=== PATIENT | female | born 1945 | race Caucasian/White ===

== ENCOUNTER 2022-12-05 07:50 | Outpatient (OUT) | payer MEDICARE, SELFPAY ==
--- NOTE | 2022-12-05 07:53 | MM_ITS ---
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 MG MAMM SCREEN 3D CANDACE CAD, 10/26/2020. MG MAMM SCREEN CANDACE W CAD, 10/15/2019. MG MAMM CANDACE SCRN W CAD DIG, 03/20/2014. INDICATIONS: Screening Calculator Name NCI Breast Cancer Risk Assessment Tool 5 Year Breast Cancer Risk 1.60% Lifetime Breast Cancer Risk 3.40% Personal Breast Cancer No Personal Ovarian Cancer No Treatments None Family Cancers None LOCATION: [facility] BREAST COMPOSITION: Almost entirely fatty. FINDINGS: DIAGNOSTIC CATEGORY 1--NEGATIVE. RIGHT BREAST: No significant suspicious finding. No significant change has occurred. LEFT BREAST: No significant suspicious finding. No significant change has occurred. RECOMMENDATIONS: ROUTINE MAMMOGRAM AND CLINICAL EVALUATION IN 12 MONTHS. PLEASE NOTE: A NORMAL MAMMOGRAM DOES NOT EXCLUDE THE POSSIBILITY OF BREAST CANCER. A CLINICALLY SUSPICIOUS PALPABLE LUMP SHOULD BE BIOPSIED. Dictated by: Reed Davila M.D. on 12/07/2022 at 08:35 Approved by: Reed Davila M.D. on 12/07/2022 at 08:40
== END 2022-12-05 07:51 | disposition home or self-care (01) ==
LOC: MAMMO 07:50
PROVIDERS: PCP Nurse Practitioner; Visit Provider Nurse Practitioner
DX: Z12.31 Encounter for screening mammogram for malignant neoplasm of breast (principal)
CPT/HCPCS: 77063; 77067

== ENCOUNTER 2023-02-08 21:00 | Outpatient (OUT) | payer MEDICARE, SELFPAY | END 2023-02-08 21:01 | disposition home or self-care (01) | LOC: SLEEP 21:01 | PROVIDERS: PCP Nurse Practitioner; Visit Provider Nurse Practitioner | DX: G47.33 Obstructive sleep apnea (adult) (pediatric) (principal) | CPT/HCPCS: 95811 ==

== ENCOUNTER 2023-02-27 08:44 | Outpatient (OUT) | payer MEDICARE, SELFPAY ==
[2023-02-27 09:15] LABS: Estimated GFR (African America >60 (>=60); Estimated GFR (Non-African Ame >60 (>=60)
== END 2023-02-27 08:45 | disposition home or self-care (01) ==
LOC: LAB 08:45
PROVIDERS: PCP Nurse Practitioner; Visit Provider Nurse Practitioner
DX: M81.0 Age-related osteoporosis without current pathological fracture (principal)
CPT/HCPCS: 36415; 82310; 82565

== ENCOUNTER 2023-03-06 07:40 | Outpatient (RCR) | payer MEDICARE, SELFPAY ==
[2023-03-06] MEDS: ZOLEDRONIC ACID/MANNITOL-WATER 5 MG/100 ML BOTTLE 200 MG IV (09:42)
[2023-03-06 09:47] VITALS: BP 198/67; PULSE 60; RESP 16; TEMP 36; O2SAT 98
--- NOTE | 2023-03-06 09:50 | PC.NURSE ---
0930: Pt. to [facility] amb. per self. Seated in recliner, vss. #22 gauge IV to right forearm on first attempt. Flushes easily with good blood return. Pt. tolerates without c/o. IV Reclast initiated. Given water and warm blanket.
--- NOTE | 2023-03-06 10:33 | PC.NURSE ---
1012: IV Reclast completed without s&s of transfusion reaction. IV d/c'd, pressure to site. Pt. d/c'd amb. to home.
== END 2023-03-30 23:59 | disposition home or self-care (01) ==
LOC: INF 07:40
PROVIDERS: PCP Nurse Practitioner; Visit Provider Nurse Practitioner
DX: M81.0 Age-related osteoporosis without current pathological fracture (principal)
CPT/HCPCS: 96365; J3489

== ENCOUNTER 2023-09-12 09:09 | Outpatient (OUT) | payer MEDICARE, SELFPAY ==
[2023-09-12 09:24] LABS: Basophils Absolute Auto 0.1 10^3/uL (0.0-0.1); Basophils Percent Auto 1.4 % (0.2-2.0); Eosinophils Absolute Auto 0.1 10^3/uL (0.0-0.7); Eosinophils Percent Auto 2.2 % (0.9-7.0); Hematocrit 41.5 % (36.0-48.0); Hemoglobin 13.4 g/dL (12.0-16.0); Immature Granulocytes Abs Auto 0.02 10^3/uL (0.00-0.03); Immature Granulocytes Pct Auto 0.4 % (0.0-0.5); Lymphocytes Absolute Auto 1.3 10^3/uL (1.2-3.8); Lymphocytes Percent Auto 27.2 % (20.5-60.0); Mean Corpuscular HGB Conc 32.3 g/dL (29.9-35.2); Mean Corpuscular Hemoglobin 29.2 pg (26.7-34.0); Mean Corpuscular Volume 90.4 fL (81.0-99.0); Mean Platelet Volume 9.1 fL (9.5-13.5); Monocytes Absolute Auto 0.5 10^3/uL (0.3-0.8); Neutrophils Absolute Auto 2.9 10^3/uL (1.4-6.5); Neutrophils Percent Auto 57.8 % (43.0-75.0); Platelet Count 211 10^3/uL (150-450); Red Blood Count 4.59 10^6/uL (4.20-5.40); White Blood Count 4.9 10^3/uL (4.0-11.0)
[2023-09-12 09:26] LABS: Bilirubin Urine NEGATIVE (NEGATIVE); Blood Urine NEGATIVE (NEGATIVE); Clarity Urine CLEAR (CLEAR); Color Urine LT. YELLOW (YELLOW); Glucose Urine UA NEGATIVE (NEGATIVE); Ketones Urine NEGATIVE (NEGATIVE); Leukocyte Esterase Urine SMALL (NEGATIVE); Nitrite Urine NEGATIVE (NEGATIVE); Protein Urine NEGATIVE (NEG/TRACE); Urobilinogen Urine 0.2 EU/dL (0.2-1.0); pH Urine 7.5 (5.0-9.0)
--- OUTSIDE RECORDS SUMMARY | 2023-09-12 09:31 | XMS_ITS | CCD ---
Author Organization [facility] Care Team Providers Care Credit Card Clerk Name Role Phone Beatricekes, BASIL Pacheco Attending Unavai lable [facility] BRA[facility]ING MACHINE TENDER-[employer], Alisha Benítez Primary Care Unava ilable Ickes, BASIL Pacheco Attending Unavai lable Aicholz BRAZING MACHINE TENDER-[employer], Alisha Benítez Primary Care Unava ilable Ickes, BASIL Pacheco Attending [facility]avai [facility]able [facility]ACHINE TENDER-[employer], Alisha Benítez Primary Care Unava ilable Ickes, BASIL Pacheco Attending Unavai lable Aichholz BRAZING MACHINE TENDER-[employer], Alisha Benítez Primary Care Unava ilable Ickes, BASIL Pacheco Attending Unavai lable Aicholz BRAZING MACHINE TENDER-[employer], Alisha Benítez Primary Care Unava ilable Ickes, BASIL Pacheco Attending Unavai lable [facility] BRAZING MACHINE TENDER-[employer], Alisha Benítez Primary Care Unava ilable Ickes, BASIL Pacheco Attending Unavai lable Aicholz BRAZING MACHINE TENDER-[employer], Alisha Benítez Primary Care Unava ilable Ickes, BASIL Pacheco Attending Unavai lable [facility] BRAZING MACHINE TENDER-[employer], Alisha Benítez Primary Care Unava ilMD Facundo Baeza Attending [facility]INE TENDER-[employer], Alisha Benítez Primary Care Unava ilable Ickes, BASIL Pacheco Attending Unavai lable [facility] BRAZING MACHINE TENDER-[employer], Alisha Benítez Primary Care Unava ilable [facility] B[facility] MACHINE TENDER-[employer] AND [employer]ATER, Alisha Benítez Consulting Unava ilMD Facundo Baeza Attending [facility], Alisha Jackelin Primary Care Unava ilable A[facility]hol[facility] BRAZING MACHINE TENDER-[employer], Alisha Jackelin Consulting Unava ilMD Radha Morejon Consulting Unavailable MD Facundo Branham Attending Unavailable A[facility]holz BRAZING MACHINE TENDER-[employer], Alisha Jackelin Primary Care Unava ilable Ickes, BASIL Pacheco Attending Unavai lable A[facility]holz BRAZING MACHINE TENDER-[employer], Alisha Jackelin Consulting Unava ilable A[facility]holz BRAZING MACHINE TENDER-[employer], Alisha Jackelin Primary Care Unava ilable Ickes, BASIL Pacheco Attending Unavai lable [facility] BRAZING MACHINE TENDER-[employer], Alisha Jackelin Primary Care Unava ilable Beatricekes, BASIL Pacheco Attending Unavai lable [facility] BRAZING MACHINE TENDER-[facility], Alisha Jackelin Primary Care Unava ilable ELIESER QUIROS Admitting Unavailable ELIESER QUIROS Attending Unavailable ELIESER QUIROS Referring Unavailable AICHHOLZ, GRINDER AND PLATER ALISHA Admitting Unavailable AICHHOLZ, GRINDER AND PLATER ALISHA Attending Unavailable AICHHOLZ, GRINDER AND PLATER ALISHA Consulting Unavailable AICHHOLZ, GRINDER AND PLATER ALISHA Primary Care Unavailable Reed Davila Consulting Unavailable AICHHOLZ, GRINDER AND PLATER ALISHA Admitting Unavailable AICHHOLZ, GRINDER AND PLATER ALISHA Attending Unavailable AICHHOLZ, GRINDER AND PLATER ALISHA Consulting Unavailable AICHHOLZ, GRINDER AND PLATER ALISHA Primary Care Unavailable Reed Davila Consulting Unavailable AICHHOLZ, GRINDER AND PLATER ALISHA Admitting Unavailable AICHHOLZ, GRINDER AND PLATER ALISHA Attending Unavailable AICHHOLZ, GRINDER AND PLATER ALISHA Consulting Unavailable AICHHOLZ, GRINDER AND PLATER ALISHA Primary Care Unavailable AICHHOLZ, GRINDER AND PLATER ALISHA Admitting Unavailable AICHHOLZ, GRINDER AND PLATER ALISHA Attending Unavailable AICHHOLZ, GRINDER AND PLATER ALISHA Consulting Unavailable AICHHOLZ, GRINDER AND PLATER ALISHA Primary Care Unavailable AICHHOLZ, ALISHA J Referring Unavailable AICHHOLZ, ALISHA J Primary Care Unavailable Aichholz GRINDER AND PLATER, Alisha Primary Care Provider [phone] ALISHA ERNST Primary Care Unavailable EUNICE LUNA Referring Unavailable EUNICE LUNA Attending Unavailable Hernando GENAO, Clarence Waite Primary Care Provider Klever LIME SLAKER, Alisha Unavailable ALISHA ERNST Attending Unavailable TARA JIMÉNEZ Attending Unavailable TARA JIMÉNEZ Referring Unavailable DAJA VARGAS Attending Unavailable TARA JIMÉNEZ Referring Unavailable BELKYS VINCENT Attending Unavailable TARA JIMÉNEZ Referring Unavailable BELKYS VINCENT Attending Unavailable TARA JIMÉNEZ Referring Unavailable BELKYS VINCENT Attending Unavailable TARA JIMÉNEZ Referring Unavailable BELKYS VINCENT Attending Unavailable TARA JIMÉNEZ Referring Unavailable TARA JIMÉNEZ Attending Unavailable TARA JIMÉNEZ Referring Unavailable JR. GONSALEZ GEORGE C Attending Unavaila ALISHA Hale Attending Unavailable Allergies Allergy Classification Reported Allergen(s) Allergy Type Date of Onset Reaction(s) Facility (4 sources) Lisinopril; Translations: [lisinopril] Drug Allergy 11-21-2022 [facility] Medications Current Medications Medication Drug Class(es) Dates Sig (Normalized) Sig (Original) amLODIPine 2.5 mg oral tablet (1 source) Dihydropyridine Calcium Channel Miriam take 1 tablet by mouth once daily amLODIPine 2.5 MG tablet Take 1 tablet by mouth daily. 0 Active AMLODIPINE BENZOATE PO (2 sources) AMLODIPINE BENZOATE PO amLODIPine Benzoate 0 Active brimonidine tartrate 2 mg/ml ophthalmic solution (1 source) alpha-Adrenergic Agonist Start: 03-27-2023 take 1 drop(s) into the eye(s) every twelve hours Brimonidine 0.2 % Solution INSTILL 1 DROP INTO BOTH EYES EVERY 12 HOURS 0 03/27/2023 Active Calcium Carb-Cholecalcifer ol (CALCIUM 600 + D PO) (1 source) take 1 tablet by mouth once daily Calcium Carb-Cholecalcife rol (CALCIUM 600 + D PO) Take 1 tablet by mouth daily. 0 Active dorzolamide 20 mg/ml ophthalmic solution (3 sources) Carbonic Anhydrase Inhibitor dorzolamide (Trusopt) 2 % ophthalmic solution Dorzolamide HCl 0 Active latanoprost 0.05 mg/ml ophthalmic solution (3 sources) Prostaglandin Analog Start: 09-02-2022 take 1 drop(s) into the eye(s) once daily at bedtime latanoprost (Xalatan) 0.005 % ophthalmic solution INSTILL 1 DROP IN EACH EYE EVERY DAY AT BEDTIME 0 09/02/2022 Active losartan potassium 100 mg oral tablet (3 sources) Angiotensin 2 Receptor Miriam take 1 tablet by mouth in the morning losartan (Cozaar) 100 MG tablet Take 100 mg by mouth in the morning. 0 Active Magnesium (1 source) take 1 tablet by mouth once daily Magnesium 400 MG tablet Take 1 tablet by mouth daily. 0 Active Problems Active Problems Problem Classification Problem Date Documented Date Episodic/Chronic Administrative/social admission (1 source) Follow-up status; Translations: [Person consulting for explanation of examination or test findings] 05-19-2023 Episodic Cardiac dysrhythmias (4 sources) Bradycardia; Translations: [Bradycardia, unspecified] Onset: 06-12-2023 06-12-2023 Episodic Disorders of lipid metabolism (4 sources) Hyperlipidemia, unspecified; Translations: [HYPERLIPIDEMIA UNSPECIFIED] Onset: 09-05-2022 Chronic Essential hypertension (5 sources) Essential (primary) hypertension; Translations: [Essential hypertension] Onset: 09-08-2022 06-12-2023 Chronic Osteoporosis (5 sources) Age-related osteoporosis without current pathological fracture; Translations: [AGE-REL OSTEOPOR W/O CURR PATH FX] Onset: 03-03-2022 Chronic Other acquired deformities (2 sources) Spondylolisthesis; Translations: [Spondylolisthesis, site unspecified] Onset: 06-12-2023 06-12-2023 Episodic Other fractures (1 source) Unspecified fracture of fourth lumbar vertebra, initial encounter for closed fracture; Translations: [Unspecified fracture of fourth lumbar vertebra, initial encounter for closed fracture] Onset: 02-23-2022 Episodic Other non-traumatic joint disorders (4 sources) Pain in right knee; Translations: [Pain in joint, lower leg] Onset: 06-12-2023 06-12-2023 Episodic Other non-traumatic joint disorders (4 sources) Chronic pain of right upper limb; Translations: [Pain in right shoulder] Onset: 06-12-2023 06-12-2023 Episodic Other nutritional; endocrine; and metabolic disorders (1 source) Obese class I; Translations: [Obesity, unspecified] Onset: 05-19-2023 05-19-2023 Chronic Other nutritional; endocrine; and metabolic disorders (4 sources) Body mass index 30+ - obesity; Translations: [Body mass index (BMI) 32.0-32.9, adult] Onset: 06-12-2023 06-12-2023 Chronic Other skin disorders (4 sources) Eruption; Translations: [Rash and other nonspecific skin eruption] Onset: 06-12-2023 06-12-2023 Episodic Residual codes; unclassified (1 source) Obstructive sleep apnea (adult) (pediatric); Translations: [Obstructive sleep apnea (adult) (pediatric)] Onset: 04-03-2023 Chronic Residual codes; unclassified (1 source) Obstructive sleep apnea syndrome; Translations: [Obstructive sleep apnea (adult) (pediatric)] 05-19-2023 Chronic Residual codes; unclassified (1 source) Hypoxia; 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] 05-19-2023 Chronic Residual codes; unclassified (2 sources) Sleep apnea; Translations: [Sleep Apnea] Onset: 05-19-2023 Chronic Unclassified (2 sources) New Patient; Translations: [New Patient] Onset: 05-19-2023 Past or Other Problems Problem Classification Problem Date Documented Date Episodic/Chronic Mycoses (2 sources) Onychomycosis; Translations: [Tinea unguium] Onset: 11-21-2022 11-21-2022 Episodic Other screening for suspected conditions (not mental disorders or infectious disease) (8 sources) Encounter for screening mammogram for malignant neoplasm of breast; Translations: [Abnormal electrocardiogram [ECG] [EKG]] Onset: 10-11-2021 Episodic Pathological fracture (3 sources) Age-related osteoporosis with current pathological fracture, vertebra(e), initial encounter for fracture; Translations: [Pathological fracture of vertebra due to osteoporosis] Onset: 02-23-2022 06-12-2023 Episodic Results Test Name Value Interpretation Reference Range Facility MR SHOULDER RIGHT WO IV CONT [facility] 07-20-2023 MR SHOULDER RIGHT WO IV CONTRAST EXAM: MR SHOULDER RIGHT WO IV CONTRAST HISTORY: Shoulder pain and decreased range of motion TECHNIQUE: Multiplanar multisequence MRI of the shoulder was performed Without contrast. COMPARISON: Shoulder radiographs June 19, 2023 FINDINGS: Moderate degenerative changes of the acromioclavicular joint with small undersurface osteophyte formation. Lateral downsloping of the acromion. The acromion is curved. Coracoclavicular ligament intact. Small amount of subacromial/subdeltoid bursal fluid. Full-thickness tear of distal anterior and mid fibers of supraspinatus tendon at the footprint with retraction of torn fibers up to approximately 3.2 cm. Posterior fibers appear to remain intact. Low-grade intrasubstance tear along the myotendinous junction of infraspinatus superimposed on moderate tendinosis. Moderate subscapularis tendinosis. Teres minor tendon is intact. Mild atrophy and fatty infiltration of infraspinatus muscle. No atrophy or fatty infiltration of the supraspinatus, subscapularis, or teres minor muscles. High-grade partial-thickness tearing of the intra-articular and proximal extra-articular long head biceps tendon. The biceps tendon resides within the bicipital groove. Diffuse labral degeneration without definitive tear. There are a few tiny partial-thickness cartilage defects of the glenoid. Small glenohumeral joint effusion with areas of synovitis and/or tiny loose bodies within the axillary recess. IMPRESSION: Full-thickness tear of distal anterior and mid fibers of supraspinatus tendon at the footprint. Low-grade intrasubstance tear along the myotendinous junction of infraspinatus superimposed on moderate tendinosis. Mild atrophy and fatty infiltration of infraspinatus muscle. Moderate subscapularis tendinosis. Tearing of the long head biceps tendon. ELECTRONICALLY SIGNED BY: Facundo Lowe, DO Normal Not Available CBC AUTO DIFFon 09-05-2022 BASO # 0.1 103/ul Normal 0.0-0.1 [facility] Comment on above: Performed By: #### C BC #### [facility] [address] [address] [address] Sheila Alford Basophils/100 WBC (Bld) 0.9 % Normal 0.2-2.0 [facility] Comment on above: Performed By: #### C BC #### [facility] [address] [address] [address] Sheila Alford EO # 0.1 103/ul Normal 0.0-0.7 [facility] Comment on above: Performed By: #### C BC #### [facility] [address] [address] [address] Sheila Alford Eosinophils/100 WBC (Bld) 1.5 % Normal 0.9-7.0 [facility] Comment on above: Performed By: #### C BC #### [facility] [address] [place] [address] Dr. Sheila Alford Erythrocyte distribution width (RBC) [Ratio] 13.2 % Normal 11.0-15.0 [facility] Comment on above: Performed By: #### C BC #### [facility] [address] [place] [address] Dr. Sheila Alford Hematocrit (Bld) [Volume fraction] 41.4 % Normal 36.0-48.0 [facility] Comment on above: Performed By: #### C BC #### [facility] [address] [place] [address] Dr. Sheila Alford Hemoglobin (Bld) [Mass/Vol] 13.2 g/dL Normal 12.0-16.0 [facility] Comment on above: Performed By: #### C BC #### [facility] [address] [place] [address] Dr. Sheila Alford IG # 0.01 10e3/ul Normal 0.00-0.03 [facility] Comment on above: Performed By: #### C BC #### [facility] [address] [place] [address] Dr. Sheila Alford IG % 0.2 % Normal 0.0-0.5 [facility] Comment on above: Performed By: #### C BC #### [facility] [address] [place] [address] Dr. Sheila Alford LYMPH # 1.3 103/ul Normal 1.2-3.8 [facility] Comment on above: Performed By: #### C BC #### [facility] [address] [place] [address] Dr. Sheila Alford Lymphocytes/100 WBC (Bld) 24.4 % Normal 20.5-60.0 [facility] Comment on above: Performed By: #### C BC #### [facility] [address] [place] [address] Dr. Sheila Alford MANUAL DIFF REQ NO Normal [facility] Comment on above: Performed By: #### C BC #### [facility] [address] [address] [address] Sheila Alford MCH (RBC) [Entitic mass] 29.1 pg Normal 26.7-34.0 [facility] Comment on above: Performed By: #### C BC #### [facility] [address] [place] [address] Dr. Sheila Alford MCHC (RBC) [Mass/Vol] 31.9 g/dL Normal 29.9-35.2 [facility] Comment on above: Performed By: #### C BC #### [facility] [address] [place] [address] Dr. Sheila Alford MCV (RBC) [Entitic vol] 91.2 fL Normal 81.0-99.0 [facility] Comment on above: Performed By: #### C BC #### [facility] [address] [place] [address] Dr. Sheila Alford MONO # 0.5 103/ul Normal 0.3-0.8 [facility] Comment on above: Performed By: #### C BC #### [facility] [address] [place] [address] Dr. Sheila Alford Monocytes/100 WBC (Bld) 9.1 % Normal 1.7-12.0 [facility] Comment on above: Performed By: #### C BC #### [facility] [address] [place] [address] Dr. Sheila Alford NEUT # 3.4 103/ul Normal 1.4-6.5 [facility] Comment on above: Performed By: #### C BC #### [facility] [address] [place] [address] Dr. Sheila Alford Neutrophils/100 WBC (Bld) 63.9 % Normal 43.0-75.0 [facility] Comment on above: Performed By: #### C BC #### [facility] [address] [place] [address] Dr. Sheila Alford Platelet mean volume (Bld) [Entitic vol] 9.4 fL Critically low 9.5-13.5 [facility] Comment on above: Performed By: #### C BC #### [facility] [address] [address] [address] Sheila Alford PLT 219 103/ul Normal 150-450 [facility] Comment on above: Performed By: #### C BC #### [facility] [address] [address] [address] Sheila Alford RBC 4.54 106/ul Normal 4.20-5.40 [facility] Comment on above: Performed By: #### C BC #### [facility] [address] [address] [address] Sheila Alford WBC 5.4 103/ul Normal 4.0-11.0 [facility] Comment on above: Performed By: #### C BC #### [facility] [address] [place] [address] Dr. Sheila Alford LIPID PROFILEon 09-05-2022 CHOL-HDL RATIO NORM SEE BELOW Normal [facility] Comment on above: Result Comment: 3.3 - 4.4 LOW RISK 4.4 - 7.1 AVERAGE RISK 7.1 - 11.0 MODERATE RISK >11.0 HIGH RISK Performed By: #### C MP, LIPID #### [facility] [address] [place] [address] Dr. Sheila Alford Cholesterol [Mass/Vol] 261 mg/dL Critically high <=200 [facility] Comment on above: Performed By: #### C MP, LIPID #### [facility] [address] [place] [address] Dr. Sheila Alford Cholesterol in HDL [Mass/Vol] 84 mg/dL Critically high 40-60 [facility] Comment on above: Performed By: #### C MP, LIPID #### [facility] [address] [place] [address] Dr. Sheila Alford Cholesterol in LDL [Mass/Vol] 157.8 mg/dL Normal [facility] Comment on above: Performed By: #### C MP, LIPID #### [facility] [address] [place] [address] Dr. Sheila Alford Cholesterol.total/ Cholesterol in HDL [Mass ratio] 3.1 {ratio} Normal [facility] Comment on above: Performed By: #### C MP, LIPID #### [facility] [address] [place] [address] Dr. Sheila Alford HDL NORMAL > or = 60 mg/dl - LO W CARDIOVASCULAR RISK <40 mg/dl - HIGH CARDIOVASCULAR RISK Normal [facility] Comment on above: Performed By: #### C MP, LIPID #### [facility] [address] [place] [address] Dr. Sheila Alford LDL CALC NORMAL SEE BELOW Normal [facility] Comment on above: Result Comment: <100 mg/dl OPTIMAL 100 - 129 mg/dl NEAR OR ABOVE OPTIMAL 130 - 159 mg/dl BORDERLINE HIGH 160 - 189 mg/dl HIGH >190 mg/dl VERY HIGH Performed By: #### C MP, LIPID #### [facility] [address] [place] [address] Dr. Sheila Alford Triglyceride [Mass/Vol] 96 mg/dL Normal <=150 [facility] Comment on above: Performed By: #### C MP, LIPID #### [facility] [address] [place] [address] Dr. Sheila Alford VLDL CALC 19.2 mg/dL Normal [facility] Comment on above: Performed By: #### C MP, LIPID #### [facility] [address] [place] [address] Dr. Sheila Alford PROF 14(COMP METB)on 023 Albumin [Mass/Vol] 3.6 g/dL Normal 3.4-5.0 [facility] Comment on above: Performed By: #### C MP, LIPID #### [facility] [address] [place] [address] Dr. Sheila Alford Albumin/Globulin [Mass ratio] 0.9 {ratio} Normal [facility] Comment on above: Performed By: #### C MP, LIPID #### [facility] [address] [place] [address] Dr. Sheila Alford ALP [Catalytic activity/Vol] 46 U/L Normal 46-116 [facility] Comment on above: Performed By: #### C MP, LIPID #### [facility] [address] [place] [address] Dr. Sheila Alford ALT [Catalytic activity/Vol] 20 U/L Normal 14-59 [facility] Comment on above: Performed By: #### C MP, LIPID #### [facility] [address] [address] [address] Sheila Alford Anion gap [Moles/Vol] 10.8 mmol/L Normal [facility] Comment on above: Performed By: #### C MP, LIPID #### [facility] [address] [address] [address] Sheila Alford AST [Catalytic activity/Vol] 18 U/L Normal 15-37 [facility] Comment on above: Performed By: #### C MP, LIPID #### [facility] [address] [address] [address] Sheila Alford Bilirubin [Mass/Vol] 0.4 mg/dL Normal 0.2-1.0 [facility] Comment on above: Performed By: #### C MP, LIPID #### [facility] [address] [place] [address] Dr. Sheila Alford Calcium [Mass/Vol] 9.3 mg/dL Normal 8.5-10.1 [facility] Comment on above: Performed By: #### C MP, LIPID #### [facility] [address] [place] [address] Dr. Sheila Alford Chloride [Moles/Vol] 108 mmol/L Critically high 98-107 [facility] Comment on above: Performed By: #### C MP, LIPID #### [facility] [address] [place] [address] Dr. Sheila Alford CO2 [Moles/Vol] 29.5 mmol/L Normal 21.0-32.0 [facility] Comment on above: Performed By: #### C MP, LIPID #### [facility] [address] [address] [address] Sheila Alford Creatinine [Mass/Vol] 0.54 mg/dL Critically low 0.55-1.02 [facility] Comment on above: Performed By: #### C MP, LIPID #### [facility] [address] [address] [address] Sheila Alford EGFR-AF CITIZEN OF [place] >60 Normal >=60 [facility] Comment on above: Performed By: #### C MP, LIPID #### [facility] [address] [address] [address] Sheila Alford EGFR-NON AF CITIZEN OF [place] >60 Normal >=60 [facility] Comment on above: Performed By: #### C MP, LIPID #### [facility] [address] [address] [address] Sheila Alford Globulin (S) [Mass/Vol] 4.1 g/dL Normal [facility] Comment on above: Performed By: #### C MP, LIPID #### [facility] [address] [place] [address] Dr. Sheila Alford Glucose [Mass/Vol] 102 mg/dL Normal 74-106 [facility] Comment on above: Performed By: #### C MP, LIPID #### [facility] [address] [address] [address] Sheila Alford Potassium [Moles/Vol] 4.3 mmol/L Normal 3.5-5.1 [facility] Comment on above: Performed By: #### C MP, LIPID #### [facility] [address] [place] [address] Dr. Sheila Alford Protein [Mass/Vol] 7.7 g/dL Normal 6.4-8.2 [facility] Comment on above: Performed By: #### C MP, LIPID #### [facility] [address] [address] [address] Sheila Alford Sodium [Moles/Vol] 144 mmol/L Normal 136-145 [facility] Comment on above: Performed By: #### C MP, LIPID #### [facility] [address] [place] [address] Dr. Sheila Alford Urea nitrogen [Mass/Vol] 17.0 mg/dL Normal 7.0-18.0 [facility] Comment on above: Performed By: #### C MP, LIPID #### [facility] [address] [place] [address] Dr. Sheila Alford Urea nitrogen/Creatinin e [Mass ratio] 31.5 mg/mg Normal [facility] Comment on above: Performed By: #### C MP, LIPID #### [facility] [address] [place] [address] Dr. Sheila Alford UA RANDOM W/MICROSCOPICon BACTERIA TRACE Abnormal NONE SEEN [facility] Comment on above: Performed By: #### U AMIC #### [facility] [address] [address] [address] Sheila Alford Bilirubin Ql (U) Negative Normal NEGATIVE [facility] Comment on above: Performed By: #### U AMIC #### [facility] [address] [place] [address] Dr. Sheila Alford CAST NONE SEEN Normal NONE SEEN [facility] Comment on above: Performed By: #### U AMIC #### [facility] [address] [place] [address] Dr. Sheila Alford Clarity (U) CLEAR Normal CLEAR [facility] Comment on above: Performed By: #### U AMIC #### [facility] [address] [place] [address] Dr. Sheila Alford Color (U) LT. YELLOW Normal YELLOW [facility] Comment on above: Performed By: #### U AMIC #### [facility] [address] [place] [address] Dr. Sheila Alford Crystals LM Nom (Urine sed) NONE SEEN Normal NONE SEEN [facility] Comment on above: Performed By: #### U AMIC #### [facility] [address] [place] [address] Dr. Sheila Alford Epithelial cells LM Ql (Urine sed) RARE Normal NONE SEEN /RARE [facility] [facility] Comment on above: Performed By: #### U AMIC #### [facility] [address] [place] [address] Dr. Sheila Alford Glucose Ql (U) Negative Normal NEGATIVE [facility] Comment on above: Performed By: #### U AMIC #### [facility] [address] [place] [address] Dr. Sheila Alford Hemoglobin Ql (U) Negative Normal NEGATIVE [facility] Comment on above: Performed By: #### U AMIC #### [facility] [address] [address] [address] Sheila Alford Ketones Ql (U) Negative Normal NEGATIVE [facility] Comment on above: Performed By: #### U AMIC #### [facility] [address] [address] [address] Sheila Alford LEUKOCYTES Negative Normal NEGATIVE [facility] Comment on above: Performed By: #### U AMIC #### [facility] [address] [address] [address] Sheila Alford MUCOUS NONE SEEN Normal NONE SEEN [facility] Comment on above: Performed By: #### U AMIC #### [facility] [address] [place] [address] Dr. Sheila Alford Nitrite Ql (U) Negative Normal NEGATIVE [facility] Comment on above: Performed By: #### U AMIC #### [facility] [address] [place] [address] Dr. Sheila Alford pH (U) 7.0 [pH] Normal 5-9 [facility] Comment on above: Performed By: #### U AMIC #### [facility] [address] [place] [address] Dr. Sheila Alford RBC 0-2 Normal 0-2 [facility] Comment on above: Performed By: #### U AMIC #### [facility] [address] [place] [address] Dr. Sheila Alford SPEC GRAVITY 1.015 Normal 1.005-<=1.025 [facility] Comment on above: Performed By: #### U AMIC #### [facility] [address] [address] [address] Sheila Alford UA PROTEIN Negative Normal NEGATIVE/ TRACE [facility] Comment on above: Performed By: #### U AMIC #### [facility] [address] [place] [address] Dr. Sheila Alford Urobilinogen Qn (U) 0.2 {Ciera'U}/dL Normal 0.2 - 1.0 [facility] Comment on above: Performed By: #### U AMIC #### [facility] [address] [place] [address] Dr. Sheila Alford WBC NONE SEEN Normal NONE SEEN [facility] Comment on above: Performed By: #### U AMIC #### [facility] [address] [place] [address] Dr. Sheila Alford VITAMIN D 25 OHon 09-05-2022 VIT D 25-OH 57.2 ng/mL Normal [facility] Comment on above: Performed By: #### V ITAD #### [facility] [address] [address] [address] Sheila Alford VIT D RANGES SEE BELOW Normal [facility] Comment on above: Result Comment: <20 ng/mL Vit D deficient 20 - <30 ng/mL Vit D insufficient 30 - 100 ng/mL Vit D sufficient >100 ng/mL Potential Toxicity Performed By: #### V ITAD #### [facility] [address] [place] [address] Dr. Sheila lAford PROF CHEM 8 (BAS METB)on Anion gap [Moles/Vol] 6.4 mmol/L Normal [facility] Comment on above: Performed By: #### B MP #### [facility] [address] [place] [address] Dr. Sheila Alford Calcium [Mass/Vol] 9.3 mg/dL Normal 8.5-10.1 [facility] Comment on above: Performed By: #### B MP #### [facility] [address] [place] [address] Dr. Sheila Alford Chloride [Moles/Vol] 105 mmol/L Normal 98-107 [facility] Comment on above: Performed By: #### B MP #### [facility] [address] [place] [address] Dr. Sheila Alford CO2 [Moles/Vol] 31.1 mmol/L Normal 21.0-32.0 [facility] Comment on above: Performed By: #### B MP #### [facility] [address] [address] [address] Sheila Alford Creatinine [Mass/Vol] 0.57 mg/dL Normal 0.55-1.02 [facility] Comment on above: Performed By: #### B MP #### [facility] [address] [place] [address] Dr. Sheila Alford EGFR-AF CITIZEN OF [place] >60 Normal >=60 [facility] Comment on above: Performed By: #### B MP #### [facility] [address] [address] [address] Sheila Alford EGFR-NON AF CITIZEN OF [place] >60 Normal >=60 [facility] Comment on above: Performed By: #### B MP #### [facility] [address] [address] [address] Sheila Alford Glucose [Mass/Vol] 90 mg/dL Normal 74-106 [facility] Comment on above: Performed By: #### B MP #### [facility] [address] [place] [address] Dr. Sheila Alford Potassium [Moles/Vol] 4.5 mmol/L Normal 3.5-5.1 [facility] Comment on above: Performed By: #### B MP #### [facility] [address] [place] [address] Dr. Sheila Alford Sodium [Moles/Vol] 138 mmol/L Normal 136-145 [facility] Comment on above: Performed By: #### B MP #### [facility] [address] [place] [address] Dr. Sheila Alford Urea nitrogen [Mass/Vol] 16.0 mg/dL Normal 7.0-18.0 [facility] Comment on above: Performed By: #### B MP #### [facility] [address] [place] [address] Dr. Sheila Alford Urea nitrogen/Creatinin e [Mass ratio] 28.1 mg/mg Normal [facility] Comment on above: Performed By: #### B MP #### [facility] [address] [place] [address] Dr. Sheila Alford SURGICALon 02-23-2022 SURGICAL [facility] CHRISTIE WATERMAN [id number] Assoc. Page 1 of [address] [place] [address] PROC: 02/23/2022 [facility] RECV: 02/24/2022 [address] RPTD: 02/25/2022 [place] [address] LOC: ALBERTO ACCT: [id number] SEX: F : 1945 AGE: 76 Y PATHOLOGY REPORT ATTN: NON-STAFF PHYSICIAN REQ: ELIESER QUIROS Clinical Information: CRUSH FRACTURE OF VERTEBRA DUE TO OSTEOPOROSIS INITIAL ENCOUNTER FINAL DIAGNOSIS: Bone, L4 vertebral body, biopsy: Findings consistent with fracture site. Specimen: BONE, L4 VERTEBRAL BODY Gross Examination: The container is labeled Christie Waterman, L4 vertebral body. Received in formalin are three bone fragments, vary in size from 0.2 cm up to 0.8 cm in length. 1 ns. MTK/DKR:v_alppl_i Microscopic Examination: Sections demonstrate portions of fragmented and hemorrhagic bone with unremarkable appearing marrow elements. There is a small amount of fibrosis. An immunoperoxidase stain* for pancytokeratin is performed with adequate controls to exclude a subtle infiltrative process. There is no evidence of malignancy. *This test was developed and its performance characteristics determined by [facility]. It has not been cleared or approved by the U.S. Food and Drug Administration. Pursuant to the requirements of CLIA, this laboratory has established and verified the test's accuracy and precision. Additional information about this type of test is available upon request. [id number] MIMI FERRO D.O., F.C.A.P. [facility]/ [facility] Printed on: 02/25/2022 [address] [place], [place] [address] Original print date: 02/25/2022 Normal [facility] Surgical Pathology Requeston 02-23-2022 ALEX SEE BELOW [facility] Comment on above: Order Comment: Crush fracture of vertebra due to osteoporosis, initial encounter ([facility]) [M80.08XA] Pre-op diagnosis: L4 VERTEBRAL BODY Result Comment: [facility] SARAHCHRISTIE EDWARD [id number]\X0D0A\Assoc. Page 1 of 1\X0D0A\[address]\X0D0A\[place] [address]\X0D0A\ PROC: 02/23/2022\X0D0A\[facility] RECV: 02/24/2022\X0D0A\[address] RPTD: 02/25/2022\[place]0D0A\[place] [address]\X0D0A\ LOC: WYA\X0D0A\ ACCT: [id number] SEX: F\X0D0A\ : 1945 AGE: 76 Y\X0D0A\X0D0A\ PATHOLOGY REPORT\X0D0A\ ATTN: NON-STAFF PHYSICIAN\X0D0A\ REQ: ELIESER BAHN\X0D0A\X0D0A\X0D0A\X0D0A\Clinical Information: CRUSH FRACTURE OF VERTEBRA DUE TO OSTEOPOROSIS\X0D0A\INITIAL ENCOUNTER\X0D0A\X0D0A\FINAL DIAGNOSIS:\X0D0A\Bone, L4 vertebral body, biopsy:\X0D0A\ Findings consistent with fracture site.\X0D0A\X0D0A\Specimen:\X0D0A\BONE, L4 VERTEBRAL BODY\X0D0A\X0D0A\X0D0A\Gross Examination:\X0D0A\The container is labeled [facility], L4 vertebral body.\X0D0A\Received in formalin are three bone fragments, vary in size from 0.2 cm\X0D0A\up to 0.8 cm in length. 1 ns. MTK/DKR:v_alppl_i\X0D0A\X0D0A\Microscopic Examination:\X0D0A\Sections demonstrate portions of fragmented and hemorrhagic bone with\X0D0A\unremarkable appearing marrow elements. There is a small amount of\X0D0A\fibrosis. An immunoperoxidase stain* for pancytokeratin is performed\X0D0A\with adequate controls to exclude a subtle infiltrative process. There\X0D0A\is no evidence of malignancy.\X0D0A\X0D0A\*This test was developed and its performance characteristics determined\X0D0A\by [facility]. It has not been cleared or\X0D0A\approved by the U.S. Food and Drug Administration. Pursuant to the\X0D0A\requirements of CLIA, this laboratory has established and verified the\X0D0A\test's accuracy and precision. Additional information about this type\X0D0A\of test is available upon request.\X0D0A\X0D0A\04685\X0D0A\[address]\X0D0A\X0D0A\X0D0A\ \X0D0A\ MIMI Staci FERRO, FLuizCLuizA.P.\X0D0A\X0D0A\X0D0A\[facility]/ [facility] Printed on: 02/25/2022\X0D0A\[address]\X0D0A\[place], [place] [address]\X0D0A\Original print date: 02/25/2022 Performed By: #### 1 [id number] #### [facility] See Report XR Spine Lumbosacral Complet e w/ Bendingon 02-06-2022 XR Spine Lumbosacral Complete w/ Bending CLINICAL HISTORY: Back pain. Previous surgery. EXAMINATION: Flexion, extension and neutral lateral images of the lumbar spine were obtained as well as oblique images and the frontal image. FINDINGS: Evaluation is limited by patient's body habitus and diffuse osseous demineralization. There is no significant scoliosis. There is no acute fracture or dislocation. Vertebral body heights are maintained. There is minimal anterolisthesis of L3 with respect to L4. There is endplate bone spurring and sclerosis throughout the lumbar spine. There is moderate facet arthropathy, greater in the lower lumbar levels. There is no suspicious osseous lesion. There are clips from previous cholecystectomy. There is limited range of motion. There is no dynamic subluxations. SI joints are patent. IMPRESSION: Degenerative change and limited range of motion without acute findings. Final Dictated by: Rm Soto MD Dictated DT/TM: 02/06/2022 3:53 pm Signed by: Rm Soto MD Signed (Electronic Signature): 02/06/2022 3:54 pm (If Report Is Signed, Electronically Signed in Other Vendor System) Normal [facility] Neurosurgery Office/Clinic N yon 02-01-2022 Neurosurgery Office/Clinic Note Chief Complaint Pt. being seen for back. History of Present Illness Patient is a pleasant 76-year-old female with a history of hypertension, glaucoma, impaired fasting glucose, osteopenia (DEXA 09/2020: [facility]), obesity (BMI 34), and successful right L3-4 unilateral laminotomy for bilateral decompression performed 10/22/[address] 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 Patient did well following her previous lumbar surgery with gross resolution in her preoperative pain syndrome and overall status. She completed a course of post operative physical therapy and returned to a moderate geriatric adult lifestyle without difficulty with release to follow up in our clinic on an as needed basis as of 12/24/21. Today, patient states she continued to do well until the abrupt onset onset of her current complaints approximately 4 weeks ago after leaning and reaching to change the bed sheets. She notes minimal improvement since onset. Patient currently describes midline and bilateral inferior lumbosacral pain. She states pain is intermittent and seems predictably worsened with mechanical movement. She currently denies radiation of pain into the lower extremities. She denies numbness or paresthesias in the lower extremities. Patient denies motor weakness in the lower extremities. She is not requiring assistive device with gait and denies falls. She denies bowel/bladder incontinence or saddle paresthesias. Patient denies thoracic pain or thoracic radicular symptoms. She currently rates pain at 4-5/10 on a standard pain scale. She states it generally does not interrupt sleep, but does interrupt activity level. Patient denies imaging since onset of current complaints. She states pain has been refractory to rest and home independent exercise, as well as hsax-nyf-nlevcso NSAIDs. Physical Exam Vitals & Measurements HR: 51 (Peripheral) BP: 140/76 HT: 160 cm WT: 81.3 kg WT: 81.3 kg (Dosing) BMI: 31.76 Additional Vitals BP Position/Location: Sitting, Left arm General: [Alert and oriented, well nourished, no acute distress]. Eye: [normal conjunctiva, no scleral icterus]. HENT: [normocephalic, atraumatic, oral mucosa pink and moist, dentition intact]. Neck: [Supple]. Pulmonary: [non-labored respiration]. Cardiovascular: [no edema, strong pulses with rapid capillary refill]. Skin: [Normal temperature and texture; no rashes; no digit clubbing or cyanosis]. Psychiatric: [Appropriate judgment and insight, appropriate mood and affect]. Patient is seated comfortably in a chair and is non painful appearing. Lumbar incision is well-healed without surrounding erythema, edema, induration, or tenderness to palpation. The thoracolumbar spine is without deformities. Mild myospasms are noted throughout the lumbar paravertebral musculature bilaterally without tenderness to palpation thoracolumbar spine is nontender to palpation and percussion, aside from mild tenderness to palpation in the coccygeal region which has been chronic in nature. Sacrum and bilateral sacroiliac regions are nontender to palpation. Mild restriction in range of motion with increase in pain with range of motion. No lumbar neurotension signs with negative straight leg raise, reverse straight leg raise, and femoral stretch test bilaterally. Bilateral hips are nontender to palpation with negative hip pointer signs. Bilateral calves are without swelling, erythema, warmth, or tenderness to palpation; no palpable cord and negative Homans' sign bilaterally. Muscle strength is 5 out of 5 and equal bilateral lower extremities. DTRs are 1+/4 and equal bilateral lower extremities. No myelopathic features are noted. Gait is normal without significant antalgia and with full ability to toe and heel walk with the assistance of the examiner for balance. Assessment/Plan 1. Back pain Ordered: MRI Spine Lumbar w/ + w/o Contrast XR Spine Lumbosacral Complete w/ Bending 2. Degenerative disc disease, lumbar Ordered: MRI Spine Lumbar w/ + w/o Contrast XR Spine Lumbosacral Complete w/ Bending 3. History of lumbar surgery Ordered: MRI Spine Lumbar w/ + w/o Contrast XR Spine Lumbosacral Complete w/ Bending At this time, patient who is approximately 3 1/2 months postop from successful right L3-4 unilateral laminotomy for bilateral decompression with osteoporotic bone quality encountered intraoperatively presents on behalf of complaints of recent acute onset midline and bilateral inferior lumbosacral pain without lower extremity radicular components. She reports the onset of symptoms abruptly approximately 4 weeks ago after leaning and reaching to change the bed sheets with minimal improvement since onset. Unfortunately, she has (more content not included)... Normal [facility] Provider Letteron 02-01-2022 Provider Letter (Inserted Image. Brianna ble to display) Alisha Ernst, Re: Christie Sarahashvinangelica Date of Visit: 02/01/2022 Dear Alisha Ernst, Thank you for allowing me to contribute to the care of your patient, Christie Waterman. Attached is my office note and you will find my assessment and recommendations from our encounter today. Please do not hesitate to contact me with any questions or concerns. Sincerely, Tana Bruno PA-C [facility] [place] [address] The following document(s) were included in the letter: February 01, 2022 09:26:40 EDT - (02/01/2022) Neurosurgery Office Visit Note Normal [facility] Neurosurgery Office/Clinic N oteon 12-24-2021 Neurosurgery Office/Clinic Note Chief Complaint Pt states being seen for back follow up History of Present Illness Patient is a pleasant 76-year-old female with a history of hypertension, glaucoma, impaired fasting glucose, osteopenia (DEXA 09/2020: [facility]), and obesity (BMI 34), who presents to the outpatient neurosurgical clinic today accompanied by her for continued post operative follow up. Patient is status post uncomplicated right L3-4 unilateral laminotomy for bilateral decompression performed 10/22/[address] 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 Of note, osteoporotic bone quality was encountered intraoperatively. Patient has done well since surgery with dramatic improvement in her preoperative pain syndrome and overall status. Since time of last office visit, she has completed a course of post operative physical therapy without difficulty and remains highly pleased with her status, as has her family. Patient currently denies significant low back pain. She denies gluteal pain or radicular pain into her lower extremities. She reports her only pain is that of chronic coccydynia which is not a new issue and without change. Patient denies numbness or paresthesias in the lower extremities. Patient denies motor weakness in the lower extremities and states she is ambulating significantly better than prior to surgery. She is not requiring assistive device with gait and denies falls. She denies bowel/bladder incontinence or saddle paresthesias. Patient denies incisional problems or incisional drainage. She denies headaches. She denies fevers, chills, nausea, or vomiting. She states her appetite and energy level are good. She is no longer requiring narcotic support. Physical Exam Vitals & Measurements HR: 65 (Peripheral) BP: 160/70 SpO2: 97 HT: 160 cm WT: 81.8 kg WT: 81.8 kg (Dosing) BMI: 31.95 Additional Vitals BP Position/Location: Sitting, Left arm General: [Alert and oriented, well nourished, no acute distress]. Eye: [normal conjunctiva, no scleral icterus]. HENT: [normocephalic, atraumatic, oral mucosa pink and moist, dentition intact]. Neck: [Supple]. Pulmonary: [non-labored respiration]. Cardiovascular: [no edema, strong pulses with rapid capillary refill]. Skin: [Normal temperature and texture; no rashes; no digit clubbing or cyanosis]. Psychiatric: [Appropriate judgment and insight, appropriate mood and affect]. Patient is seated comfortably in a chair and is non painful appearing. Lumbar incision is well-healed without surrounding erythema, edema, induration, or tenderness to palpation. Good approximation of incision borders without drainage or dehiscence. The thoracolumbar spine is without deformities. No significant myospasms. Thoracolumbar spine is nontender to palpation and percussion, aside from mild tenderness to palpation in the coccygeal region. Sacrum and bilateral sacroiliac regions are nontender to palpation. Good preservation in range of motion without pain with range of motion. No lumbar neurotension signs with negative straight leg raise, reverse straight leg raise, and femoral stretch test bilaterally. Bilateral hips are nontender to palpation with negative hip pointer signs. Bilateral calves are without swelling, erythema, warmth, or tenderness to palpation; no palpable cord and negative Homans' sign bilaterally. Muscle strength is 5 out of 5 and equal bilateral lower extremities. DTRs are 1+/4 and equal bilateral lower extremities. No myelopathic features are noted. Gait is normal without significant antalgia and with full ability to toe and heel walk with the assistance of the examiner for balance. Assessment/Plan 1. Status post lumbar surgery 2. Lumbar stenosis 3. Degenerative disc disease, lumbar 4. 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 Patient has done well since surgery with dramatic improvement in her preoperative pain syndrome and is highly pleased with her progress. She denies significant complaints today. Her incision has healed well without suggestion of infectious complications and since time of last office visit, she has completed a course of postoperative physical therapy without difficulty. That said, patient will be released to ease into a moderate geriatric adult lifestyle. She is encouraged to avoid lifting/pushing/pulling greater than 25 to 30 pounds and to avoid extreme physically demanding activity. Of note, patient is counseled on the identification of osteoporotic bone quality intraoperatively despite the finding of osteopenia on recent DEXA. She is encouraged to discuss appropriate management/treatment with her primary care provider. Given her excellent status, patient will be released to [facility] (more content not included)... Normal [facility] Provider Letteron 12-24-2021 Provider Letter (Inserted Image. Brianna ble to display) Alisha Ernst, Re: Christie Waterman Date of Visit: 12/24/2021 Dear Alisha Ernst, Thank you for allowing me to contribute to the care of your patient, Christie Waterman. Attached is my office note and you will find my assessment and recommendations from our encounter today. Please do not hesitate to contact me with any questions or concerns. Sincerely, Tana Bruno PA-C [facility] [address] [place] [address] The following document(s) were included in the letter: December 24, 2021 10:32:39 EDT - (12/24/2021) Neurosurgery Office Visit Note Normal [facility] MG MAMM SCREEN 3D CANDACE CADon 12-02-2021 MG MAMM SCREEN 3D CANDACE CAD Patient: CHRISTIE WATERMAN Exam Date: 12/02/2021 : 1945 Gender:F Ordering : COURTNEY ALISHA [employer] Admission #: [id number] Family : Order #: [id number] CLICK HERE TO VIEW EXAM RADIOLOGY REPORT PROCEDURE: MAMMOGRAM SCREENING 3D BILATERAL CAD COMPARISON: MG MAMM SCREEN 3D CANDACE CAD, 10/26/2020. MG MAMM SCREEN CANDACE W CAD, 10/15/2019. INDICATIONS: Screening mammography Calculator Name NCI Breast Cancer Risk Assessment Tool 5 Year Breast Cancer Risk 1.60% Lifetime Breast Cancer Risk 3.70% Personal Breast Cancer No Personal Ovarian Cancer No Treatments None Family Cancers None LOCATION: [facility] BREAST COMPOSITION: Almost entirely fatty. FINDINGS: DIAGNOSTIC CATEGORY 1--NEGATIVE. RIGHT BREAST: No significant suspicious finding. No significant change has occurred. LEFT BREAST: No significant suspicious finding. No significant change has occurred. RECOMMENDATIONS: ROUTINE MAMMOGRAM AND CLINICAL EVALUATION IN 12 MONTHS. PLEASE NOTE: A NORMAL MAMMOGRAM DOES NOT EXCLUDE THE POSSIBILITY OF BREAST CANCER. A CLINICALLY SUSPICIOUS PALPABLE LUMP SHOULD BE BIOPSIED. Dictated by: Reed Davila M.D. on 12/03/2021 at 09:18 Approved by: Reed Davila M.D. on 12/03/2021 at 09:51 Normal [facility] Neurosurgery Office/Clinic N oteon 11-11-2021 Neurosurgery Office/Clinic Note Chief Complaint Pt states being seen for post op back History of Present Illness Patient is a pleasant 75-year-old female with a history of hypertension, glaucoma, impaired fasting glucose, osteopenia (DEXA 09/2020: [facility]), and obesity (BMI 34), who presents to the outpatient neurosurgical clinic today accompanied by her (and daughter via speakerphone), for post operative follow up. Patient is status post uncomplicated right L3-4 unilateral laminotomy for bilateral decompression performed 10/22/[address] 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 Of note, osteoporotic bone quality was encountered intraoperatively. Patient has done well since surgery and today, reports dramatic improvement in her preoperative pain syndrome and overall status. She is pleased with her progress thus far, as has her family. Patient currently denies significant low back pain. She denies gluteal pain or radicular pain into her lower extremities. She reports her only pain is that of chronic coccydynia which is not a new issue and without change. Patient denies numbness or paresthesias in the lower extremities. Patient denies motor weakness in the lower extremities and states she is ambulating significantly better than prior to surgery. She is not requiring assistive device with gait and denies falls. She denies bowel/bladder incontinence or saddle paresthesias. Patient denies incisional problems or incisional drainage. She denies headaches. She denies fevers, chills, nausea, or vomiting. She states her appetite and energy level are good. She is no longer requiring narcotic support. Physical Exam Vitals & Measurements HR: 54 (Peripheral) BP: 150/78 SpO2: 99 HT: 160 cm WT: 80.8 kg WT: 80.8 kg (Dosing) BMI: 31.56 Additional Vitals BP Position/Location: Sitting, Left arm General: [Alert and oriented, well nourished, no acute distress]. Eye: [normal conjunctiva, no scleral icterus]. HENT: [normocephalic, atraumatic, oral mucosa pink and moist, dentition intact]. Neck: [Supple]. Pulmonary: [non-labored respiration]. Cardiovascular: [no edema, strong pulses with rapid capillary refill]. Skin: [Normal temperature and texture; no rashes; no digit clubbing or cyanosis]. Psychiatric: [Appropriate judgment and insight, appropriate mood and affect]. Patient is seated comfortably in a chair and is non painful appearing. Lumbar incision is well-healed without surrounding erythema, edema, induration, or tenderness to palpation. Good approximation of incision borders without drainage or dehiscence. The thoracolumbar spine is without deformities. No significant myospasms. Thoracolumbar spine is nontender to palpation and percussion, aside from mild tenderness to palpation in the coccygeal region. Sacrum and bilateral sacroiliac regions are nontender to palpation. Good preservation in range of motion without pain with range of motion. No lumbar neurotension signs with negative straight leg raise, reverse straight leg raise, and femoral stretch test bilaterally. Bilateral hips are nontender to palpation with negative hip pointer signs. Bilateral calves are without swelling, erythema, warmth, or tenderness to palpation; no palpable cord and negative Homans' sign bilaterally. Muscle strength is 5 out of 5 and equal bilateral lower extremities. DTRs are 1+/4 and equal bilateral lower extremities. No myelopathic features are noted. Gait is normal without significant antalgia and with full ability to toe and heel walk with the assistance of the examiner for balance. Assessment/Plan 1. Status post lumbar surgery Ordered: Referral to Physical Therapy 2. Lumbar stenosis Ordered: Referral to Physical Therapy 3. Degenerative disc disease, lumbar Ordered: Referral to Physical Therapy 4. 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 Patient has done well since surgery with dramatic improvement in her preoperative pain syndrome and is highly pleased with her progress. She denies significant complaints today. Her incision has healed well without suggestion of infectious complications. That said, patient will be released to drive and lift up to 10 pounds. She is encouraged to continue to ambulate, but should not participate in any heavier physical activity than walking. Patient is counseled on incision care. She is educated she may continue to shower, but should avoid submerging her incision in water such as pools, bathtubs, or hot tubs for a minimum of 8 weeks postoperatively. Patient will be referred to initiate a course of formal postoperative physical therapy. She will follow-up in our clinic in 4 (more content not included)... Normal [facility] Provider Letteron 11-11-2021 Provider Letter (Inserted Image. Brianna ble to display) Elieser Quiros M.D. Re: Christie Waterman Date of Visit: 11/11/2021 Dear Elieser Quiros, Thank you for allowing me to contribute to the care of your patient, Christie Waterman. Attached is my office note and you will find my assessment and recommendations from our encounter today. Please do not hesitate to contact me with any questions or concerns. Sincerely, Tana Bruno PA-C [facility] [place] [address] The following document(s) were included in the letter: November 11, 2021 14:33:48 EDT - (11/11/2021) Neurosurgery Office Visit Note [facility] Operative Reporton Operative Report Indication for Surge ry Severe spinal stenosis with neurogenic claudication owing to marked facet arthropathy and ligamentum flavum infolding L3-4 Preoperative Diagnosis SEVERE SPINAL STENOSIS, NEUROGENIC CLAUDICATION, INTRACTABLE BILATERAL LUMBAR RADICULOPATHY Postoperative Diagnosis Same Operation Right L3-4 unilateral laminotomy for bilateral decompression Surgeon(s) Yonas ROBERTS MD, Facundo Gilliam (Surgeon - Primary) Pen Rider Rosio Humphrey PA-C (Curriculum Development Specialist) Anesthesia General Meron Milligan MD, Benji Quintana (Senior Automation Engineer) Jorge Padron (Provider) Estimated Blood Loss 30.0 mL Urine Output None Findings Stable SSEP and EMG monitoring with no burst or trains Clinical osteoporosis Specimen(s) None Complications None Technique History: Pleasant 75-year-old female with a history of glaucoma, sleep apnea, borderline diabetes who now presents with neurogenic claudication. Legs are essentially equivalent. The predominance of her symptoms are in her lower extremities With walking. Patient receives respite from lying down or sitting. Patient syndrome previously had positive response to epidural steroid injections but now has limited benefit or no benefit. Patient is strongly interested in definitive intervention given the description of comfort and performance of ADLs. Her examination reveals no motor neuropathy at this time nor hyperreflexia and new MRI reveals severe spinal stenosis at L3-4 with a grade 1 spondylolisthesis at L4-5. The spondylolisthesis does demonstrate dynamism at L4-5, but appears insufficient to generate her clinical syndrome which appears more consistent with L3-4. Scoliosis films reveal mild positive sagittal imbalance of approximately 4 cm. In light of her presentation and examination and imaging findings, it appears reasonable to offer her decompression of L3-4. She is made aware the surgical technique of unilateral laminotomy for bilateral decompression right side as well as to the conduct of the procedure as an outpatient. She is also educated as to postoperative course and expected recovery. It is also outlined the risk of procedure including the risk of procedure including infection, bleeding, CSF leak, neurologic injury, neuropathic pain syndrome, peridural fibrosis, failure for improvement, incomplete benefit, new neurologic deficit, spinal instability, coma, , paralysis, deep venous thrombosis, pulmonary embolism as well as recurrent disc herniation and reoperation, either delayed or acute. It is particular highlighted the possibility of ongoing pain due to the L4-5 segment even though its the surgeon's estimation that the syndrome more likely emanates from L3-4. There is also the possibility of following need for arthrodesis/stabilizati on. She is made aware of the possibility of no improvement in spite of effective decompression. She and her acknowledge and wished to proceed-she will terminate NSAIDs in anticipation of procedure The surgeon personally met with the patient and performed directed history, physical, and review of imaging on large screen TV with surgeon interpretation and performed for surgical consent-they are grateful and all questions answered to their satisfaction Procedure: Patient is brought into the operating room and general anesthetic is induced through atraumatically placed endotracheal tube. Venous access is secured and patient is carefully turned onto a [place] operating room table with a Fernando frame and placed in the prone position. Head and neck are placed in neutral position and arms are placed on arm boards with neurovascular bundles unencumbered. Lumbar region is cleaned with alcohol and dried and no excess air removed with clippers as not required. Midline is identified and 18-gauge spinal needles were placed adjacent to levels of interest and fluoroscopy is confirmatory and a proposed skin incision is described in the midline straddling the disc spaces of L3-4. The area is prepped and draped in usual fashion. The patient received IV antibiotics. After the appropriate side, site, patient are identified and timeout maneuver is performed, full-thickness skin incision is carried down to the thoracolumbar fascia using 10 blade knife and monopolar cautery. Fascia is incised using cutting current monopolar cautery. in a subperiosteal fashion, the paravertebral muscles were elevated off the spinous process, lamina and facets of L3-4 , right side. Fluoroscopy is confirmatory for levels after self-retaining retractors put in place at L3-4. High-speed electric drill is used to flatten the lateral projection of the tip of the spinous process of L3 and L4 in order to allow visualization across midline followed by performance of a generous laminotomy including undercutting of the base of the spinous process of L3 including a medial facetectomy involving the medial third of the inferior articular process of L3. This allows for identification of the ligamentum flav (more content not included)... [facility] Provider Letteron 10-22-2021 Provider Letter (Inserted Image. Brianna ble to display) MICHELL Umana [address] [place] [address] Re: Christie Waterman Date of Visit: 10/22/2021 Dear Alisha Ernst APRN-[employer], Let me know if you have any questions or concerns. Sincerely, ARMANDO Hopper MD Providers: Elieser Quiros M.D. The following document(s) were included in the letter: October 22, 2021 11:27:56 EDT - (10/22/2021) Neurosurgery operative note Normal [facility] XR Spine Lumbosacral 1 View in ORon 10-22-2021 XR Spine Lumbosacral 1 View in OR Intraoperative fluoroscopic images of the lumbar spine on 10/22/2021 Findings: Single limited intraoperative fluoroscopic [ ] obtained during lumbar spine surgery done by Dr. Branham . Total fluoro time for this procedure is 6 seconds. This dictation is for documentation only. Please refer to the OR report for details. Final Dictated by: Irina Fowler MD Dictated DT/TM: 10/22/2021 4:35 pm Signed by: Irina Fowler MD Signed (Electronic Signature): 10/22/2021 4:35 pm (If Report Is Signed, Electronically Signed in Other Vendor System) Normal [facility] NM STRESS/REST MULTIon 10-11 NM STRESS/REST MULTI Patient: CHRISTIE WATERMAN Exam Date: 10/11/2021 : 1945 Gender:F Ordering : COURTNEY ERNST [employer] Admission #: [id number] Family : Order #: [id number] CLICK HERE TO VIEW EXAM RADIOLOGY REPORT PROCEDURE: RADIONUCLIDE IMAGING STRESS/REST MULTI COMPARISON: None. INDICATIONS: Electrocardiogram abnormal TECHNIQUE: Exam Description: Stress/Rest one day protocol gated SPECT Rest Imagin.5 mCi Tc-99m Cardiolite IV on 10/11/2021 Stress Imaging 30.1 mCi Tc-99m Cardiolite IV on 10/11/2021 Exercise Protocol: 0.4 mg Lexiscan given IV Heart Rate (bpm): Rest: 44 Max: 75 PMHR: 51 Blood Pressure: Rest: 162/78 Max: 162/78 Symptoms: none Rest and peak stress ECG findings were normal and the exercise portion of the study was normal per attending physician Dr. Lucero . For more details please see separate cardiac stress test report. FINDINGS: QUALITY OF STUDY: Excellent. PERFUSION DEFECT: None. LOCATION: N/A SIZE: N/A. SEVERITY: N/A. TYPE: N/A. WALL MOTION: Normal. LV SIZE: Normal. 95 mL. TID / TCD: None; 0.7 LVEF: Normal. Calculated EF 68%. SUMMARY: Myocardial perfusion imaging study is NORMAL. CONCLUSION: 1. Normal nuclear medicine myocardial perfusion scan. Dictated by: Reed Davila M.D. on 10/12/2021 at 09:09 Approved by: Reed Davila M.D. on 10/12/2021 at 09:12 Normal [facility] .UA Microscp Aon 10-01-2021 UA RBC Quant 0 /HPF Normal 0-5 [facility] Comment on above: Performed By: #### C [id number] ####[address] [place] [address] UA WBC Quant 0 /HPF Normal 0-5 [facility] Comment on above: Performed By: #### C [id number] ####[address] [address] .eGFRon 10-01-2021 GFR/1.73 sq M.predicted MDRD (S/P/Bld) [Vol rate/Area] mL/min/{1.73_m2} Normal >=60 [facility] Comment on above: Result Comment: [facility] have implemented the eGFR calculation approach that does not have a coefficient for race and that conforms to the NKF-ASN Task Force Recommendations. Stages of Chronic Kidney Disease GFR Stage 3a Mild to moderate loss of kidney function 59 to 45 Stage 3b Moderate to severe loss of kidney function 44 to 33 Stage 4 Severe loss of kidney function 29 to 15 Stage 5 Kidney failure Less than 15 GFR calculated using the CKD-Epi Creatinine Equation (2020): eGFR = 142 X min(SCr/?, 1)? X max(SCr /?, 1)-1.200 X 0.9938Age X 1.012 [if female] Abbreviations/Units: eGFR (estimated glomerular filtration rate) = mL/min/1.73 m2 SCr (standardized serum creatinine) = mg/dL ? = 0.7 (females) or 0.9 (males) ? = -0.241 (females) or -0.302 (males) min = indicates the minimum of SCr/? or 1 max = indicates the maximum of SCr/? or 1 Age = years Performed By: #### E GFR ####[address] [address] ABO/Rhon 10-01-2021 ABO/Rh SD 6.24.22 ABO/Rh: O POS [facility] Comment on above: Performed By: #### A BORH ####[facility] (DEFAULT)[address] [place], [place] [address]WQGZUOYII [facility] [place] [address] ABSC Autoon 10-01-2021 ABSC Auto Negative [facility] Comment on above: Performed By: #### A SA ####[address] [address] CBC w/ Diffon 10-01-2021 Erythrocyte distribution width (RBC) [Ratio] 13.2 % Normal 11.6-14.8 [facility] Comment on above: Performed By: #### C BC ####[address] [address] Hematocrit (Bld) [Volume fraction] 38.2 % Normal 36.0-46.0 [facility] Comment on above: Performed By: #### C BC ####[address] [address] Hemoglobin (Bld) [Mass/Vol] 13.3 g/dL Normal 12.0-16.0 [facility] Comment on above: Performed By: #### C BC ####[address] [address] MCH (RBC) [Entitic mass] 29.8 pg Normal 27.0-35.0 [facility] Comment on above: Performed By: #### C BC ####[address] [address] MCHC 34.7 % Normal 31.0-37.0 [facility] Comment on above: Performed By: #### C BC ####[address] [address] MCV (RBC) [Entitic vol] 85.7 fL Normal 80.0-100.0 [facility] Comment on above: Performed By: #### C BC ####[address] [address] Platelet 243 x10*3/mcL Normal 150-350 [facility] Comment on above: Performed By: #### C BC ####[address] [address] Platelet mean volume (Bld) [Entitic vol] 8.0 fL Normal 6.7-10.6 [facility] Comment on above: Performed By: #### C BC ####[address] [address] RBC 4.46 x10*6/mcL Normal 3.80-5.20 [facility] Comment on above: Performed By: #### C BC ####[address] [address] WBC 7.7 x10*3/mcL Normal 4.5-11.0 [facility] Comment on above: Performed By: #### C BC ####[address] [address] CMPon 10-01-2021 Albumin [Mass/Vol] 4.2 g/dL Normal 3.2-4.9 [facility] Comment on above: Performed By: #### C OMP ####[address] [address] Albumin/Globulin [Mass ratio] 1.4 {ratio} Normal 1.1-2.2 [facility] Comment on above: Performed By: #### C OMP ####[address] [address] Alk Phos 45 IU/L Normal 32-91 [facility] Comment on above: Performed By: #### C OMP ####[address] [address] ALT [Catalytic activity/Vol] 13 U/L Low 14-54 [facility] Comment on above: Performed By: #### C OMP ####[address] [address] Anion gap [Moles/Vol] 13 mmol/L Normal 7-17 [facility] Comment on above: Performed By: #### C OMP ####[address] [address] AST [Catalytic activity/Vol] 16 U/L Normal 15-41 [facility] Comment on above: Performed By: #### C OMP ####[address] [address] Bili Total 0.8 mg/dL Normal 0.3-1.2 [facility] Comment on above: Performed By: #### C OMP ####[address] [address] Calcium [Mass/Vol] 9.6 mg/dL Normal 8.5-10.3 [facility] Comment on above: Performed By: #### C OMP ####[address] [address] Chloride [Moles/Vol] 102 mmol/L Normal 98-110 [facility] Comment on above: Performed By: #### C OMP ####[address] [address] CO2 [Moles/Vol] 28 mmol/L Normal 22-32 [facility] Comment on above: Performed By: #### C OMP ####[address] [address] Creatinine [Mass/Vol] 0.74 mg/dL Normal 0.44-1.03 [facility] Comment on above: Performed By: #### C OMP ####[address] [address] Glucose [Mass/Vol] 110 mg/dL High 70-99 [facility] Comment on above: Performed By: #### C OMP ####[address] [address] Potassium [Moles/Vol] 4.3 mmol/L Normal 3.4-4.8 [facility] Comment on above: Performed By: #### C OMP ####[address] [address] Protein [Mass/Vol] 7.2 g/dL Normal 6.5-8.1 [facility] Comment on above: Performed By: #### C OMP ####[address] [address] Sodium [Moles/Vol] 139 mmol/L Normal 133-142 [facility] Comment on above: Performed By: #### C OMP ####[address] [address] Urea nitrogen [Mass/Vol] 15 mg/dL Normal 8-26 [facility] Comment on above: Performed By: #### C OMP ####[address] [address] Urea nitrogen/Creatinin e [Mass ratio] 20.3 mg/mg High 10.0-20.0 [facility] Comment on above: Performed By: #### C OMP ####[address] [address] Diff Autoon 10-01-2021 Baso Absolute 0.1 x10*3/mcL Normal 0.0-0.2 [facility] Comment on above: Performed By: #### . Automated Diff ####[address] [address] Basophils/100 WBC (Bld) 0.8 % Normal 0.0-1.5 [facility] Comment on above: Performed By: #### . Automated Diff ####[address] [address] Eos Absolute 0.1 x10*3/mcL Normal 0.0-0.4 [facility] Comment on above: Performed By: #### . Automated Diff ####[address] [address] Eosinophils/100 WBC (Bld) 0.9 % Normal 0.0-5.4 [facility] Comment on above: Performed By: #### . Automated Diff ####[address] [address] Lymph Absolute 1.2 x10*3/mcL Normal 1.0-4.8 [facility] Comment on above: Performed By: #### . Automated Diff ####[address] [address] Lymphocytes/100 WBC (Bld) 15.1 % Low 27.2-40.8 [facility] Comment on above: Performed By: #### . Automated Diff ####[address] [address] Blount Absolute 0.5 x10*3/mcL Normal 0.1-1.1 [facility] Comment on above: Performed By: #### . Automated Diff ####[address] [address] Monocytes/100 WBC (Bld) 6.8 % Normal 3.7-11.9 [facility] Comment on above: Performed By: #### . Automated Diff ####[address] [address] Neutro Absolute 5.9 x10*3/mcL Normal 1.8-7.7 [facility] Comment on above: Performed By: #### . Automated Diff ####[id number] Neutro Auto 76.4 % High 47.2-70.8 [facility] Comment on above: Performed By: #### . Automated Diff ####[place] [id number] Hgb A1con 10-01-2021 Glucose [Mass/Vol] 111 mg/dL Normal 68-114 [facility] Comment on above: Result Comment: Math ematical Calc approx. The mean gluc equivalency of A1c Performed By: #### H BA1C ####[place] [address] Hgb A1c 5.5 % A1c Normal 4.0-5.6 [facility] Comment on above: Result Comment: Refe rence Range: 4.0 - 5.6 % Normal 5.7 - 6.4 % Pre-Diabetes > 6.5 % Diabetes Performed By: #### H BA1C ####[place] [id number] PTon 10-01-2021 INR Coag (PPP) [Relative time] 1.0 {INR} Normal <=3.5 [facility] Comment on above: Result Comment: INR has no normal range. INR Therapeutic range is: 2.0-3.0 (AF, CVA, TIAs, DVT prophylaxis, acute DVT) 2.5-3.5 ([facility] heart valves, recurrent thrombosis/emboli) Performed By: #### P TINR ####[place] [id number] PT Coag (PPP) [Time] 10.4 s Normal 8.9-11.8 [facility] Comment on above: Performed By: #### P TINR ####[address] [address] PTTon 10-01-2021 aPTT Coag (Bld) [Time] 26.1 s Normal 20.7-28.3 [facility] Comment on above: Performed By: #### P TT ####[address] [address] UA w Culture if Indon 2021 Color (U) Colorless Normal [facility] Comment on above: Performed By: #### U CI ####[address] [address] Ketones Ql (U) Negative Normal Negative [facility] Comment on above: Performed By: #### U CI ####[address] [address] UA Blood Negative Normal Negative [facility] Comment on above: Performed By: #### U CI ####[address] [address] UA Clarity Clear Normal [facility] Comment on above: Performed By: #### U CI ####[address] [address] UA Glucose Normal Normal Negative [facility] Comment on above: Performed By: #### U CI ####[address] [address] UA Leukocyte Esterase Negative Normal Negative [facility] Comment on above: Performed By: #### U CI ####[address] [address] UA Nitrite Negative Normal Negative [facility] Comment on above: Performed By: #### U CI ####[address] [address] UA pH 7.5 Normal 4.5 - 7.8 [facility] Comment on above: Performed By: #### U CI ####[address] [address] UA Protein Negative Normal Negative [facility] Comment on above: Performed By: #### U CI ####[address] [address] UA Source Clean Catch Normal [facility] Comment on above: Performed By: #### U CI ####[address] [address] UA Spec Grav 1.006 Normal 1.003-1.035 [facility] Comment on above: Performed By: #### U CI ####[address] [address] UA Urobilinogen Normal Normal 0.2 - 1.0 [facility] Comment on above: Performed By: #### U CI ####[address] [address] Urobilinogen (U) [Mass/Vol] Negative Normal Negative [facility] Comment on above: Performed By: #### U CI ####[address] [address] Neurosurgery Office/Clinic N yon 09-28-2021 Neurosurgery Office/Clinic Note Chief Complaint Patient states review of imaging for back. Physical Exam Vitals & Measurements HR: 64 (Peripheral) BP: 130/70 HT: 160 cm WT: 89 kg WT: 89 kg (Dosing) BMI: 34.77 Additional Vitals BP Position/Location: Sitting, Left arm Assessment/Plan 1. Lumbar stenosis 2. Neurogenic claudication 3. Spondylolisthesis 4. Degenerative disc disease, lumbar Pleasant 75-year-old female with a history of glaucoma, sleep apnea, borderline diabetes who now presents with neurogenic claudication. Legs are essentially equivalent. The predominance of her symptoms are in her lower extremities With walking. Patient receives respite from lying down or sitting. Patient syndrome previously had positive response to epidural steroid injections but now has limited benefit or no benefit. Patient is strongly interested in definitive intervention given the description of comfort and performance of ADLs. Her examination reveals no motor neuropathy at this time nor hyperreflexia and new MRI reveals severe spinal stenosis at L3-4 with a grade 1 spondylolisthesis at L4-5. The spondylolisthesis does demonstrate dynamism at L4-5, but appears insufficient to generate her clinical syndrome which appears more consistent with L3-4. Scoliosis films reveal mild positive sagittal imbalance of approximately 4 cm. In light of her presentation and examination and imaging findings, it appears reasonable to offer her decompression of L3-4. She is made aware the surgical technique of unilateral laminotomy for bilateral decompression right side as well as to the conduct of the procedure as an outpatient. She is also educated as to postoperative course and expected recovery. It is also outlined the risk of procedure including the risk of procedure including infection, bleeding, CSF leak, neurologic injury, neuropathic pain syndrome, peridural fibrosis, failure for improvement, incomplete benefit, new neurologic deficit, spinal instability, coma, , paralysis, deep venous thrombosis, pulmonary embolism as well as recurrent disc herniation and reoperation, either delayed or acute. It is particular highlighted the possibility of ongoing pain due to the L4-5 segment even though its the surgeon's estimation that the syndrome more likely emanates from L3-4. There is also the possibility of following need for arthrodesis/stabilizati on. She is made aware of the possibility of no improvement in spite of effective decompression. She and her acknowledge and wished to proceed-she will terminate NSAIDs in anticipation of procedure The surgeon personally met with the patient and performed directed history, physical, and review of imaging on large screen TV with surgeon interpretation and performed for surgical consent-they are grateful and all questions answered to their satisfaction Medical Decision Making Chronic conditions NOT treated during this visit that affected my overall medical decision making: [] Treatment plans discussed but not opted for at this time: [] Prescribed medication that requires intensive monitoring for toxicity: [] I have reviewed the patient?s medication list for medication interactions/contraindi cations and/or for upcoming procedures: [yes or no] Time Spent with the Patient I have personally spent [] minutes on this date, directly related to today's patient visit, including pre and post visit work, for this date of service. Time listed does not include time spent on separately billable services. Problem List/Past Medical History Ongoing Coccydynia Degenerative disc disease, lumbar Glaucoma HTN (hypertension) Impaired fasting glucose Low back pain Lumbar stenosis Neurogenic claudication VAL (obstructive sleep apnea) Osteopenia Spondylolisthesis Historical No qualifying data Procedure/Surgical History Cataract extraction Cholecystectomy CTR- Bilateral foot surgeries- bilateral Medications amLODIPine 2.5 mg oral tablet, 2.5 mg= 1 tabs, Oral, Daily brimonidine 0.2% ophthalmic solution, 1 drops, Eye-Both, TID dorzolamide-timolol 2.23%-0.68% ophthalmic solution, 1 drops, Eye-Both, BID latanoprost 0.005% ophthalmic solution, 1 drops, Eye-Both, HS (at bedtime) losartan 100 mg oral tablet, 100 mg= 1 tabs, Oral, Daily naproxen 250 mg oral tablet, 250 mg= 1 tabs, Oral, BID, PRN [place] 5 mg-325 mg oral tablet, 1 tabs, Oral, q4hr, PRN Allergies No Known Allergies Social History Alcohol Never Substance Abuse Denies All Tobacco Never (less than 100 in lifetime) Use:. Family History Diabetes mellitus: Father. Hypertension: Mother and Father. Stroke: Grandmother (M). Immunizations Vaccine Date Status SARS-CoV-2 (COVID-19) mRNA BNT-162b2 vax 09/19/2021 Given Comments : Original Free text Vaccine : Pfizer COVID-19 vaccine Electronically signed by ___ Facundo Branham III, MD 09/28/21 11:[address] [facility] Neurosurgery Office/Clinic Note Chief Complaint Patient states review of imaging for back. History of Present Illness Patient is a pleasant 75-year-old female with a history of hypertension, glaucoma, impaired fasting glucose, osteopenia (DEXA 09/2020: [facility]), and obesity (BMI 34), who presents to the outpatient neurosurgical clinic today accompanied by her , for follow up and imaging review on behalf of complaints of bilateral gluteal and lower extremity radicular pain consistent with neurogenic claudication. Patient reports the onset of her current complaints greater than 2 years ago without precipitating injury. Patient describes pain throughout the bilateral gluteal regions radiating into the posterior aspect of the bilateral lower extremities, right greater than left, without significant axial lumbar pain. She describes pain in a claudicatory pattern such that she is much more comfortable seated at rest with aggravation in symptoms with standing or walking. Work up includes: MRI lumbosacral spine 09/21/21: transitional lumbar anatomy; Multilevel degenerative disc disease, facet arthropathy, and ligamentum flavum hypertrophy; spondylolisthesis L4-5; advanced central stenosis at L3-4 with lesser central stenosis at L4-5 along with left greater than right L4 5 neuroforaminal stenosis Flexion/extension films lumbosacral spine: 09/21/21: dynamism at L4 5; *photopenia CT lumbosacral spine 06/10/2021: Transitional lumbar anatomy without pars defects; spondylolisthesis L4-5 with vacuum facet phenomenon at L3-4 and L4-5 Scoliosis xrays 09/21/21: mild/borderline disruption in sagittal balance X-rays sacrum/coccyx 09/21/2021: Left greater than right sacroiliac degenerative changes; old/healed fracture S5 X-rays right hip 02/15/2021: Moderate degenerative changes of the right hip DEXA 09/2020 [facility]: osteopenia Patient states that her symptoms were refractory to a course of formal physical therapy 03/2021. Subsequently, she established with pain management and underwent L3-4 MORENA's 04/08/2021 and 05/14/2021. Following the initial injections, patient had experienced gross resolution in her neuroclaudicatory complaints. Unfortunately, patient reports symptom return in the past several months prompting repeat bilateral L3-4 transforaminal MORENA's 09/10/2021 which came without significant benefit Her pain is once again rather severe and intractable. Patient describes pain throughout the bilateral gluteal regions radiating into the posterior aspect of the bilateral lower extremities without significant axial lumbar pain. She describes pain in a claudicatory pattern such that she is much more comfortable seated at rest with aggravation in symptoms with standing or walking. She denies numbness or paresthesias in the gluteal regions or lower extremities. Patient denies motor weakness in the lower extremities, bowel/bladder incontinence, or saddle paresthesias. Patient denies cervical or thoracic pain. She denies upper extremity or thoracic radicular pain. She denies numbness or paresthesias in the upper extremities or chest wall/thorax. Patient denies motor weakness in the upper extremities, decreased dexterity, or gait imbalance. Patient does report components of chronic coccydynia which is not her primary complaint. Patient states she did undergo. Currently, patient places her pain at 8-10/10 on a standard pain scale. She states the pain currently interrupts sleep, and is significantly interrupting activity level and function. She states her ability to ambulate is currently significantly limited. Patient states she is not forced to place her lower extremities in a dependent position to improve symptoms. Review of Systems Constitutional: [No fevers, chills, sweats] Eye: [No recent visual problems] ENT: [No ear pain, sore throat, nasal congestion] Respiratory: [No shortness of breath, cough] Vascular: [No edema, erythema, discoloration] Cardiovascular: [No Chest pain, palpitations, syncope] Neuro: [No headaches, dizziness] Gastrointestinal: [No nausea, vomiting, diarrhea] Genitourinary: [No hematuria] Endocrine: [no polydipsia, polyphagia] Hematology: [no easy bruising, no bleeding tendencies] Physical Exam Vitals & Measurements HR: 64 (Peripheral) BP: 130/70 HT: 160 cm WT: 89 kg WT: 89 kg (Dosing) BMI: 34.77 Additional Vitals BP Position/Location: Sitting, Left arm General: [Alert and oriented, well nourished, no acute distress]. Eye: [normal conjunctiva, no scleral icterus]. HENT: [normocephalic, atraumatic, oral mucosa pink and moist, dentition intact]. Neck: [Supple]. Pulmonary: [non-labored respiration]. Cardiovascular: [no edema, strong pulses with rapid capillary refill]. Skin: [Normal temperature and texture; no rashes; no digit clubbing or cyanosis]. Psychiatric: [Appropriate judgment and insight, appropriate mood and affect]. Patient is seated comfortably in a chair and is non painful appearing. The thoracolumbar spine is without deformitie (more content not included)... [facility] Provider Letteron 09-28-2021 Provider Letter (Inserted Image. Brianna ble to display) MICHELL Umana [address] [place] [address] Re: Christie Columba Date of Visit: 09/28/2021 Dear Alisha GALARZA, Let me know if you have any questions or concerns. Sincerely, ARMANDO Hopper MD Providers: Elieser Quiros M.D. The following document(s) were included in the letter: September 28, 2021 10:58:14 EDT - (09/28/2021) Neurosurgery Office Visit Note [facility] Provider Letter (Inserted Image. Brianna ble to display) Alisha Ernst, Re: Christie Waterman Date of Visit: 09/28/2021 Dear Alisha Ernst, Thank you for allowing me to contribute to the care of your patient, Christie Waterman. Attached is my office note and you will find my assessment and recommendations from our encounter today. Please do not hesitate to contact me with any questions or concerns. Sincerely, Tana Bruno PA-C [facility] [place] [address] The following document(s) were included in the letter: September 28, 2021 07:49:59 EDT - (09/28/2021) Neurosurgery Office Visit Note [facility] XR Scoliosis Study 2 or 3 Vi ewson 09-24-2021 XR Scoliosis Study 2 or 3 Views CLINICAL HISTORY: Back pain. EXAMINATION: Frontal and lateral images of the entire spine were obtained. FINDINGS: There are 12 rib bearing, thoracic type vertebral bodies. There are 5 nonrib-bearing, lumbar-type vertebral bodies. There is no hemivertebra or vertebral anomaly. There is no suspicious osseous lesion. Pedicles and spinous processes are well delineated. There is approximately 4.5 degrees of pelvic tilt to the right. There is an 8.5 degrees of dextroscoliosis of the thoracic spine is measured from the superior endplate of T12 to the superior endplate of T5. There is loss of disc space height with endplate bone spurring and sclerosis scattered throughout the thoracolumbar spine. There is minimal anterolisthesis of L4 with respect to L5. There is diffuse osseous demineralization. The heart is nonenlarged. The aorta is mildly tortuous and calcified. The lungs are clear. There is a nonobstructed bowel gas pattern. There is no organomegaly or discrete soft tissue mass. There are clips from previous cholecystectomy. IMPRESSION: Degenerative change and mild dextro scoliosis of the thoracic spine as detailed above. Final Dictated by: Rm Soto MD Dictated DT/TM: 09/24/2021 10:18 am Signed by: Rm Soto MD Signed (Electronic Signature): 09/24/2021 10:21 am (If Report Is Signed, Electronically Signed in Other Vendor System) [facility] XR Spine Lumbosacral Bending 2-3 Viewson 09-24-2021 XR Spine Lumbosacral Bending 2-3 Views CLINICAL HISTORY: Back pain with radiculopathy. EXAMINATION: Flexion, extension and neutral lateral images of the lumbar spine were obtained. Comparison is made to multiple prior examinations including an MR performed on the same date. FINDINGS: There is mild anterolisthesis of L4 with respect to L5. Vertebral body heights and alignment are otherwise maintained. There is loss of disc space height with endplate bone spurring and sclerosis greatest at L2-L3 and L3-L4. There is no suspicious osseous lesion. There is better to severe facet arthropathy, greater in the lower lumbar levels. There is markedly limited range of motion. There is no dynamic subluxation. There are clips, likely from previous cholecystectomy. Soft tissues are otherwise unremarkable. IMPRESSION: Moderate degenerative changes and limited range of motion without acute findings. Final Dictated by: Rm Soto MD Dictated DT/TM: 09/24/2021 9:20 am Signed by: Rm Soto MD Signed (Electronic Signature): 09/24/2021 9:26 am (If Report Is Signed, Electronically Signed in Other Vendor System) [facility] MRI Spine Lumbar w/o Contras ton 09-22-2021 MRI Spine Lumbar w/o Contrast INDICATION: 75 years old; Female . Symptom/Location/Durati on: Low back pain with bilateral leg pain. TECHNIQUE: Multiplanar MR imaging of the lumbar spine was performed. IV contrast: None. Comparison: Lumbar MRI dated 02/15/2021. FINDINGS: POSTOPERATIVE CHANGES: None. ALIGNMENT: There is accentuation of the normal lumbar lordosis centered at the level of L3-L4. There is a hypoplastic disc space at the lumbosacral junction which appears deep in the pelvis. For purposes of this report, this lowest disc space will be designated as S1-S2. COMPRESSION FRACTURES: No fracture or vertebral body collapse is seen. No bone marrow edema is seen. A hemangioma is present in the body of L4. PREVERTEBRAL SOFT TISSUES: Normal. SPINAL CORD: The distal cord and conus have a normal appearance. No compression or expansion is seen. No edema is noted. Disc levels: T12-L1: No disc herniation. No spinal canal or foraminal narrowing. Disc degeneration. L1-L2: Disc degeneration. No focal disc herniation or bulging. Facet degeneration. Central canal, neural foramina, and lateral recesses are patent. L2-L3: Disc degeneration. No focal disc herniation or bulging. Facet degeneration ligamentous thickening. Central canal, neural foramina, and lateral recesses are patent. Mild foraminal stenosis. L3-L4: Severe central canal stenosis secondary to disc degeneration, disc bulging, endplate osteophyte formation, facet degeneration, and ligamentous thickening. There is severe circumferential compression of the thecal sac with severe compression of the nerve roots within the sac. There is complete effacement of CSF space surrounding the nerve roots. Moderate neural foraminal stenosis is seen with compression of the exiting L3 nerve roots. Lateral recesses are narrowed. L4-L5: Disc degeneration. There is grade 1 degenerative spondylolisthesis. L4 is positioned 3.06 mm anterior to L5. This is secondary to facet degeneration with bony overgrowth causing stenosis of the lateral aspect of the canal with flattening of the posterolateral aspect of the thecal sac. There is neural foraminal stenosis bilaterally which is severe on the left and moderate on the right. There is compression of the exiting L4 nerve roots. L5-S1: Disc degeneration. Disc space narrowing, disc bulging, endplate osteophyte formation, and circumferential annular fissure formation. No focal disc herniation is seen. The central canal is patent. There is facet fusion on the left. Partial fusion is seen on the right. Bony overgrowth is noted causing mild foraminal stenosis. LOWER THORACIC SPINE: Disc degeneration is seen with disc space narrowing and anterior osteophytes at T11-T12. OTHER: Posterior paraspinal muscle atrophy. Psoas muscles are intact. Renal cyst present bilaterally with extrarenal pelvis noted bilaterally. This study is not optimized for evaluation of the kidneys. Renal ultrasound or MRI would be appropriate.. IMPRESSION: 1. Redemonstration of severe stenosis at the L3-L4 level secondary to degenerative changes. There is severe circumferential compression of the thecal sac with compression of the nerve roots and effacement of CSF space surrounding the nerve roots at this level. This is present in the prior study. 2. Degenerative changes at L4-L5 and L5-S1 stable as compared to the prior examination. 3. Evidence of renal cysts and extrarenal pelvis. Further evaluation with renal ultrasound or MRI would be appropriate. Final Dictated by: Chay Kearns MD Dictated DT/TM: 09/22/2021 2:11 am Signed by: Chay Kearns MD Signed (Electronic Signature): 09/22/2021 2:19 am (If Report Is Signed, Electronically Signed in Other Vendor System) [facility] Neurosurgery Office/Clinic N yon 09-21-2021 Neurosurgery Office/Clinic Note Chief Complaint Pt states being seen for back follow up after failing physical therapy History of Present Illness Patient is a pleasant 75-year-old female with a history of hypertension, glaucoma, impaired fasting glucose, osteopenia (DEXA 09/2020: [facility]), and obesity (BMI 34), who presents to the outpatient neurosurgical clinic today accompanied by her , for follow up on behalf of complaints of bilateral gluteal and lower extremity radicular pain consistent with neurogenic claudication. Patient reports the onset of her current complaints greater than 2 years ago without precipitating injury. Patient describes pain throughout the bilateral gluteal regions radiating into the posterior aspect of the bilateral lower extremities, right greater than left, without significant axial lumbar pain. She describes pain in a claudicatory pattern such that she is much more comfortable seated at rest with aggravation in symptoms with standing or walking. Work up includes: MRI lumbosacral spine 02/15/2021: transitional lumbar anatomy; Multilevel degenerative disc disease, facet arthropathy, and ligamentum flavum hypertrophy; spondylolisthesis L4-5; advanced central stenosis at L3-4 with lesser central stenosis at L4-5 along with bilateral L4 5 neuroforaminal stenosis Flexion/extension films lumbosacral spine: 06/10/21: stable; *photopenia CT lumbosacral spine 06/10/2021: Transitional lumbar anatomy without pars defects; spondylolisthesis L4-5 with vacuum facet phenomenon at L3-4 and L4-5 X-rays lumbosacral spine without flexion/extension views 07/2020: degenerative changes with spondylolisthesis L4-5 X-rays right hip 02/15/2021: Moderate degenerative changes of the right hip DEXA 09/2020 [facility]: osteopenia Patient states that her symptoms had become significantly problematic and were refractory to a course of formal physical therapy 03/2021. Subsequently, she established with pain management and underwent L3-4 MORENA's 04/08/2021 and 05/14/2021. Following the injections, patient had experienced gross resolution in her neuroclaudicatory complaints such that she is mostly asymptomatic at the time of her last office visit and there was felt to be no immediate operative need. Unfortunately, today, patient reports despite attempts at repeat injections, her pain has returned and is once again rather severe and intractable. Patient describes pain throughout the bilateral gluteal regions radiating into the posterior aspect of the bilateral lower extremities without significant axial lumbar pain. She describes pain in a claudicatory pattern such that she is much more comfortable seated at rest with aggravation in symptoms with standing or walking. She denies numbness or paresthesias in the gluteal regions or lower extremities. Patient denies motor weakness in the lower extremities, bowel/bladder incontinence, or saddle paresthesias. Patient denies cervical or thoracic pain. She denies upper extremity or thoracic radicular pain. She denies numbness or paresthesias in the upper extremities or chest wall/thorax. Patient denies motor weakness in the upper extremities, decreased dexterity, or gait imbalance. Patient does report components of chronic coccydynia which is not her primary complaint. Patient states she did undergo repeat bilateral L3-4 transforaminal MORENA's 09/10/2021 without significant benefit. Currently, patient places her pain at 8-10/10 on a standard pain scale. She states the pain currently interrupts sleep, and is significantly interrupting activity level and function. She states her ability to ambulate is currently limited. Patient states she is not forced to place her lower extremities in a dependent position to improve symptoms. Physical Exam Vitals & Measurements HR: 48 (Peripheral) BP: 150/70 HT: 160 cm WT: 89 kg WT: 89 kg (Dosing) BMI: 34.77 Additional Vitals BP Position/Location: Sitting, Left arm General: [Alert and oriented, well nourished, no acute distress]. Eye: [normal conjunctiva, no scleral icterus]. HENT: [normocephalic, atraumatic, oral mucosa pink and moist, dentition intact]. Neck: [Supple]. Pulmonary: [non-labored respiration]. Cardiovascular: [no edema, strong pulses with rapid capillary refill]. Skin: [Normal temperature and texture; no rashes; no digit clubbing or cyanosis]. Psychiatric: [Appropriate judgment and insight, appropriate mood and affect]. Patient is seated comfortably in a chair and is non painful appearing. The thoracolumbar spine is without deformities. No significant myospasms. Thoracolumbar spine is nontender to palpation and percussion, aside from mild tenderness to palpation in the coccygeal region. Sacrum and bilateral sacroiliac regions are nontender to palpation. Good preservation in range of motion without pain with range of motion. No lumbar neurotension signs with negative straight leg raise, reverse straight leg raise, and femoral stretch test bilaterally. Bilateral hips are nontender to palpa (more content not included)... [facility] Provider Letteron 09-21-2021 Provider Letter (Inserted Image. Brianna ble to display) Elieser Quiros M.D. Re: Christie Columba Date of Visit: 09/21/2021 Dear Elieser Quiros, Thank you for allowing me to contribute to the care of your patient, Christie Waterman. Attached is my office note and you will find my assessment and recommendations from our encounter today. Please do not hesitate to contact me with any questions or concerns. Sincerely, Tana Bruno PA-C [facility] [address] The following document(s) were included in the letter: September 21, 2021 08:41:11 EDT - (09/21/2021) Neurosurgery Office Visit Note [facility] Neurosurgery Office/Clinic N oteon 06-22-2021 Neurosurgery Office/Clinic Note Chief Complaint pt states- back, review imaging History of Present Illness Patient is a pleasant 75-year-old female with a history of hypertension, glaucoma, impaired fasting glucose, osteopenia (DEXA 09/2020: [facility]), and obesity (BMI 34), who presents to the outpatient neurosurgical clinic today accompanied by her daughter, for follow up and imaging review on behalf of complaints of bilateral gluteal and lower extremity radicular pain consistent with neurogenic claudication. Patient reports the onset of her current complaints greater than 2 years ago without precipitating injury. She reports that symptoms had progressively worsened until recent injection modalities following which she has experienced gross resolution in pain. Patient states that previously, she would experience pain throughout the bilateral gluteal regions radiating into the posterior aspect of the bilateral lower extremities, right greater than left, without significant axial lumbar pain. She describes pain in a claudicatory pattern such that she was much more comfortable seated at rest with aggravation in symptoms with standing or walking. Work up includes: MRI lumbosacral spine 02/15/2021: transitional lumbar anatomy; Multilevel degenerative disc disease, facet arthropathy, and ligamentum flavum hypertrophy; spondylolisthesis L4-5; advanced central stenosis at L3-4 with lesser central stenosis at L4-5 along with bilateral L4 5 neuroforaminal stenosis Flexion/extension films lumbosacral spine: 06/10/21: stable; *photopenia CT lumbosacral spine 06/10/2021: Transitional lumbar anatomy without pars defects; spondylolisthesis L4-5 with vacuum facet phenomenon at L3-4 and L4-5 X-rays lumbosacral spine without flexion/extension views 07/2020: degenerative changes with spondylolisthesis L4-5 X-rays right hip 02/15/2021: Moderate degenerative changes of the right hip DEXA 09/2020 [facility]: osteopenia Patient states that her symptoms had become significantly problematic and were refractory to a course of formal physical therapy 03/2021. Subsequently, she established with pain management and underwent L3-4 MORENA's 04/08/2021 and 05/14/2021. Following the injections, patient reports gross resolution in her neuroclaudicatory complaints such that she is mostly asymptomatic at the time of her office visit today. She currently denies gluteal pain. She denies radicular pain into the lower extremities. She denies numbness or paresthesias in the gluteal regions or lower extremities. Patient denies motor weakness in the lower extremities, bowel/bladder incontinence, or saddle paresthesias. Patient denies cervical or thoracic pain. She denies upper extremity or thoracic radicular pain. She denies numbness or paresthesias in the upper extremities or chest wall/thorax. Patient denies motor weakness in the upper extremities, decreased dexterity, or gait imbalance. Patient does voice new complaint of a several year history of intermittent coccydynia without precipitating injury. She states this has been more problematic in the past several weeks. She states her coccygeal pain is most notable with prolonged sitting. Prior to recent injection modalities, patient places her pain at 10/10 on a standard pain scale. Currently, patient places her pain at 0/10 on a standard pain scale. She states the pain does not currently interrupt sleep or function. She states her ability to ambulate is not currently limited. Physical Exam Vitals & Measurements HR: 72 (Peripheral) BP: 140/74 HT: 160 cm WT: 89 kg WT: 89 kg (Dosing) BMI: 34.77 Additional Vitals BP Position/Location: Sitting, Left arm General: [Alert and oriented, well nourished, no acute distress]. Eye: [normal conjunctiva, no scleral icterus]. HENT: [normocephalic, atraumatic, oral mucosa pink and moist, dentition intact]. Neck: [Supple]. Pulmonary: [non-labored respiration]. Cardiovascular: [no edema, strong pulses with rapid capillary refill]. Skin: [Normal temperature and texture; no rashes; no digit clubbing or cyanosis]. Psychiatric: [Appropriate judgment and insight, appropriate mood and affect]. Patient is seated comfortably in a chair and is non painful appearing. The thoracolumbar spine is without deformities. No significant myospasms. Thoracolumbar spine is nontender to palpation and percussion, aside from mild tenderness to palpation in the coccygeal region. Sacrum and bilateral sacroiliac regions are nontender to palpation. Good preservation in range of motion without pain with range of motion. No lumbar neurotension signs with negative straight leg raise, reverse straight leg raise, and femoral stretch test bilaterally. Bilateral hips are nontender to palpation with negative hip pointer signs. Muscle strength is 5 out of 5 and equal bilateral lower extremities. DTRs are 1+/4 and equal bilateral lower extremities. No myelopathic features are noted. Gait is normal without significant antalgia and with full ability to toe and heel walk. A (more content not included)... [facility] Provider Letteron 06-22-2021 Provider Letter (Inserted Image. Brianna ble to display) Alisha Ernst, BRAZING MACHINE TENDER-GRINDER AND PLATER [address] [place] [address] Re: Christie Waterman Date of Visit: 06/22/2021 Dear Alisha Ernst, Thank you for allowing me to contribute to the care of your patient, Christie Waterman. Attached is my office note and you will find my assessment and recommendations from our encounter today. Please do not hesitate to contact me with any questions or concerns. Sincerely, Tana Bruno PA-C [facility] [address] [address] The following document(s) were included in the letter: June 22, 2021 15:59:49 EST - (06/22/2021) Neurosurgery Office Visit Note [facility] Neurosurgery Office/Clinic N oteon 06-01-2021 Neurosurgery Office/Clinic Note Chief Complaint new pt- back History of Present Illness Patient is a pleasant 75-year-old female with a history of hypertension, glaucoma, impaired fasting glucose, osteopenia (DEXA 09/2020: [facility]), and obesity (BMI 34), who presents to the outpatient neurosurgical clinic today accompanied by her daughter, as a new patient, at the request of her treating painter barrel, Dr. Quiros, for consultation on behalf of complaints of bilateral lower extremity pain. Patient reports the onset of her current complaints greater than 2 years ago without precipitating injury. She reports that symptoms had progressively worsened until recent injection modalities following which she has experienced gross resolution in pain. Patient states that previously, she would experience pain throughout the bilateral gluteal regions radiating into the posterior aspect of the bilateral lower extremities, right greater than left, without significant axial lumbar pain. She describes pain in a claudicatory pattern such that she was much more comfortable seated at rest with aggravation in symptoms with standing or walking. Patient states that her symptoms had become significantly problematic and were refractory to a course of formal physical therapy 03/2021. Subsequently, she established with pain management and underwent L3-4 MORENA's 04/08/2021 and 05/14/2021. Following the injections, patient reports gross resolution in her pain complaints such that she is mostly asymptomatic at the time of her office visit today. She currently denies gluteal pain. She denies radicular pain into the lower extremities. She denies numbness or paresthesias in the gluteal regions or lower extremities. Patient denies motor weakness in the lower extremities, bowel/bladder incontinence, or saddle paresthesias. Patient denies cervical or thoracic pain. She denies upper extremity or thoracic radicular pain. She denies numbness or paresthesias in the upper extremities or chest wall/thorax. Patient denies motor weakness in the upper extremities, decreased dexterity, or gait imbalance. Prior to recent injection modalities, patient places her pain at 10/10 on a standard pain scale. Currently, patient places her pain at 0/10 on a standard pain scale. She states the pain does not currently interrupt sleep or function. She states her ability to ambulate is not currently limited. PAST MEDICAL HISTORY: Hypertension Obstructive sleep apnea Glaucoma Impaired fasting glucose Obesity Osteopenia PAST SURGICAL HISTORY: Bilateral cataract extraction Cholecystectomy Right Achilles repair Left Achilles repair Bilateral carpal tunnel release ALLERGIES: No known drug allergies MEDICATIONS: See medication list SOCIAL HISTORY: Patient is . She has 3 grown children. She lives independently in [place]. Patient denies nicotine, alcohol, or recreational drugs. 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 She states no [place] of Workmen's Compensation or third-alliance party insurance claims based on today's office visit. FAMILY HISTORY: Diabetes: Father Hypertension: Mother, father Renal disease: Mother Review of Systems Constitutional: [No fevers, chills, sweats] Eye: [No recent visual problems] ENT: [No ear pain, sore throat, nasal congestion] Respiratory: [No shortness of breath, cough] Vascular: [No edema, erythema, discoloration] Cardiovascular: [No Chest pain, palpitations, syncope] Neuro: [No headaches, dizziness] Gastrointestinal: [No nausea, vomiting, diarrhea] Genitourinary: [No hematuria] Endocrine: [no polydipsia, polyphagia] Hematology: [no easy bruising, no bleeding tendencies] Physical Exam Vitals & Measurements HR: 60 (Peripheral) BP: 144/72 HT: 160 cm WT: 89 kg WT: 89 kg (Dosing) BMI: 34.77 Additional Vitals BP Position/Location: Sitting, Left arm GENERAL PHYSICAL EXAM: GENERAL: well developed, well nourished, no distress HEAD: normocephalic, atraumatic EYES: anicteric, atraumatic MUCOUS MEMBRANES: Moist, no evidence of dehydration NECK: supple, full range of motion, no deformity noted; no cervical adenopathy; no carotid bruits; no tracheal deviation; no winging of the scapula; no drooping of the shoulder; no evidence of neurotension signs such as Lhermitte's or Spurling sign CHEST: clear CARDIAC: normal heart sounds no murmurs or extra sounds SHOULDER: Full range of motion on active and passive evaluation; no evidence of impingement or rotator cuff tendinopathy, negative empty can testing. PERIPHERAL NERVES: no tinel's signs carpal, cubital, or peroneal, no digital compression provocation SPINE: no evidence of scoliosis, rib hump, deformities or step-offs. No trigger points or myospasm VASCULAR: strong pulses with rapid capillary refill, no evidence of Raynaud's phenomenon, autonomic disturbance, venous insufficiency, or thoracic outlet syndrome. HIP: no Fabere's or Moris's sign LUMBAR: range of motion normal without significant pain with (more content not included)... [facility] Vital Signs Date Time Vital Sign Value Performing Clinician Facility 06-12-2023 09:22-0500 Body height 160 cm Alisha Ernst NP Work Phone: [facility] 06-12-2023 09:22-0500 Body mass index (BMI) [Ratio] 32.98 kg/m2 Alisha Ernst LIME SLAKER Work Phone: [facility] 06-12-2023 09:22-0500 Body temperature 97.11 [degF] Alisha Ernst NP Work Phone: [facility] 06-12-2023 09:22-0500 Body weight 84.46 kg Alisha Ernst NP Work Phone: [facility] 06-12-2023 09:22-0500 Diastolic blood pressure 78 mm[Hg] Alisha Ernst NP Work Phone: [facility] 06-12-2023 09:22-0500 Heart rate 52 /min Alisha Santiagosmiley LIME SLAKER Work Phone: [facility] 06-12-2023 09:22-0500 Respiratory rate 17 /min Alisha Khanz LIME SLAKER Work Phone: [facility] 06-12-2023 09:22-0500 SaO2% (BldA) [Mass fraction] 99 % Alisha Khanz L[employer] SLAKER Work Phone: [facility] 06-12-2023 09:22-0500 Systolic blood pressure 132 mm[Hg] Alisha Santiagomelchorz LIME SLAKER Work Phone: [facility] 05-19-2023 11:43-0500 Body height 160 cm Eunice Cheryl BRAZING MACHINE TENDER-GRINDER AND PLATER Work Phone: [facility] 05-19-2023 11:43-0500 Body mass index (BMI) [Ratio] 32.19 kg/m2 Eunice Cheryl BRAZING MACHINE TENDER-GRINDER AND PLATER Work Phone: [facility] 05-19-2023 11:43-0500 Body weight 82.42 kg Eunice Cheryl BRAZING MACHINE TENDER-GRINDER AND PLATER Work Phone: [employer] [facility] 05-19-2023 11:43-0500 Diastolic blood pressure 70 mm[Hg] Eunice Cheryl BRAZING MACHINE TENDER-GRINDER AND PLATER Work Phone: [facility] 05-19-2023 11:43-0500 Heart rate 48 /min Eunice Cheryl BRAZING MACHINE TENDER-GRINDER AND PLATER Work Phone: [facility] 05-19-2023 11:43-0500 Respiratory rate 18 /min Eunice Cheryl BRAZING MACHINE TENDER-GRINDER AND PLATER Work Phone: [facility] 05-19-2023 11:43-0500 SaO2% (BldA) [Mass fraction] 96 % Eunice Cheryl BRAZING MACHINE TENDER-GRINDER AND PLATER Work Phone: [facility] Comment on above: 05-19-2023 11:43-0500 Systolic blood pressure 134 mm[Hg] Eunice Luna BRAZING MACHINE TENDER-GRINDER AND PLATER Work Phone: [facility] Encounters Encounter Date Encounter Type Care Provider Facility Start: 09-11-2023 End: 09-11-2023 ambulatory ALISHA ERNST Not Available Start: 08-18-2023 End: 08-18-2023 ambulatory VIKTORIA ARROYO Not Available Start: 07-20-2023 End: 07-21-2023 ambulatory TARA Bret JIMÉNEZ Not Available Start: 07-17-2023 End: 07-17-2023 ambulatory TARA Bret JIMÉNEZ Not Available Start: 07-07-2023 End: 07-07-2023 ambulatory BELKYS VINCENT Not Available Start: 07-04-2023 End: 07-04-2023 ambulatory BELKYS VINCENT Not Available Start: 06-30-2023 End: 06-30-2023 ambulatory BELKYS VINCENT Not Available Start: 06-26-2023 End: 06-26-2023 ambulatory BELKYS VINCENT Not Available Start: 06-23-2023 End: 06-23-2023 ambulatory DAJA VARGAS Not Available Start: 06-19-2023 End: 06-20-2023 ambulatory TARA JIMÉNEZ Not Available Start: 06-12-2023 End: 06-12-2023 ambulatory ALISHA KLEVER Not Available Start: 06-12-2023 End: 06-12-2023 Office outpatient visit 25 minutes Alisha Ernts [employer]KER Work Phone: [facility] Comment on above: Primary hypertension (CMS/HCC) (Primary Dx); BMI 32.0-32.9,adult; Bradycardia; Chronic pain of right knee; Chronic right shoulder pain; Rash and nonspecific skin eruption Start: 05-19-2023 ambulatory ALISHA ERNST [facility] Start: 05-19-2023 End: 05-19-2023 Office outpatient new 45 minutes Eunice Luna BRAZING MACHINE TENDER-GRINDER AND PLATER Work Phone: [facility] Comment on above: Obstructive sleep ap chaitanya (Primary Dx); Sleep related hypoxia; Encounter to discuss test results Start: 04-03-2023 End: 05-01-2023 ambulatory [address]ISHA [address]NST [facility] Start: 09-05-2022 End: 09-06-2022 ambulatory COURTNEY SANTIAGOMELCHORPhilip Facility:[facility] Start: 03-03-2022 End: 03-03-2022 ambulatory GRINDER AND PLATER ALISHA SANTIAGOMELCHORPhilip Facility:[facility] Start: 02-23-2022 ambulatory [facility] Start: 02-23-2022 End: 02-23-2022 ambulatory [facility] Start: 02-07-2022 End: 02-08-2022 ambulatory PA Tana Tara Ickes Facility:[facility] Start: 02-01-2022 End: 02-02-2022 ambulatory PA Tana Tara Ickes Facility:[facility] Start: 12-24-2021 End: 12-25-2021 ambulatory PA Tana Tara Ickes Facility:[facility] Start: 12-02-2021 End: 12-03-2021 ambulatory [employer]INDER [employer] PLATER ALISHA SANTIAGOMELCHORPhilip Facility:[facility] Start: 11-11-2021 End: 11-12-2021 ambulatory PA Tana Tara Ickes Facility:[facility] Start: 10-22-2021 End: 10-22-2021 ambulatory MD Facundo Branham Facility:[facility] Start: 10-11-2021 End: 10-12-2021 ambulatory MD Facundo Branham Facility:[facility] Start: 10-11-2021 End: 10-12-2021 ambulatory GRINDER AND PLATER ALISHA SILVAMimiSMILEY Facility:[facility] Start: 10-01-2021 End: 10-02-2021 ambulatory MD Facundo Branham Facility:[facility] Start: 09-28-2021 End: 09-29-2021 ambulatory PA Tana Tara Ickes Facility:[facility] Start: 09-21-2021 End: 09-22-2021 ambulatory PA Tana Tara Ickes Facility:[facility] Start: 09-21-2021 End: 09-22-2021 ambulatory PA Tana Tara Ickes Facility:[facility] Start: 06-22-2021 End: 06-23-2021 ambulatory BASIL Bruno Facility:[facility] Start: 06-01-2021 End: 06-02-2021 ambulatory BASIL Bruno Facility:[facility] Plan of Treatment Date Care Activity Detail Author Start: 07-17-2024 Pneumococcal Vaccine : 65+ Years (2 - PCV) Pneumococcal Vaccine: 65+ Years (2 - PCV) [facility] Comment on above: Postponed from 02/12 (Patient Refused) Start: 05-17-2024 End: 05-17-2024 Patient encounter procedure 05/17/2024 2:30 PM EST [facility] [place] [address] [place] [id number] Eunice Luna, BRAZING MACHINE TENDER-GRINDER AND PLATER [address] [facility] [place] [address] [facility] [place] Start: 09-11-2023 End: 09-11-2023 Patient encounter procedure 09/11/2023 9:00 AM EDT Office Visit [facility] [address] [place] [id number] Alisha Ernst NP [address] [place] [address] [facility] Start: 02-10-2022 ambulatory Ambulatory Facility:N renaesualayna rubio [facility] Start: 02-13-2016 Pneumococcal vaccination PNEUMOCOCCAL VACCINE SERIES (2 - PCV) [facility] Start: 12-13-1991 Screening for malign ant neoplasm of colon COLORECTAL CANCER SCREENING DISCUSSION [facility] Start: 1986 Screening for malign ant neoplasm of breast MAMMOGRAM SCREENING DISCUSSION [facility] Start: 12-13-1967 Screening for malign ant neoplasm of cervix CERVICAL CANCER SCREENING DISCUSSION [facility] Start: 1965 Third diphtheria, tetanus and acellular pertussis (DTaP) vaccination TDAP (ADULT) [facility] Start: 1946 Hepatitis C screening HEPATITI S C VIRUS SCREENING [facility] Start: 08-14-1947 Screening for osteoporosis DEXA SCAN DISCUSSION [facility] Start: 1945 Tetanus vaccination TETANUS [facility] Immunizations Immunization Date Immunization Notes Care Provider Enedina lópez 02-06-2023 Influenza, Seasonal, Quadrivalent, Adjuvanted Alisha Aichholz [employer] SLAKER Work Phone: [facility] 01-25-2022 Influenza, High-dose Seasonal, Quadrivalent, Preservative Free Alisha Aichholz [employer] SLAKER Work Phone: [facility] 11-15-2021 zoster vaccine recombinant L nuno Aichholz [employer] Work Phone: [facility] 06-14-2021 zoster vaccine recombinant L nuno Aichholz [employer] S[employer]KER Work Phone: [facility] 01-26-2021 Influenza, High-dose Seasonal, Quadrivalent, Preservative Free Alisha Aichholz [employer] SLAKER Work Phone: [facility] 01-28-2020 Influenza, Seasonal, Quadrivalent, Adjuvanted Alisha Aichholz LIME SLAKER Work Phone: [facility] 01-29-2019 influenza, high dose seasonal, preservative-free Alisha Aichholz LIME SLAKER Work Phone: [facility] 02-26-2018 influenza, high dose seasonal, preservative-free Alisha Aichholz LIME SLAKER Work Phone: [facility] 02-22-2017 influenza, high dose seasonal, preservative-free Alisha Aichholz LIME SLAKER Work Phone: [facility] 03-21-2016 influenza, seasonal, injectable, preservative free Alisha Aichholz L[employer] SLAKER Work Phone: [facility] 03-18-2015 influenza, injectabl e, quadrivalent, preservative free Alisha Aichholz LIME SLAKER Work Phone: [facility] 02-12-2015 pneumococcal polysaccharide vaccine, 23 valent Alisha Aichholz [employer] SLAKER Work Phone: [facility] Payers Date Payer Category Payer Unknown 2017 Unknown [id number] 2011 Medicare 1959 Medicare [id number] 1959 Private Health Insurance [id number] 1945 Unknown [id number] 2.16. 840.1.016884.3.579.2.196 1946 Unknown [id number] 2.16. 840.1.299058.3.579.2.196 1946 Unknown [id number] 2.16. 840.1.256494.3.579.2.196 1946 Unknown [id number] 2.16. 840.1.852505.3.579.2.196 1946 Unknown [id number] 2.16. 840.1.959336.3.579.2.196 1946 Unknown [id number] 2.16. 840.1.919814.3.579.2.196 1946 Unknown [id number] 2.16. 840.1.989664.3.579.2.196 1946 Unknown [id number] 2.16. 840.1.171855.3.579.2.196 1946 Unknown [id number] 2.16. 840.1.871368.3.579.2.196 1946 Unknown [id number] 2.16. 840.1.803047.3.579.2.196 1946 Unknown [id number] 2.16. 840.1.695353.3.579.2.196 1946 Unknown [id number] 2.16. 840.1.260568.3.579.2.196 1946 Unknown [id number] 2.16. 840.1.415625.3.579.2.196 1946 Unknown [id number] 2.16. 840.1.850569.3.579.2.196 1946 Unknown [id number] 2.16. 840.1.331426.3.579.2.196 1946 Unknown [id number] 2.16.8 40.1.410788.3.579.2.754 1946 Unknown [id number] 2.16.8 40.1.326974.3.579.2.754 1946 Unknown [id number] 2.16.84 0.1.714633.3.579.2.593 1946 Unknown [id number] 2.16.84 0.1.723802.3.579.2.593 1946 Unknown [id number] 2.16.84 0.1.930877.3.579.2.593 1946 Unknown [id number] 2.16.84 0.1.790856.3.579.2.593 1946 Unknown [id number] 2.16.84 0.1.721251.3.579.2.1286 1946 Unknown [id number] 2.16.8 40.1.082693.3.579.2.983 1946 Unknown [id number] 2.16.84 0.1.371264.3.579.2.1259 1946 Unknown [id number] 2.16.84 0.1.593970.3.579.2.1259 1946 Unknown [id number] 2.16.84 0.1.747300.3.579.2.1259 1946 Unknown [id number] 2.16.84 0.1.306001.3.579.2.1259 1946 Unknown [id number] 2.16.84 0.1.723743.3.579.2.1259 1946 Unknown [id number] 2.16.84 0.1.867502.3.579.2.1259 1946 Unknown [id number] 2.16.84 0.1.303717.3.579.2.1259 1946 Unknown [id number] 2.16.84 0.1.791774.3.579.2.1259 1946 Unknown [id number] 2.16.84 0.1.459128.3.579.2.1259 1946 Unknown [id number] 2.16.84 0.1.445840.3.579.2.1259 1946 Unknown [id number] 2.16.84 0.1.159745.3.579.2.1259 1946 Unknown [id number] 2.16.84 0.1.232938.3.579.2.1259 Social History Date Type Detail Facility Start: 05-19-2023 Tobacco smoking stat [facility] Ex-smoker [facility] History of tobacco use Current smoker [facility] History of tobacco use Cigarette Smoker [facility] Start: 11-21-2022 End: 05-19-2023 Tobacco use and exposure Smokeless tobacco non-user [facility] Start: 05-19-2023 End: 06-12-2023 History of Social function [facility] Start: 05-19-2023 End: 06-12-2023 Tobacco use panel [facility] Start: 1945 Sex Assigned At Female [facility] Start: 05-05-2023 Gender identity Identifies as female gender (finding) [facility] Start: 11-21-2022 Tobacco smoking stat [facility] Never smoked tobacco [facility] Start: 06-12-2023 Alcohol intake Lifetime non-d alfred (finding) [facility] Start: 1945 Sex Assigned At Not on file [facility] History of Present illness Narrative 06-12-2023 Alisha Ernst, DEE - 06/12/2023 10:29 AM Hodan Ernst, DEE - 06/12/2023 10:27 AM Hodan Ernst, L[employer] SLAKER - 06/12/2023 10:26 AM Hodan Ernst, DEE - 06/12/2023 10:26 AM EST Note Date & Type Note Facility 06-12-2023 History of Presen t illness Narrative Associated Problem(s): Rash and nonspecific skin eruption Nothing noticed today, unsure if eczema component. Trial adding OTC zyrtec 10mg daily, contact office in 2 weeks if this does not help Discussed skin care with winter Associated Problem(s): Chronic pain of right knee Refer to ortho Associated Problem(s): Chronic right shoulder pain Starting to have more effects on ADL's Will refer to stepanic Associated Problem(s): Bradycardia Has been half-way, no symptoms, does take b miriam eye drops Associated Problem(s): HTN (hypertension) (CMS/HCC) Stable at this time, no changes in meds or doses Pt states that around her neck feels prickly she would like the neck looked at. Skin does not appear red or with rash. Images from the original note were not included. Christie Waterman is a 77 y.o. female presents with chief complaint of No chief complaint on file. HPI: Also reports a feeling of prickly around her neck and chest area, not related to meds, no angioedema, can have a flat faint rash, no pruritus noted has been ongoing for some time, does appear to be worse in winter months, can happen in arms too Shoulder Pain The pain is present in the right shoulder. This is a chronic problem. The current episode started more than 1 month ago. The problem occurs constantly. The problem has been gradually worsening. Pertinent negatives include no fever. Knee Pain There was no injury mechanism. The pain is present in the right knee. The pain is moderate. The pain has been Constant since onset. The symptoms are aggravated by weight bearing. Hypertension This is a chronic problem. The current episode started more than 1 year ago. The problem is unchanged. The problem is controlled. Pertinent negatives include no chest pain, headaches, neck pain, palpitations, peripheral edema or shortness of breath. There are no associated agents to hypertension. Risk factors for coronary artery disease include obesity. Past treatments include angiotensin blockers and calcium channel blockers. The current treatment provides significant improvement. There are no compliance problems. SUBJECTIVE: MEDICATIONS: Current Outpatient Medications Medication Instructions AMLODIPINE BENZOATE PO amLODIPine Benzoate dorzolamide (Trusopt) 2 % ophthalmic solution Dorzolamide HCl latanoprost (Xalatan) 0.005 % ophthalmic solution INSTILL 1 DROP IN EACH EYE EVERY DAY AT BEDTIME losartan (COZAAR) 100 mg, Oral, Daily ALLERGIES: Allergies Allergen Reactions Lisinopril Cough MARTY inhibitors REVIEW OF SYMPTOMS: Review of Systems Constitutional: Negative for appetite change, chills and fever. HENT: Negative for congestion, ear pain and sore throat. Eyes: Negative for pain, discharge, redness and visual disturbance. Respiratory: Negative for cough, shortness of breath and wheezing. Cardiovascular: Negative for chest pain, palpitations and leg swelling. Gastrointestinal: Negative for abdominal pain, blood in stool, constipation, diarrhea, nausea and vomiting. Genitourinary: Negative for difficulty urinating, dysuria and frequency. Musculoskeletal: Positive for arthralgias. Negative for back pain, joint swelling, myalgias and neck pain. Right shoulder and right knee Skin: Positive for rash. Negative for wound. Neurological: Negative for dizziness, tremors, seizures, syncope and headaches. Psychiatric/Behavioral: Negative for behavioral problems, self-injury and suicidal ideas. The patient is not nervous/anxious. Hematological: Does not bruise/bleed easily. Endocrine: Negative for polydipsia, polyphagia and polyuria. Allergic/Immunologic: Negative for environmental allergies and food allergies. PAST MEDICAL HISTORY Past Medical History: Diagnosis Date Achilles tendonitis Calcaneal spur Glaucoma ([facility]) HTN (hypertension) ([facility]) 06/12/2023 Idiopathic neuropathy Onychomycosis Plantar fasciitis Pronation deformity of foot Rupture Achilles tendon, right, initial encounter Visual impairment w/ corrective lenses Past Surgical History: Procedure Laterality Date ACHILLES TENDON SURGERY Right 2010 ACHILLES TENDON SURGERY Left 04/12/2016 [facility] procedure BREAST FIBROADENOMA SURGERY CARPAL TUNNEL RELEASE Bilateral CATARACT EXTRACTION W/ INTRAOCULAR LENS IMPLANT, BILATERAL 2010 CHOLECYSTECTOMY FIXATION KYPHOPLASTY 03/2022 HEEL SPUR EXCISION Left 08/04/2015 Calcaneal Spur WISDOM TOOTH EXTRACTION family history includes Diabetes in her father; Hypertension in her father and mother. OBJECTIVE: Visit Vitals BP 132/78 (BP Location: Left arm, Patient Position: Sitting, BP Cuff Size: Adult) Pulse 52 Temp 97.1 F (Temporal) Resp 17 Ht 5' 3 Wt 186 lb 3.2 oz SpO2 99% BMI 32.98 kg/m Smoking Status Never BSA 1.94 m Physical Exam Vitals reviewed. Constitutional: General: She is not in acute distress. Appearance: Normal appearance. HENT: Head: Normocephalic and atraumatic. Right Ear: External ear normal. Left Ear: External ear normal. Nose: Nose normal. Mouth/Throat: Mouth: Mucous membranes are moist. Eyes: Extraocular Movements: Extraocular movements intact. Conjunctiva/sclera: Conjunctivae normal. Cardiovascular: Rate and Rhythm: Normal rate and regular rhythm. Pulses: Normal pulses. Heart sounds: Normal heart sounds. Pulmonary: Effort: Pulmonary effort is normal. Breath sounds: Normal breath sounds. Abdominal: General: Bowel sounds are normal. There is no distension. Palpations: Abdomen is soft. There is no mass. Tenderness: There is no abdominal tenderness. Musculoskeletal: Cervical back: Normal range of motion and neck supple. Comments: Crepitus noted to right shoulder Skin: General: Skin is warm and dry. Capillary Refill: Capillary refill takes 2 to 3 seconds. Findings: No rash (not at this time). Neurological: General: No focal deficit present. Mental Status: She is alert and oriented to person, place, and time. Psychiatric: Mood and Affect: Mood normal. Behavior: Behavior normal. Thought Content: Thought content normal. Judgment: Judgment normal. ASSESSMENT AND PLAN: No follow-ups on file. Problem List Items Addressed This Visit BMI 32.0-32.9,adult HTN (hypertension) (CMS/HCC) - Primary Stable at this time, no changes in meds or doses Bradycardia Has been intermediate manager, no symptoms, does take b miriam eye drops Chronic right shoulder pain Starting to have more effects on ADL's Will refer to stepanic Relevant Orders Ambulatory referral to Orthopaedic Surgery Chronic pain of right knee Refer to ortho Relevant Orders Ambulatory referral to Orthopaedic Surgery Rash and nonspecific skin eruption Nothing noticed today, unsure if eczema component. Trial adding OTC zyrtec 10mg daily, contact office in 2 weeks if this does not help Discussed skin care with winter documented in this encounter [facility] History of Present illness Narrative 05-19-2023 Rosio Zacarias, ANGELES - 05/19/2023 11:30 AM Robert Luna APRN-COURTNEY - 05/19/2023 11:30 AM EST Note Date & Type Note Facility 05-19-2023 History of Presen t illness Narrative SLEEP Warsaw Score -6 CPAP/BIPAP/APAP Pressure - Max IPAP18 min EPAP 9 with ps 4 cm/H20 Neck Circumference - Most Recent Sleep Study -02/08/23 Oxygen Use - If so, how many liters and is it PRN, Nocturnal, or continuous? Patient is benefiting from PAP therapy--yes PB Ashley Referred by- daughter Have you ever seen a sleep specialist (New Patient) - yes Have you ever been treated for Sleep Apnea (New Patient) - yes Work Schedule- retired Sleep Schedule: Time to bed 11 pm Average time to fall asleep varies Time up for the day 7:30 am How many times a night do you wake up been waking up at 3 am Symptoms include : Snoring/snorting - yes not with BIPAP Insomnia- yes Are you currently taking any OTC or prescription medications for insomnia - If so, What medications are you currently taking or previously been prescribed for insomnia? magnesium Daytime Sleepiness - yes Are you able to take naps during the day no - If so, how often? Do you experience tossing or turning at night? no Restless legs - no If so, what medications are you currently taking or have previously been prescribed for RLS? Are you currently or have you previously been treated for ADHD, Narcolepsy, or Fatigue? - no If so, what medications are you currently taking or have previously been prescribed for ADHD, Narcolepsy, or Fatigue? Waking with gasping/shortness of breath - no Difficulty concentrate- - no Waking with headache- no Significant weight change- no Have you ever been on medication management for weight loss, spoke with anyone about weight loss surgery/procedures, or have you had a surgical procedure to help with weight loss? no Pain 0-10- o If yes, Location- Upcoming surgeries?- no Has witnessed apnea ( some body told patient that they stop breathing in their sleep) - yes Med Refills (that we prescribe) - N/A Patient here to get established for sleep, is on BIPAP, having issues with leaks. HPI: SUBJECTIVE: Christie Waterman is a 77 y.o. female being seen today for sleep. Most recent sleep testing showed: severe obstructive sleep apnea (AHI 30/hr) with sleep related hypoxia (radha 76%) and problem is likely to result in a high risk morbidity without treatment. Patient completed an ONPO test while wearing Auto BiPAP which appeared to correct her hypoxia, mean 96%. Currently on home Auto BiPAP at 18/9 cmH2O PS 5 cmH2O. Patient most recent PAP machine is from 02/23/23. Patient stated that she is benefiting from the therapy. Her compliance is excellent. Average AHI from the compliance report was 2.8. Patient states improvements with her daytime fatigue or excessive daytime sleepiness with PAP therapy, not sure if there is a big difference. Current sleep problems/side effects include: mask leaking, feels pressure builds up high causing leaks, tried and failed multiple mask. Patient denies snoring during therapy. Patient denies other sleep concerns today. History and Allergies Allergies Allergen Reactions Lisinopril Cough MARTY inhibitors Past Medical History: Diagnosis Date Essential hypertension, benign VAL (obstructive sleep apnea) Past Surgical History: Procedure Laterality Date BACK SURGERY 2021 Social History Socioeconomic History Marital status: Spouse name: Not on file Number of children: Not on file Years of education: Not on file Highest education level: Not on file Occupational History Not on file Tobacco Use Smoking status: Former Types: Cigarettes Smokeless tobacco: Never Vaping Use Vaping Use: Never used Substance and Sexual Activity Alcohol use: Not on file Drug use: Not on file Sexual activity: Not on file Other Topics Concern Not on file Social History Narrative Not on file Social Determinants of Health Financial Resource Strain: Not on file Food Insecurity: Not on file Transportation Needs: Not on file Physical Activity: Not on file Stress: Not on file Social Connections: Not on file Intimate Partner Violence: Not on file Housing Stability: Not on file Family History Problem Relation Age of Onset Diabetes Father Vitals: 05/19/23 1143 BP: 134/70 Pulse: (!) 48 Resp: 18 SpO2: 96% Weight: 82.4 kg (181 lb 11.2 oz) Height: 1.6 m (5' 3 ) Physical Examination Physical Exam Vitals and nursing note reviewed. Constitutional: General: She is not in acute distress. Appearance: She is well-developed. HENT: Head: Normocephalic and atraumatic. Right Ear: External ear normal. Left Ear: External ear normal. Eyes: General: Right eye: No discharge. Left eye: No discharge. Neck: Vascular: No JVD. Cardiovascular: Rate and Rhythm: Normal rate. Pulses: Normal pulses. Heart sounds: No murmur heard. No friction rub. No gallop. Pulmonary: Effort: Pulmonary effort is normal. No respiratory distress. Breath sounds: No wheezing. Musculoskeletal: General: No deformity. Normal range of motion. Cervical back: Normal range of motion and neck supple. Skin: General: Skin is warm and dry. Neurological: General: No focal deficit present. Mental Status: She is alert and oriented to person, place, and time. Psychiatric: Mood and Affect: Mood normal. Behavior: Behavior normal. Judgment: Judgment normal. SLEEP Warsaw Score -6 CPAP/BIPAP/APAP Pressure - Max IPAP18 min EPAP 9 with ps 4 cm/H20 Neck Circumference - Most Recent Sleep Study -02/08/23 Oxygen Use - If so, how many liters and is it PRN, Nocturnal, or continuous? Patient is benefiting from PAP therapy--yes PB Ashlye Referred by- daughter Have you ever seen a sleep specialist (New Patient) - yes Have you ever been treated for Sleep Apnea (New Patient) - yes Work Schedule- retired Sleep Schedule: Time to bed 11 pm Average time to fall asleep varies Time up for the day 7:30 am How many times a night do you wake up been waking up at 3 am Symptoms include : Snoring/snorting - yes not with BIPAP Insomnia- yes Are you currently taking any OTC or prescription medications for insomnia - If so, What medications are you currently taking or previously been prescribed for insomnia? magnesium Daytime Sleepiness - yes Are you able to take naps during the day no - If so, how often? Do you experience tossing or turning at night? no Restless legs - no If so, what medications are you currently taking or have previously been prescribed for RLS? Are you currently or have you previously been treated for ADHD, Narcolepsy, or Fatigue? - no If so, what medications are you currently taking or have previously been prescribed for ADHD, Narcolepsy, or Fatigue? Waking with gasping/shortness of breath - no Difficulty concentrate- - no Waking with headache- no Significant weight change- no Have you ever been on medication management for weight loss, spoke with anyone about weight loss surgery/procedures, or have you had a surgical procedure to help with weight loss? no Pain 0-10- o If yes, Location- Upcoming surgeries?- no Has witnessed apnea ( some body told patient that they stop breathing in their sleep) - yes Med Refills (that we prescribe) - N/A Patient here to get established for sleep, is on BIPAP, having issues with leaks. CURRENT MEDICATIONS: Current Outpatient Medications Medication Sig Dispense Refill amLODIPine 2.5 MG tablet Take 1 tablet by mouth daily. Brimonidine 0.2 % Solution INSTILL 1 DROP INTO BOTH EYES EVERY 12 HOURS Calcium Carb-Cholecalciferol (CALCIUM 600 + D PO) Take 1 tablet by mouth daily. dorzolamide 2 % Solution Dorzolamide HCl Latanoprost 0.005 % Solution ophthalmic solution PLACE 1 DROP INTO BOTH EYES EVERYDAY AT BEDTIME losartan 100 MG tablet Take 1 tablet by mouth daily. Magnesium 400 MG tablet Take 1 tablet by mouth daily. No current facility-administered medications for this visit. Lungs: Clear to auscultation bilaterally. Heart: Regular in rate and rhythm. Abd: Soft and non-distended. Skin: No obvious rashes or cyanosis. Neuro: Grossly non-focal examination. MS: No joint erythema/edema. ROS Reviewed. Interpretation of the sleep study result was reviewed and discussed with the patient during this visit Interpretation of sleep study and compliance report form was completed today and reviewed together with the patient during this visit. ASSESSMENT & PLAN: * VAL * Sleep Related Hypoxia * Overweight * Reviewed Test Results from PSG/Titratoin * Reviewed CPAP Compliance Form * Patient was advised to continue with positive pressure therapy at home once received. * Patient was advised to adhere to a regular sleep hygiene habits. * Reinforced: adverse consequences of VAL, compliance, wt loss, side sleeping if feasible, sleep hygiene (and avoid/minimize alcohol, sedative/respiratory depressant meds, nicotine/smoking cessation: quit), not driving/operating machinery while sleepy. * Patient will follow up in 1 year * Mask Fitting today at sleep center--Shelby tried Nasal Mask today * Adjust Auto BiPAP to BiPAP12/8 [id number] 1 month compliance * New Supplies Ordered-Chg Pressure BiPAP 12/8 Discussed with patient: the physiology of Sleep Apnea, medical conditions associated with sleep apnea (DM, HTN, CAD, Depression, Stroke, Headaches, CHF, Heart Dysrhythmias) and treatment options. Advised patient to avoid activities that could harm self or others when tired/sleep, including driving and/or operating heavy machinery. Depending on polysomnography results: - Order PAP titration based on insurance requirements, if already on therapy continue therapy, or if symptomatic with high AHI complete another titration. - Will start/continue PAP therapy after results of PAP titration - I will have prescription sent to a [employer] company of choice- who will be calling patient in approximately next 1-2 weeks. - Patient should be eligible for new supplies approximately every 3-6 months, depending on your insurance coverage, [employer] company will inform patient of coverage - If patient mask does not fit well, contact [employer] company before 30 days are up to get a new mask without an additional charge - Insurance requires regular usage and periodic office follow ups for PAP therapy to continue to cover supplies Insurance Requirements: - Your insurance requires a [id number] follow up visit within 31-90 days period after starting PAP therapy. - Your insurance requires compliance with PAP therapy, which is at least 4 hours per night for 70% of the time. This must be done over at least 30 day period and must occur within the intial 31-90 day period after starting PAP therapy. - Your insurance also requires at least a yearly follow up to continue to pay for PAP therapy and supplies. A total of 45 minutes were spent at this encounter, and this includes obtaining and/or reviewing separately obtained history , performing exam, review of previous tests and results, independently interpreting results of tests and communicating results to the patient/family/caregiver, ordering medications/tests/procedures, counseling the patient and/family on plan of care, referring/communicating with other health day care home provider, as well as documenting the clinical information in the EHR. This includes face to face time and preparing to see the patient (review of tests) I personally reviewed selected chart notes, results, interpreted tests, imaging today before seeing the pt; reviewed and discussed w/ pt, questions answered. Portions of this chart were created using [employer] electronic dictation. Please excuse any typographical or grammatical errors contained herein as a result. Some Elements copied from previous notes. I have updated where appropriate, and all reflect current medical decision making from today's encounter. MICHELL Hall documented in this encounter [facility] Clinical Note 09-24-2021 Note Date & Type Note Facility 09-24-2021 Note Procedure: AP and la teral views of each of the sacrum and coccyx. Clinical Information: Low back pain Comparison: Lumbar spine x-rays 09/21/2021 and 06/10/2021 Findings: Bones: No acute fracture, dislocation, or aggressive abnormality. Old healed fracture of S5 with about 90 degrees of angulation and an anterior position of the coccyx. Joints: Mildly sclerotic appearance of both SI joints right more than left. No coccygeal subluxation. Soft tissues: Unremarkable. IMPRESSION: 1. No acute bony finding. 2. 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 Final Dictated by: Tara Mckeon MD Dictated DT/TM: 09/24/2021 10:16 am Signed by: Tara Mckeon MD Signed (Electronic Signature): 09/24/2021 10:18 am (If Report Is Signed, Electronically Signed in Other Vendor System) [facility] Evaluation note Note Date & Type Note Facility Evaluation note Diagnosis Obstructive sleep apnea- Primary Obstructive sleep apnea (adult) (pediatric) Sleep related hypoxia Idiopathic sleep related nonobstructive alveolar hypoventilation Encounter to discuss test results Other specified counseling documented in this encounter [facility] Evaluation note Note Date & Type Note Facility Evaluation note Diagnosis Primary hypertension (CMS/HCC)- Primary Unspecified essential hypertension BMI 32.0-32.9,adult Bradycardia Other specified cardiac dysrhythmias Chronic pain of right knee Chronic right shoulder pain Pain in joint, shoulder region Rash and nonspecific skin eruption Rash and other nonspecific skin eruption documented in this encounter [facility] Reason for referral (narrative) Consultation (Routine) - Pending Review Note Date & Type Note Facility Reason for referral (narrati ve) Specialty Diagnoses / Procedures Referred By Nancie aguilar Referred To Contact Orthopaedic Surgery Diagnoses Chronic pain of right knee Chronic right shoulder pain Alisha Ernst NP [address] [place] [address] Jr. Viktoria Gonsalez, DO [address] [facility] [address] [place] [address] Referral ID Status Reason Start Date Expiration Date Visits Requested Visits Authorized [id number] Pending Review Specialty Services Required 06/12/2023 12/09/2023 1 1 [facility] Summary Purpose Family History No Family History Records FoundNo Family History Records FoundNo Family History Records FoundNo Family History Records FoundNo Family History Records FoundNo Family History Records FoundNo Family History Records Found Advance Directives No Advanced Directives Records FoundNo Advanced Directives Records FoundNo Advanced Directives Records FoundNo Advanced Directives Records FoundNo Advanced Directives Records FoundNo Advanced Directives Records FoundNo Advanced Directives Records Found Additional Source Comments INFORMATION SOURCE (unrecogn ized section and content) DATE CREATED AUTHOR 02/08/2022 [facility] DATE CREATED AUTHOR AUTHOR'S ORGANIZ ATION 02/26/2022 [facility] DATE CREATED AUTHOR AUTHOR'S ORGANIZ ATION 02/26/2022 [facility] DATE CREATED AUTHOR AUTHOR'S ORGANIZ ATION 09/09/2022 [facility] DATE CREATED AUTHOR AUTHOR'S ORGANIZ ATION 05/01/[address] [facility] DATE CREATED AUTHOR AUTHOR'S ORGANIZ ATION 05/20/2023 [facility] DATE CREATED AUTHOR AUTHOR'S ORGANKULDIP ATION 09/12/2023 [facility] Reason for Visit (unrecogniz ed section and content) Reason Comments New Patient Sleep Apnea Care Teams (unrecognized sec tion and content) Credit Card Clerk Relationship Specialty Start Date End Date Alisha Ernst CNP [address] [place] [address] PCP - General Certified Nurse Practitioner 05/05/23 Credit Card Clerk Relationship Specialty Start Date End Date Clarence Villagomez MD [address] [place] [address] PCP - General Family Medicine 11/21/22 Alisha Ernst NP [address] [place] [address] Nurse Practitioner Family Medicine 12/05/22 FOR RECORDS PERTAINING TO PATIENTS WHO ARE OR HAVE BEEN ENROLLED IN A CHEMICAL DEPENDENCY/SUBSTANCEABUSE PROGRAM, SOME INFORMATION MAY BE OMITTED. This clinical summary was aggregated from multiple sources. Caution should be exercised in using it in the provision of clinical care. This summary normalizes information from multiple sources, and as a consequence, information in this document may materially change the coding, format and clinical context of patient data. In addition, data may be omitted in some cases. CLINICAL DECISIONS SHOULD BE BASED ON THE PRIMARY CLINICAL RECORDS. [facility] [employer] provides no warranty or guarantee of the accuracy or completeness of information in this document.
[2023-09-12 09:49] LABS: Alanine Aminotransferase 22 U/L (14-59); Albumin Globulin Ratio 0.9; Albumin Level 3.5 g/dL (3.4-5.0); Alkaline Phosphatase 52 U/L (46-116); Anion Gap 10.9; Aspartate Amino Transferase 20 U/L (15-37); Bilirubin Total 0.7 mg/dL (0.2-1.0); Calcium 9.2 mg/dL (8.5-10.1); Carbon Dioxide 29.8 mmol/L (21.0-32.0); Chloride 104 mmol/L (98-107); Chol HDL Ratio 3.2; Cholesterol 264 mg/dL (<=200); Estimated GFR (African America >60 (>=60); Estimated GFR (Non-African Ame >60 (>=60); Globulin 3.9 g/dL; Glucose 92 mg/dL (74-106); HDL Cholesterol 83 mg/dL (40-60); Potassium 4.7 mmol/L (3.5-5.1); Sodium 140 mmol/L (136-145); Total Protein 7.4 g/dL (6.4-8.2); Triglycerides 91 mg/dL (<=150); VLDL CHOLESTEROL 18.2 mg/dL
[2023-09-12 09:56] LABS: Urine Microscopic Indicated YES; WBC Urine 0-2 #/HPF (NONE SEEN)
[2023-09-12 09:57] LABS: Bacteria Urine NONE SEEN #/HPF (NONE SEEN); Mucus Urine NONE SEEN (NONE SEEN); RBC Urine NONE SEEN #/HPF (0-2); Squamous Epithelial Cell Urine FEW #/LPF (NONE/RARE)
[2023-09-12 09:59] LABS: Creatinine Urine Random 25.57 mg/dL (20.00-300.00); Microalbum Creatinine Ratio Ur 50.8 mg/g (0.0-29.9); Microalbumin Urine Random <1.3 mg/dL (<=30.0)
== END 2023-09-12 09:10 | disposition home or self-care (01) ==
LOC: LAB 09:10
PROVIDERS: PCP Nurse Practitioner; Visit Provider Nurse Practitioner
DX: E78.2 Mixed hyperlipidemia (principal); I10 Essential (primary) hypertension; M80.08XG Age-related osteoporosis with current pathological fracture, vertebra(e), subsequent encounter for fracture with delayed healing
CPT/HCPCS: 36415; 80053; 80061; 81001; 82043; 82570; 85025

== ENCOUNTER 2023-12-07 09:22 | Outpatient (OUT) | payer MEDICARE, SELFPAY ==
--- OUTSIDE RECORDS SUMMARY | 2023-12-07 09:26 | XMS_ITS | CCD ---
Author Organization [facility] Care Team Providers Care Materials Planner/Production Planner Name Role Phone Kiana, BASIL Pacheco Attending Unavai lable Aichholz KILN TESTER-RECREATION ESTABLISHMENT MANAGER, Alisha Benítez Primary Care Unava ilable Ickes, BASIL Pacheco Attending Unavai lable Aichholz KILN TESTER-RECREATION ESTABLISHMENT MANAGER, Alisha Benítez Primary Care Unava ilable Ickes, BASIL Pacheco Attending Unavai lable Aichholz KILN TESTER-RECREATION ESTABLISHMENT MANAGER, Alisha Benítez Primary Care Unava ilable Ickes, BASIL Pacheco Attending Unavai lable Aichholz KILN TESTER-RECREATION ESTABLISHMENT MANAGER, Alisha Benítez Primary Care Unava ilable Ickes, BASIL Pacheco Attending Unavai lable Aichholz KILN TESTER-RECREATION ESTABLISHMENT MANAGER, Alisha Benítez Primary Care Unava ilable Ickes, BASIL Pacheco Attending Unavai lable Aichholz KILN TESTER-RECREATION ESTABLISHMENT MANAGER, Alisha Benítez Primary Care Unava ilable Ickes, BASIL Pacheco Attending Unavai lable Aichholz KILN TESTER-RECREATION ESTABLISHMENT MANAGER, Alisha Benítez Primary Care Unava ilable Ickes, BASIL Pacheco Attending Unavai lable Aichholz KILN TESTER-RECREATION ESTABLISHMENT MANAGER, Alisha Benítez Primary Care Unava ilMD Facundo Baeza Attending Unavailable Aichholz KILN TESTER-RECREATION ESTABLISHMENT MANAGER, Alisha Benítez Primary Care Unava ilable Ickes, BASIL Pacheco Attending Unavai lable Aichholz KILN TESTER-RECREATION ESTABLISHMENT MANAGER, Alisha Benítez Primary Care Unava ilable Aichholz KILN TESTER-RECREATION ESTABLISHMENT MANAGER, Alisha Benítez Consulting Unava ilMD Facundo Baeza Attending Unavailable Aichholz KILN TESTER-RECREATION ESTABLISHMENT MANAGER, Alisha Benítez Primary Care Unava ilable Aichholz KILN TESTER-[facility], Alisha Jo Consulting Unava MD Radha Carey Consulting Unavailable MD Facundo Branham Attending Unavailable Aichholz KILN TESTER-[facility], Alisha Jackelin Primary Care Unava ilable Ickes, BASIL Pacheco Attending Unavai lable Aichholz KILN TESTER-[facility], Alisha Jackelin Consulting Unava ilable Aichholz KILN TESTER-[facility], Alisha Jackelin Primary Care Unava ilable Ickes, BASIL Pacheco Attending Unavai lable Aichholz KILN TESTER-[facility], Alisha Jackelin Primary Care Unava ilable Ickes, BASIL Pacheco Attending Unavai lable Aichholz KILN TESTER-[facility], Alisha Jackelin Primary Care Unava ilable ELIESER QUIROS Admitting Unavailable ELIESER QUIROS Attending Unavailable ELIESER QUIROS Referring Unavailable AICHHOLZ, RECREATION ESTABLISHMENT MANAGER ALISHA Admitting Unavailable AICHHOLZ, RECREATION ESTABLISHMENT MANAGER ALISHA Attending Unavailable AICHHOLZ, RECREATION ESTABLISHMENT MANAGER ALISHA Consulting Unavailable AICHHOLZ, RECREATION ESTABLISHMENT MANAGER ALISHA Primary Care Unavailable Reed Davila Consulting Unavailable AICHHOLZ, RECREATION ESTABLISHMENT MANAGER ALISHA Admitting Unavailable AICHHOLZ, RECREATION ESTABLISHMENT MANAGER ALISHA Attending Unavailable AICHHOLZ, RECREATION ESTABLISHMENT MANAGER ALISHA Consulting Unavailable AICHHOLZ, RECREATION ESTABLISHMENT MANAGER ALISHA Primary Care Unavailable Reed Davila Consulting Unavailable AICHHOLZ, RECREATION ESTABLISHMENT MANAGER ALISHA Admitting Unavailable AICHHOLZ, RECREATION ESTABLISHMENT MANAGER ALISHA Attending Unavailable AICHHOLZ, RECREATION ESTABLISHMENT MANAGER ALISHA Consulting Unavailable AICHHOLZ, RECREATION ESTABLISHMENT MANAGER ALISHA Primary Care Unavailable AICHHOLZ, RECREATION ESTABLISHMENT MANAGER ALISHA Admitting Unavailable AICHHOLZ, RECREATION ESTABLISHMENT MANAGER ALISHA Attending Unavailable AICHHOLZ, RECREATION ESTABLISHMENT MANAGER ALISHA Consulting Unavailable AICHHOLZ, RECREATION ESTABLISHMENT MANAGER ALISHA Primary Care Unavailable SILVAHSMILEY, ALISHA J Referring Unavailable AICHHOLPhilip, ALISHA J Primary Care Unavailable Aichholz RECREATION ESTABLISHMENT MANAGER, Alisha Primary Care Provider ALISHA ERNST Primary Care Unavailable EUNICE LUNA Referring Unavailable EUNICE LUNA Attending Unavailable Clarence Villagomez MD Primary Care Provider [phone] [employer]ODUCE PRODUCTION TEAM MEMBER, Alsiha Unavailable ALISHA ERNST Attending Unavailable TARA JIMÉNEZ Attending Unavailable ATRA JIMÉNEZ Referring Unavailable DAJA VARGAS Attending Unavailable [...] sources) Lisinopril; Translations: [lisinopril] Drug Allergy 11-21-2022 [facility] Medications Current Medications Medication Drug Class(es) [...] Facility MR SHOULDER RIGHT WO IV CONT [facility] 07-20-2023 MR SHOULDER RIGHT WO IV [...] 09-05-2022 BASO # 0.1 103/ul Normal 0.0-0.1 [facility] Comment on above: Performed By: #### C BC #### [facility] [address] [place] [address] Dr. Sheila Alford Basophils/100 WBC (Bld) 0.9 % Normal 0.2-2.0 [facility] Comment on above: Performed By: #### C BC #### [facility] [address] [address] [address] Sheila Alford EO # 0.1 103/ul Normal 0.0-0.7 [facility] Comment on above: Performed By: #### C BC #### [facility] [address] [place] [address] Dr. Sheila Alford Eosinophils/100 WBC (Bld) 1.5 % Normal 0.9-7.0 [facility] Comment on above: Performed By: #### C BC #### [facility] [address] [place] [address] Dr. Sheila Alford Erythrocyte distribution width (RBC) [Ratio] 13.2 % Normal 11.0-15.0 [facility] Comment on above: Performed By: #### C BC #### [facility] [address] [place] [address] Dr. Sheila Alford Hematocrit (Bld) [Volume fraction] 41.4 % Normal 36.0-48.0 [facility] Comment on above: Performed By: #### C BC #### [facility] [address] [place] [address] Dr. Sheila Alford Hemoglobin (Bld) [Mass/Vol] 13.2 g/dL Normal 12.0-16.0 [facility] Comment on above: Performed By: #### C BC #### [facility] [address] [place] [address] Dr. Sheila Alford IG # 0.01 10e3/ul Normal 0.00-0.03 [facility] Comment on above: Performed By: #### C BC #### [facility] [address] [place] [address] Dr. Sheila Alford IG % 0.2 % Normal 0.0-0.5 [facility] Comment on above: Performed By: #### C BC #### [facility] [address] [place] [address] Dr. Sheila Alford LYMPH # 1.3 103/ul Normal 1.2-3.8 [facility] Comment on above: Performed By: #### C BC #### [facility] [address] [place] [address] Dr. Sheila Alford Lymphocytes/100 WBC (Bld) 24.4 % Normal 20.5-60.0 [facility] Comment on above: Performed By: #### C BC #### [facility] [address] [place] [address] Dr. Sheila Alford MANUAL DIFF REQ NO Normal [facility] Comment on above: Performed By: #### C BC #### [facility] [address] [place] [address] Dr. Sheila Alford MCH (RBC) [Entitic mass] 29.1 pg Normal 26.7-34.0 [facility] Comment on above: Performed By: #### C BC #### [facility] [address] [address] [address] Sheila Alford MCHC (RBC) [Mass/Vol] 31.9 g/dL Normal 29.9-35.2 [facility] Comment on above: Performed By: #### C BC #### [facility] [address] [place] [address] Dr. Sheila Alford MCV (RBC) [Entitic vol] 91.2 fL Normal 81.0-99.0 [facility] Comment on above: Performed By: #### C BC #### [facility] [address] [place] [address] Dr. Sheila Alford MONO # 0.5 103/ul Normal 0.3-0.8 [facility] Comment on above: Performed By: #### C BC #### [facility] [address] [place] [address] Dr. Sheila Alford Monocytes/100 WBC (Bld) 9.1 % Normal 1.7-12.0 [facility] Comment on above: Performed By: #### C BC #### [facility] [address] [place] [address] Dr. Sheila Alford NEUT # 3.4 103/ul Normal 1.4-6.5 [facility] Comment on above: Performed By: #### C BC #### [facility] [address] [place] [address] Dr. Sheila Alford Neutrophils/100 WBC (Bld) 63.9 % Normal 43.0-75.0 [facility] Comment on above: Performed By: #### C BC #### [facility] [address] [place] [address] Dr. Sheila Alford Platelet mean volume (Bld) [Entitic vol] 9.4 fL Critically low 9.5-13.5 [facility] Comment on above: Performed By: #### C BC #### [facility] [address] [address] [address] Sheila Alford PLT 219 103/ul Normal 150-450 [facility] Comment on above: Performed By: #### C BC #### [facility] [address] [address] [address] Sheila Alford RBC 4.54 106/ul Normal 4.20-5.40 [facility] Comment on above: Performed By: #### C BC #### [facility] [address] [place] [address] Dr. Sheila Alford WBC 5.4 103/ul Normal 4.0-11.0 [facility] Comment on above: Performed By: #### C BC #### [facility] [address] [place] [address] Dr. Sheila Alford LIPID PROFILEon 09-05-2022 CHOL-HDL RATIO NORM SEE BELOW Normal [facility] Comment on above: Result Comment: 3.3 - 4.4 LOW RISK 4.4 - 7.1 AVERAGE RISK 7.1 - 11.0 MODERATE RISK >11.0 HIGH RISK Performed By: #### C MP, LIPID #### [facility] [address] [place] [address] Dr. Sheila Alford Cholesterol [Mass/Vol] 261 mg/dL Critically high <=200 [facility] Comment on above: Performed By: #### C MP, LIPID #### [facility] [address] [place] [address] Dr. Sheila Alford Cholesterol in HDL [Mass/Vol] 84 mg/dL Critically high 40-60 [facility] Comment on above: Performed By: #### C MP, LIPID #### [facility] [address] [place] [address] Dr. Sheila Alford Cholesterol in LDL [Mass/Vol] 157.8 mg/dL Normal [facility] Comment on above: Performed By: #### C MP, LIPID #### [facility] [address] [place] [address] Dr. Sheila Alford Cholesterol.total/ Cholesterol in HDL [Mass ratio] 3.1 {ratio} Normal [facility] Comment on above: Performed By: #### C MP, LIPID #### [facility] [address] [place] [address] Dr. Sheila Alford HDL NORMAL > or = 60 mg/dl - LO W CARDIOVASCULAR RISK <40 mg/dl - HIGH CARDIOVASCULAR RISK Normal [facility] Comment on above: Performed By: #### C MP, LIPID #### [facility] [address] [place] [address] Dr. Sheila Alford LDL CALC NORMAL SEE BELOW Normal [facility] Comment on above: Result Comment: <100 mg/dl OPTIMAL 100 - 129 mg/dl NEAR OR ABOVE OPTIMAL 130 - 159 mg/dl BORDERLINE HIGH 160 - 189 mg/dl HIGH >190 mg/dl VERY HIGH Performed By: #### C MP, LIPID #### [facility] [address] [place] [address] Dr. Sheila Alford Triglyceride [Mass/Vol] 96 mg/dL Normal <=150 [facility] Comment on above: Performed By: #### C MP, LIPID #### [facility] [address] [place] [address] Dr. Sheila Alford VLDL CALC 19.2 mg/dL Normal [facility] Comment on above: Performed By: #### C MP, LIPID #### [facility] [address] [place] [address] Dr. Sheila Alford PROF 14(COMP METB)on 023 Albumin [Mass/Vol] 3.6 g/dL Normal 3.4-5.0 [facility] Comment on above: Performed By: #### C MP, LIPID #### [facility] [address] [place] [address] Dr. Sheila Alford Albumin/Globulin [Mass ratio] 0.9 {ratio} Normal [facility] Comment on above: Performed By: #### C MP, LIPID #### [facility] [address] [place] [address] Dr. Sheila Alford ALP [Catalytic activity/Vol] 46 U/L Normal 46-116 [facility] Comment on above: Performed By: #### C MP, LIPID #### [facility] [address] [place] [address] Dr. Sheila Alford ALT [Catalytic activity/Vol] 20 U/L Normal 14-59 [facility] Comment on above: Performed By: #### C MP, LIPID #### [facility] [address] [place] [address] Dr. Sheila Alford Anion gap [Moles/Vol] 10.8 mmol/L Normal [facility] Comment on above: Performed By: #### C MP, LIPID #### [facility] [address] [address] [address] Sheila Alford AST [Catalytic activity/Vol] 18 U/L Normal 15-37 [facility] Comment on above: Performed By: #### C MP, LIPID #### [facility] [address] [place] [address] Dr. Sheila Alford Bilirubin [Mass/Vol] 0.4 mg/dL Normal 0.2-1.0 [facility] Comment on above: Performed By: #### C MP, LIPID #### [facility] [address] [place] [address] Dr. Sheila Alford Calcium [Mass/Vol] 9.3 mg/dL Normal 8.5-10.1 [facility] Comment on above: Performed By: #### C MP, LIPID #### [facility] [address] [place] [address] Dr. Sheila Alford Chloride [Moles/Vol] 108 mmol/L Critically high 98-107 [facility] Comment on above: Performed By: #### C MP, LIPID #### [facility] [address] [place] [address] Dr. Sheila Alford CO2 [Moles/Vol] 29.5 mmol/L Normal 21.0-32.[address] [facility] Comment on above: Performed By: #### C MP, LIPID #### [facility] [address] [place] [address] Dr. Sheila Alford Creatinine [Mass/Vol] 0.54 mg/dL Critically low 0.55-1.02 [facility] Comment on above: Performed By: #### C MP, LIPID #### [facility] [address] [place] [address] Dr. Sheila Alford EGFR-AF [place]LANDER >60 Normal >=60 [facility] Comment on above: Performed By: #### C MP, LIPID #### [facility] [address] [place] [address] Dr. Sheila Alford EGFR-NON AF [place]ER >60 Normal >=60 [facility] Comment on above: Performed By: #### C MP, LIPID #### [facility] [address] [place] [address] Dr. Sheila Alford Globulin (S) [Mass/Vol] 4.1 g/dL Normal [facility] Comment on above: Performed By: #### C MP, LIPID #### [facility] [address] [place] [address] Dr. Sheila Alford Glucose [Mass/Vol] 102 mg/dL Normal 74-106 [facility] Comment on above: Performed By: #### C MP, LIPID #### [facility] [address] [place] [address] Dr. Sheila Alford Potassium [Moles/Vol] 4.3 mmol/L Normal 3.5-5.1 [facility] Comment on above: Performed By: #### C MP, LIPID #### [facility] [address] [place] [address] Dr. Sheila Alford Protein [Mass/Vol] 7.7 g/dL Normal 6.4-8.2 [facility] Comment on above: Performed By: #### C MP, LIPID #### [facility] [address] [place] [address] Dr. Sheila Alford Sodium [Moles/Vol] 144 mmol/L Normal 136-145 [facility] Comment on above: Performed By: #### C MP, LIPID #### [facility] [address] [place] [address] Dr. Sheila Alford Urea nitrogen [Mass/Vol] 17.0 mg/dL Normal 7.0-18.0 [facility] Comment on above: Performed By: #### C MP, LIPID #### [facility] [address] [place] [address] Dr. Sheila Alford Urea nitrogen/Creatinin e [Mass ratio] 31.5 mg/mg Normal [facility] Comment on above: Performed By: #### C MP, LIPID #### [facility] [address] [address] [address] Sheila Alford UA RANDOM W/MICROSCOPICon BACTERIA TRACE Abnormal NONE SEEN [facility] Comment on above: Performed By: #### U AMIC #### [facility] [address] [address] [address] Sheila Alford Bilirubin Ql (U) Negative Normal NEGATIVE [facility] Comment on above: Performed By: #### U AMIC #### [facility] [address] [address] [address] Sheila Alford CAST NONE SEEN Normal NONE SEEN [facility] Comment on above: Performed By: #### U AMIC #### [facility] [address] [place] [address] Dr. Sheila Alford Clarity (U) CLEAR Normal CLEAR [facility] Comment on above: Performed By: #### U AMIC #### [facility] [address] [address] [address] Sheila Alford Color (U) LT. YELLOW Normal YELLOW [facility] Comment on above: Performed By: #### U AMIC #### [facility] [address] [address] [address] Sheila Alford Crystals LM Nom (Urine sed) NONE SEEN Normal NONE SEEN [facility] Comment on above: Performed By: #### U AMIC #### [facility] [address] [address] [address] Sheila Alford Epithelial cells LM Ql (Urine sed) RARE Normal NONE SEEN /RARE [facility] Comment on above: Performed By: #### U AMIC #### [facility] [address] [place] [address] Dr. Sheila Alford Glucose Ql (U) Negative Normal NEGATIVE [facility] Comment on above: Performed By: #### U AMIC #### [facility] [address] [address] [address] Sheila Alford Hemoglobin Ql (U) Negative Normal NEGATIVE [facility] Comment on above: Performed By: #### U AMIC #### [facility] [address] [address] [address] Sheila Alford Ketones Ql (U) Negative Normal NEGATIVE [facility] Comment on above: Performed By: #### U AMIC #### [facility] [address] [address] [address] Sheila Alford LEUKOCYTES Negative Normal NEGATIVE [facility] Comment on above: Performed By: #### U AMIC #### [facility] [address] [address] [address] Sheila Alford MUCOUS NONE SEEN Normal NONE SEEN [facility] Comment on above: Performed By: #### U AMIC #### [facility] [address] [address] [address] Sheila Alford Nitrite Ql (U) Negative Normal NEGATIVE [facility] Comment on above: Performed By: #### U AMIC #### [facility] [address] [address] [address] Sheila Alford pH (U) 7.0 [pH] Normal 5-9 [facility] Comment on above: Performed By: #### U AMIC #### [facility] [address] [address] [address] Sheila Alford RBC 0-2 Normal 0-2 [facility] Comment on above: Performed By: #### U AMIC #### [facility] [address] [address] [address] Sheila Alford SPEC GRAVITY 1.015 Normal 1.005-<=1.025 [facility] Comment on above: Performed By: #### U AMIC #### [facility] [address] [address] [address] Sheila Alford UA PROTEIN Negative Normal NEGATIVE/ TRACE [facility] Comment on above: Performed By: #### U AMIC #### [facility] [address] [place] [address] Dr. Sheila Alford Urobilinogen Qn (U) 0.2 {Ciera'U}/dL Normal 0.2 - 1.0 [facility] Comment on above: Performed By: #### U AMIC #### [facility] [address] [address] [address] Sheila Alford WBC NONE SEEN Normal NONE SEEN [facility] Comment on above: Performed By: #### U AMIC #### [facility] [address] [place] [address] Dr. Sheila Alford VITAMIN D 25 OHon 09-05-2022 VIT D 25-OH 57.2 ng/mL Normal [facility] Comment on above: Performed By: #### V ITAD #### [facility] [address] [place] [address] Dr. Sheila Alford VIT D RANGES SEE BELOW Normal [facility] Comment on above: Result Comment: <20 ng/mL Vit D deficient 20 - <30 ng/mL Vit D insufficient 30 - 100 ng/mL Vit D sufficient >100 ng/mL Potential Toxicity Performed By: #### V ITAD #### [facility] [address] [place] [address] Dr. Sheila Alford PROF CHEM 8 (BAS METB)on Anion gap [Moles/Vol] 6.4 mmol/L Normal [facility] Comment on above: Performed By: #### B MP #### [facility] [address] [place] [address] Dr. Sheila Alford Calcium [Mass/Vol] 9.3 mg/dL Normal 8.5-10.1 [facility] Comment on above: Performed By: #### B MP #### [facility] [address] [place] [address] Dr. Sheila Alford Chloride [Moles/Vol] 105 mmol/L Normal 98-107 [facility] Comment on above: Performed By: #### B MP #### [facility] [address] [place] [address] Dr. Sheila Alford CO2 [Moles/Vol] 31.1 mmol/L Normal 21.0-32.0 [facility] Comment on above: Performed By: #### B MP #### [facility] [address] [place] [address] Dr. Sheila Alford Creatinine [Mass/Vol] 0.57 mg/dL Normal 0.55-1.02 [facility] Comment on above: Performed By: #### B MP #### [facility] [address] [address] [address] Sheila Alford EGFR-AF [place] >60 Normal >=60 [facility] Comment on above: Performed By: #### B MP #### [facility] [address] [address] [address] Sheila Alford EGFR-NON AF [place] >60 Normal >=60 [facility] Comment on above: Performed By: #### B MP #### [facility] [address] [address] [address] Sheila Alford Glucose [Mass/Vol] 90 mg/dL Normal 74-106 [facility] Comment on above: Performed By: #### B MP #### [facility] [address] [place] [address] Dr. Sheila Alford Potassium [Moles/Vol] 4.5 mmol/L Normal 3.5-5.1 [facility] Comment on above: Performed By: #### B MP #### [facility] [address] [place] [address] Dr. Sheila Alford Sodium [Moles/Vol] 138 mmol/L Normal 136-145 [facility] Comment on above: Performed By: #### B MP #### [facility] [address] [address] [address] Sheila Alford Urea nitrogen [Mass/Vol] 16.0 mg/dL Normal 7.0-18.0 [facility] Comment on above: Performed By: #### B MP #### [facility] [address] [address] [address] Sheila Alford Urea nitrogen/Creatinin e [Mass ratio] 28.1 mg/mg Normal [facility] Comment on above: Performed By: #### B MP #### [facility] [address] [place] [address] Dr. Sheila Alford SURGICALon 02-23-2022 SURGICAL [facility] MORIAHPRCHRISTIE COOPER [id number] Assoc. Page 1 of [address] [place] [address] PROC: 02/23/2022 [facility] RECV: 02/24/[address] [facility] RPTD: 02/25/2022 [place] [address] LOC: ALBERTO ACCT: [id number] SEX: F : 1945 AGE: 76 Y [...] developed and its performance characteristics determined by [facility]. It has not been cleared or approved by the U.S. Food and Drug Administration. Pursuant to the requirements of CLIA, this laboratory has established and verified the test's accuracy and precision. Additional information about this type of test is available upon request. [id number] MIMI FERRO D.O., F.C.A.P. [facility]/ [facility] Printed on: 02/25/2022 [address] [place], [place] [address] Original print date: 02/25/2022 Normal [facility] Surgical Pathology Requeston 02-23-2022 ALEX SEE BELOW [facility] Comment on above: Order Comment: Crush fracture of vertebra due to osteoporosis, initial encounter ([facility]) [M80.08XA] Pre-op diagnosis: L4 VERTEBRAL BODY Result Comment: [facility] MORIAHTORREYCHRISTIE MANCINI [id number]\X0D0A\Assoc. Page 1 of 1\X0D0A\[address]\X0D0A\[place] [address]\X0D0A\ PROC: 02/23/2022\X0D0A\[facility] RECV: 02/24/2022\X0D0A\[address] RPTD: 02/25/2022\[place]0D0A\[place] [address]\X0D0A\ LOC: WYA\X0D0A\ ACCT: [id number] SEX: F\X0D0A\ : 1945 AGE: 76 Y\X0D0A\X0D0A\ PATHOLOGY REPORT\X0D0A\ ATTN: NON-STAFF PHYSICIAN\X0D0A\ REQ: ELIESER BAHN\X0D0A\X0D0A\X0D0A\X0D0A\Clinical Information: CRUSH FRACTURE OF VERTEBRA DUE TO OSTEOPOROSIS\X0D0A\INITIAL ENCOUNTER\X0D0A\X0D0A\FINAL DIAGNOSIS:\X0D0A\Bone, L4 vertebral body, biopsy:\X0D0A\ Findings consistent with fracture site.\X0D0A\X0D0A\Specimen:\X0D0A\BONE, L4 VERTEBRAL BODY\X0D0A\X0D0A\X0D0A\Gross Examination:\X0D0A\The container is labeled [facility], L4 vertebral body.\X0D0A\Received in formalin are three [...] was developed and its performance characteristics determined\X0D0A\by [facility]. It has not been cleared or\X0D0A\approved by the U.S. Food and Drug Administration. Pursuant to the\X0D0A\requirements of CLIA, this laboratory has established and verified the\X0D0A\test's accuracy and precision. Additional information about this type\X0D0A\of test is available upon request.\X0D0A\X0D0A\57939\X0D0A\[address]\X0D0A\X0D0A\X0D0A\ \X0D0A\ MIMI Staci FERRO, FDarlingALuizP.\X0D0A\X0D0A\X0D0A\[facility]/ [facility] Printed on: 02/25/2022\X0D0A\[address]\X0D0A\[place], [place] [address]\X0D0A\Original print date: 02/25/2022 Performed By: #### 1 [id number] #### [facility] See Report XR Spine Lumbosacral Complet e [...] Electronically Signed in Other Vendor System) [facility] Neurosurgery Office/Clinic N yon 02-01-2022 Neurosurgery Office/Clinic Note Chief Complaint Pt. being seen for back. History of Present Illness Patient is a pleasant 76-year-old female with a history of hypertension, glaucoma, impaired fasting glucose, osteopenia (DEXA 09/2020: [facility]), obesity (BMI 34), and successful right [...] and home independent exercise, as well as [id number] NSAIDs. Physical Exam Vitals & Measurements HR: [...] she has (more content not included)... [facility] Provider Letteron 02-01-2022 Provider Letter (Inserted Image. Brianna ble to display) Alisha Ernst, Re: Christie Waterman Date of Visit: 02/01/2022 Dear Alisha Ernst, Thank you for allowing me to contribute to the care of your patient, Christie Waterman. Attached is my office note and you will find my assessment and recommendations from our encounter today. Please do not hesitate to contact me with any questions or concerns. Sincerely, Tana Bruno PA-C [facility] [address] The following document(s) were included in the letter: February 01, 2022 09:26:40 EDT - (02/01/2022) Neurosurgery Office Visit Note [facility] Neurosurgery Office/Clinic N oteon 12-24-2021 Neurosurgery Office/Clinic Note Chief Complaint Pt states being seen for back follow up History of Present Illness Patient is a pleasant 76-year-old female with a history of hypertension, glaucoma, impaired fasting glucose, osteopenia (DEXA 09/2020: [facility]), and obesity (BMI 34), who presents [...] excellent status, patient will be released to [facility] (more content not included)... [facility] Provider Letteron 12-24-2021 Provider Letter (Inserted [...] Sincerely, Tana Bruno PA-[place] [facility] [address] The following document(s) were included in the letter: December 24, 2021 10:32:39 EDT - (12/24/2021) Neurosurgery Office Visit Note [facility] MG MAMM SCREEN 3D CANDACE CADon 12-02-2021 MG MAMM SCREEN 3D CANDACE CAD Patient: CHRISTIE WATERMAN Exam Date: 12/02/2021 : 1945 Gender:F Ordering : COURTNEY ALISHA ERNST RECREATION ESTABLISHMENT MANAGER Admission #: [id number] Family : Order #: [id number] CLICK HERE TO VIEW EXAM RADIOLOGY REPORT [...] Treatments None Family Cancers None LOCATION: [facility] BREAST COMPOSITION: Almost entirely fatty. FINDINGS: [...] M.D. on 12/03/2021 at 09:51 Normal [facility] Neurosurgery Office/Clinic N oteon 11-11-2021 Neurosurgery Office/Clinic Note Chief Complaint Pt states being seen for post op back History of Present Illness Patient is a pleasant 75-year-old female with a history of hypertension, glaucoma, impaired fasting glucose, osteopenia (DEXA 09/2020: [facility]), and obesity (BMI 34), who presents [...] in 4 (more content not included)... 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 and ligamentum flavum infolding L3-4 Preoperative Diagnosis SEVERE SPINAL STENOSIS, NEUROGENIC CLAUDICATION, INTRACTABLE BILATERAL LUMBAR RADICULOPATHY Postoperative Diagnosis Same Operation Right L3-4 unilateral laminotomy for bilateral decompression Surgeon(s) Yonas ROBERTS MD, Facundo Gilliam (Surgeon - Primary) Seasonal Customer Service Associate Rosio Humphrey PA-C (Manager Environmental Health And Safety) Anesthesia General Meron Milligan MD, Benji Quintana (Disease Intervention Specialist) Jorge Padron (Provider) Estimated Blood Loss 30.0 [...] ligamentum flav (more content not included)... [facility] Provider Letteron 10-22-2021 Provider Letter (Inserted Image. Brianna ble to display) MICHELL Umana [address] [place] [address] Re: Christie Waterman Date of Visit: 10/22/2021 Dear Alisha GALARZA, Let me know if you have any questions or concerns. Sincerely, ARMANDO Hopper MD Providers: Elieser Quiros M.D. The following document(s) were included in the letter: October 22, 2021 11:27:56 EDT - (10/22/2021) Neurosurgery operative note [facility] XR Spine Lumbosacral 1 View in [...] Electronically Signed in Other Vendor System) [facility] NM STRESS/REST MULTIon 10-11 NM STRESS/REST MULTI Patient: CHRISTIE WATERMAN Exam Date: 10/11/2021 : 1945 Gender:F Ordering : COURTNEY ERNST RECREATION ESTABLISHMENT MANAGER Admission #: [id number] Family : Order #: [id number] CLICK HERE TO VIEW EXAM RADIOLOGY REPORT [...] Davila M.D. on 10/12/2021 at 09:12 Normal [facility] .UA Microscp Aon 10-01-2021 UA RBC Quant 0 /HPF Normal 0-5 [facility] Comment on above: Performed By: #### C [id number] ####[address] [place] [address] UA WBC Quant 0 /HPF Normal 0-5 [facility] Comment on above: Performed By: #### C [id number] ####[address] [place] [address] .eGFRon 10-01-2021 GFR/1.73 sq M.predicted MDRD (S/P/Bld) [Vol rate/Area] mL/min/{1.73_m2} Normal >=60 [facility] Comment on above: Result Comment: [facility] have implemented the eGFR calculation [...] = years Performed By: #### E GFR ####[address] [address] ABO/Rhon 10-01-2021 ABO/Rh SD 6.24.22 ABO/Rh: O POS [facility] Comment on above: Performed By: #### A BORH ####[facility] (DEFAULT)[address] [place], [place] [address]TQPNEFWEL [facility] [place] [address] ABSC Autoon 10-01-2021 ABSC Auto Negative Normal [facility] Comment on above: Performed By: #### A SA ####[address] [address] CBC w/ Diffon 10-01-2021 Erythrocyte distribution width (RBC) [Ratio] 13.2 % Normal 11.6-14.8 [facility] Comment on above: Performed By: #### C BC ####[address] [address] Hematocrit (Bld) [Volume fraction] 38.2 % Normal 36.0-46.0 [facility] Comment on above: Performed By: #### C BC ####[address] [address] Hemoglobin (Bld) [Mass/Vol] 13.3 g/dL Normal 12.0-16.0 [facility] Comment on above: Performed By: #### C BC ####[address] [address] MCH (RBC) [Entitic mass] 29.8 pg Normal 27.0-35.0 [facility] Comment on above: Performed By: #### C BC ####[address] [address] MCHC 34.7 % Normal 31.0-37.0 [facility] Comment on above: Performed By: #### C BC ####[address] [address] MCV (RBC) [Entitic vol] 85.7 fL Normal 80.0-100.0 [facility] Comment on above: Performed By: #### C BC ####[address] [address] Platelet 243 x10*3/mcL Normal 150-350 [facility] Comment on above: Performed By: #### C BC ####[address] [address] Platelet mean volume (Bld) [Entitic vol] 8.0 fL Normal 6.7-10.6 [facility] Comment on above: Performed By: #### C BC ####[address] [address] RBC 4.46 x10*6/mcL Normal 3.80-5.20 [facility] Comment on above: Performed By: #### C BC ####[address] [address] WBC 7.7 x10*3/mcL Normal 4.5-11.0 [facility] Comment on above: Performed By: #### C BC ####[address] [address] CMPon 10-01-2021 Albumin [Mass/Vol] 4.2 g/dL Normal 3.2-4.9 [facility] Comment on above: Performed By: #### C OMP ####[address] [address] Albumin/Globulin [Mass ratio] 1.4 {ratio} Normal 1.1-2.2 [facility] Comment on above: Performed By: #### C OMP ####[address] [address] Alk Phos 45 IU/L Normal 32-91 [facility] Comment on above: Performed By: #### C OMP ####[address] [address] ALT [Catalytic activity/Vol] 13 U/L Low 14-54 [facility] Comment on above: Performed By: #### C OMP ####[address] [address] Anion gap [Moles/Vol] 13 mmol/L Normal 7-17 [facility] Comment on above: Performed By: #### C OMP ####[address] [address] AST [Catalytic activity/Vol] 16 U/L Normal 15-41 [facility] Comment on above: Performed By: #### C OMP ####[address] [address] Bili Total 0.8 mg/dL Normal 0.3-1.2 [facility] Comment on above: Performed By: #### C OMP ####[address] [address] Calcium [Mass/Vol] 9.6 mg/dL Normal 8.5-10.3 [facility] Comment on above: Performed By: #### C OMP ####[address] [address] Chloride [Moles/Vol] 102 mmol/L Normal 98-110 [facility] Comment on above: Performed By: #### C OMP ####[address] [address] CO2 [Moles/Vol] 28 mmol/L Normal 22-32 [facility] Comment on above: Performed By: #### C OMP ####[address] [address] Creatinine [Mass/Vol] 0.74 mg/dL Normal 0.44-1.03 [facility] Comment on above: Performed By: #### C OMP ####[address] [address] Glucose [Mass/Vol] 110 mg/dL High 70-99 [facility] Comment on above: Performed By: #### C OMP ####[address] [address] Potassium [Moles/Vol] 4.3 mmol/L Normal 3.4-4.8 [facility] Comment on above: Performed By: #### C OMP ####[address] [address] Protein [Mass/Vol] 7.2 g/dL Normal 6.5-8.1 [facility] Comment on above: Performed By: #### C OMP ####[address] [address] Sodium [Moles/Vol] 139 mmol/L Normal 133-142 [facility] Comment on above: Performed By: #### C OMP ####[address] [address] Urea nitrogen [Mass/Vol] 15 mg/dL Normal 8-26 [facility] Comment on above: Performed By: #### C OMP ####[address] [address] Urea nitrogen/Creatinin e [Mass ratio] 20.3 mg/mg High 10.0-20.0 [facility] Comment on above: Performed By: #### C OMP ####[address] [address] Diff Autoon 10-01-2021 Baso Absolute 0.1 x10*3/mcL Normal 0.0-0.2 [facility] Comment on above: Performed By: #### . Automated Diff ####[address] [address] Basophils/100 WBC (Bld) 0.8 % Normal 0.0-1.5 [facility] Comment on above: Performed By: #### . Automated Diff ####[address] [address] Eos Absolute 0.1 x10*3/mcL Normal 0.0-0.4 [facility] Comment on above: Performed By: #### . Automated Diff ####[address] [address] Eosinophils/100 WBC (Bld) 0.9 % Normal 0.0-5.4 [facility] Comment on above: Performed By: #### . Automated Diff ####[address] [address] Lymph Absolute 1.2 x10*3/mcL Normal 1.0-4.8 [facility] Comment on above: Performed By: #### . Automated Diff ####[address] [address] Lymphocytes/100 WBC (Bld) 15.1 % Low 27.2-40.8 [facility] Comment on above: Performed By: #### . Automated Diff ####[address] [address] [place] Absolute 0.5 x10*3/mcL Normal 0.1-1.1 [facility] Comment on above: Performed By: #### . Automated Diff ####[address] [address] Monocytes/100 WBC (Bld) 6.8 % Normal 3.7-11.9 [facility] Comment on above: Performed By: #### . Automated Diff ####[address] [address] Neutro Absolute 5.9 x10*3/mcL Normal 1.8-7.7 [facility] Comment on above: Performed By: #### . Automated Diff ####[address] [address] Neutro Auto 76.4 % High 47.2-70.8 [facility] Comment on above: Performed By: #### . Automated Diff ####[address] [address] Hgb A1con 10-01-2021 Glucose [Mass/Vol] 111 mg/dL Normal 68-114 [facility] Comment on above: Result Comment: Math ematical Calc approx. The mean gluc equivalency of A1c Performed By: #### H BA1C ####[address] [address] Hgb A1c 5.5 % A1c Normal 4.0-5.6 [facility] Comment on above: Result Comment: Refe rence Range: 4.0 - 5.6 % Normal 5.7 - 6.4 % Pre-Diabetes > 6.5 % Diabetes Performed By: #### H BA1C ####[address] [address] PTon 10-01-2021 INR Coag (PPP) [Relative time] 1.0 {INR} Normal <=3.5 [facility] Comment on above: Result Comment: INR has no normal range. INR Therapeutic range is: 2.0-3.0 (AF, CVA, TIAs, DVT prophylaxis, acute DVT) 2.5-3.5 ([facility] heart valves, recurrent thrombosis/emboli) Performed By: #### P TINR ####[address] [address] PT Coag (PPP) [Time] 10.4 s Normal 8.9-11.8 [facility] Comment on above: Performed By: #### P TINR ####[address] [address] PTTon 10-01-2021 aPTT Coag (Bld) [Time] 26.1 s Normal 20.7-28.3 [facility] Comment on above: Performed By: #### P TT ####[address] [place] [address] UA w Culture if Indon 2021 Color (U) Colorless Normal [facility] Comment on above: Performed By: #### U CI ####[address] [place] [address] Ketones Ql (U) Negative Normal Negative [facility] Comment on above: Performed By: #### U CI ####[address] [place] [address] UA Blood Negative Normal Negative [facility] Comment on above: Performed By: #### U CI ####[address] [place] [address] UA Clarity Clear Normal [facility] Comment on above: Performed By: #### U CI ####[address] [place] [address] UA Glucose Normal Normal Negative [facility] Comment on above: Performed By: #### U CI ####[address] [place] [address] UA Leukocyte Esterase Negative Normal Negative [facility] Comment on above: Performed By: #### U CI ####[address] [place] [address] UA Nitrite Negative Normal Negative [facility] Comment on above: Performed By: #### U CI ####[address] [place] [address] UA pH 7.5 Normal 4.5 - 7.8 [facility] Comment on above: Performed By: #### U CI ####[address] [place] [address] UA Protein Negative Normal Negative [facility] Comment on above: Performed By: #### U CI ####[address] [address] UA Source Clean Catch Normal [facility] Comment on above: Performed By: #### U CI ####[address] [address] UA Spec Grav 1.006 Normal 1.003-1.035 [facility] Comment on above: Performed By: #### U CI ####[address] [address] UA Urobilinogen Normal Normal 0.2 - 1.0 [facility] Comment on above: Performed By: #### U CI ####[address] [address] Urobilinogen (U) [Mass/Vol] Negative Normal Negative [facility] Comment on above: Performed By: #### U CI ####[id number] Neurosurgery Office/Clinic N yon 09-28-2021 Neurosurgery Office/Clinic [...] 250 mg= 1 tabs, Oral, BID, PRN Bowden 5 mg-325 mg oral tablet, 1 tabs, [...] Branham III, MD 09/28/21 11:03 EDT [facility] Neurosurgery Office/Clinic Note Chief Complaint Patient states review of imaging for back. History of Present Illness Patient is a pleasant 75-year-old female with a history of hypertension, glaucoma, impaired fasting glucose, osteopenia (DEXA 09/2020: [facility]), and obesity (BMI 34), who presents [...] changes of the right hip DEXA 09/2020 [facility]: osteopenia Patient states that her symptoms [...] without deformitie (more content not included)... [facility] Provider Letteron 09-28-2021 Provider Letter (Inserted Image. Brianna ble to display) MICHELL Umana [address] [place] [address] Re: Christielauren Waterman Date of Visit: 09/28/2021 Dear Alisha GALARZA, Let me know if you have any questions or concerns. Sincerely, ARMANDO Hopper MD Providers: Elieser Quiros M.D. The following document(s) were included in the letter: September 28, 2021 10:58:14 EDT - (09/28/2021) Neurosurgery Office Visit Note [facility] Provider Letter (Inserted Image. Brianna ble to display) Alisha Ernst Re: Christie Waterman Date of Visit: 09/28/2021 Dear Alisha Ernst, Thank you for allowing me to contribute to the care of your patient, Christie Waterman. Attached is my office note and you will find my assessment and recommendations from our encounter today. Please do not hesitate to contact me with any questions or concerns. Sincerely, Tana Bruno PA-C [facility] [address] The following document(s) were included in the letter: September 28, 2021 07:49:59 EDT - (09/28/2021) Neurosurgery Office Visit Note [facility] XR Scoliosis Study 2 or 3 [...] Electronically Signed in Other Vendor System) [facility] XR Spine Lumbosacral Bending 2-3 Viewson [...] Electronically Signed in Other Vendor System) [facility] MRI Spine Lumbar w/o Contras ton [...] Electronically Signed in Other Vendor System) [facility] Neurosurgery Office/Clinic N oteon 09-21-2021 Neurosurgery Office/Clinic Note Chief Complaint Pt states being seen for back follow up after failing physical therapy History of Present Illness Patient is a pleasant 75-year-old female with a history of hypertension, glaucoma, impaired fasting glucose, osteopenia (DEXA 09/2020: [facility]), and obesity (BMI 34), who presents [...] changes of the right hip DEXA 09/2020 [facility]: osteopenia Patient states that her symptoms [...] to palpa (more content not included)... [facility] Provider Letteron 09-21-2021 Provider Letter (Inserted Image. Brianna ble to display) Elieser Quiros M.D. Re: Christie Waterman Date of Visit: 09/21/2021 Dear Elieser Quiros, Thank you for allowing me to contribute to the care of your patient, Christie Waterman. Attached is my office note and you will find my assessment and recommendations from our encounter today. Please do not hesitate to contact me with any questions or concerns. Sincerely, Tana Bruno PA-[place] [facility] [address] The following document(s) were included in the letter: September 21, 2021 08:41:11 EDT - (09/21/2021) Neurosurgery Office Visit Note [facility] Neurosurgery Office/Clinic N oteon 06-22-2021 Neurosurgery Office/Clinic Note Chief Complaint pt states- back, review imaging History of Present Illness Patient is a pleasant 75-year-old female with a history of hypertension, glaucoma, impaired fasting glucose, osteopenia (DEXA 09/2020: [facility]), and obesity (BMI 34), who presents [...] changes of the right hip DEXA 09/2020 [facility]: osteopenia Patient states that her symptoms [...] walk. A (more content not included)... [facility] Provider Letteron 06-22-2021 Provider Letter (Inserted Image. Brianna ble to display) Alisha Ernst, KILN TESTER-RECREATION ESTABLISHMENT MANAGER [address] [place] [address] Re: Christie Waterman Date of Visit: 06/22/2021 Dear Alisha Ernst, Thank you for allowing me to contribute to the care of your patient, Christie Waterman. Attached is my office note and you will find my assessment and recommendations from our encounter today. Please do not hesitate to contact me with any questions or concerns. Sincerely, Tana Bruno PA-C [facility] [address] [address] The following document(s) were included in the letter: June 22, 2021 15:59:49 EST - (06/22/2021) Neurosurgery Office Visit Note [facility] Neurosurgery Office/Clinic N oteon 06-01-2021 Neurosurgery Office/Clinic Note Chief Complaint new pt- back History of Present Illness Patient is a pleasant 75-year-old female with a history of hypertension, glaucoma, impaired fasting glucose, osteopenia (DEXA 09/2020: [facility]), and obesity (BMI 34), who presents to the outpatient neurosurgical clinic today accompanied by her daughter, as a new patient, at the request of her treating pattern painter, Dr. Quiros, for consultation on behalf of [...] 3 grown children. She lives independently in [place]. Patient denies nicotine, alcohol, or recreational drugs. 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 She states no [place] of Workmen's Compensation or third-alliance party insurance [...] pain with (more content not included)... [facility] Vital Signs Date Time Vital Sign Value Performing Clinician Facility 06-12-2023 09:22-0500 Body height 160 cm Alisha Ernst NP Work Phone: [facility] 06-12-2023 09:22-0500 Body mass index (BMI) [Ratio] 32.98 kg/m2 Alisha Ernst NP Work Phone: [facility] 06-12-2023 09:22-0500 Body temperature 97.11 [degF] Alisha Ernst NP Work Phone: [facility] 06-12-2023 09:22-0500 Body weight 84.46 kg Alisha Ernst NP Work Phone: [facility] 06-12-2023 09:22-0500 Diastolic blood pressure 78 mm[Hg] Alisha Ernst NP Work Phone: [facility] 06-12-2023 09:22-0500 Heart rate 52 /min Alisha Ernst PRODUCE PRODUCTION TEAM MEMBER Work Phone: [facility] 06-12-2023 09:22-0500 Respiratory rate 17 /min Alisha Ernst PRODUCE PRODUCTION TEAM MEMBER Work Phone: [facility] 06-12-2023 09:22-0500 SaO2% (BldA) [Mass fraction] 99 % Alisha Ernst PRODUCE PRODUCTION TEAM MEMBER Work Phone: [facility] 06-12-2023 09:22-0500 Systolic blood pressure 132 mm[Hg] Alisha Ernst PRODUCE PRODUCTION TEAM MEMBER Work Phone: [facility] 05-19-2023 11:43-0500 Body height 160 cm Eunice Cheryl KILN TESTER-RECREATION ESTABLISHMENT MANAGER Work Phone: [facility] 05-19-2023 11:43-0500 Body mass index (BMI) [Ratio] 32.19 kg/m2 Eunice Cheryl KILN TESTER-RECREATION ESTABLISHMENT MANAGER Work Phone: [facility] 05-19-2023 11:43-0500 Body weight 82.42 kg Eunice Cheryl KILN TESTER-RECREATION ESTABLISHMENT MANAGER [facility] 05-19-2023 11:43-0500 Diastolic blood pressure 70 mm[Hg] Eunice Cheryl KILN TESTER-RECREATION ESTABLISHMENT MANAGER Work Phone: [facility] 05-19-2023 11:43-0500 Heart rate 48 /min Eunice Cheryl KILN TESTER-RECREATION ESTABLISHMENT MANAGER Work Phone: [facility] 05-19-2023 11:43-0500 Respiratory rate 18 /min Eunice Cheryl KILN TESTER-RECREATION ESTABLISHMENT MANAGER [facility] 05-19-2023 11:43-0500 SaO2% (BldA) [Mass fraction] 96 % Eunice Cheryl KILN TESTER-RECREATION ESTABLISHMENT MANAGER Work Phone: [facility] Comment on above: 05-19-2023 11:43-0500 Systolic blood pressure 134 mm[Hg] Eunice Luna KILN TESTER-RECREATION ESTABLISHMENT MANAGER Work Phone: [facility] Encounters Encounter Date Encounter Type Care Provider Facility Start: 09-11-2023 End: 09-11-2023 ambulatory ALISHA ERNST Not Available Start: 08-18-2023 End: 08-18-2023 ambulatory JR. VIKTORIA Mariann GONSALEZ Not Available Start: 07-20-2023 End: 07-21-2023 ambulatory TARA JIMÉNEZ Not Available Start: 07-17-2023 End: 07-17-2023 ambulatory TARA Bret JIMÉNEZ Not Available Start: 07-07-2023 End: 07-07-2023 ambulatory BELKYS MELISA Not Available Start: 07-04-2023 End: 07-04-2023 ambulatory BELKYS MELISA Not Available Start: 06-30-2023 End: 06-30-2023 ambulatory BELKYS MELISA Not Available Start: 06-26-2023 End: 06-26-2023 ambulatory BELKYS VINCENT Not Available Start: 06-23-2023 End: 06-23-2023 ambulatory DAJA VARGAS Not Available Start: 06-19-2023 End: 06-20-2023 ambulatory TARA JIMÉNEZ Not Available Start: 06-12-2023 End: 06-12-2023 ambulatory ALISHA ERNST Not Available Start: 06-12-2023 End: 06-12-2023 Office outpatient visit 25 minutes Alisha Ernst PRODUCE PRODUCTION TEAM MEMBER Work Phone: [facility] Comment on above: Primary hypertension (CMS/HCC) (Primary Dx); BMI 32.0-32.9,adult; Bradycardia; Chronic pain of right knee; Chronic right shoulder pain; Rash and nonspecific skin eruption Start: 05-19-2023 ambulatory ALISHA ERNST [facility] Start: 05-19-2023 End: 05-19-2023 Office outpatient new 45 minutes Eunice Luna KILN TESTER-RECREATION ESTABLISHMENT MANAGER Work Phone: [facility] Comment on above: Obstructive sleep ap chaitanya (Primary Dx); Sleep related hypoxia; Encounter to discuss test results Start: 04-03-2023 End: 05-01-2023 ambulatory ALISHA ERNST [facility] Start: 09-05-2022 End: 09-06-2022 ambulatory COURTNEY WOODJUWANPhilip Facility:[facility] Start: 03-03-2022 End: 03-03-2022 ambulatory RECREATION ESTABLISHMENT MANAGER ALISHA ERNST Facility:[facility] Start: 02-23-2022 ambulatory [facility] Start: 02-23-2022 End: 02-23-2022 ambulatory [facility] Start: 02-07-2022 End: 02-08-2022 ambulatory PA Tana Tara Ickes Facility:[facility] Start: 02-01-2022 End: 02-02-2022 ambulatory PA Tana Tara Ickes Facility:[facility] Start: 12-24-2021 End: 12-25-2021 ambulatory PA Tana Tara Ickes Facility:[facility] Start: 12-02-2021 End: 12-03-2021 ambulatory RECREATION ESTABLISHMENT MANAGER ALISHA WOODJUWANPhilip Facility:[facility] Start: 11-11-2021 End: 11-12-2021 ambulatory PA Tana Tara Ickes Facility:[facility] Start: 10-22-2021 End: 10-22-2021 ambulatory MD Facundo Branham Facility:[facility] Start: 10-11-2021 End: 10-12-2021 ambulatory MD Facundo Branham Facility:[facility] Start: 10-11-2021 End: 10-12-2021 ambulatory RECREATION ESTABLISHMENT MANAGER ALISHA SILVAMimiJUWANPhilip Facility:[facility] Start: 10-01-2021 End: 10-02-2021 ambulatory MD Facundo Branham Facility:[facility] Start: 09-28-2021 End: 09-29-2021 ambulatory PA Tana Tara Ickes Facility:[facility] Start: 09-21-2021 End: 09-22-2021 ambulatory PA Tana Tara Ickes Facility:[facility] Start: 09-21-2021 End: 09-22-2021 ambulatory PA Tana Tara Ickes Facility:[facility] Start: 06-22-2021 End: 06-23-2021 ambulatory BASIL Bruno Facility:[facility] Start: 06-01-2021 End: 06-02-2021 ambulatory BASIL Bruno Facility:[facility] Plan of Treatment Date Care Activity Detail Author Start: 07-17-2024 Pneumococcal Vaccine : 65+ Years (2 - PCV) Pneumococcal Vaccine: 65+ Years (2 - PCV) [facility] Comment on above: Postponed from 02/12 (Patient Refused) Start: 05-17-2024 End: 05-17-2024 Patient encounter procedure 05/17/2024 2:30 PM EST [facility] [address] 1st [place] [id number] Eunice Luna APRN-COURTNEY [address] [place] [address] [facility] Start: 09-11-2023 End: 09-11-2023 Patient encounter procedure 09/11/2023 9:00 AM EDT Office Visit [facility] [address] [place] [address] Alisha Ernst NP [address] [place] [id number] [facility] Start: 02-10-2022 ambulatory Ambulatory Facility:N renaesualayna rubio [facility] Start: 02-13-2016 Pneumococcal vaccination PNEUMOCOCCAL VACCINE SERIES (2 - PCV) [facility] Start: 12-13-1991 Screening for malign ant neoplasm of colon COLORECTAL CANCER SCREENING DISCUSSION [facility] Start: 1986 Screening for malign ant neoplasm of breast MAMMOGRAM SCREENING DISCUSSION [facility] Start: 12-13-1967 Screening for malign ant neoplasm of cervix CERVICAL CANCER SCREENING DISCUSSION [facility] Start: 1965 Third diphtheria, tetanus and acellular pertussis (DTaP) vaccination TDAP (ADULT) [facility] Start: 1945 Hepatitis C screening HEPATITI S C VIRUS SCREENING [facility] Start: 1945 Screening for osteoporosis DEXA SCAN DISCUSSION [facility] Start: 1945 Tetanus vaccination TETANUS [facility] Immunizations Immunization Date Immunization Notes Care Provider Enedina arethakeyana 02-06-2023 Influenza, Seasonal, Quadrivalent, Adjuvanted Alisha Aichholz PRODUCE PRODUCTION TEAM MEMBER Work Phone: [facility] 01-25-2022 Influenza, High-dose Seasonal, Quadrivalent, Preservative Free Alisha Aichholz PRODUCE PRODUCTION TEAM MEMBER Work Phone: [facility] 11-15-2021 zoster vaccine recombinant L nuno Aichholz PRODUCE PRODUCTION TEAM MEMBER Work Phone: [facility] 06-14-2021 zoster vaccine recombinant L nuno Aichholz PRODUCE PRODUCTION TEAM MEMBER Work Phone: [facility] 01-26-2021 Influenza, High-dose Seasonal, Quadrivalent, Preservative Free Alisha Aichholz PRODUCE PRODUCTION TEAM MEMBER Work Phone: [facility] 01-28-2020 Influenza, Seasonal, Quadrivalent, Adjuvanted Alisha Aichholz PRODUCE PRODUCTION TEAM MEMBER Work Phone: [facility] 01-29-2019 influenza, high dose seasonal, preservative-free Alisha Aichholz PRODUCE PRODUCTION TEAM MEMBER Work Phone: [facility] 02-26-2018 influenza, high dose seasonal, preservative-free Alisha Aichholz PRODUCE PRODUCTION TEAM MEMBER Work Phone: [facility] 02-22-2017 influenza, high dose seasonal, preservative-free Alisha Aichholz PRODUCE PRODUCTION TEAM MEMBER Work Phone: [facility] 03-21-2016 influenza, seasonal, injectable, preservative free Alisha Aichholz PRODUCE PRODUCTION TEAM MEMBER Work Phone: [facility] 03-18-2015 influenza, injectabl e, quadrivalent, preservative free Alisha Aichholz PRODUCE PRODUCTION TEAM MEMBER Work Phone: [facility] 02-12-2015 pneumococcal polysaccharide vaccine, 23 valent Alisha Aichholz PRODUCE PRODUCTION TEAM MEMBER Work Phone: [facility] Payers Date Payer Category Payer Unknown 2017 Unknown [id number] 2011 Medicare 1959 Medicare [id number] 1959 Private Health Insurance [id number] 1945 Unknown [id number] 2.16. 840.1.264281.3.579.2.196 1945 Unknown [id number] 2.16. 840.1.551129.3.579.2.196 1946 Unknown [id number] 2.16. 840.1.368569.3.579.2.196 1946 Unknown [id number] 2.16. 840.1.055042.3.579.2.196 1946 Unknown [id number] 2.16. 840.1.405542.3.579.2. 1946 Unknown [id number] 2.16. 840.1.006790.3.579.2.196 1946 Unknown [id number] 2.16. 840.1.896204.3.579.2.196 1946 Unknown [id number] 2.16. 840.1.248962.3.579.2.196 1946 Unknown [id number] 2.16. 840.1.870694.3.579.2.196 1946 Unknown [id number] 2.16. 840.1.695116.3.579.2.196 1946 Unknown [id number] 2.16. 840.1.909559.3.579.2.196 1946 Unknown [id number] 2.16. 840.1.591005.3.579.2.196 1946 Unknown [id number] 2.16. 840.1.175911.3.579.2.196 1946 Unknown [id number] 2.16. 840.1.066519.3.579.2.196 1946 Unknown [id number] 2.16. 840.1.687013.3.579.2.196 1946 Unknown [id number] 2.16.8 40.1.618780.3.579.2.754 1946 Unknown [id number] 2.16.8 40.1.773050.3.579.2.754 1946 Unknown [id number] 2.16.84 0.1.328073.3.579.2.593 1946 Unknown [id number] 2.16.84 0.1.113201.3.579.2.593 1946 Unknown [id number] 2.16.84 0.1.452072.3.579.2.593 1946 Unknown [id number] 2.16.84 0.1.741075.3.579.2.593 1946 Unknown [id number] 2.16.84 0.1.100148.3.579.2.1286 1946 Unknown [id number] 2.16.8 40.1.134905.3.579.2.983 1946 Unknown [id number] 2.16.84 0.1.198034.3.579.2.1259 1946 Unknown [id number] 2.16.84 0.1.989287.3.579.2.1259 1946 Unknown [id number] 2.16.84 0.1.201996.3.579.2.1259 1946 Unknown [id number] 2.16.84 0.1.009041.3.579.2.1259 1946 Unknown [id number] 2.16.84 0.1.205000.3.579.2.1259 1946 Unknown [id number] 2.16.84 0.1.320298.3.579.2.1259 1946 Unknown [id number] 2.16.84 0.1.428751.3.579.2.1259 1946 Unknown [id number] 2.16.84 0.1.493881.3.579.2.1259 1946 Unknown [id number] 2.16.84 0.1.152585.3.579.2.1259 1946 Unknown [id number] 2.16.84 0.1.431386.3.579.2.1259 1946 Unknown [id number] 2.16.84 0.1.075721.3.579.2.1259 1946 Unknown [id number] 2.16.84 0.1.785460.3.579.2.1259 Social History Date Type Detail Facility Start: 05-19-2023 Tobacco smoking stat [facility] Ex-smoker [facility] History of tobacco use Current smoker [facility] History of tobacco use Cigarette Smoker [facility] Start: 11-21-2022 End: 05-19-2023 Tobacco use and exposure Smokeless tobacco non-user [facility] Start: 05-19-2023 End: 06-12-2023 History of Social function [facility] Start: 05-19-2023 End: 06-12-2023 Tobacco use panel [facility] Start: 1945 Sex Assigned At Female A [facility] Start: 05-05-2023 Gender identity Identifies as female gender (finding) [facility] Start: 11-21-2022 Tobacco smoking stat [facility] Never smoked tobacco [facility] Start: 06-12-2023 Alcohol intake Lifetime non-d alfred (finding) [facility] Start: 1945 Sex Assigned At Not on file [facility] History of Present illness Narrative 06-12-2023 Alisha Ernst, DEE - 06/12/2023 10:29 AM ESTAlisha Ernst, PRODUCE PRODUCTION TEAM MEMBER - 06/12/2023 10:27 AM ESTAlisha Ernst, PRODUCE PRODUCTION TEAM MEMBER - 06/12/2023 10:26 AM ESTAlisha Ernst, DEE - 06/12/2023 10:26 AM EST [...] to stepanic Associated Problem(s): Bradycardia 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, no symptoms, does take b miriam eye drops Associated Problem(s): HTN (hypertension) (CMS/[facility]) Stable at this time, no changes in [...] Diagnosis Date Achilles tendonitis Calcaneal spur Glaucoma ([facility]) HTN (hypertension) ([facility]) 06/12/2023 Idiopathic neuropathy Onychomycosis Plantar fasciitis Pronation [...] in meds or doses Bradycardia Has been correction, no symptoms, does take b miriam eye [...] History of Present illness Narrative 05-19-2023 Rosio Rell, CORRECTIONAL COOK - 05/19/2023 11:30 AM Robert Luna, KILN TESTER-RECREATION ESTABLISHMENT MANAGER - 05/19/2023 11:30 AM EST Note Date & Type Note Facility 05-19-2023 History of Presen t illness Narrative SLEEP Raywick Score -6 CPAP/BIPAP/APAP Pressure - Max IPAP18 [...] Behavior: Behavior normal. Judgment: Judgment normal. SLEEP Raywick Score -6 CPAP/BIPAP/APAP Pressure - Max IPAP18 [...] today * Adjust Auto BiPAP to BiPAP12/8 [id number] 1 month compliance * New Supplies Ordered-Chg [...] I will have prescription sent to a [employer] company of choice- who will be calling patient in approximately next 1-2 weeks. - Patient should be eligible for new supplies approximately every 3-6 months, depending on your insurance coverage, [employer] company will inform patient of coverage - If patient mask does not fit well, contact [employer] company before 30 days are up to get a new mask without an additional charge - Insurance requires regular usage and periodic office follow ups for PAP therapy to continue to cover supplies Insurance Requirements: - Your insurance requires a [id number] follow up visit within 31-90 days period [...] plan of care, referring/communicating with other health memory care program resident, as well as documenting the clinical information in the EHR. This includes face to face time and preparing to see the patient (review of tests) I personally reviewed selected chart notes, results, interpreted tests, imaging today before seeing the pt; reviewed and discussed w/ pt, questions answered. Portions of this chart were created using [employer] electronic dictation. Please excuse any typographical or grammatical errors contained herein as a result. Some Elements copied from previous notes. I have updated where appropriate, and all reflect current medical decision making from today's encounter. MICHELL Hall documented in this encounter [facility] Clinical Note 09-24-2021 Note Date & Type [...] Signed, Electronically Signed in Other Vendor System) [facility] Evaluation note Note Date & Type Note Facility Evaluation note Diagnosis Obstructive sleep apnea- Primary Obstructive sleep apnea (adult) (pediatric) Sleep related hypoxia Idiopathic sleep related nonobstructive alveolar hypoventilation Encounter to discuss test results Other specified counseling documented in this encounter [facility] Evaluation note Note Date & [...] right knee Chronic right shoulder pain Alisha Ernst, DEE [address] [place] [address] Jr. Viktoria Gonsalez DO [address] [facility] [address] [place] [address] Referral ID Status Reason Start Date Expiration Date Visits Requested Visits Authorized [id number] Pending Review Specialty Services Required 06/12/2023 12/09/2023 [...] section and content) DATE CREATED AUTHOR 02/08/2022 [facility] DATE CREATED AUTHOR AUTHOR'S ORGANIZ ATION 02/26/2022 [facility] DATE CREATED AUTHOR AUTHOR'S ORGANIZ ATION 02/26/2022 [facility] DATE CREATED AUTHOR AUTHOR'S ORGANIZ ATION 09/09/2022 [facility] DATE CREATED AUTHOR AUTHOR'S ORGANIZ ATION 05/01/2023 [facility] DATE CREATED AUTHOR AUTHOR'S ORGANIZ ATION 05/20/2023 [facility] DATE CREATED AUTHOR AUTHOR'S ORGANIZ ATION 09/12/2023 [facility] d[facility] Specialists EPIC Reason for Visit (unrecogniz ed section and content) Reason Comments New Patient Sleep Apnea Care Teams (unrecognized sec tion and content) Materials Planner/Production Planner Relationship Specialty Start Date End Date Alisha Ernst CNP [address] [place] [address] PCP - General Certified Nurse Practitioner 05/05/23 Materials Planner/Production Planner Relationship Specialty Start Date End Date Clarence Villagomez MD [address] [place] [address] PCP - General Family Medicine 11/21/22 Alisha Ernst NP [address] [place] [address] Nurse Practitioner Family Medicine 12/05/22 FOR RECORDS [...] BE BASED ON THE PRIMARY CLINICAL RECORDS. [employer] provides no warranty or guarantee of the accuracy or completeness of information in this document.
--- NOTE | 2023-12-07 09:49 | MM_ITS ---
Patient Name: CHRISTIE TEE MR#: [id number] : 1945 Exam Date: 12/07/2023 Ordering Doctor: COURTNEY Ernst CNP RADIOLOGY REPORT PROCEDURE: MM TOMOSYNTHESIS SCREENING BI COMPARISON: MG MAMM SCREEN 3D CANDACE CAD, 12/02/2021. MM TOMOSYNTHESIS SCREENING BI, 12/05/2022. INDICATIONS: Screening Calculator Name NCI Breast Cancer Risk Assessment Tool 5 Year Breast Cancer Risk 1.60% Lifetime Breast Cancer Risk 3.20% Personal Breast Cancer No Personal Ovarian Cancer No Treatments None Family Cancers Aunt-maternal with breast cancer at age 70; Aunt-paternal with breast cancer at age 67. LOCATION: [facility] BREAST COMPOSITION: The breasts are almost entirely fatty. FINDINGS: DIAGNOSTIC CATEGORY 1--NEGATIVE. NO CHANGE FROM COMPARISON ASSESSMENT. Scattered benign-appearing lymph nodes are present. RIGHT BREAST: No significant suspicious finding. LEFT BREAST: No significant suspicious finding. RECOMMENDATIONS: ROUTINE MAMMOGRAM AND CLINICAL EVALUATION IN 12 MONTHS. PLEASE NOTE: A NORMAL MAMMOGRAM DOES NOT EXCLUDE THE POSSIBILITY OF BREAST CANCER. A CLINICALLY SUSPICIOUS PALPABLE LUMP SHOULD BE BIOPSIED. Dictated by: Clarence Benjamin MD on 12/07/2023 at 12:38 Approved by: Clarence Benjamin MD on 12/07/2023 at 12:38
== END 2023-12-07 09:23 | disposition home or self-care (01) ==
LOC: MAMMO 09:22
PROVIDERS: PCP Nurse Practitioner; Visit Provider Nurse Practitioner
DX: Z12.31 Encounter for screening mammogram for malignant neoplasm of breast (principal); Z80.3 Family history of malignant neoplasm of breast
CPT/HCPCS: 77063; 77067

== ENCOUNTER 2024-02-22 16:49 | Emergency (ER) | payer MEDICARE, SELFPAY ==
[2024-02-22 16:56] VITALS: BP 150/82; PULSE 56; TEMP 36.7; O2SAT 99; BMI 32.2
--- NOTE | 2024-02-22 17:18 | ED_ITS ---
HPI HPI - General Adult General Chief complaint: Back Pain/Injury Stated complaint: BACK/FLANK PAIN Time Seen by Provider: 02/22/24 16:56 Source: patient Mode of arrival: walk-in Limitations: no limitations History of Present Illness HPI narrative: Patient is a 78-year-old female who presents to the emergency department for 2- week history of pain in the left lateral ribs and flank. Pain is worse with movement. She was seen by her neurosurgery office where she is evaluated for chronic back pain. She states she was told that the provider did not think that it was her spine causing her symptoms. She is scheduled for an MRI in 2 weeks. She denies chest pain, shortness of breath, fevers, chills, nausea, vomiting. She denies any peripheral paresthesias or extremity pain. No peripheral edema. She presents to the ER today because her pain was worse after reaching over a nightstand to turn off her CPAP. Related Data Home Medications ?Medication ?Instructions ?Recorded ?Confirmed amlodipine 2.5 mg tablet 2.5 mg PO DAILY 02/22/24 02/22/24 brimonidine 0.2 % eye drops 1 drp ophthalmic (eye) BID 02/22/24 02/22/24 dorzolamide 22.3 mg-timolol 6.8 1 drp ophthalmic (eye) Q12H 02/22/24 02/22/24 mg/mL eye drops latanoprost 0.005 % eye drops 1 drp ophthalmic (eye) BEDTIME 02/22/24 02/22/24 losartan 100 mg tablet 100 mg PO DAILY 02/22/24 02/22/24 vit C 250 mg-vit E 200 unit-zinc 1 cap PO DAILY 02/22/24 02/22/24 ox 12.5 we-vdteqd-dlquuy-zeax capsule Previous Rx's ?Medication ?Instructions ?Recorded methocarbamol 500 mg tablet 500 mg PO TID #15 tabs 02/22/24 methylprednisolone 4 mg tablets in See Rx Instructions .Route 02/22/24 a dose pack (Medrol (Tera)) .COMPLEX #21 ea oxycodone-acetaminophen 5 mg-325 1 tab PO Q6H PRN pain 3 days #12 02/22/24 mg tablet (Percocet) tabs Allergies Allergy/AdvReac Type Severity Reaction Status Date / Time No Known Drug Allergies Allergy Verified 04/28/23 09:57 Opioid HPI Opioid Management Most Recent Opioid Data: Last Pain Scale 10 02/22/24 20:55 02/22/24 Review of Systems ROS Constitutional Denies: fever or chills Ears, nose, mouth, and throat Denies: throat pain Cardiovascular Denies: chest pain Respiratory Denies: shortness of breath or cough Gastrointestinal Denies: abdominal pain, nausea or vomiting Genitourinary Denies: painful urination Musculoskeletal Reports: back pain; Denies: neck pain, extremity pain or extremity swelling Neurological Denies: numbness in extremities or weakness in extremities Hematologic/Lymphatic Denies: easy bruising or easy bleeding Exam Narrative Exam Narrative: Gen.: Awake, alert, in no distress Head: Normocephalic, atraumatic ENT: Moist mucous membranes Respiratory: No respiratory distress, lungs clear bilaterally Cardio: Regular rate and rhythm Back: No bony tenderness of the T-spine or L-spine with diffuse tenderness of the left lateral flank and left inferior/lateral ribs; no rash noted Extremities: Moves extremities equally, no injuries noted Psych: Normal mood and affect Neuro: No focal neuro deficit Skin: Warm, dry, intact Constitutional Vital Signs, click to edit/add: Last Vital Signs Temp 99.1 F 02/22/24 19:16 Pulse 62 02/22/24 20:45 Resp 16 02/22/24 20:45 BP 167/79 H 02/22/24 20:45 Pulse Ox 97 02/22/24 20:45 O2 Del Method Room Air 02/22/24 20:45 Course Vital Signs Vital signs: Vital Signs Temperature 98.1 F 02/22/24 16:56 Pulse Rate 56 L 02/22/24 16:56 Respiratory Rate 18 02/22/24 16:56 Blood Pressure 150/82 H 02/22/24 16:56 Pulse Oximetry 99 02/22/24 16:56 Oxygen Delivery Method Room Air 02/22/24 16:56 Temperature 99.1 F 02/22/24 19:16 Pulse Rate 62 02/22/24 20:45 Respiratory Rate 16 02/22/24 20:45 Blood Pressure 167/79 H 02/22/24 20:45 Pulse Oximetry 97 02/22/24 20:45 Oxygen Delivery Method Room Air 02/22/24 20:45 Medical Decision Making MDM Narrative Medical decision making narrative: Patient medicated with IV fentanyl, Norflex and Solu-Medrol and was given additional Percocet and Toradol for pain. She has unremarkable laboratory studies and she was sent for CT of the chest and abdomen and pelvis which shows no evidence of acute process. She was reevaluated by attending physician and she prefers outpatient management with pain medication to follow-up with her primary care provider. She is discharged in stable condition with a short course of analgesics, muscle relaxants and a steroid taper. Return to the ER if symptoms change or worsen SHARED APC VISIT, PHYSICIAN ATTESTATION: [id number] I performed a substantive part of the MDM during the patient?s E/M visit. I personally evaluated and examined the patient. I personally made or approved the documented management plan and acknowledge its risk of complications. Medical Records Medical records reviewed: Yes I reviewed the patient's medical records Lab Data Lab results reviewed: Yes I reviewed the patient's lab results Labs: Lab Results 02/22/24 Range/Units 17:44 WBC 6.9 (4.0-11.0) 10^3/uL RBC 4.56 (4.20-5.40) 10^6/uL Hgb 13.5 (12.0-16.0) g/dL Hct 40.4 (36.0-48.0) % MCV 88.6 (81.0-99.0) fL MCH 29.6 (26.7-34.0) pg MCHC 33.4 (29.9-35.2) g/dL RDW 12.5 (11.0-15.0) % Plt Count 216 (150-450) 10^3/uL MPV 9.1 L (9.5-13.5) fL Neut % (Auto) 70.1 (43.0-75.0) % Lymph % (Auto) 19.9 L (20.5-60.0) % Shannon % (Auto) 8.3 (1.7-12.0) % Eos % (Auto) 0.9 (0.9-7.0) % Baso % (Auto) 0.7 (0.2-2.0) % Neut # (Auto) 4.8 (1.4-6.5) 10^3/uL Lymph # (Auto) 1.4 (1.2-3.8) 10^3/uL Shannon # (Auto) 0.6 (0.3-0.8) 10^3/uL Eos # (Auto) 0.1 (0.0-0.7) 10^3/uL Baso # (Auto) 0.1 (0.0-0.1) 10^3/uL Abs Immat Gran (auto) 0.01 (0.00-0.03) 10^3/uL Imm/Tot Granulo (auto) 0.1 (0.0-0.5) % PT 10.9 (9.0-11.6) sec INR 1.03 Sodium 140 (136-145) mmol/L Potassium 4.2 (3.5-5.1) mmol/L Chloride 103 (98-107) mmol/L Carbon Dioxide 25.4 (21.0-32.0) mmol/L Anion Gap 15.8 BUN 16.0 (7.0-18.0) mg/dL Creatinine 0.78 (0.55-1.02) mg/dL Est GFR ( Amer) >60 (>=60 mL/min/1.73m^2) Est GFR (Non-Af Amer) >60 (>=60 mL/min/1.73m^2) BUN/Creatinine Ratio 20.5 Glucose 109 H (74-106) mg/dL Calcium 9.7 (8.5-10.1) mg/dL Total Bilirubin 0.7 (0.2-1.0) mg/dL AST 22 (15-37) U/L ALT 19 (14-59) U/L Alkaline Phosphatase 54 (46-116) U/L Total Protein 7.5 (6.4-8.2) g/dL Albumin 3.6 (3.4-5.0) g/dL Globulin 3.9 g/dL Albumin/Globulin Ratio 0.[address] scan - chest: Attestation: I have reviewed the pertinent imaging results. Radiologist's impression: ITS Impressions Abdomen/Pelvis CT 02/22/24 17:35 Impression: 1. No evidence of acute abdominal or pelvic process. 2. No renal or ureteral stones. No hydronephrosis or hydroureter bilaterally. 3. A 1 cm cyst in pancreatic tail. Follow-up in one year is recommended to confirm stability. 4. Bilateral renal cysts. Colonic diverticulosis. Wedged L4 vertebrae with vertebroplasty. Electronically authenticated by: BARRERA RASHEL Date: 02/22/2024 20:[address] 02/22/24 17:35 IMPRESSION: 1. No evidence of acute cardiopulmonary process. 2. Calcified left hilar lymph nodes consistent with granulomatous disease. Electronically authenticated by: BARRERA KISER Date: 02/22/2024 20:33 Discharge Plan Discharge Chief Complaint: Back Pain/Injury Clinical Impression: Acute left flank pain Patient Disposition: Home, Self-Care Time of Disposition Decision: 20:41 Condition: Good Prescriptions / Home Meds: New methocarbamol 500 mg tablet 500 mg PO TID Qty: 15 0RF oxycodone-acetaminophen [Percocet] 5-325 mg tablet 1 tab PO Q6H PRN (Reason: pain) 3 Days Qty: 12 0RF Rx Instructions: DX: R10.9 methylprednisolone [Medrol (Tera)] 4 mg tablets,dose pack See Rx Instructions .ROUTE .COMPLEX Qty: 21 0RF Rx Instructions: Taper as directed No Action amlodipine 2.5 mg tablet 2.5 mg PO DAILY brimonidine 0.2 % drops 1 drp OPHTHALMIC (EYE) BID dorzolamide-timolol 22.3-6.8 mg/mL drops 1 drp OPHTHALMIC (EYE) Q12H latanoprost 0.005 % drops 1 drp OPHTHALMIC (EYE) BEDTIME losartan 100 mg tablet 100 mg PO DAILY vit C-E-zinc dl-rbag-pvs-zeax 250 mg-200 unit -12.5 mg-1 mg capsule 1 cap PO DAILY Print Language: Khmer Instructions: Musculoskeletal Pain (ED), Flank Pain (ED) Referrals: Alisha Ernst DOCK OPERATOR [Primary Care Provider] - 1 week Discharge Date/Time: 02/22/24 21:00
--- NOTE | 2024-02-22 17:35 | CT_ITS ---
[address] [address] Patient Name: CHRISTIE TEE MRN: [id number] date: 1945 Sex: F Assigned Patient Location: ER Current Patient Location: ED.MAIN Accession/Order Number: [id number] Exam Date: 02/22/2024 18:29 Report Date: 02/22/2024 20:27 At the request of: JAZMIN FAGAN Procedure: CT abdomen pelvis w con Indication: Left flank pain. Comparison: None Procedure: Axial images were made from the diaphragms through the symphysis pubis. No oral contrast was given prior to scanning. Omnipaque 300 Intravenous contrast was given. Dose reduction techniques were achieved by using automated exposure control and/or adjustment of mA and/or kV according to patient size and/or use of iterative reconstruction technique. Findings: Liver/Biliary System: No liver masses. No intra or extrahepatic biliary dilatation. Status postcholecystectomy. Pancreas/Spleen: A 1 cm cyst is seen in pancreatic tail. Pancreatic duct is not dilated. No evidence of pancreatitis. No splenomegaly or splenic masses. Calcified granulomas in the spleen. Kidneys/Adrenals: Normal symmetrical nephrograms. No renal masses. No renal or ureteral stones are seen. No hydronephrosis or hydroureter bilaterally. Bilateral renal cysts. No adrenal nodules. Aorta/Vessels: No evidence of aortic aneurysm. Patent IVC, renal veins, hepatic veins and portal venous system. Bowel/Fluid/Nodes: No bowel dilatation or bowel wall thickening. No evidence of bowel obstruction. Colonic diverticulosis with no evidence of diverticulitis. Normal appendix. No ascites or fluid collections. No adenopathy. Lung bases: Clear. Other findings: No aggressive osseous lesions are seen. Pelvis: No pelvic masses or adenopathy. No free fluid seen in the pelvis. Bladder, uterus and adnexa are unremarkable. Other Findings: No aggressive osseous lesions are seen. Wedged L4 vertebrae with vertebroplasty. CT/CT abdomen pelvis w con Impression: 1. No evidence of acute abdominal or pelvic process. 2. No renal or ureteral stones. No hydronephrosis or hydroureter bilaterally. 3. A 1 cm cyst in pancreatic tail. Follow-up in one year is recommended to confirm stability. 4. Bilateral renal cysts. Colonic diverticulosis. Wedged L4 vertebrae with vertebroplasty. Electronically authenticated by: BARRERA KISER Date: 02/22/2024 20:27
--- NOTE | 2024-02-22 17:35 | CT_ITS ---
The [address] [address] Patient Name: CHRISTIE TEE MRN: [id number] date: 1945 Sex: F Assigned Patient Location: ER Current Patient Location: Accession/Order Number: [id number] Exam Date: 02/22/2024 18:29 Report Date: 02/22/2024 20:33 At the request of: JAZMIN FAGAN Procedure: CT chest w con EXAMINATION: CT CHEST WITHOUT ONLY. HISTORY: . Left thoracic pain. COMPARISON: None TECHNIQUE: CT examination of the chest with IV contrast. Omnipaque 300 intravenous contrast was given. Dose reduction techniques were achieved by using automated exposure control and/or adjustment of mA and/or kV according to patient size and/or use of iterative reconstruction technique. Findings: Extrathoracic:No axillary adenopathy. No subcutaneous nodules are seen. Pleura:No pleural effusion or pneumothorax. No pleural calcifications LUNGS:No acute consolidation. No atelectasis. Patent major airways. No bronchiectasis. No pulmonary nodules or masses. Mediastinum/dorothy:No adenopathy or masses. Calcified left hilar lymph nodes consistent with granulomatous disease. Heart/vascular:No pericardial effusion. No evidence of aortic aneurysm Osseous structures:No aggressive osseous lesions are seen. CT/CT chest w con IMPRESSION: 1. No evidence of acute cardiopulmonary process. 2. Calcified left hilar lymph nodes consistent with granulomatous disease. Electronically authenticated by: BARRERA KISER Date: 02/22/2024 20:33
[2024-02-22] MEDS: FENTANYL CITRATE/PF 100 MCG/2 ML VIAL 50 MCG IV (17:51)
[2024-02-22] MEDS: METHYLPREDNISOLONE SOD SUCC PF 125 MG/2 ML VIAL IVP (17:51)
[2024-02-22] MEDS: ORPHENADRINE 60 MG/ 2 ML VIAL IV (17:51)
[2024-02-22 17:52] LABS: Basophils Absolute Auto 0.1 10^3/uL (0.0-0.1); Basophils Percent Auto 0.7 % (0.2-2.0); Eosinophils Absolute Auto 0.1 10^3/uL (0.0-0.7); Eosinophils Percent Auto 0.9 % (0.9-7.0); Hematocrit 40.4 % (36.0-48.0); Hemoglobin 13.5 g/dL (12.0-16.0); Immature Granulocytes Abs Auto 0.01 10^3/uL (0.00-0.03); Immature Granulocytes Pct Auto 0.1 % (0.0-0.5); Lymphocytes Absolute Auto 1.4 10^3/uL (1.2-3.8); Lymphocytes Percent Auto 19.9 % (20.5-60.0); Mean Corpuscular HGB Conc 33.4 g/dL (29.9-35.2); Mean Corpuscular Hemoglobin 29.6 pg (26.7-34.0); Mean Corpuscular Volume 88.6 fL (81.0-99.0); Mean Platelet Volume 9.1 fL (9.5-13.5); Monocytes Absolute Auto 0.6 10^3/uL (0.3-0.8); Monocytes Percent Auto 8.3 % (1.7-12.0); Neutrophils Absolute Auto 4.8 10^3/uL (1.4-6.5); Neutrophils Percent Auto 70.1 % (43.0-75.0); Platelet Count 216 10^3/uL (150-450); Red Blood Count 4.56 10^6/uL (4.20-5.40); Red Cell Distribution Width 12.5 % (11.0-15.0); White Blood Count 6.9 10^3/uL (4.0-11.0)
[2024-02-22 18:05] LABS: INR 1.03; Prothrombin Time 10.9 sec (9.0-11.6)
[2024-02-22 18:07] LABS: Alanine Aminotransferase 19 U/L (14-59); Albumin Globulin Ratio 0.9; Albumin Level 3.6 g/dL (3.4-5.0); Alkaline Phosphatase 54 U/L (46-116); Anion Gap 15.8; Aspartate Amino Transferase 22 U/L (15-37); BUN Creatinine Ratio 20.5; Bilirubin Total 0.7 mg/dL (0.2-1.0); Calcium 9.7 mg/dL (8.5-10.1); Carbon Dioxide 25.4 mmol/L (21.0-32.0); Chloride 103 mmol/L (98-107); Estimated GFR (African America >60 (>=60 mL/min/1.73m^2); Estimated GFR (Non-African Ame >60 (>=60 mL/min/1.73m^2); Globulin 3.9 g/dL; Glucose 109 mg/dL (74-106); Potassium 4.2 mmol/L (3.5-5.1); Sodium 140 mmol/L (136-145); Total Protein 7.5 g/dL (6.4-8.2)
[2024-02-22 19:16] VITALS: BP 190/80; PULSE 54; TEMP 37.3; O2SAT 99
[2024-02-22] MEDS: KETOROLAC TROMETHAMINE 30 MG/ML VIAL 15 MG IVP (19:59)
[2024-02-22] MEDS: OXYCODONE HCL/ACETAMINOPHEN 5MG/325MG 1 TAB PO ×2 (19:59→20:55)
[2024-02-22 20:45] VITALS: BP 167/79; PULSE 62; O2SAT 97
== END 2024-02-22 21:00 | disposition home or self-care (01) ==
PROVIDERS: Physician Assistant; Emergency Provider Internal Medicine; PCP Nurse Practitioner
DX: R10.9 Unspecified abdominal pain (principal)
CPT/HCPCS: 36415; 71260; 74177; 80053; 85025; 85610; 96374; 96375; 99285; J1885; J2360; J2919; J3010; Q9967

== ENCOUNTER 2024-03-15 07:32 | Outpatient (RCR) | payer MEDICARE, SELFPAY ==
--- OUTSIDE RECORDS SUMMARY | 2024-03-15 07:35 | XMS_ITS | CCD ---
Author Organization [facility] Care Team Providers Care Publications Manager Name Role Phone PEPITO QUIROS Admitting Unavailable PEPITO QUIROS Attending Unavailable PEPITO QUIROS Referring Unavailable AICHHOLZ, DOCUMENTATION COORDINATOR ALISHA Admitting Unavailable AICHHOLZ, DOCUMENTATION COORDINATOR ALISHA Attending Unavailable AICHHOLZ, DOCUMENTATION COORDINATOR ALISHA Consulting Unavailable AICHHOLZ, DOCUMENTATION COORDINATOR ALISHA Primary Care Unavailable Reed Davila Consulting Unavailable AICHHOLZ, DOCUMENTATION COORDINATOR ALISHA Admitting Unavailable AICHHOLZ, DOCUMENTATION COORDINATOR ALISHA Attending Unavailable AICHHOLZ, DOCUMENTATION COORDINATOR ALISHA Consulting Unavailable AICHHOLZ, DOCUMENTATION COORDINATOR ALISHA Primary Care Unavailable Reed Davila Consulting Unavailable AICHHOLZ, DOCUMENTATION COORDINATOR ALISHA Admitting Unavailable AICHHOLZ, DOCUMENTATION COORDINATOR ALISHA Attending Unavailable AICHHOLZ, DOCUMENTATION COORDINATOR ALISHA Consulting Unavailable AICHHOLZ, DOCUMENTATION COORDINATOR ALISHA Primary Care Unavailable AICHHOLZ, DOCUMENTATION COORDINATOR ALISHA Admitting Unavailable AICHHOLZ, DOCUMENTATION COORDINATOR ALISHA Attending Unavailable AICHHOLZ, DOCUMENTATION COORDINATOR ALISHA Consulting Unavailable AICHHOLZ, DOCUMENTATION COORDINATOR ALISHA Primary Care Unavailable AICHHOLZ, ALISHA J Referring Unavailable AICHHOLZ, ALISHA J Primary Care Unavailable Aichholz DOCUMENTATION COORDINATOR, Alisha Primary Care Provider [phone] AICHHOLZ, ALISHA Primary Care Unavailable EUNICE LUNA Referring Unavailable EUNICE LUNA Attending Unavailable Clarence Villagomez MD Primary Care Provider Aichholz WINDOW CUTTER, Alisha Unavailable Aichholz WINDOW CUTTER, Alisha Unavailable Robert Pate MD Primary Care Provider [phone] KLEVER, ALISHA Attending Unavailable TARA JIMÉNEZ Attending Unavailable TARA JIMÉNEZ Referring Unavailable DAJA VARGAS Attending Unavailable TARA JIMÉNEZ Referring Unavailable BELKYS VINCENT Attending Unavailable TARA JIMÉNEZ Referring Unavailable MELISA, BELKYS Attending Unavailable TINO, TARA uQeen Referring Unavailable BELKYS VINCENT Attending Unavailable TINO, TARA Queen Referring Unavailable BELKYS VINCENT Attending Unavailable TINO, TARA Queen Referring Unavailable TINO, TARA Queen Attending Unavailable TINO, TARA Queen Referring Unavailable JR. CON, VIKTORIA Waite Attending Unavaila ble AICSMILEY, ALISHA Attending Unavailable AICHHOLZ, ALISHA Attending Unavailable Yonas ROBERTS MD, Facundo Guzmán U navailable Ickes PA-C, Tana Pacheco Attending Unav ailable Aichholz CHIEF EMBALMER-DOCUMENTATION COORDINATOR, Alisha Jackelin Primary Care Unava ilable Ickes PA-C, Tana Pacheco Attending Unav ailable Aichholz CHIEF EMBALMER-DOCUMENTATION COORDINATOR, Alisha Benítez Primary Care Unava ilable Ickes PA-C, Tana Morrisee Attending Unav ailable Aichholz CHIEF EMBALMER-DOCUMENTATION COORDINATOR, Alisha Benítez Primary Care Unava ilable Ickes PA-C, Tana Pacheco Attending Unav ailable Aichholz CHIEF EMBALMER-DOCUMENTATION COORDINATOR, Alisha Benítez Primary Care Unava ilable Allergies Allergy Classification Reported Allergen(s) Allergy Type Date of Onset Reaction(s) Facility (8 sources) Lisinopril; Translations: [lisinopril] Propensity to adverse reactions to drug 3 [facility] (1 source) brimonidine Drug Allergy 1 Itching [facility] Work Phone: (4 sources) traMADol Drug Allergy 4 [facility] Medications Current Medications Medication Drug Class(es) Dates Sig (Normalized) Sig (Original) amLODIPine 2.5 mg oral tablet (7 sources) Dihydropyridine Calcium Channel Miriam Start: 09-18-2023 End: 06-02-2024 take 1 tablet by mouth once daily amLODIPine (Norvasc) 2.5 MG tablet Indications: Essential (primary) hypertension (CMS/HCC) , Essential hypertension (CMS/HCC) Take 1 tablet (2.5 mg) by mouth Daily 90 tablet 1 03/04/2024 06/02/2024 Active take 1 tablet by mouth once shailesh y amLODIPine 2.5 MG tablet Take 1 tablet by mouth daily. 0 Active AMLODIPINE BENZOATE PO (2 sources) AMLODIPINE BENZO ATE PO amLODIPine Benzoate 0 Active brimonidine tartrate 2 mg/ml ophthalmic solution (5 sources) alpha-Adrenergic Agonist Start: 03-27-2023 take 1 drop(s) into the eye(s) every twelve hours Brimonidine 0.2 % Solution INSTILL 1 DROP INTO BOTH EYES EVERY 12 HOURS 0 03/27/2023 Active take 1 drop(s) into the eye(s) in the morning brimonidine (AlphaGAN P) 0.2 % ophthalmi c solution 1 drop in the morning and 1 drop before bedtime. Active Calcium Carb-Cholecalciferol (CALCIUM 600 + D PO) (1 source) take 1 tablet by mouth once daily Calcium Carb-Cholecalciferol (CALCIUM 600 + D PO) Take 1 tablet by mouth daily. 0 Active cetirizine hydrochloride 10 mg oral tablet (3 sources) Histamine-1 Receptor Antagonist cetirizine (ZyrTEC) 10 MG tablet Take by mouth Pt takes OTC Active dorzolamide 20 mg/ml ophthalmic solution (3 sources) Carbonic Anhydrase Inhibitor dorzolamide (Trusopt ) 2 % ophthalmic solution Dorzolamide HCl 0 Active dorzolamide 20 mg/ml / timolol 5 mg/ml ophthalmic solution (4 sources) Carbonic Anhydrase Inhibitor, beta-Adrenergic Miriam Start : 08-27 take 1 drop(s) into the eye(s) in the morning dorzolamide-timolol (Cosopt) 2-0.5 % ophthalmic solution Administer 1 drop into both eyes in the morning and 1 drop before bedtime. 08/28/2023 Active latanoprost 0.05 mg/ml ophthalmic solution (7 sources) Prostaglandin Analog Start : 09-02 take 1 drop(s) into the eye(s) once daily at bedtime latanoprost (Xalatan) 0.005 % ophthalmic solution INSTILL 1 DROP IN EACH EYE EVERY DAY AT BEDTIME 09/02/2022 Active losartan potassium 100 mg oral tablet (9 sources) Angiotensin 2 Receptor Miriam Start : 09-17 End: 06-02 take 1 tablet by mouth once daily losartan (Cozaar) 100 MG tablet Indications: Essential (primary) hypertension (CMS/HCC) , Essential hypertension (CMS/HCC) Take 1 tablet (100 mg) by mouth Daily 90 tablet 1 03/04/2024 06/02/2024 Active take 1 tablet by mouth in the mo rning losartan (Cozaar) 100 MG tablet Take 100 mg by mouth in the morning. 0 Active Magnesium (1 source) take 1 tablet by mouth once daily Magnesium 400 MG tablet Take 1 tablet by mouth daily. 0 Active Multiple Vitamins-Minerals (PreserVision AREDS 2) chewable tablet (4 sources) Multiple Vitamins-Minerals (PreserVision AREDS 2) chewable tablet Chew Active 100 ml zoledronic acid 0.05 mg/ml injection (1 source) Bisphosphonate zoledronic acid (Reclast) 5 MG/100ML solution Indications: Osteoporosis Infuse 5 mg into a venous catheter yearly Active Completed/Discontinued Medications Medication Drug Class(es) Dates Sig (Normalized) Sig (Original) acetaminophen 325 mg / oxyCODONE hydrochloride 5 mg oral tablet (3 sources) Opioid Agonist Start: End: take 1 tablet by mouth every six hours as needed for pain oxyCODONE-acetaminophe n (Percocet) 5-325 MG tablet TAKE 1 TAB ORALLY EVERY 6 HOURS NEEDED FOR PAIN FOR 3 DAYS DX: R10.9 02/23/2024 03/04/2024 Discontinued (Therapy completed) methocarbamol 500 mg oral tablet (3 sources) Muscle Relaxant Start: End: take 1 tablet by mouth in the morning, then take 1 tablet by mouth in the evening, then take 1 tablet by mouth at bedtime methocarbamol (Robaxin) 500 MG tablet Take 500 mg by mouth in the morning and 500 mg in the evening and 500 mg before bedtime. 02/22/2024 03/04/2024 Discontinued (Therapy completed) methylPREDNISolone (3 sources) Corticosteroid Start: End: methylPREDNISolone (Medrol Dospak) 4 MG tablets TAKE 6 TABLETS ON DAY 1 DIRECTED ON PACKAGE AND DECREASE BY 1 TAB EACH DAY FOR A TOTAL OF 6 DAYS 02/22/2024 03/04/2024 Discontinued (Therapy completed) Start: 02-22-2024 methylPREDNISo lone (Medrol Dospak) 4 MG tablets TAKE 6 TABLETS ON DAY 1 DIRECTED ON PACKAGE AND DECREASE BY 1 TAB EACH DAY FOR A TOTAL OF 6 DAYS 02/22/2024 Active Problems Active Problems Problem Classification Problem Date Documented Date Episodic/Chronic Administrative/social admission (1 source) Follow-up status; Translations: [Person consulting for explanation of examination or test findings] 05-19-2023 Episodic Disorders of lipid metabolism (8 sources) Hyperlipidemia, unspecified; Translations: [Mixed hyperlipidemia] Onset: 09-05-2022 Chronic Essential hypertension (15 sources) Essential (primary) hypertension; Translations: [Essential hypertension] Onset: 09-08-2022 06-12-2023 Chronic Osteoporosis (12 sources) Age-related osteoporosis without current pathological fracture; Translations: [Senile osteoporosis] Onset: 03-03-2022 Chronic Other fractures (1 source) Unspecified fracture of fourth lumbar vertebra, initial encounter for closed fracture; Translations: [Unspecified fracture of fourth lumbar vertebra, initial encounter for closed fracture] Onset: 02-23-2022 Episodic Other lower respiratory disease (5 sources) Rib pain; Translations: [Pleurodynia] Onset: 03-04-2024 03-04-2024 Episodic Other nutritional; endocrine; and metabolic disorders (1 source) Obese class I; Translations: [Obesity, unspecified] Onset: 05-19-2023 05-19-2023 Chronic Other nutritional; endocrine; and metabolic disorders (10 sources) Body mass index 30+ - obesity; Translations: [Body mass index (BMI) 32.0-32.9, adult] Onset: 06-12-2023 06-12-2023 Chronic Pancreatic disorders (not diabetes) (5 sources) Cyst of pancreas; Translations: [Cyst of pancreas] Onset: 03-04-2024 03-04-2024 Episodic Residual codes; unclassified (1 source) Obstructive sleep apnea (adult) (pediatric); Translations: [Obstructive sleep apnea (adult) (pediatric)] Onset: 04-03-2023 Chronic Residual codes; unclassified (5 sources) Obstructive sleep apnea syndrome; Translations: [Obstructive sleep apnea (adult) (pediatric)] Onset: 09-11-2023 05-19-2023 Chronic Residual codes; unclassified (1 source) Hypoxia; 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] 05-19-2023 Chronic Residual codes; unclassified (2 sources) Sleep apnea; Translations: [Sleep Apnea] Onset: 05-19-2023 Chronic Unclassified (2 sources) New Patient; Translations: [New Patient] Onset: 05-19-2023 Past or Other Problems Problem Classification Problem Date Documented Date Episodic/Chronic Cardiac dysrhythmias (10 sources) Bradycardia; Translations: [Bradycardia, unspecified] Onset: 06-12-2023 06-12-2023 Episodic Mycoses (6 sources) Onychomycosis; Translations: [Tinea unguium] Onset: 11-21-2022 11-21-2022 Episodic Neoplasms of unspecified nature or uncertain behavior (4 sources) Neoplastic disease of uncertain behavior; Translations: [Neoplasm of uncertain behavior, unspecified] Onset: 09-11-2023 09-11-2023 Episodic Other acquired deformities (8 sources) Spondylolisthesis; Translations: [Spondylolisthesis, site unspecified] Onset: 06-12-2023 06-12-2023 Episodic Other non-traumatic joint disorders (8 sources) Pain in right knee; Translations: [Pain in joint, lower leg] Onset: 06-12-2023 06-12-2023 Episodic Other non-traumatic joint disorders (8 sources) Chronic pain of right upper limb; Translations: [Pain in right shoulder] Onset: 06-12-2023 06-12-2023 Episodic Other screening for suspected conditions (not mental disorders or infectious disease) (16 sources) Encounter for screening mammogram for malignant neoplasm of breast; Translations: [Abnormal electrocardiogram [ECG] [EKG]] Onset: 10-11-2021 Episodic Other skin disorders (8 sources) Eruption; Translations: [Rash and other nonspecific skin eruption] Onset: 06-12-2023 06-12-2023 Episodic Pathological fracture (9 sources) Age-related osteoporosis with current pathological fracture, vertebra(e), initial encounter for fracture; Translations: [Pathological fracture of vertebra due to osteoporosis] Onset: 02-23-2022 06-12-2023 Episodic Results Test Name Value Interpretation Reference Range Facility MRI Spine Thoracic w/o Contr jes 03-11-2024 MRI Spine Thoracic w/o Contrast EXAMINATION: MRI Spine Thoracic w/o Contrast HISTORY: Other (please specify), thoracic pain; left posterior lateral chest wall pain continued low back pain, L4 kyphoplasty. COMPARISON: CT chest 02/22/2024 TECHNIQUE: Multiplanar, multisequence MRI images of the thoracic spine without intravenous contrast. FINDINGS: Thoracic kyphosis maintained. No subluxation. Minimal chronic superior compression at T2, T3, and central compression of T10 and T11. Benign osseous hemangioma at a few levels, including at T10 and T12. There is prominent edema in the region of the left T11 transverse process and proximal right 11th rib, with edema extending slightly to the adjacent T10 and T11 vertebral body. Scattered mild disc space narrowing. Conus medullaris terminates at L1. No abnormal signal in the thoracic spinal cord and the conus medullaris. At T3-T4, there is a small right paracentral disc protrusion with minimal thecal sac effacement and mild right foraminal stenosis. Minimal disc bulges or tiny disc protrusions at T6-T7, T7-T8, T8-T9, without spinal canal or foraminal stenosis. At T10-T11, disc bulge and moderate facet arthropathy with ligamentum flavum hypertrophy with mild spinal canal stenosis. Mild left foraminal stenosis. At T11-T12, disc bulge and moderate facet arthropathy and ligamentum flavum hypertrophy with mild spinal canal stenosis. No foraminal stenosis. IMPRESSION: 1. Prominent bone marrow edema in the region of the left proximal 11th rib, left T11 transverse process, with edema extending to the left lateral aspect of the T10 and T11 vertebral bodies. On the prior CT of the chest 02/22/2024, there appears to be prominent bony bridging of the left proximal 11th rib and T11 vertebral body at this level, which could be from a bridging osteophyte or bony bridging related to a healing fracture. Linear lucency is visualized in this bony prominence, which could represent an acute or subacute fracture of the bridging bone. Follow-up CT of the thoracic spine could be obtained to evaluate for change. 2. No acute compression fracture in the remaining thoracic spine. A few minimal chronic compression deformities in the thoracic spine as described. 3. Mild to moderate degenerative disc disease in the thoracic spine with a few disc bulges and herniations as described. No high-grade spinal canal stenosis or cord compression. Final Dictated by: Bright Chauhan MD Dictated DT/TM: 03/11/2024 2:17 pm Signed by: Bright Chauhan MD Signed (Electronic Signature): 03/11/2024 3:13 pm Transcribed DT/TM: 03/11/2024 2:37 (If Report Is Signed, Electronically Signed in Other Vendor System) Normal [facility] XR Ribs w/ PA Chest Lefton 1 XR Ribs w/ PA Chest Left CLINICAL HISTORY: Injury. EXAMINATION: A frontal image of the chest was obtained as well as multiple projections of the left ribs. FINDINGS: The cardiomediastinal silhouette is unremarkable. The pulmonary vasculature is normal. There is no focal consolidation, pleural effusion or pneumothorax. There are clips from previous cholecystectomy. There is no displaced rib fracture or dislocation. There is no suspicious osseous lesion. There has been previous kyphoplasty at L4. There are degenerative changes and scoliosis of the spine. IMPRESSION: 1. No acute cardiopulmonary process. 2. No displaced rib fracture. Final Dictated by: Rm Soto MD Dictated DT/TM: 02/22/2024 4:06 pm Signed by: Rm Soto MD Signed (Electronic Signature): 02/22/2024 4:07 pm (If Report Is Signed, Electronically Signed in Other Vendor System) Normal [facility] XR Spine Lumbosacral Complet e w/ Bendingon 02-22-2024 XR Spine Lumbosacral Complete w/ Bending EXAM: XR Spine Lumbosacral Complete w/ Bending HISTORY: 78-year-old female with middle back pain and degenerative disc disease (DDD). No known injury. COMPARISON: Lumbar spine MRI. TECHNIQUE: Neutral lateral, flexion lateral, extension lateral, right oblique, left oblique, and AP views of the lumbosacral spine. FINDINGS: Prior vertebral augmentation at L4 with unchanged mild superior vertebral body compression deformity. Transitional vertebra at the lumbosacral junction likely lumbarization of S1. 2 mm dynamic subluxation and 1 cm anterolisthesis at L3-4. Unchanging minimal retrolisthesis at L1-2 and L2-3. Osteopenia. No evidence for acute fracture, spondylolysis, or aggressive lesion. Moderate L3-4, L4-5, and L5-S1 degenerative disc disease (DDD). Severe L4-5 and L5-S1 facet osteoarthrosis (OA). Right upper quadrant surgical clips from prior cholecystectomy. IMPRESSION: Possible instability at L3-4 with 1 cm anterolisthesis. Prior vertebral augmentation in unchanged compression deformity of the L4 vertebral body. Advanced spondylosis at L3-4 through L5-S1. Final Dictated by: Nick Crawley MD Dictated DT/TM: 02/22/2024 4:06 pm Signed by: Nick Crawley MD Signed (Electronic Signature): 02/22/2024 4:09 pm (If Report Is Signed, Electronically Signed in Other Vendor System) Normal [facility] XR Spine Thoracic 3 Viewson 02-20-2024 XR Spine Thoracic 3 Views Three views of the thoracic spine INDICATION: Pain COMPARISON: Scoliosis series 09/21/2021 IMPRESSION: Moderate multilevel degenerative changes of the thoracic spine without evidence for acute fracture or subluxation. Soft tissues grossly unremarkable. Final Dictated by: Daniele Ibrahim MD Dictated DT/TM: 02/20/2024 11:18 am Signed by: Daniele Ibrahim MD Signed (Electronic Signature): 02/20/2024 11:18 am (If Report Is Signed, Electronically Signed in Other Vendor System) Normal [facility] Neurosurgery Office/Clinic N yon 02-19-2024 Neurosurgery Office/Clinic Note Chief Complaint Lumbar pain-last seen 2021 History of Present Illness Patient is a pleasant 78-year-old female with a history of hypertension, glaucoma, impaired fasting glucose, osteopenia (DEXA 09/2020: [facility]; treated with Reclast), obesity (BMI 34), successful right L3-4 unilateral laminotomy for bilateral decompression performed 10/22/[address] 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 Quiros 01/2022, who presents to the outpatient neurosurgical clinic today accompanied by her to re-establish care on behalf of complaints of recent onset mid-inferior thoracic and left sided posterior chest wall pain. Patient was last seen in our clinic greater than 2 years ago, 01/2022. At that time, her acute low back pain was attributed to an L4 compression fracture identified on imaging which was without surgical requirement, but felt highly amendable to kyphoplasty. She planned to undergo kyphoplasty via her treating pain grain oilseed or pasture farm manager, Dr. Quiros, and was therefore released to follow-up in our clinic on an as needed basis. Today, patient reports she continued to do well until the onset of her current complaints approximately 3 weeks ago without precipitating injury or illness. She notes mild progressive worsening in pain since onset. Patient currently describes midline and left-sided mid to inferior thoracic pain with associated pain in the left posterior chest wall. She states pain is constant, but is predictably worse with mechanical movement and deep inspiration. Patient denies associated numbness or paresthesias in the left posterior chest wall. She denies significant right-sided thoracic pain or radiation of pain into the right chest wall. She denies numbness or paresthesias in the right chest wall. Patient denies overlying skin changes or rashes. She denies significant lumbar pain and denies radicular pain or numbness/paresthesias into the lower extremities. Patient denies motor weakness in the lower extremities, bowel/bladder incontinence, or saddle paresthesias. Patient denies symptoms of illness including cough, shortness of breath, or wheezing. She denies fevers, chills, anorexia, or fatigue. Patient has had no imaging workup on behalf of her current pain syndrome. Patient states her pain has been refractory to [id number] analgesics including Tylenol. She denies physical therapy, cna caregiver, or injection modalities through pain management. Physical Exam Vitals & Measurements HR: 58 (Peripheral) BP: 136/68 SpO2: 96 HT: 160 cm WT: 82.8 kg WT: 82.8 kg (Dosing) BMI: 32.34 Additional Vitals BP Position/Location: Sitting, Left arm [...] comfortably in a chair and is non painful/non-ill appearing. Previous lumbar incision is well-healed without surrounding erythema, edema, induration, or tenderness to palpation. The thoracolumbar spine is without deformities. Chest wall/thorax is without deformities or focal tenderness to palpation; no visible skin changes, bruising, or rashes. No significant myospasms of the thoracolumbar regions; the thoracolumbar spine is nontender to palpation and percussion. Sacrum and bilateral sacroiliac regions are nontender to palpation. Mild restriction in range of motion of the lumbosacral spine without increase in pain with range of motion. [...] Assessment/Plan 1. Back pain Ordered: MRI Spine Thoracic w/o Contrast XR Spine Lumbosacral Complete w/ Bending XR Spine Thoracic 3 Views 2. Chest wall pain Ordered: MRI Spine Thoracic w/o Contrast XR Ribs w/ PA Chest Left XR Spine Lumbosacral Complete w/ Bending XR Spine Thoracic 3 Views 3. Degenerative disc disease, lumbar Ordered: MRI Spine Thoracic w/o Contrast XR Spine Lumbosacral Complete w/ Bending XR Spine Thoracic 3 Views 4. Status post lumbar surgery Ordered: (more content not included)... Normal [facility] Provider Letteron 02-19-2024 Provider Letter (Inserted Image. Brianna ble to display) Alisha Ernst, CHIEF EMBALMER-DOCUMENTATION COORDINATOR [address] [place] [address] Re: Christie Waterman Date of Visit: 02/19/2024 Dear Alisha Ernst, Thank you for allowing me to contribute to the care of your patient, Christie Waterman. Attached is my office note and you will find my assessment and recommendations from our encounter today. Please do not hesitate to contact me with any questions or concerns. Sincerely, Tana Bruno PA-C [facility] [address] [place] [id number] The following document(s) were included in the letter: February 19, 2024 12:33:11 EDT - (02/19/2024) Neurosurgery Office Visit Note Normal [facility] MR SHOULDER RIGHT WO IV CONT [facility] 07-20-2023 MR SHOULDER RIGHT WO IV CONTRAST [...] 09-05-2022 BASO # 0.1 103/ul Normal 0.0-0.1 [facility] Comment on above: Performed By: #### C BC #### [facility] [address] [address] [address] Sheila Alford Basophils/100 WBC (Bld) 0.9 % Normal 0.2-2.0 [facility] Comment on above: Performed By: #### C BC #### [facility] [address] [address] [address] Sheila Alford EO # 0.1 103/ul Normal 0.0-0.7 [facility] Comment on above: Performed By: #### C BC #### [facility] [address] [place] [address] Dr. Sheila Alford Eosinophils/100 WBC (Bld) 1.5 % Normal 0.9-7.0 [facility] Comment on above: Performed By: #### C BC #### [facility] [address] [place] [address] Dr. Sheila Alford Erythrocyte distribution width (RBC) [Ratio] 13.2 % Normal 11.0-15.0 [facility] Comment on above: Performed By: #### C BC #### [facility] [address] [place] [address] Dr. Sheila Alford Hematocrit (Bld) [Volume fraction] 41.4 % Normal 36.0-48.0 [facility] Comment on above: Performed By: #### C BC #### [facility] [address] [place] [address] Dr. Sheila Alford Hemoglobin (Bld) [Mass/Vol] 13.2 g/dL Normal 12.0-16.0 [facility] Comment on above: Performed By: #### C BC #### [facility] [address] [place] [address] Dr. Sheila Alford IG # 0.01 10e3/ul Normal 0.00-0.03 [facility] Comment on above: Performed By: #### C BC #### [facility] [address] [place] [address] Dr. Sheila Alford IG % 0.2 % Normal 0.0-0.5 [facility] Comment on above: Performed By: #### C BC #### [facility] [address] [place] [address] Dr. Sheila Alford LYMPH # 1.3 103/ul Normal 1.2-3.8 [facility] Comment on above: Performed By: #### C BC #### [facility] [address] [place] [address] Dr. Sheila Alford Lymphocytes/100 WBC (Bld) 24.4 % Normal 20.5-60.0 [facility] Comment on above: Performed By: #### C BC #### [facility] [address] [place] [address] Dr. Sheila Alford MANUAL DIFF REQ NO Normal [facility] Comment on above: Performed By: #### C BC #### [facility] [address] [place] [address] Dr. Sheila Alford MCH (RBC) [Entitic mass] 29.1 pg Normal 26.7-34.0 [facility] Comment on above: Performed By: #### C BC #### [facility] [address] [place] [address] Dr. Sheila Alford MCHC (RBC) [Mass/Vol] 31.9 g/dL Normal 29.9-35.2 [facility] Comment on above: Performed By: #### C BC #### [facility] [address] [place] [address] Dr. Sheila Alford MCV (RBC) [Entitic vol] 91.2 fL Normal 81.0-99.0 [facility] Comment on above: Performed By: #### C BC #### [facility] [address] [place] [address] Dr. Sheila Alford MONO # 0.5 103/ul Normal 0.3-0.8 [facility] Comment on above: Performed By: #### C BC #### [facility] [address] [place] [address] Dr. Sheila Alford Monocytes/100 WBC (Bld) 9.1 % Normal 1.7-12.0 [facility] Comment on above: Performed By: #### C BC #### [facility] [address] [place] [address] Dr. Sheila Alford NEUT # 3.4 103/ul Normal 1.4-6.5 [facility] Comment on above: Performed By: #### C BC #### [facility] [address] [place] [address] Dr. Sheila Alford Neutrophils/100 WBC (Bld) 63.9 % Normal 43.0-75.0 [facility] Comment on above: Performed By: #### C BC #### [facility] [address] [place] [address] Dr. Sheila Alford Platelet mean volume (Bld) [Entitic vol] 9.4 fL Critically low 9.5-13.5 [facility] Comment on above: Performed By: #### C BC #### [facility] [address] [place] [address] Dr. Sheila Alford PLT 219 103/ul Normal 150-450 [facility] Comment on above: Performed By: #### C BC #### [facility] [address] [place] [address] Dr. Sheila Alford RBC 4.54 106/ul Normal 4.20-5.40 [facility] Comment on above: Performed By: #### C BC #### [facility] [address] [place] [address] Dr. Sheila Alford WBC 5.4 103/ul Normal 4.0-11.0 [facility] Comment on above: Performed By: #### C BC #### [facility] [address] [place] [address] Dr. Sheila Alford LIPID PROFILEon 09-05-2022 CHOL-HDL RATIO NORM SEE BELOW Normal [facility] Comment on above: Result Comment: 3.3 - 4.4 LOW RISK 4.4 - 7.1 AVERAGE RISK 7.1 - 11.0 MODERATE RISK >11.0 HIGH RISK Performed By: #### C MP, LIPID #### [facility] [address] [address] [address] Sheila Alford Cholesterol [Mass/Vol] 261 mg/dL Critically high <=200 [facility] Comment on above: Performed By: #### C MP, LIPID #### [facility] [address] [address] [address] Sheila Alford Cholesterol in HDL [Mass/Vol] 84 mg/dL Critically high 40-60 [facility] Comment on above: Performed By: #### C MP, LIPID #### [facility] [address] [address] [address] Sheila Alford Cholesterol in LDL [Mass/Vol] 157.8 mg/dL Normal [facility] Comment on above: Performed By: #### C MP, LIPID #### [facility] [address] [address] [address] Sheila Alford Cholesterol.total/ Cholesterol in HDL [Mass ratio] 3.1 {ratio} Normal [facility] Comment on above: Performed By: #### C MP, LIPID #### [facility] [address] [address] [address] Sheila Alford HDL NORMAL > or = 60 mg/dl - LO W CARDIOVASCULAR RISK <40 mg/dl - HIGH CARDIOVASCULAR RISK Normal [facility] Comment on above: Performed By: #### C MP, LIPID #### [facility] [address] [address] [address] Sheila Alford LDL CALC NORMAL SEE BELOW Normal [facility] Comment on above: Result Comment: <100 mg/dl OPTIMAL 100 - 129 mg/dl NEAR OR ABOVE OPTIMAL 130 - 159 mg/dl BORDERLINE HIGH 160 - 189 mg/dl HIGH >190 mg/dl VERY HIGH Performed By: #### C MP, LIPID #### [facility] [address] [address] [address] Sheila Alford Triglyceride [Mass/Vol] 96 mg/dL Normal <=150 [facility] Comment on above: Performed By: #### C MP, LIPID #### [facility] [address] [address] [address] Sheila Alford VLDL CALC 19.2 mg/dL Normal [facility] Comment on above: Performed By: #### C MP, LIPID #### [facility] [address] [address] [address] Sheila Alford PROF 14(COMP METB)on 023 Albumin [Mass/Vol] 3.6 g/dL Normal 3.4-5.0 [facility] Comment on above: Performed By: #### C MP, LIPID #### [facility] [address] [place] [address] Dr. Sheila Alford Albumin/Globulin [Mass ratio] 0.9 {ratio} Normal [facility] Comment on above: Performed By: #### C MP, LIPID #### [facility] [address] [place] [address] Dr. Sheila Alford ALP [Catalytic activity/Vol] 46 U/L Normal 46-116 [facility] Comment on above: Performed By: #### C MP, LIPID #### [facility] [address] [place] [address] Dr. Sheila Alford ALT [Catalytic activity/Vol] 20 U/L Normal 14-59 [facility] Comment on above: Performed By: #### C MP, LIPID #### [facility] [address] [place] [address] Dr. Sheila Alford Anion gap [Moles/Vol] 10.8 mmol/L Normal [facility] Comment on above: Performed By: #### C MP, LIPID #### [facility] [address] [place] [address] Dr. Sheila Alford AST [Catalytic activity/Vol] 18 U/L Normal 15-37 [facility] Comment on above: Performed By: #### C MP, LIPID #### [facility] [address] [place] [address] Dr. Sheila Alford Bilirubin [Mass/Vol] 0.4 mg/dL Normal 0.2-1.0 [facility] Comment on above: Performed By: #### C MP, LIPID #### [facility] [address] [place] [address] Dr. Sheila Alford Calcium [Mass/Vol] 9.3 mg/dL Normal 8.5-10.1 The [facility] Comment on above: Performed By: #### C MP, LIPID #### [facility] [address] [place] [address] Dr. Sheila Alford Chloride [Moles/Vol] 108 mmol/L Critically high 98-107 [facility] Comment on above: Performed By: #### C MP, LIPID #### [facility] [address] [place] [address] Dr. Sheila Aflord CO2 [Moles/Vol] 29.5 mmol/L Normal 21.0-32.0 [facility] Comment on above: Performed By: #### C MP, LIPID #### [facility] [address] [place] [address] Dr. Sheila Alford Creatinine [Mass/Vol] 0.54 mg/dL Critically low 0.55-1.02 [facility] Comment on above: Performed By: #### C MP, LIPID #### [facility] [address] [place] [address] Dr. Sheila Alford EGFR-AF KOSOVAN >60 Normal >=60 [facility] Comment on above: Performed By: #### C MP, LIPID #### [facility] [address] [place] [address] Dr. Sheila Alford EGFR-NON AF KOSOVAN >60 Normal >=60 [facility] Comment on above: Performed By: #### C MP, LIPID #### [facility] [address] [place] [address] Dr. Sheila Alford Globulin (S) [Mass/Vol] 4.1 g/dL Normal [facility] Comment on above: Performed By: #### C MP, LIPID #### [facility] [address] [address] [address] Sheila Alford Glucose [Mass/Vol] 102 mg/dL Normal 74-106 The [facility] Comment on above: Performed By: #### C MP, LIPID #### [facility] [address] [place] [address] Dr. Sheila Alford Potassium [Moles/Vol] 4.3 mmol/L Normal 3.5-5.1 The [facility] Comment on above: Performed By: #### C MP, LIPID #### [facility] [address] [place] [address] Dr. Sheila Alford Protein [Mass/Vol] 7.7 g/dL Normal 6.4-8.2 [facility] Comment on above: Performed By: #### C MP, LIPID #### [facility] [address] [place] [address] Dr. Sheila Alford Sodium [Moles/Vol] 144 mmol/L Normal 136-145 [facility] Comment on above: Performed By: #### C MP, LIPID #### [facility] [address] [place] [address] Dr. Sheila Alford Urea nitrogen [Mass/Vol] 17.0 mg/dL Normal 7.0-18.0 [facility] Comment on above: Performed By: #### C MP, LIPID #### [facility] [address] [place] [address] Dr. Sheila Alford Urea nitrogen/Creatinin e [Mass ratio] 31.5 mg/mg Normal [facility] Comment on above: Performed By: #### C MP, LIPID #### [facility] [address] [place] [address] Dr. Sheila Alford UA RANDOM W/MICROSCOPICon BACTERIA TRACE Abnormal NONE SEEN [facility] Comment on above: Performed By: #### U AMIC #### [facility] [address] [place] [address] Dr. Sheila Alford Bilirubin Ql (U) Negative Normal NEGATIVE [facility] Comment on above: Performed By: #### U AMIC #### [facility] [address] [place] [address] Dr. Sheila Alford CAST NONE SEEN Normal NONE SEEN [facility] Comment on above: Performed By: #### U AMIC #### [facility] [address] [place] [address] Dr. Sheila Alford Clarity (U) CLEAR Normal CLEAR [facility] Comment on above: Performed By: #### U AMIC #### [facility] [address] [address] [address] Sheila Alford Color (U) LT. YELLOW Normal YELLOW [facility] Comment on above: Performed By: #### U AMIC #### [facility] [address] [address] [address] Sheila Alford Crystals LM Nom (Urine sed) NONE SEEN Normal NONE SEEN [facility] Comment on above: Performed By: #### U AMIC #### [facility] [address] [address] [address] Sheila Alford Epithelial cells LM Ql (Urine sed) RARE Normal NONE SEEN /RARE [facility] Comment on above: Performed By: #### U AMIC #### [facility] [address] [place] [address] Dr. Sheila Alford Glucose Ql (U) Negative Normal NEGATIVE [facility] Comment on above: Performed By: #### U AMIC #### [facility] [address] [place] [address] Dr. Sheila Alford Hemoglobin Ql (U) Negative Normal NEGATIVE The [facility] Comment on above: Performed By: #### U AMIC #### [facility] [address] [address] [address] Sheila Alford Ketones Ql (U) Negative Normal NEGATIVE [facility] Comment on above: Performed By: #### U AMIC #### [facility] [address] [place] [address] Dr. Sheila Alford LEUKOCYTES Negative Normal NEGATIVE [facility] Comment on above: Performed By: #### U AMIC #### [facility] [address] [address] [address] Sheila Alford MUCOUS NONE SEEN Normal NONE SEEN [facility] Comment on above: Performed By: #### U AMIC #### [facility] [address] [address] [address] Sheila Alford Nitrite Ql (U) Negative Normal NEGATIVE [facility] Comment on above: Performed By: #### U AMIC #### [facility] [address] [address] [address] Sheila Alford pH (U) 7.0 [pH] Normal 5-9 [facility] Comment on above: Performed By: #### U AMIC #### [facility] [address] [place] [address] Dr. Sheila Alford RBC 0-2 Normal 0-2 [facility] Comment on above: Performed By: #### U AMIC #### [facility] [address] [address] [address] Sheila Alford SPEC GRAVITY 1.015 Normal 1.005-<=1.025 [facility] Comment on above: Performed By: #### U AMIC #### [facility] [address] [address] [address] Sheila Alford UA PROTEIN Negative Normal NEGATIVE/ TRACE [facility] Comment on above: Performed By: #### U AMIC #### [facility] [address] [place] [address] Dr. Sheila Alford Urobilinogen Qn (U) 0.2 {Ciera'U}/dL Normal 0.2 - 1.0 [facility] Comment on above: Performed By: #### U AMIC #### [facility] [address] [address] [address] Sheila Alford WBC NONE SEEN Normal NONE SEEN [facility] Comment on above: Performed By: #### U AMIC #### [facility] [address] [place] [address] Dr. Sheila Alford VITAMIN D 25 OHon 09-05-2022 VIT D 25-OH 57.2 ng/mL Normal [facility] Comment on above: Performed By: #### V ITAD #### [facility] [address] [place] [address] Dr. Sheila Alford VIT D RANGES SEE BELOW Normal [facility] Comment on above: Result Comment: <20 ng/mL Vit D deficient 20 - <30 ng/mL Vit D insufficient 30 - 100 ng/mL Vit D sufficient >100 ng/mL Potential Toxicity Performed By: #### V ITAD #### [facility] [address] [place] [address] Dr. Sheila Alford PROF CHEM 8 (BAS METB)on Anion gap [Moles/Vol] 6.4 mmol/L Normal [facility] Comment on above: Performed By: #### B MP #### [facility] [address] [address] [address] Sheila Alford Calcium [Mass/Vol] 9.3 mg/dL Normal 8.5-10.1 The [facility] Comment on above: Performed By: #### B MP #### [facility] [address] [address] [address] Sheila Alford Chloride [Moles/Vol] 105 mmol/L Normal 98-107 [facility] Comment on above: Performed By: #### B MP #### [facility] [address] [address] [address] Sheila Alford CO2 [Moles/Vol] 31.1 mmol/L Normal 21.0-32.0 [facility] Comment on above: Performed By: #### B MP #### [facility] [address] [address] [address] Sheila Alford Creatinine [Mass/Vol] 0.57 mg/dL Normal 0.55-1.02 [facility] Comment on above: Performed By: #### B MP #### [facility] [address] [address] [address] Sheila Alford EGFR-AF KOSOVAN >60 Normal >=60 [facility] Comment on above: Performed By: #### B MP #### [facility] [address] [address] [address] Sheila Alford EGFR-NON AF KOSOVAN >60 Normal >=60 [facility] Comment on above: Performed By: #### B MP #### [facility] [address] [address] [address] Sheila Alford Glucose [Mass/Vol] 90 mg/dL Normal 74-106 The [facility] Comment on above: Performed By: #### B MP #### [facility] [address] [place] [address] Dr. Sheila Alford Potassium [Moles/Vol] 4.5 mmol/L Normal 3.5-5.1 [facility] Comment on above: Performed By: #### B MP #### [facility] [address], [place] [address] Dr. Sheila Alford Sodium [Moles/Vol] 138 mmol/L Normal 136-145 [facility] Comment on above: Performed By: #### B MP #### [facility] [address] [place], [place] [address] Dr. Sheila Alford Urea nitrogen [Mass/Vol] 16.0 mg/dL Normal 7.0-18.0 [facility] Comment on above: Performed By: #### B MP #### [facility] [address] [place], [place] [address] Dr. Sheila Alford Urea nitrogen/Creatinin e [Mass ratio] 28.1 mg/mg Normal [facility] Comment on above: Performed By: #### B MP #### [facility] [address], [place] [address] Dr. Sheila Alford SURGICALon 02-23-2022 SURGICAL [facility] CHRISTIE WATERMAN [id number] Assoc. Page 1 of [address] [place] [address] PROC: 02/23/2022 [facility] RECV: 02/24/[address] RPTD: 02/25/2022 [place] [address] LOC: [facility] ACCT: [id number] SEX: F : 1945 AGE: 76 Y PATHOLOGY REPORT ATTN: NON-STAFF PHYSICIAN REQ: PEPITO QUIROS Clinical Information: CRUSH FRACTURE OF VERTEBRA [...] developed and its performance characteristics determined by [facility]. It has not been cleared or approved by the U.S. Food and Drug Administration. Pursuant to the requirements of CLIA, this laboratory has established and verified the test's accuracy and precision. Additional information about this type of test is available upon request. [id number] MIMI FERRO D.O., F.C.A.P. [facility]/ [facility] Printed on: 02/25/2022 [address] [place], [place] [address] Original print date: 02/25/2022 Normal [facility] Surgical Pathology Requeston 02-23-2022 ALEX SEE BELOW Normal [facility] Comment on above: Order Comment: Crush fracture of vertebra due to osteoporosis, initial encounter ([facility]) [M80.08XA] Pre-op diagnosis: L4 VERTEBRAL BODY Result Comment: [facility] CHRISTIE WATERMAN [id number]\X0D0A\Assoc. Page 1 of 1\X0D0A\[address]\X0D0A\[place] [address]\X0D0A\ PROC: 02/23/2022\X0D0A\[facility] RECV: 02/24/2022\X0D0A\[address] RPTD: 02/25/2022\X0D0A\[place] [address]\X0D0A\ LOC: [facility]\X0D0A\ ACCT: [id number] SEX: F\X0D0A\ : 1945 AGE: 76 Y\X0D0A\X0D0A\ PATHOLOGY REPORT\X0D0A\ ATTN: NON-STAFF PHYSICIAN\X0D0A\ REQ: PEPITO BAHN\X0D0A\X0D0A\X0D0A\X0D0A\Clinical Information: CRUSH FRACTURE OF VERTEBRA DUE TO OSTEOPOROSIS\X0D0A\INITIAL ENCOUNTER\X0D0A\X0D0A\FINAL DIAGNOSIS:\X0D0A\Bone, L4 vertebral body, biopsy:\X0D0A\ Findings consistent with fracture site.\X0D0A\X0D0A\Specimen:\X0D0A\BONE, L4 VERTEBRAL BODY\X0D0A\X0D0A\X0D0A\Gross Examination:\X0D0A\The container is labeled Christie Waterman, L4 vertebral body.\X0D0A\Received in formalin are three [...] was developed and its performance characteristics determined\X0D0A\by [facility]. It has not been cleared or\X0D0A\approved by the U.S. Food and Drug Administration. Pursuant to the\X0D0A\requirements of CLIA, this laboratory has established and verified the\X0D0A\test's accuracy and precision. Additional information about this type\X0D0A\of test is available upon request.\X0D0A\X0D0A\06499\X0D0A\20803\X0D0A\X0D0A\X0D0A\ \X0D0A\ MIMI FERRO D.O., F.C.A.P.\X0D0A\X0D0A\X0D0A\[facility]/ [facility] Printed on: 02/25/2022\X0D0A\[address]\X0D0A\[place], [place] [address]\X0D0A\Original print date: 02/25/2022 Performed By: #### [id number] #### [facility] iFormulary [facility] See Report MG MAMM SCREEN 3D CANDACE CADon 12-02-2021 MG MAMM SCREEN 3D CANDACE CAD Patient: CHRISTIE WATERMAN Exam Date: 12/02/2021 : 1945 Gender:F Ordering : [facility] Admission #: [id number] Family : Order #: [id number] CLICK HERE TO VIEW EXAM RADIOLOGY REPORT [...] No Treatments None Family Cancers None LOCATION: [facility] BREAST COMPOSITION: Almost entirely fatty. FINDINGS: [...] M.D. on 12/03/2021 at 09:51 Normal [facility] NM STRESS/REST MULTIon 10-11 NM STRESS/REST MULTI Patient: CHRISTIE WTAERMAN Exam Date: 10/11/2021 : 1945 Gender:F Ordering : COURTNEY [facility] Admission #: [id number] Family : Order #: [id number] CLICK HERE TO VIEW EXAM RADIOLOGY REPORT [...] Davila M.D. on 10/12/2021 at 09:12 Normal [facility] Vital Signs Date Time Vital Sign Value Performing Clinician Facility 03-04-2024 14:25-0500 Body height 160 cm Alisha Ernst [employer] Work Phone: [facility] 03-04-2024 14:25-0500 Body mass index (BMI) [Ratio] 31.67 kg/m2 Alisha Ernst [employer] Work Phone: [facility] 03-04-2024 14:25-0500 Body temperature 98.01 [degF] Alisha Ernst [employer] Work Phone: [facility] 03-04-2024 14:25-0500 Body weight 81.1 kg Alisha Ernst [employer] Work Phone: [facility] 03-04-2024 14:25-0500 Diastolic blood pressure 70 mm[Hg] Alisha Ernst [employer] Work Phone: [facility] 03-04-2024 14:25-0500 Heart rate 47 /min Alisha Aichholz [employer] Work Phone: [facility] 03-04-2024 14:25-0500 SaO2% (BldA) [Mass fraction] 98 % Alishaelias Santiagoholz [employer] Work Phone: [facility] 03-04-2024 14:25-0500 Systolic blood pressure 130 mm[Hg] Alisha Pamelaholz [employer] Work Phone: [facility] 06-12-2023 09:22-0500 Body height 160 cm Alisha Pamelaholz [employer] Work Phone: [facility] 06-12-2023 09:22-0500 Body mass index (BMI) [Ratio] 32.98 kg/m2 Alisha Pamelaholz [employer] Work Phone: [facility] 06-12-2023 09:22-0500 Body temperature 97.11 [degF] Alisha Pamelamelchorz [employer] Work Phone: [facility] 06-12-2023 09:22-0500 Body weight 84.46 kg Alisha Pamelaholz [employer] Work Phone: [facility] 06-12-2023 09:22-0500 Diastolic blood pressure 78 mm[Hg] Alisha Pamelaholz [employer] Work Phone: [facility] 06-12-2023 09:22-0500 Heart rate 52 /min Alisha Eliumimiholz [employer] Work Phone: [facility] 06-12-2023 09:22-0500 Respiratory rate 17 /min Alisha Pamelaholz [employer] Work Phone: [facility] [facility] 06-12-2023 09:22-0500 SaO2% (BldA) [Mass fraction] 99 % Alisha Pamelaholz WINDOW CUTTER Work Phone: [facility] 06-12-2023 09:22-0500 Systolic blood pressure 132 mm[Hg] Alisha Eliuhholz WINDOW CUTTER Work Phone: [facility] 05-19-2023 11:43-0500 Body height 160 cm Eunice Cheryl CHIEF EMBALMER-DOCUMENTATION COORDINATOR Work Phone: [employer] 05-19-2023 11:43-0500 Body mass index (BMI) [Ratio] 32.19 kg/m2 Eunice Cheryl CHIEF EMBALMER-DOCUMENTATION COORDINATOR Work Phone: [employer] 05-19-2023 11:43-0500 Body weight 82.42 kg Eunice Cheryl CHIEF EMBALMER-DOCUMENTATION COORDINATOR Work Phone: [employer] 05-19-2023 11:43-0500 Diastolic blood pressure 70 mm[Hg] Eunice Cheryl CHIEF EMBALMER-DOCUMENTATION COORDINATOR Work Phone: [employer] 05-19-2023 11:43-0500 Heart rate 48 /min Eunice Cheryl CHIEF EMBALMER-DOCUMENTATION COORDINATOR Work Phone: [employer] 05-19-2023 11:43-0500 Respiratory rate 18 /min Eunice Cheryl CHIEF EMBALMER-DOCUMENTATION COORDINATOR Work Phone: [employer] 05-19-2023 11:43-0500 SaO2% (BldA) [Mass fraction] 96 % Eunice Cheryl CHIEF EMBALMER-DOCUMENTATION COORDINATOR Work Phone: [employer] Comment on above: RA 05-19-2023 11:43-0500 Systolic blood pressure 134 mm[Hg] Eunice Cheryl CHIEF EMBALMER-DOCUMENTATION COORDINATOR Work Phone: [employer] Encounters Encounter Date Encounter Type Care Provider Facility Start: 03-08-2024 End: 03-08-2024 ambulatory Tana Bruno PA-C Facility:[facility] Start: 03-05-2024 End: 03-05-2024 Orders Only Alisha Ernst NP Work Phone: [facility] Comment on above: Age-related osteopor osis without current pathological fracture (CMS/HCC) (Primary Dx) Start: 03-04-2024 End: 03-04-2024 Office outpatient visit 25 minutes Alisha Ernst NP Work Phone: [facility] Comment on above: Rib pain on left gricelda e (Primary Dx); Essential (primary) hypertension (CMS/HCC); Essential hypertension (CMS/HCC); Age-related osteoporosis with current pathological fracture of vertebra with delayed healing; Age-related osteoporosis without current pathological fracture (CMS/HCC); Spondylolisthesis, unspecified spinal region; Primary hypertension (CMS/HCC); Bradycardia; BMI 32.0-32.9,adult; Pancreatic cyst (CMS/HCC) Start: 03-04-2024 End: 03-04-2024 ambulatory ALISHA AICKIRAZ Not Available Start: 03-04-2024 End: 03-04-2024 Bamboo flowsheet Alisha Klever WINDOW CUTTER Work Phone: [facility] Start: 03-04-2024 End: 03-04-2024 Bamboo flowsheet Alisha Ernst WINDOW CUTTER Work Phone: [facility] Start: 02-19-2024 End: 02-19-2024 ambulatory Tana Bruno PA-C Facility:[facility] Start: 09-11-2023 End: 09-11-2023 ambulatory ALISHA KLEVER Not Available Start: 08-18-2023 End: 08-18-2023 ambulatory VIKTORIA ARROYO Not Available Start: 07-20-2023 End: 07-20-2023 ambulatory TARA JIMÉNEZ Not Available Start: 07-17-2023 End: 07-17-2023 ambulatory TARA JIMÉNEZ Not Available Start: 07-07-2023 End: 07-07-2023 ambulatory BELKYS VINCENT Not Available Start: 07-04-2023 End: 07-04-2023 ambulatory BELKYS VINCENT Not Available Start: 06-30-2023 End: 06-30-2023 ambulatory BELKYS VINCENT Not Available Start: 06-26-2023 End: 06-26-2023 ambulatory BELKYS VINCENT Not Available Start: 06-23-2023 End: 06-23-2023 ambulatory DAJA VARGAS Not Available Start: 06-19-2023 End: 06-19-2023 ambulatory TARA JIMÉNEZ Not Available Start: 06-12-2023 End: 06-12-2023 ambulatory ALISHA ERNST Not Available Start: 06-12-2023 End: 06-12-2023 Office outpatient visit 25 minutes Alisha Ernst WINDOW CUTTER [facility] Phone[facility] Comment on above: Primary hypertension (CMS/HCC) (Primary Dx); BMI 32.0-32.9,adult; Bradycardia; Chronic pain of right knee; Chronic right shoulder pain; Rash and nonspecific skin eruption Start: 05-19-2023 ambulatory ALISHA KLEVER [facility] Start: 05-19-2023 End: 05-19-2023 Office outpatient new 45 minutes Eunice Luna CHIEF EMBALMER-DOCUMENTATION COORDINATOR Work Phone: [facility] Comment on above: Obstructive sleep ap chaitanya (Primary Dx); Sleep related hypoxia; Encounter to discuss test results Start: 04-03-2023 End: 05-01-2023 ambulatory ALISHA ERNST [facility] Start: 09-05-2022 End: 09-06-2022 ambulatory COURTNEY RENTERIA ELIUMimiSMILEY Facility:[facility] Start: 03-03-2022 End: 03-03-2022 ambulatory COURTNEY RENTERIA ELIUMimiSMILEY Facility:[facility] Start: 02-23-2022 ambulatory [facility] Start: 02-23-2022 End: 02-23-2022 ambulatory [facility] Start: 12-02-2021 End: 12-03-2021 ambulatory DOCUMENTATION COORDINATOR ALISHA ELIUMimiSMILEY Facility:[facility] Start: 10-11-2021 End: 10-12-2021 ambulatory COURTNEY RENTERIA ELIUMimiSMILEY Facility:[facility] Plan of Treatment Date Care Activity Detail Author Start: 07-17-2024 Pneumococcal Vaccine : 65+ Years (2 - PCV) Pneumococcal Vaccine: 65+ Years (2 - PCV) [facility] Comment on above: Postponed from 02/12 (Patient Refused) Start: 07-17-2024 Pneumococcal Vaccine : 65+ Years (2 of 2 - PCV) Pneumococcal Vaccine: 65+ Years (2 of 2 - PCV) [facility] Comment on above: Postponed from 02/12 (Patient Refused) Start: 05-17-2024 End: 05-17-2024 Patient encounter procedure 05/17/2024 2:30 PM EST Office Visit [facility] [place] [address] [place] [address] Eunice Luna, CHIEF EMBALMER-DOCUMENTATION COORDINATOR [address] [place] [address] [facility] [place] Start: 04-02-2024 End: 04-02-2024 Patient encounter procedure 04/02/2024 10:00 AM EST Office Visit [facility] [address] [place] [address] Alisha Ernst, DEE [address] [place] [phone] [facility] Start: 03-13-2024 End: 03-13-2024 Patient encounter procedure 03/13/2024 8:40 AM EST Office Visit [facility] [address] [place] [address] Alisha Ernst, WINDOW CUTTER [address] [place] [address] [facility] Start: 03-05-2024 End: 03-05-2025 DXA Skeletal system Views for bone density DEXA bone density Imaging Routine Age-related osteoporosis without current pathological fracture ([facility]) Expected: 03/05/2024, Expires: 03/05/2025 [facility] Work Phone: Comment on above: Expected: 03/05/2024 , Expires: 03/05/2025 Start: 03-04-2024 End: 03-04-2024 Patient encounter procedure 03/04/2024 2:20 PM EST Office Visit [facility] [address] [place] [address] Alisha Ernst, WINDOW CUTTER [address] [place] [phone] Arrived [facility] Comment on above: Arrived Start: 09-11-2023 End: 09-11-2023 Patient encounter procedure 09/11/2023 9:00 AM EDT Office Visit [facility] [address] [place] [address] Alisha Ernst, DEE [address] [place] [address] [facility] Start: 02-13-2016 Pneumococcal vaccination PNEUMOCOCCAL VACCINE SERIES (2 - PCV) [facility] Start: 12-13-1991 Screening for malign ant neoplasm of colon COLORECTAL CANCER SCREENING DISCUSSION [facility] Start: 1986 Screening for malign ant neoplasm of breast MAMMOGRAM SCREENING DISCUSSION [facility] Start: 12-13-1967 Screening for malign ant neoplasm of cervix CERVICAL CANCER SCREENING DISCUSSION [facility] Start: 1965 Third diphtheria, tetanus and acellular pertussis (DTaP) vaccination TDAP (ADULT) [facility] Start: 1946 Hepatitis C screening HEPATITI S C VIRUS SCREENING [facility] Start: 1945 Medicare Annual Wellness (AWV) Medicare Annual Wellness (AWV) [facility] Start: 1945 Screening for osteoporosis DEXA SCAN DISCUSSION [facility] Start: 1945 Tetanus vaccination TETANUS [facility] Immunizations Immunization Date Immunization Notes Care Provider Fa cili 02-02-2024 influenza, high dose seasonal, preservative-free Alisha Aichholz WINDOW CUTTER Work Phone: [facility] 02-06-2023 Influenza, Seasonal, Quadrivalent, Adjuvanted Alisha Billz WINDOW CUTTER Work Phone: [facility] 01-25-2022 Influenza, High-dose Seasonal, Quadrivalent, Preservative Free Alisha Pamelaholz WINDOW CUTTER Work Phone: [facility] 11-15-2021 zoster vaccine recombinant L nuno Klever WINDOW CUTTER Work Phone: [facility] 06-14-2021 zoster vaccine recombinant L nuno Aichholz WINDOW CUTTER Work Phone: [facility] 01-26-2021 Influenza, High-dose Seasonal, Quadrivalent, Preservative Free Alisha Aichholz WINDOW CUTTER Work Phone: [facility] 01-28-2020 Influenza, Seasonal, Quadrivalent, Adjuvanted Alisha Aichholz WINDOW CUTTER Work Phone: [facility] 01-29-2019 influenza, high dose seasonal, preservative-free Alisha Aichholz WINDOW CUTTER Work Phone: [facility] 02-26-2018 influenza, high dose seasonal, preservative-free Alisha Aichholz WINDOW CUTTER Work Phone: [facility] 02-22-2017 influenza, high dose seasonal, preservative-free Alisha Aichholz WINDOW CUTTER Work Phone: [facility] 03-21-2016 influenza, seasonal, injectable, preservative free Alisha Aichholz WINDOW CUTTER Work Phone: [facility] 03-18-2015 influenza, injectabl e, quadrivalent, preservative free Alisha Aichholz WINDOW CUTTER Work Phone: [facility] 02-12-2015 pneumococcal polysaccharide vaccine, 23 valent Alisha Aichholz WINDOW CUTTER Work Phone: [facility] Payers Date Payer Category Payer Private Health Insurance DAYO campbell [id number] 2022 Unknown [id number] 2017 Unknown [id number] 2011 Medicare [id number] 1959 Medicare [id number] 1959 Private Health Insurance [id number] 1946 Unknown [id number] 2.16.840.1.619421.3.579.2 .754 1946 Unknown [id number] 2.16.840.1.362709.3.579.2 .754 1946 Unknown [id number] 2.16.840.1.079088.3.579.2 .593 1946 Unknown [id number] 2.16.840.1.390617.3.579.2 .593 1946 Unknown [id number] 2.16.840.1.521770.3.579.2 .593 1946 Unknown [id number] 2.16.840.1.398001.3.579.2 .593 1946 Unknown [id number] 2.16.840.1.855567.3.579.2 .1286 1946 Unknown [id number] 2.16.840.1.712298.3.579.2 .983 1946 Unknown [id number] 2.16.840.1.848579.3.579.2 .1259 1946 Unknown [id number] 2.16.840.1.692163.3.579.2 .1259 1946 Unknown [id number] 2.16.840.1.389805.3.579.2 .1259 1946 Unknown [id number] 2.16.840.1.020800.3.579.2 .1259 1946 Unknown [id number] 2.16.840.1.949035.3.579.2 .1259 1946 Unknown [id number] 2.16.840.1.888388.3.579.2 .9 1946 Unknown [id number] 2.16.840.1.193753.3.579.2 .1259 1946 Unknown [id number] 2.16.840.1.631473.3.579.2 .1258 1946 Unknown [id number] 2.16.840.1.457765.3.579.2 .1259 1946 Unknown [id number] 2.16.840.1.300255.3.579.2 .9 1946 Unknown [id number] 2.16.840.1.562279.3.579.2 .9 1946 Unknown [id number] 2.16.840.1.002871.3.579.2 .1258 1946 Unknown [id number] 2.16.840.1.640393.3.579.2 .125 1946 Unknown [id number] 2.16.840.1.042783.3.579.2 .196 1946 Unknown [id number] 2.16.840.1.274777.3.579.2 .196 1946 Unknown [id number] 2.16.840.1.993526.3.579.2 .196 1946 Unknown [id number] 2.16.840.1.708339.3.579.2 .196 Social History Date Type Detail Facility Start: 05-19-2023 Tobacco smoking stat [facility] Ex-smoker [facility] History of tobacco use Current smoker [facility] History of tobacco use Cigarette Smoker A [facility] Start: 11-21-2022 End: 05-19-2023 Tobacco use and exposure Smokeless tobacco non-user [facility] Start: 05-19-2023 End: 09-08-2023 History of Social function [facility] Start: 05-19-2023 End: 09-08-2023 Tobacco use panel [facility] Start: 1945 Sex Assigned At Female A [facility] Start: 05-05-2023 Gender identity Identifies as female gender (finding) [facility] Start: 11-21-2022 Tobacco smoking stat us PAIS Never smoked tobacco [facility] Start: 06-12-2023 End: 03-04-2024 Alcohol intake Lifetime non-drinker (finding) [facility] Start: 1945 Sex Assigned At Not on file [facility] In a typical week, h ow many times do you talk on the telephone with family, friends, or neighbors? Patient declined [facility] Are you now , , , , never or living with a partner? [facility] History of Present illness Narrative 03-04-2024 Alisha Ernst NP - 03/04/2024 5:39 PM Hodan Ernst NP - 03/04/2024 5:39 PM Hodan Ernst NP - 03/04/2024 5:37 PM Hodan Ernst NP - 03/04/2024 5:37 PM EST Note Date & Type Note Facility 03-04-2024 History of Presen t illness Narrative Associated Problem(s): Pancreatic cyst (CMS/HCC) Noted on CT abd/pelvis Will speak to radiology Associated Problem(s): Rib pain on left side Unclear etiology DD: muscle strain, zoster, radiculopathy thoracic pathology Will wait to see what is next Associated Problem(s): Spondylolisthesis Cont with neurosurgery Has MRI spine this week Associated Problem(s): Bradycardia Has been intermediate, no symptoms, does take b miriam eye drops Associated Problem(s): HTN (hypertension) ([facility]) Stable on current meds No changes needed Associated Problem(s): Age-related osteoporosis without current pathological fracture ([facility]) Time for reclast Will order this Images from the original note were not included. Christie Waterman is a 78 y.o. female presents with chief complaint of No chief complaint on file. HPI: Here for a ER fu: pain location left lateral lower rib region, sharp and achy Significantly worsened when she reached over to her BIPAP machine. This pain intensified to the point she went to [facility] er on 02/21. See ER notes from HPI, labs and CT scan results. Sent home with steroids, muscle relaxer, and pain meds She is finished with her scripts, overall over 90% better, some residual pain with rotation and certain movements She denied any trauma, no definite rash suggestive of zoster, no blood in urine, incidental note was cyst on pancreas , no NV, no abd pain, no family hx of pancreatic or other GI cancers She has had DDD lumbar spine, and is going to be getting an MRI T spine (possible L spine) in [place] on this coming Monday as well SUBJECTIVE: MEDICATIONS: Current Outpatient Medications Medication Instructions amLODIPine (NORVASC) 2.5 mg, Oral, Daily brimonidine (AlphaGAN P) 0.2 % ophthalmic solution 1 drop, 2 times daily cetirizine (ZyrTEC) 10 MG tablet Oral, Pt takes OTC dorzolamide-timolol (Cosopt) 2-0.5 % ophthalmic solution 1 drop, Both Eyes, 2 times daily latanoprost (Xalatan) 0.005 % ophthalmic solution INSTILL 1 DROP IN EACH EYE EVERY DAY AT BEDTIME losartan (COZAAR) 100 mg, Oral, Daily methocarbamol (ROBAXIN) 500 mg, 3 times daily methylPREDNISolone (Medrol Dospak) 4 MG tablets TAKE 6 TABLETS ON DAY 1 DIRECTED ON PACKAGE AND DECREASE BY 1 TAB EACH DAY FOR A TOTAL OF 6 DAYS Multiple Vitamins-Minerals (PreserVision AREDS 2) chewable tablet Oral oxyCODONE-acetaminophen (Percocet) 5-325 MG tablet TAKE 1 TAB ORALLY EVERY 6 HOURS NEEDED FOR PAIN FOR 3 DAYS DX: R10.9 ALLERGIES: Allergies Allergen Reactions Brimonidine Itching Lisinopril Cough MARTY inhibitors Tramadol Other Reaction(s): dizziness, severe nausea REVIEW OF SYMPTOMS: Review of Systems Constitutional: [...] urinating, dysuria and frequency. Musculoskeletal: Positive for arthralgias and back pain. Negative for joint swelling and myalgias. Skin: Negative for rash and wound. Neurological: Negative for dizziness, tremors, seizures, syncope and headaches. Psychiatric/Behavioral: Negative for behavioral problems, self-injury and suicidal ideas. The patient is not nervous/anxious. Hematological: Does not bruise/bleed easily. Endocrine: Negative for polydipsia, polyphagia and polyuria. Allergic/Immunologic: Negative for environmental allergies and food allergies. PAST MEDICAL HISTORY Past Medical History: Diagnosis Date Achilles tendonitis Calcaneal spur Glaucoma ([facility]) HTN (hypertension) ([facility]) 06/12/2023 Idiopathic neuropathy Onychomycosis Plantar fasciitis Pronation deformity of foot Rupture Achilles tendon, right, initial encounter Visual impairment w/ corrective lenses Past Surgical History: Procedure Laterality Date ACHILLES TENDON SURGERY Right 2010 ACHILLES TENDON SURGERY Left 04/12/2016 [facility] procedure BREAST FIBROADENOMA SURGERY CARPAL TUNNEL RELEASE Bilateral CATARACT EXTRACTION W/ INTRAOCULAR LENS IMPLANT, BILATERAL 2010 CHOLECYSTECTOMY FIXATION KYPHOPLASTY 03/2022 HEEL SPUR EXCISION Left 08/04/2015 Calcaneal Spur WISDOM TOOTH EXTRACTION family history includes Diabetes in her father; Hypertension in her father and mother. OBJECTIVE: Visit Vitals BP 130/70 (BP Location: Left arm, Patient Position: Sitting, BP Cuff Size: Adult long) Pulse (!) 47 Temp 98 F (Temporal) Ht 5' 3 Wt 178 lb 12.8 oz SpO2 98% BMI 31.67 kg/m Smoking Status Never BSA 1.9 m Physical Exam Vitals and nursing note reviewed. Constitutional: General: She is not in acute distress. Appearance: Normal appearance. HENT: Head: Normocephalic and atraumatic. Right Ear: External ear normal. Left Ear: External ear normal. Nose: Nose normal. Mouth/Throat: Mouth: Mucous membranes are moist. Eyes: Extraocular Movements: Extraocular movements intact. Conjunctiva/sclera: Conjunctivae normal. Neck: Vascular: No carotid bruit. Cardiovascular: Rate and Rhythm: Regular rhythm. Bradycardia present. Pulses: Normal pulses. Heart sounds: Normal heart sounds. Pulmonary: Effort: Pulmonary effort is normal. Breath sounds: Normal breath sounds. No wheezing or rales. Abdominal: General: Bowel sounds are normal. There is no distension. Palpations: Abdomen is soft. There is no mass. Tenderness: There is no abdominal tenderness. There is no guarding. Hernia: No hernia is present. Musculoskeletal: General: Tenderness present. Normal range of motion. Cervical back: Normal range of motion and neck supple. Right lower leg: No edema. Left lower leg: No edema. Comments: No rash to suggest zoster No midline t or l spine tenderness Pain is lateral left rib cage at level of approx 8-9th rib, noted more with rotation to R>L, no instability noted, no anterior tenderness Lymphadenopathy: Cervical: No cervical adenopathy. Skin: General: Skin is warm and dry. Capillary Refill: Capillary refill takes 2 to 3 seconds. Findings: No rash. Neurological: General: No focal deficit present. Mental Status: She is alert and oriented to person, place, and time. Psychiatric: Mood and Affect: Mood normal. Behavior: Behavior normal. Thought Content: Thought content normal. Judgment: Judgment normal. ASSESSMENT AND PLAN: No follow-ups on file. Problem List Items Addressed This Visit BMI 32.0-32.9,adult Spondylolisthesis Cont with neurosurgery Has MRI spine this week Age-related osteoporosis with current pathological fracture of vertebra with delayed healing - Primary HTN (hypertension) (CMS/HCC) Stable on current meds No changes needed Bradycardia Has been intermediate, no symptoms, does take b miriam eye drops Age-related osteoporosis without current pathological fracture (CMS/HCC) Time for reclast Will order this Rib pain on left side Unclear etiology DD: muscle strain, zoster, radiculopathy thoracic pathology Will wait to see what is next Pancreatic cyst (CMS/HCC) Noted on CT abd/pelvis Will speak to radiology Other Visit Diagnoses Essential (primary) hypertension (CMS/HCC) Relevant Medications amLODIPine (Norvasc) 2.5 MG tablet losartan (Cozaar) 100 MG tablet Essential hypertension (CMS/HCC) Relevant Medications amLODIPine (Norvasc) 2.5 MG tablet losartan (Cozaar) 100 MG tablet documented in this encounter [facility] History of Present illness Narrative 06-12-2023 Alisha Ernst NP - 06/12/2023 10:29 AM Hodan Ernst NP - 06/12/2023 10:27 AM Hodan Ernst NP - 06/12/2023 10:26 AM Hodan Ernst, DEE [...] to stepanic Associated Problem(s): Bradycardia Has been intermediate card tender, no symptoms, does take b miriam eye [...] Diagnosis Date Achilles tendonitis Calcaneal spur Glaucoma ([facility]) HTN (hypertension) ([facility]) 06/12/2023 Idiopathic neuropathy Onychomycosis Plantar fasciitis Pronation deformity of foot Rupture Achilles tendon, right, initial encounter Visual impairment w/ corrective lenses Past Surgical History: Procedure Laterality Date ACHILLES TENDON SURGERY Right 2010 ACHILLES TENDON SURGERY Left 04/12/2016 [facility] procedure BREAST FIBROADENOMA SURGERY CARPAL TUNNEL RELEASE [...] in meds or doses Bradycardia Has been intermediate, no symptoms, does take b miriam eye [...] History of Present illness Narrative 05-19-2023 Rosio Zacarias LPN - 05/19/2023 11:30 AM MICHELL Perry - 05/19/2023 11:30 AM EST Note Date & Type Note Facility 05-19-2023 History of Presen t illness Narrative SLEEP [place] Score -6 CPAP/BIPAP/APAP Pressure - Max IPAP18 min EPAP 9 with ps 4 cm/H20 Neck Circumference - Most Recent Sleep Study -02/08/23 Oxygen Use - If so, how many liters and is it PRN, Nocturnal, or continuous? Patient is benefiting from PAP therapy--yes PB - Gabi Referred by- daughter Have you ever seen [...] Behavior: Behavior normal. Judgment: Judgment normal. SLEEP [place] Score -6 CPAP/BIPAP/APAP Pressure - Max IPAP18 [...] today * Adjust Auto BiPAP to BiPAP12/8 [id number] 1 month compliance * New Supplies Ordered-Chg [...] I will have prescription sent to a [employer] ([employer]) company of choice- who will be calling patient in approximately next 1-2 weeks. - Patient should be eligible for new supplies approximately every 3-6 months, depending on your insurance coverage, DME company will inform patient of coverage - If patient mask does not fit well, contact [employer] company before 30 days are up to get a new mask without an additional charge - Insurance requires regular usage and periodic office follow ups for PAP therapy to continue to cover supplies Insurance Requirements: - Your insurance requires a [id number] follow up visit within 31-90 days period [...] plan of care, referring/communicating with other health director of patient care, as well as documenting the clinical information in the EHR. This includes face to face time and preparing to see the patient (review of tests) I personally reviewed selected chart notes, results, interpreted tests, imaging today before seeing the pt; reviewed and discussed w/ pt, questions answered. Portions of this chart were created using [employer] electronic dictation. Please excuse any typographical or grammatical errors contained herein as a result. Some Elements copied from previous notes. I have updated where appropriate, and all reflect current medical decision making from today's encounter. MICHELL Hall documented in this encounter [facility] Evaluation note Note Date & Type Note Facility Evaluation note Diagnosis Obstructive sleep apnea- Primary Obstructive sleep apnea (adult) (pediatric) Sleep related hypoxia Idiopathic sleep related nonobstructive alveolar hypoventilation Encounter to discuss test results Other specified counseling documented in this encounter [facility] Evaluation note Note Date & Type Note Facility Evaluation note Diagnosis Primary hypertension (CMS/HCC)- Primary Unspecified essential hypertension BMI 32.0-32.9,adult Bradycardia Other specified cardiac dysrhythmias Chronic pain of right knee Chronic right shoulder pain Pain in joint, shoulder region Rash and nonspecific skin eruption Rash and other nonspecific skin eruption documented in this encounter [facility] Evaluation note Note Date & Type Note Facility Evaluation note Diagnosis Primary hypertension (CMS/HCC)- Primary Unspecified essential hypertension BMI 32.0-32.9,adult Bradycardia Other specified cardiac dysrhythmias Chronic pain of right knee Chronic right shoulder pain Pain in joint, shoulder region Rash and nonspecific skin eruption Rash and other nonspecific skin eruption Primary hypertension (CMS/HCC)- Primary Unspecified essential hypertension Age-related osteoporosis with current pathological fracture of vertebra with delayed healing Mixed hyperlipidemia (CMS/HCC) Mixed hyperlipidemia VAL (obstructive sleep apnea) Obstructive sleep apnea (adult) (pediatric) BMI 32.0-32.9,adult Chronic right shoulder pain Pain in joint, shoulder region Neoplasm of uncertain behavior Neoplasm of uncertain behavior, site unspecified Rib pain on left side- Primary Essential (primary) hypertension (CMS/HCC) Unspecified essential hypertension Essential hypertension (CMS/HCC) Unspecified essential hypertension Age-related osteoporosis with current pathological fracture of vertebra with delayed healing Age-related osteoporosis without current pathological fracture (CMS/HCC) Spondylolisthesis, unspecified spinal region Primary hypertension (CMS/HCC) Unspecified essential hypertension Bradycardia Other specified cardiac dysrhythmias BMI 32.0-32.9,adult Pancreatic cyst (CMS/HCC) Cyst and pseudocyst of pancreas documented in this encounter [facility] Evaluation note Note Date & Type Note Facility Evaluation note Diagnosis Primary hypertension (CMS/HCC)- Primary Unspecified essential hypertension BMI 32.0-32.9,adult Bradycardia Other specified cardiac dysrhythmias Chronic pain of right knee Chronic right shoulder pain Pain in joint, shoulder region Rash and nonspecific skin eruption Rash and other nonspecific skin eruption Primary hypertension (CMS/HCC)- Primary Unspecified essential hypertension Age-related osteoporosis with current pathological fracture of vertebra with delayed healing Mixed hyperlipidemia (CMS/HCC) Mixed hyperlipidemia VAL (obstructive sleep apnea) Obstructive sleep apnea (adult) (pediatric) BMI 32.0-32.9,adult Chronic right shoulder pain Pain in joint, shoulder region Neoplasm of uncertain behavior Neoplasm of uncertain behavior, site unspecified Rib pain on left side- Primary Essential (primary) hypertension (CMS/HCC) Unspecified essential hypertension Essential hypertension (CMS/HCC) Unspecified essential hypertension Age-related osteoporosis with current pathological fracture of vertebra with delayed healing Age-related osteoporosis without current pathological fracture (CMS/HCC) Spondylolisthesis, unspecified spinal region Primary hypertension (CMS/HCC) Unspecified essential hypertension Bradycardia Other specified cardiac dysrhythmias BMI 32.0-32.9,adult Pancreatic cyst (CMS/HCC) Cyst and pseudocyst of pancreas Age-related osteoporosis without current pathological fracture (CMS/HCC)- Primary documented in this encounter [facility] Reason for referral (narrative) Consultation (Routine) - Pending Review Note Date & Type Note Facility Reason for referral (narrati ve) Specialty Diagnoses / Procedures Referred By Nancie aguilar Referred To Contact Orthopaedic Surgery Diagnoses Chronic pain of right knee Chronic right shoulder pain Alisha Ernst, DEE [address] [place] [address] Jr. Viktoria Gonsalez, [address] [facility] [address] [place] [address] Referral ID Status Reason Start Date Expiration Date Visits Requested Visits Authorized [id number] Pending Review Specialty Services Required 06/12/2023 12/09/2023 1 1 [facility] Summary Purpose Family History No [...] ized section and content) DATE CREATED AUTHOR 02/26/2022 [facility] DATE CREATED AUTHOR AUTHOR'S ORGANIZ ATION 02/26/2022 [facility] DATE CREATED AUTHOR AUTHOR'S ORGANIZ ATION 09/09/2022 [facility] DATE CREATED AUTHOR AUTHOR'S ORGANIZ ATION 05/01/2023 [facility] DATE CREATED AUTHOR AUTHOR'S ORGANIZ ATION 05/20/2023 [facility] DATE CREATED AUTHOR AUTHOR'S ORGANIZ ATION 03/05/2024 [facility] DATE CREATED AUTHOR AUTHOR'S ORGANIZ ATION 03/13/2024 [facility] Reason for Visit (unrecogniz ed section and content) Reason Comments New Patient Sleep Apnea Care Teams (unrecognized sec tion and content) Publications Manager Relationship Specialty Start Date End Date Alisha Ernst CNP [address] [place] [address] PCP - General Certified Nurse Practitioner 05/05/23 Publications Manager Relationship Specialty Start Date End Date Clarence Villagomez MD [address] [place], [place] [phone] PCP - General Family Medicine 11/21/22 Alisha Ernst NP [address] [place] [address] Nurse Practitioner Family Medicine 12/05/22 Publications Manager Relationship Specialty Start Date End Date Robert Pate MD [address] [place] [phone] PCP - General Family Medicine 02/29/24 Alisha Ernst NP [address] [place] [phone] Nurse Practitioner Family Medicine 12/05/22 Publications Manager Relationship Specialty Start Date End Date Robert Pate MD [address] [place] [phone] PCP - General Family Medicine 02/29/24 Alisha Ernst NP [address] [place] [phone] Nurse Practitioner Family Medicine 12/05/22 Publications Manager Relationship Specialty Start Date End Date Robert Pate MD [address] [place] [phone] PCP - General [facility] 02/29/24 Alisha Ernst NP [address] [place] [phone] Nurse Practitioner [facility] 12/05/22 FOR RECORDS PERTAINING TO PATIENTS WHO [...] BE BASED ON THE PRIMARY CLINICAL RECORDS. [facility] [employer] [facility]. provides no warranty or guarantee of the accuracy or completeness of information in this document.
--- NOTE | 2024-03-15 08:27 | XR_ITS ---
[address] [address] Patient Name: CHRISTIE TEE MRN: [id number] date: 1945 Sex: F Assigned Patient Location: [facility] Current Patient Location: [facility] Accession/Order Number: [id number] Exam Date: 03/15/2024 09:40 Report Date: 03/16/2024 06:13 At the request of: DEXTER ABAD Procedure: XR DEXA axial skeleton EXAMINATION: XR DEXA axial skeleton HISTORY: Age Related Osteoporosis COMPARISON: DEXA bone densitometry 10/12/2020 TECHNIQUE: Dual-energy X-ray absorptiometry (DXA) was performed. FINDINGS: SPINE ANALYSIS: Average bone mineral density is 1.163 g/cm2. T-score (standard deviation relative to young adult mean): -0.1 . +14.7% change since prior study. HIP ANALYSIS: Lowest bone mineral density is within the left femoral neck, 0.816 g/cm2. T-score (standard deviation relative to young adult mean): -1.6 . +6.3% change since prior study. XR/XR DEXA axial skeleton IMPRESSION: World Health Organization Classification: Osteopenia - Moderate Fracture Risk FRAX: Cannot be calculated. Pharmacologic treatment recommendations * No uniform recommendation applies to all patients. Management plans must be individualized. * Consider initiating pharmacologic treatment in postmenopausal women and men >= 50 years of age who have the following: Primary fracture prevention: * T-score <= - 2.5 at the femoral neck, total hip, lumbar spine, 33% radius (some uncertainty with existing data) by DXA. * Low bone mass (osteopenia: T-score between - 1.0 and - 2.5) at the femoral neck or total hip by DXA with a 10-year hip fracture risk >= 3% or a 10-year major osteoporosis-related fracture risk >= 20% (i.e., clinical vertebral, hip, forearm, or proximal humerus) based on the [place]-adapted FRAXregistered model. Secondary fracture prevention: * Fracture of the hip or vertebra regardless of BMD [4, 5]. * Fracture of proximal humerus, pelvis, or distal forearm in persons with low bone mass (osteopenia: T-score between - 1.0 and - 2.5). The decision to treat should be individualized in persons with a fracture of the proximal humerus, pelvis, or distal forearm who do not have osteopenia or low BMD [12, 13]. Vicki MS, Karla SL, Jass KL, Altagracia EM, Oswaldo KG, AJ, Chau ES. The clinician's guide to prevention and treatment of osteoporosis. Osteoporos Int. 2021;33(10):4145-0064. doi: 10.1007/u98336-017-05620-c. Epub 2021Aug 26. Erratum in: Osteoporos Int. 2021Nov 25;: PMID: 34750226; PMCID: HBI1942571. Electronically authenticated by: SUZY ESPINOSA Date: 03/16/2024 06:13
--- NOTE | 2024-03-15 08:27 | MR_ITS ---
[address] [address] Patient Name: CHRISTIE TEE MRN: [id number] date: 1945 Sex: F Assigned Patient Location: [facility] Current Patient Location: [facility] Accession/Order Number: [id number] Exam Date: 03/15/2024 08:45 Report Date: 03/18/2024 05:32 At the request of: DEXTER ABAD Procedure: MR abdomen wo/w con EXAMINATION: MR abdomen wo/w con HISTORY: Pancreatic Cyst K86.2 COMPARISON: No relevant comparison available. TECHNIQUE: A comprehensive MRI examination of the abdomen was performed to optimize visualization of suspected pathology. Images were obtained with and/or without intravenous Dotarem contrast as indicated by exam type. FINDINGS: LIVER: No enlargement, atrophy, abnormal signal, or significant focal lesion. BILIARY: Cholecystectomy. No abnormal dilation of common bile duct or intrahepatic bile ducts. PANCREAS: 1.3 cm benign-appearing cyst/pseudocyst within tail of pancreas. No mass or abnormal duct dilation. SPLEEN: No enlargement or focal lesion. KIDNEYS: No mass or obstruction. A few benign cysts. ADRENALS: No mass or enlargement. AORTA/VASCULAR: No aneurysm or dissection. RETROPERITONEUM: No mass or adenopathy. BOWEL/MESENTERY: No visible mass, obstruction, or bowel wall thickening. ABDOMINAL WALL: No mass or hernia. BONES: No appreciable bony lesion or fracture. LUNG BASES: No visible pleural disease. Lung bases not well assessed with MRI. OTHER: Negative. MR/MR abdomen wo/w con IMPRESSION: 1. Small benign-appearing pseudocyst within tail of pancreas. 2. Prior cholecystectomy. 3. A few benign-appearing renal cysts. Electronically authenticated by: SUZY ESPINOSA Date: 03/18/2024 05:32
[2024-03-15 10:21] VITALS: BP 117/62; PULSE 44; TEMP 36.6; O2SAT 97
[2024-03-15] MEDS: ZOLEDRONIC ACID/MANNITOL-WATER 5 MG/100 ML BOTTLE 300 MG IV (10:33)
== END 2024-03-21 09:17 | disposition home or self-care (01) ==
LOC: INF 07:32
PROVIDERS: PCP Nurse Practitioner; Visit Provider Nurse Practitioner
DX: M81.0 Age-related osteoporosis without current pathological fracture (principal); Z87.311 Personal history of (healed) other pathological fracture; K86.2 Cyst of pancreas; Z90.49 Acquired absence of other specified parts of digestive tract
CPT/HCPCS: 74183; 77080; 96365; A9575; J3489

== ENCOUNTER 2024-04-16 08:39 | Outpatient (OUT) | payer MEDICARE, SELFPAY ==
--- NOTE | 2024-04-16 08:44 | CT_ITS ---
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 Dose reduction techniques were achieved by using automated exposure control and/or adjustment of mA and/or kV according to patient size and/or use of iterative reconstruction technique. FINDINGS: PARASPINAL AREA: Normal with no visible mass. DISCS: Multilevel mild to moderate degenerative disc disease. BONES: Stable bone formation along the anterior margin of proximal left 11th rib favoring sequela of remote fracture and healing. Pseudoarticulation with T11 vertebral body likely accounting for edema seen on recent MRI study. No appreciable periosteal reaction or convincing fracture. OTHER: Negative. CT/CT thoracic spine wo con IMPRESSION: 1. Findings favor sequela of prior left 11th rib fracture and healing. No appreciable change. Electronically authenticated by: SUZY ESPINOSA Date: 04/17/2024 06:06
[2024-04-16 09:30] LABS: Basophils Absolute Auto 0.1 10^3/uL (0.0-0.1); Basophils Percent Auto 1.2 % (0.2-2.0); Eosinophils Absolute Auto 0.1 10^3/uL (0.0-0.7); Eosinophils Percent Auto 1.8 % (0.9-7.0); Hematocrit 38.7 % (36.0-48.0); Hemoglobin 12.7 g/dL (12.0-16.0); Immature Granulocytes Abs Auto 0.01 10^3/uL (0.00-0.03); Immature Granulocytes Pct Auto 0.2 % (0.0-0.5); Lymphocytes Percent Auto 20.4 % (20.5-60.0); Mean Corpuscular HGB Conc 32.8 g/dL (29.9-35.2); Mean Corpuscular Hemoglobin 29.7 pg (26.7-34.0); Mean Corpuscular Volume 90.4 fL (81.0-99.0); Mean Platelet Volume 9.3 fL (9.5-13.5); Monocytes Absolute Auto 0.5 10^3/uL (0.3-0.8); Monocytes Percent Auto 9.1 % (1.7-12.0); Neutrophils Absolute Auto 3.4 10^3/uL (1.4-6.5); Neutrophils Percent Auto 67.3 % (43.0-75.0); Platelet Count 207 10^3/uL (150-450); Red Blood Count 4.28 10^6/uL (4.20-5.40); Red Cell Distribution Width 13.5 % (11.0-15.0); White Blood Count 5.1 10^3/uL (4.0-11.0)
[2024-04-16 09:41] LABS: Erythrocyte Sedimentation Rate 14 mm/hr (<=30)
[2024-04-16 10:03] LABS: Alanine Aminotransferase 18 U/L (14-59); Albumin Level 3.2 g/dL (3.4-5.0); Alkaline Phosphatase 42 U/L (46-116); Anion Gap 10.5; Aspartate Amino Transferase 14 U/L (15-37); BUN Creatinine Ratio 25.4; Bilirubin Total 0.6 mg/dL (0.2-1.0); C Reactive Protein <0.50 mg/dL (<=0.50); Calcium 8.6 mg/dL (8.5-10.1); Carbon Dioxide 28.7 mmol/L (21.0-32.0); Chloride 108 mmol/L (98-107); Estimated GFR (African America >60 (>=60 mL/min/1.73m^2); Estimated GFR (Non-African Ame >60 (>=60 mL/min/1.73m^2); Globulin 3.3 g/dL; Glucose 98 mg/dL (74-106); Lactate Dehydrogenase 132 U/L (81-234); Potassium 4.2 mmol/L (3.5-5.1); Sodium 143 mmol/L (136-145); Total Protein 6.5 g/dL (6.4-8.2)
[2024-04-17 09:09] LABS: PTH, Intact 39 pg/mL (15-65)
[2024-04-18 15:09] LABS: Albumin 3.6 g/dL (2.9-4.4); Alpha-1-Globulin 0.2 g/dL (0.0-0.4); Alpha-2-Globulin 0.7 g/dL (0.4-1.0); Free Kappa Lt Chains,S 21.4 mg/L (3.3-19.4); Free Lambda Lt Chains,S 15.5 mg/L (5.7-26.3); Gamma Globulin 0.8 g/dL (0.4-1.8); Immunoglobulin A, Qn, Serum 391 mg/dL (64-422); Immunoglobulin G, Qn, Serum 842 mg/dL (586-1602); Immunoglobulin M, Qn, Serum 110 mg/dL (26-217); Kappa/Lambda Ratio,S 1.38 (0.26-1.65); Protein, Total 6.3 g/dL (6.0-8.5)
[2024-04-18 16:09] LABS: Albumin, U 32.4 % (.); Alpha-1-Globulin, U 9.5 % (.); Alpha-2-Globulin, U 12.8 % (.); Beta Globulin, U 29.4 % (.); Gamma Globulin, U 15.9 % (.); M-Spike, % Not Observed % (Not Observed); Protein,Total,Urine 10.3 mg/dL (Not Estab.)
== END 2024-04-16 08:40 | disposition home or self-care (01) ==
LOC: CT 08:39
PROVIDERS: PCP Nurse Practitioner; Visit Provider Nurse Practitioner
DX: M80.08XG Age-related osteoporosis with current pathological fracture, vertebra(e), subsequent encounter for fracture with delayed healing (principal); S22.009G Unspecified fracture of unspecified thoracic vertebra, subsequent encounter for fracture with delayed healing; I10 Essential (primary) hypertension; E78.2 Mixed hyperlipidemia; G47.33 Obstructive sleep apnea (adult) (pediatric); S22.32XD Fracture of one rib, left side, subsequent encounter for fracture with routine healing
CPT/HCPCS: 36415; 72128; 80053; 82306; 82784; 83521; 83615; 83970; 84155; 84156; 84165; 84166; 85025; 85652; 86140; 86335

== ENCOUNTER 2024-12-10 08:51 | Outpatient (OUT) | payer MEDICARE, SELFPAY ==
--- OUTSIDE RECORDS SUMMARY | 2024-12-10 08:53 | XMS_ITS | Clinical Summary ---
Author Organization [facility] Address [address] [facility] [place] [address] Care Team Providers Care Calender Roll Operator Name Role Phone Alisha Ernst CNP Primary Care Provider [phone] Eunice Luna GROUND [employer]ODUCTS DIRECTOR-RAMP BOSS Unavailable Allergies Active Allergy Reactions Criticality Noted Date Comments Lisinopril Cough 11/21/2022 MARTY inhibitors Medications amLODIPine 2.5 MG tablet Take 1 tablet by mouth daily. Active dorzolamide 2 % Solution Dorzolamide HCl Acti ve Brimonidine 0.2 % Solution INSTILL 1 DROP INTO BOTH EYES EVERY 12 HOURS Active losartan 100 MG tablet Take 1 tablet by mouth daily. Active Latanoprost 0.005 % Solution ophthalmic solution PLACE 1 DROP INTO BOTH EYES EVERYDAY AT BEDTIME Active Magnesium 400 MG tablet Take 1 tablet by mouth daily. Active Calcium Carb-Cholecalci ferol (CALCIUM 600 + D PO) Take 1 tablet by mouth daily. Active Misc. Devices Misc by Unknown route. BIPAP 12/8 cmH2O DME: Gabi 05/17/2024 Pressure changed BIPAP 11/7cmH2O, DME: Gabi Active Cetirizine 10 MG tablet Take 1 tablet by mouth daily. Active Multiple Vitamins-Minera ls (PreserVision AREDS 2) Chew Tab Chew. Active Pravastatin 20 MG tablet Take 1 tablet by mouth daily. Active Zoledronic acid 5 MG/100ML Solution 100 mL by Intravenous route. Active Active Problems Problem Noted Date Diagnosed Date Obesity (BMI 30.0-34.9) 05/19/2023 Family History Medical History Relation Name Comments Diabetes Father Relation Name Status Comments Father Social History Tobacco Use Types Packs/Day Years Used Date Smoking Tobacco: Former Cigarettes Smokeless Tobacco: Never Tobacco Cessation:Counseling Given: Not Answered Comments Unknown Sex and Gender Information Value Date Recorded Sex Assigned at Female 05/05/2023 2:40 PM EST Legal Sex Female 2:25 PM EDT Gender Identity Female 05/05/2023 2:40 PM EST Sexual Orientation Straight 05/13/2024 10 :39 AM EST Last Filed Vital Signs Vital Sign Reading Time Taken Comments Blood Pressure 140/80 05/17/2024 2:25 PM EST Pulse 49 05/17/2024 2:25 PM EST Temperature - - Respiratory Rate 16 05/17/2024 2:25 PM EST Oxygen Saturation 95% 05/17/2024 2:25 PM EST RA Inhaled Oxygen Concentration - - Weight 84.9 kg (187 lb 1.6 oz) 05/17/2024 2:25 P M EST Height 160 cm (5' 3 ) 05/17/2024 2:25 PM EST Body Mass Index 33.14 05/17/2024 2:25 PM EST Plan of Treatment Upcoming Encounters Date Type Department Care Team (Late st Contact Info) Description 05/30/2025 2:30 PM EST Office Visit [facility] [address] [phone] Eunice Luna, [employer]ODU[employer] DIRECTOR[employer]AMP BOSS [address] [phone] Health Maintenance Due Date Last Done Comments DEXA SCAN DISCUSSION 1945 HEPATITIS C VIRUS SCREENING 1945 TETANUS 1945 TDAP (ADULT) 1965 CERVICAL CANCER SCREENING DISCUSSION 12/13/1967 MAMMOGRAM SCREENING DISCUSSION 1986 COLORECTAL CANCER SCREENING DISCUSSION 12/13/1991 PNEUMOCOCCAL VACCINE SERIES (2 of 2 - PCV) 02/13/2016 02/12/2015 RSV VACCINE (1 - 1-dose 75+ series) 2021 COVID-19 VACCINE ( season) 2023 02/06/2023, 01/25/2022, 01/26/2021, Additional history exists INFLUENZA VACCINE (#1) 2024 , 02/06/2023, 01/25/2022, Additional history exists ZOSTER (SHINGLES) VACCINE Completed 11/15/2021, HEP B VACCINE Aged Out No longer shnata aburto based on patient's age to complete this topic Insurance MEDICARE A AND B [facility] Care Teams Calender Roll Operator Relationship Specialty Start Date End Date Alisha Ernst CNP [address] [place] [address] PCP - General Certified Nurse Practitioner 05/05/23 Eunice Luna APRN-RAMP BOSS [address] [place] [address] Nurse Practitioner Sleep Medicine 05/17/24
--- OUTSIDE RECORDS SUMMARY | 2024-12-10 08:53 | XMS_ITS | Encounter Summary ---
Author Organization [facility] Address [address] [place] [address] Care Team Providers Care Internet Project Manager Name Role Phone Alisha Ernst ENVIRONMENTAL DEPARTMENT MANAGER Unavailable [phone] Robert Pate MD Primary Care Provider [phone] Alisha Ernst ENVIRONMENTAL DEPARTMENT MANAGER Unavailable [phone] Encounter Details Date Type Department Care Team (Late st Contact Info) Description 03/16/2024 Clinisync Result Encounter [facility] External Department Unsolicited Alisha Ernst NP [address] [place] [address] Social History Tobacco Use Types Packs/Day Years Used Date Smoking Tobacco: Never Smokeless Tobacco: Never Alcohol Use Standard Drinks/Week Comments Never 0 (1 standard drink = 0.6 oz pur e alcohol) Social Connection and Isolation Panel [NHANES] A nswer Date Recorded In a typical week, how many times do you talk on the phone with family, friends, or neighbors? Patient declined 09/08/2023 How often do you get togethe r with friends or relatives? Patient declined 09/08/2023 How often do you attend restoration or voodoo serv ices? Patient declined 09/08/2023 Do you belong to any clubs o r organizations such as restoration groups, unions, fraternal or athletic groups, or school groups? Patient declined 09/08/2023 How often do you attend meet ings of the clubs or organizations you belong to? Patient declined 09/08/2023 Are you , , di vorced, , never , or living with a partner? 09/08/2023 AUDIT-C Answer Date Recorded Q1: How often do you have a drink containing alc ohol? Patient declined 09/08/2023 Q2: How many drinks containi ng alcohol do you have on a typical day when you are drinking? Patient declined 09/08/2023 Q3: How often do you have si x or more drinks on one occasion? Patient declined 09/08/2023 Overall Financial Resource Strain (CARDIA) Answe r Date Recorded How hard is it for you to pa y for the very basics like food, housing, medical care, and heating? Patient declined 09/08/2023 PHQ-2 Answer Date Recorded Patient Health Questionnaire-2 Score 0 09[facility]11/2023 [facility] - [facility]ational Stress Questionnaire Answer Date Recorded Do you feel stress - tense, restless, nervous, or anxious, or unable to sleep at night because your mind is troubled all the time - these days? Patient declined 09/08/2023 Exercise Vital Sign Answer Date Recorde d On average, how many days pe r week do you engage in moderate to strenuous exercise (like a brisk walk)? Patient declined On average, how many minutes do you engage in exercise at this level? Patient declined 09/08/2023 Hunger Vital Sign Answer Date Recorded Within the past 12 months, y ou worried that your food would run out before you got the money to buy more. Patient declined Within the past 12 months, t he food you bought just didn't last and you didn't have money to get more. Patient declined 01/2024 PRAPARE - Transportation Answer Date Re corded In the past 12 months, has l ack of transportation kept you from medical appointments or from getting medications? Patient declined 09/08/2023 In the past 12 months, has l ack of transportation kept you from meetings, work, or from getting things needed for daily living? Patient declined 09/08/2023 Housing Stability Vital Sign Answer Jorge e Recorded In the last 12 months, was t here a time when you were not able to pay the mortgage or rent on time? Patient declined 09/08/19 24 Number of Places Lived in the Last Year Not on f ile 09/08/2023 In the last 12 months, was t here a time when you did not have a steady place to sleep or slept in a halfway (including now)? Patient declined 09/08/2023 Comments Unknown Sex and Gender Information Value Date Recorded Sex Assigned at Not on file Legal Sex Female 6:38 PM EDT Gender Identity Not on file Sexual Orientation Not on file documented as of this encounter Plan of Treatment Upcoming Encounters Date Type Department Care Team (Late st Contact Info) Description 01/02/2025 9:45 AM EDT Procedure Visit [facility] [address] [place] [address] Merrick Kramer DPM [address] [place] [address] 04/07/2025 10:00 AM EST Office Visit [facility] [address] [place] [address] Alisha Ernst NP [address] [place] [address] documented as of this encounter Procedures Procedure Name Priority Date/Time Associated Diagnosis Comments XR DEXA AXIAL SKELETON 03/16/2024 6:13 AM EST documented in this encounter Results * XR DEXA AXIAL SKELETON (03/16/2024 6:13 AM EST) Anatomical Region Laterality Modality Other 03/16/2024 6:13 AM EST Narrative 03/16/2024 6:16 AM EST The [address] [address] XRay Report Signed Patient: CHRISTIE WATERMAN MR#: [id number] : 1945 Acct:[id number] Age/Sex: 78 / F ADM Date: 03/15/24 Loc: INF Attending Dr: Alisha Ernst NP Ordering Physician: Alisha Ernst NP Date of Service: 03/15/24 Procedure(s): XR DEXA axial skeleton Accession Number(s): [id number] cc: Alisha Ernst NP [place] [address] Patient Name: CHRISTIE WATERMAN MRN: [facility]:[id number] date: 1945 Sex: F Assigned Patient Location: [facility] Current Patient Location: [facility] Accession/Order Number: [id number] Exam Date: 03/15/2024 09:40 Report Date: 03/16/2024 06:13 At the request of: ALISHA ERNST Procedure: XR DEXA axial skeleton EXAMINATION: XR DEXA axial skeleton HISTORY: Age Related Osteoporosis COMPARISON: DEXA bone densitometry 10/12/2020 TECHNIQUE: Dual-energy X-ray absorptiometry (DXA) was performed. FINDINGS: SPINE ANALYSIS: Average bone mineral density is 1.163 g/cm2. T-score (standard deviation relative to young adult mean): -0.1 . +14.7% change since prior study. HIP ANALYSIS: Lowest bone mineral density is within the left femoral neck, 0.816 g/cm2. T-score (standard deviation relative to young adult mean): -1.6 . +6.3% change since prior study. XR/XR DEXA axial skeleton IMPRESSION: World Health Organization Classification: Osteopenia - Moderate Fracture Risk FRAX: Cannot be calculated. Pharmacologic treatment recommendations * No uniform recommendation applies to all patients. Management plans must be individualized. * Consider initiating pharmacologic treatment in postmenopausal women and men >= 50 years of age who have the following: Primary fracture prevention: * T-score <= - 2.5 at the femoral neck, total hip, lumbar spine, 33% radius (some uncertainty with existing data) by DXA. * Low bone mass (osteopenia: T-score between - 1.0 and - 2.5) at the femoral neck or total hip by DXA with a 10-year hip fracture risk >= 3% or a 10-year major osteoporosis-related fracture risk >= 20% (i.e., clinical vertebral, hip, forearm, or proximal humerus) based on the [place]-adapted FRAXregistered model. Secondary fracture prevention: * Fracture of the hip or vertebra regardless of BMD [4, 5]. * Fracture of proximal humerus, pelvis, or distal forearm in persons with low bone mass (osteopenia: T-score between - 1.0 and - 2.5). The decision to treat should be individualized in persons with a fracture of the proximal humerus, pelvis, or distal forearm who do not have osteopenia or low BMD [12, 13]. Vicki MS, Karla SL, Jass KL, Altagracia EM, Oswaldo KG, AJ, Chau ES. The clinician's guide to prevention and treatment of osteoporosis. Osteoporos Int. 2021;3310):0856-6840. doi: 10.1007/l89239-883-52608-k. Epub 2021Aug 26. Erratum in: Osteoporos Int. 2021Nov 25;: PMID: 38878513; PMCID: [id number]. Electronically authenticated by: REED DAVILA Date: 03/16/2024 06:13 Dictated By: Reed Davila M.D. Signed By: 03/16/24615 DD/ 2 TD/TT: Garbage Person: Procedure Note Radiology, Radiologist, - 03/16/2024 [place] [address] XRay Report Signed Patient: CHRISTIE WATERMAN [facility]#: [id number] : 7Acct:[id number] Age/Sex: 78 / FADM Date: 03/15/24 Loc: INF Attending Dr: Alisha Ernst NP Ordering Physician: Alisha Ernst NP Date of Service: 03/15/24 Procedure(s): XR DEXA axial skeleton Accession Number(s): [id number] cc: Alisha Ernst NP The [address] [address] Patient Name: CHRISTIE WATERMAN MRN: [id number] date: 1945 Sex: F Assigned Patient Location: [facility] Current Patient Location: [facility] Accession/Order Number: [id number] Exam Date: 03/15/2024 09:40 Report Date: 03/16/2024 06:13 At the request of: ALISHA ERNST Procedure: XR DEXA axial skeleton EXAMINATION: XR DEXA axial skeleton HISTORY: Age Related Osteoporosis COMPARISON: DEXA bone densitometry 10/12/2020 TECHNIQUE: Dual-energy X-ray absorptiometry (DXA) was performed. FINDINGS: SPINE ANALYSIS: Average bone mineral density is 1.163 g/cm2. T-score (standard deviation relative to young adult mean): -0.1 . +14.7% change since prior study. HIP ANALYSIS: Lowest bone mineral density is within the left femoral neck, 0.816 g/cm2. T-score (standard deviation relative to young adult mean): -1.6 . +6.3% change since prior study. XR/XR DEXA axial skeleton IMPRESSION: World Health Organization Classification: Osteopenia - Moderate FractureRisk FRAX: Cannot be calculated. Pharmacologic treatment recommendations * No uniform recommendation applies to all patients. Management plans mustbe individualized. * Consider initiating pharmacologic treatment in postmenopausal women andmen >= 50 years of age who have the following: Primary fracture prevention: * T-score <= - 2.5 at the femoral neck, total hip, lumbar spine, 33%radius (some uncertainty with existing data) by DXA. * Low bone mass (osteopenia: T-score between - 1.0 and - 2.5) at thefemoral neck or total hip by DXA with a 10-year hip fracture risk >= 3% or q58-waew major osteoporosis-related fracture risk >= 20% (i.e., clinical vertebral, hip, forearm, or proximal humerus) based on the US-adapted FRAXregisteredmodel. Secondary fracture prevention: * Fracture of the hip or vertebra regardless of BMD [4, 5]. * Fracture of proximal humerus, pelvis, or distal forearm in persons withlow bone mass (osteopenia: T-score between - 1.0 and - 2.5). The decision totreat should be individualized in persons with a fracture of the proximalhumerus, pelvis, or distal forearm who do not have osteopenia or low BMD [12, 13]. Vicki MS, Karla SL, Jass KL, Altagracia EM, Oswaldo KG, AJ,Chau ES. The clinician's guide to prevention and treatment of osteoporosis.Osteoporos Int. 2021;33(10):8199-2406. doi: 10.1007/u99389-151-97828-p. Epub . Erratum in: Osteoporos Int. 2021Nov 25;: PMID: 85139200; PMCID: [id number]. Electronically authenticated by: REED DAVILA Date: 03/16/2024 06:13 Dictated By: Reed Davila M.D. Signed By:03/16/24615 DD/ 2 TD/TT: Garbage Person: us Alisha Ernst NP [facility] Final Result documented in this encounter Visit Diagnoses Not on filedocumented in this encounter Care Teams Internet Project Manager Relationship Specialty Start Date End Date Robert Pate MD [address] [place] [address] PCP - General Family Medicine 02/29/24 Alisha Ernst NP [address] [place] [phone] PCP - ACO Reach 06/07/24 Alisha Ernst NP [address] [place] [address] Nurse Practitioner Family Medicine 12/05/22 documented as of this encounter
--- OUTSIDE RECORDS SUMMARY | 2024-12-10 08:53 | XMS_ITS | Encounter Summary ---
Author Organization [facility] Address [address] [place] [address] Care Team Providers Care Student Assistant Name Role Phone Alisha Ernst FULL TIME PARAMEDIC Unavailable [phone] Robert Pate MD Primary Care Provider [phone] Alisha Ernst FULL TIME PARAMEDIC Unavailable [phone] Encounter Details Date Type Department Care Team (Late st Contact Info) Description 03/18/2024 Clinisync Result Encounter [facility] External Department Unsolicited Alisha Ernst NP [address] [place] [address] Social History Tobacco Use Types Packs/Day Years [...] declined 09/08/2023 How often do you attend hoahaoism or taoist serv ices? Patient declined 09/08/2023 Do you belong to any clubs o r organizations such as hoahaoism groups, unions, fraternal or athletic groups, or [...] Recorded Patient Health Questionnaire-2 Score 0 09/11/2023 [facility] - Occupational Stress Questionnaire Answer Date Recorded [...] place to sleep or slept in a half-way (including now)? Patient declined 09/08/2023 Comments Unknown [...] Podiatry [address] [place] [address] Merrick Kramer DPM [address] [place] [address] 04/07/2025 10:00 AM EST Office Visit [facility] [address] [place] [address] Alisha Ernst NP [address] [place] [address] documented as of this encounter Procedures Procedure Name Priority Date/Time Associated Diagnosis Comments MR ABDOMEN W AND WO CONTRAST 03/18/2024 5:32 AM EST documented in this encounter Results * MR abdomen w and wo contrast (03/18/2024 5:32 AM EST) Anatomical Region Laterality Modality Abdomen Magnetic Resonan ce 03/18/2024 5:32 AM EST Narrative 03/18/2024 5:34 AM EST The [address] [address] Magnetic Resonance Report Signed Patient: CHRISTIE WATERMAN MR#: [id number] : 1945 Acct:[id number] Age/Sex: 78 / F ADM Date: 03/15/24 Loc: INF Attending Dr: Alisha Ernst NP Ordering Physician: Alisha Ernst NP Date of Service: 03/15/24 Procedure(s): MR abdomen wo/w con Accession Number(s): [id number] cc: Alisha Ernst NP [place] [address] Patient Name: CHRISTIE WATERMAN MRN: [facility]:[id number] date: 1945 Sex: F Assigned Patient Location: [facility] Current Patient Location: INF Accession/Order Number: [id number] Exam Date: 03/15/2024 08:45 Report Date: 03/18/2024 05:32 At the request of: ALISHA ERNST Procedure: MR abdomen wo/w con EXAMINATION: MR abdomen wo/w con HISTORY: Pancreatic Cyst K86.2 COMPARISON: No relevant comparison available. TECHNIQUE: A comprehensive MRI examination of the abdomen was performed to optimize visualization of suspected pathology. Images were obtained with and/or without intravenous Dotarem contrast as indicated by exam type. FINDINGS: LIVER: No enlargement, atrophy, abnormal signal, or significant focal lesion. BILIARY: Cholecystectomy. No abnormal dilation of common bile duct or intrahepatic bile ducts. PANCREAS: 1.3 cm benign-appearing cyst/pseudocyst within tail of pancreas. No mass or abnormal duct dilation. SPLEEN: No enlargement or focal lesion. KIDNEYS: No mass or obstruction. A few benign cysts. ADRENALS: No mass or enlargement. AORTA/VASCULAR: No aneurysm or dissection. RETROPERITONEUM: No mass or adenopathy. BOWEL/MESENTERY: No visible mass, obstruction, or bowel wall thickening. ABDOMINAL WALL: No mass or hernia. BONES: No appreciable bony lesion or fracture. LUNG BASES: No visible pleural disease. Lung bases not well assessed with MRI. OTHER: Negative. MR/MR abdomen wo/w con IMPRESSION: 1. Small benign-appearing pseudocyst within tail of pancreas. 2. Prior cholecystectomy. 3. A few benign-appearing renal cysts. Electronically authenticated by: REED DAVILA Date: 03/18/2024 05:32 Dictated By: Reed Davila M.D. Signed By: 03/18/24 0534 DD/ 0532 TD/TT: Sales Team Member: Procedure Note Radiology, Radiologist, - 03/18/2024 [place] [address] Magnetic Resonance Report Signed Patient: CHRISTIE WATERMAN [facility]#: [id number] : 1945cct:[id number] Age/Sex: 78 / FADM Date: 03/15/24 Loc: INF Attending Dr: Alisha Ernst NP Ordering Physician: Alisha Ernst NP Date of Service: 03/15/24 Procedure(s): MR abdomen wo/w con Accession Number(s): [id number] cc: Alisha Ernst NP [place] [address] Patient Name: CHRISTIE WATERMAN MRN: [facility]:[id number] date: 1945 Sex: F Assigned Patient Location: INF Current Patient Location: INF Accession/Order Number: [id number] Exam Date: 03/15/2024 08:45 Report Date: 03/18/2024 05:32 At the request of: ALISHA ERNST Procedure: MR abdomen wo/w con EXAMINATION: MR abdomen wo/w con HISTORY: Pancreatic Cyst K86.2 COMPARISON: No relevant comparison available. TECHNIQUE: A comprehensive MRI examination of the abdomen was performed to optimize visualization of suspected pathology. Images were obtained with and/or without intravenous Dotarem contrast as indicated by exam type. FINDINGS: LIVER: No enlargement, atrophy, abnormal signal, or significant focallesion. BILIARY: Cholecystectomy. No abnormal dilation of common bile duct or intrahepatic bile ducts. PANCREAS: 1.3 cm benign-appearing cyst/pseudocyst within tail of pancreas.No mass or abnormal duct dilation. SPLEEN: No enlargement or focal lesion. KIDNEYS: No mass or obstruction. A few benign cysts. ADRENALS: No mass or enlargement. AORTA/VASCULAR: No aneurysm or dissection. RETROPERITONEUM: No mass or adenopathy. BOWEL/MESENTERY: No visible mass, obstruction, or bowel wall thickening. ABDOMINAL WALL: No mass or hernia. BONES: No appreciable bony lesion or fracture. LUNG BASES: No visible pleural disease. Lung bases not well assessed withMRI. OTHER: Negative. MR/MR abdomen wo/w con IMPRESSION: 1. Small benign-appearing pseudocyst within tail of pancreas. 2. Prior cholecystectomy. 3. A few benign-appearing renal cysts. Electronically authenticated by: REED DAVILA Date: 03/18/2024 05:32 Dictated By: Reed Davila M.D. Signed By:03/18/2434 DD/ 1 TD/TT: Sales Team Member: us Alisha Ernst FULL TIME PARAMEDIC IMG MRI PROCEDURES Final Result documented in this encounter Visit Diagnoses Not on filedocumented in this encounter Care Teams Student Assistant Relationship Specialty Start Date End Date Robert Pate MD [address] [place] [address] PCP - General Family Medicine 02/29/24 Alisha Ernst NP [address] [place] [phone] PCP - ACO Reach 06/07/24 Alisha Ernst NP [address] [place] [address] Nurse Practitioner Family Medicine 12/05/22 documented as of this encounter
--- OUTSIDE RECORDS SUMMARY | 2024-12-10 08:53 | XMS_ITS | Encounter Summary ---
Author Organization [facility] Address [address] [place] [address] Care Team Providers Care Fender Mechanic Name Role Phone Alisha Ernst STEELWORKER Unavailable [phone] Robert Pate MD Primary Care Provider [phone] Alisha Ernst STEELWORKER Unavailable [phone] Encounter Details Date Type Department Care Team (Late st Contact Info) Description 06/21/2024 Orders Only [facility] [address] [place] [address] Alisha Ernst NP [address] [place] [address] Social History Tobacco Use Types Packs/Day Years [...] declined 09/08/2023 How often do you attend mormon or pentecostal serv ices? Patient declined 09/08/2023 Do you belong to any clubs o r organizations such as mormon groups, unions, fraternal or athletic groups, or [...] Date Recorded Patient Health Questionnaire-2 Score 0 04/02/2024 [facility] - Occupational Stress Questionnaire Answer Date Recorded [...] Podiatry [address] [place] [address] Merrick Kramer DPM [address] [place] [address] 04/07/2025 10:00 AM EST Office Visit [facility] [address] [place] [address] Alisha Ernst NP [address] [place] [address] documented as of this encounter Procedures Procedure Name Priority Date/Time Associated Diagnosis Comments SCANNED LABS Routine 06/21/2024 11:38 AM EST documented in this encounter Results * SCANNED LABS (06/21/2024 11:38 AM EST) us Alisha Ernst NP LAB CHG PERFORMABLES Final Resu lt documented in this encounter Visit Diagnoses Not on filedocumented in this encounter Additional Health Concerns Assessment Noted Time PHQ-9 Depression Total Score: 2 04/02/20 24 10:09 AM EST documented as of this encounter Care Teams Fender Mechanic Relationship Specialty Start Date End Date Robert Pate MD [address] [place] [address] PCP - General Family Medicine 02/29/24 Alisha Ernst NP [address] [place] [address] PCP - ACO Reach 06/07/24 Alisha Ernst NP [address] [place] [address] Nurse Practitioner Family Medicine 12/05/22 documented as of this encounter
--- OUTSIDE RECORDS SUMMARY | 2024-12-10 08:53 | XMS_ITS | Encounter Summary ---
Author Organization [facility] Address [address] [place] [address] Care Team Providers Care Construction Plumber Name Role Phone Alisha Ernst ENGINEERING TECHNICAL SPECIALIST Unavailable [phone] Unallocated, [facility] Provider Primary Care Provi sree Robert Pate MD Primary Care Provider [phone] Alisha Ernst ENGINEERING TECHNICAL SPECIALIST Unavailable [phone] Encounter Details Date Type Department Care Team (Late st Contact Info) Description 12/07/2023 Clinisync Result Encounter [facility] External Department Unsolicited Alisha Ernst, ENGINEERING TECHNICAL SPECIALIST [address] [place] [address] Social History Tobacco Use Types Packs/Day Years [...] declined 09/08/2023 How often do you attend protestant or spiritism serv ices? Patient declined 09/08/2023 Do you belong to any clubs o r organizations such as protestant groups, unions, fraternal or athletic groups, or [...] Recorded Patient Health Questionnaire-2 Score 0 09/11/2023 [facility] Questionnaire Answer Date [...] place to sleep or slept in a alf (including now)? Patient declined 09/08/2023 Comments Unknown [...] Podiatry [address] [place] [address] Merrick Kramer DPM [address] [place] [address] 04/07/2025 10:00 AM EST Office Visit [facility] [address] [place] [address] Alisha Ernst NP [address] [place] [address] documented as of this encounter Procedures Procedure Name Priority Date/Time Associated Diagnosis Comments MM TOMOSYNTHESIS SCREENING BI 12/07/2023 12:39 PM EDT documented in this encounter Results * MM TOMOSYNTHESIS SCREENING BI (12/07/2023 12:39 PM EDT) Anatomical Region Laterality Modality Other 12/07/2023 12:3 9 PM EDT Narrative 12/07/2023 12:40 PM EDT The [address] [address] Mammography Report Signed Patient: CHRISTIE WATERMAN MR#: [id number] : 1945 Acct:[id number] Age/Sex: 77 / F ADM Date: 12/07/23 Loc: MAMMO Attending Dr: Alisha Ernst NP Ordering Physician: Alisha Ernst NP Results: Date of Service: 12/07/23 Follow Up: Procedure(s): MM tomosynthesis screening BI Accession Number(s): [id number] cc: Alisha Ernst NP Patient Name: CHRISTIE WATERMAN MR#: [id number] : 1945 Exam Date: 12/07/2023 Ordering Doctor: COURTNEY Ernst CNP RADIOLOGY REPORT PROCEDURE: MM TOMOSYNTHESIS SCREENING BI COMPARISON: MG MAMM SCREEN 3D CANDACE CAD, 12/02/2021. MM TOMOSYNTHESIS SCREENING BI, 12/05/2022. INDICATIONS: Screening Calculator Name NCI Breast Cancer Risk Assessment Tool 5 Year Breast Cancer Risk 1.60% Lifetime Breast Cancer Risk 3.20% Personal Breast Cancer No Personal Ovarian Cancer No Treatments None Family Cancers Aunt-maternal with breast cancer at age 70; Aunt-paternal with breast cancer at age 67. LOCATION: The [facility] BREAST COMPOSITION: The breasts are almost entirely fatty. FINDINGS: DIAGNOSTIC CATEGORY 1--NEGATIVE. NO CHANGE FROM COMPARISON ASSESSMENT. Scattered benign-appearing lymph nodes are present. RIGHT BREAST: No significant suspicious finding. LEFT BREAST: No significant suspicious finding. RECOMMENDATIONS: ROUTINE MAMMOGRAM AND CLINICAL EVALUATION IN 12 MONTHS. PLEASE NOTE: A NORMAL MAMMOGRAM DOES NOT EXCLUDE THE POSSIBILITY OF BREAST CANCER. A CLINICALLY SUSPICIOUS PALPABLE LUMP SHOULD BE BIOPSIED. Dictated by: Clarence Benjamin MD on 12/07/2023 at 12:38 Approved by: Clarence Benjamin MD on 12/07/2023 at 12:38 Dictated By: Clarence Benjamin M.D. Signed By: 12/07/23 1240 DD/ 1239 TD/TT: Rn Hyperbaric: Procedure Note Radiology, Radiologist, - 12/07/2023 [place] [address] Mammography Report Signed Patient: CHRISTIE WTAERMAN AMR#: [id number] : 1945cct:[id number] Age/Sex: 77 / FADM Date: 12/07/23 Loc: MAMMO Attending Dr: Alisha Ernst NP Ordering Physician: Alisha Ernst NPResults: Date of Service: 12/07/23Follow Up: Procedure(s): MM tomosynthesis screening BI Accession Number(s): [id number] cc: Alisha Ernst NP Patient Name: CHRISTIE WATERMAN MR#: [id number] : 1945 Exam Date: 12/07/2023 Ordering Doctor: COURTNEY Ernst CNP RADIOLOGY REPORT PROCEDURE: MM TOMOSYNTHESIS SCREENING BI COMPARISON: MG MAMM SCREEN 3D CANDACE CAD, 12/02/2021. MM TOMOSYNTHESIS SCREENING BI, 12/05/2022. INDICATIONS: Screening Calculator Name NCI Breast Cancer Risk Assessment Tool 5 Year Breast Cancer Risk 1.60% Lifetime Breast Cancer Risk 3.20% Personal Breast Cancer No Personal Ovarian Cancer No Treatments None Family Cancers Aunt-maternal with breast cancer at age 70;Aunt-paternal with breast cancer at age 67. LOCATION: [facility] BREAST COMPOSITION: The breasts are almost entirely fatty. FINDINGS: DIAGNOSTIC CATEGORY 1--NEGATIVE. NO CHANGE FROM COMPARISON ASSESSMENT. Scattered benign-appearing lymph nodes are present. RIGHT BREAST: No significant suspicious finding. LEFT BREAST: No significant suspicious finding. RECOMMENDATIONS: ROUTINE MAMMOGRAM AND CLINICAL EVALUATION IN 12 MONTHS. PLEASE NOTE: A NORMAL MAMMOGRAM DOES NOT EXCLUDE THE POSSIBILITY OFBREAST CANCER. A CLINICALLY SUSPICIOUS PALPABLE LUMP SHOULD BE BIOPSIED. Dictated by: Clarence Benjamin MD on 12/07/2023 at 12:38 Approved by: Clarence Benjamin MD on 12/07/2023 at 12:38 Dictated By: Clarence Benjamin M.D. Signed By:12/07/23 1240 DD/ 1239 TD/TT: Rn Hyperbaric: Alisha Ernst NP [facility] Final Result documented in this encounter Visit Diagnoses Not on filedocumented in this encounter Care Teams Construction Plumber Relationship Specialty Start Date End Date Unallocated, Noms [place], [address] [place] [address] PCP - General Family Medicine 02/20/24 02/28/24 Robert Pate MD [address] [place] [address] PCP - General Family Medicine 02/29/24 Alisha Ernst NP [address] [place] [address] PCP - ACO Reach 06/07/24 Alisha Ernst NP [address] [place] [address] Nurse Practitioner Family Medicine 12/05/22 documented as of this encounter
--- OUTSIDE RECORDS SUMMARY | 2024-12-10 08:53 | XMS_ITS | Encounter Summary ---
Author Organization [facility] Address [address] [place] [address] Care Team Providers Care Supervisor Aircraft Cleaning Name Role Phone Alisha Ernst GARBAGE MAN Unavailable [phone] Robert Pate MD Primary Care Provider [phone] Alisha Ernst GARBAGE MAN Unavailable [phone] Encounter Details Date Type Department Care Team (Late st Contact Info) Description 03/18/2024 Orders Only [facility] [address] [place] [address] Alisha Ernst NP [address] [...] declined 09/08/2023 How often do you attend worship or rastafari serv ices? Patient declined 09/08/2023 Do you belong to any clubs o r organizations such as worship groups, unions, fraternal or athletic groups, or [...] Recorded Patient Health Questionnaire-2 Score 0 09/11/2023 [facility] - [facility]ational Stress Questionnaire Answer Date [...] Podiatry [address] [place] [address] Merrick Kramer DPM [address] [place] [address] 04/07/2025 10:00 AM EST Office Visit [facility] [address] [place] [address] Alisha Ernst, DEE [address] [place] [address] documented as of this encounter Procedures Procedure Name Priority Date/Time Associated Diagnosis Comments XR DEXA AXIAL SKELETON* Routine 03/18/2024 4:19 PM EST DEXA BONE DENSITY Routine 03/18/2024 4:05 PM EST MR ABDOMEN WO CONTRAST Routine 03/18/2024 3:04 PM EST documented in this encounter Results * XR DEXA AXIAL SKELETON* (03/18/2024 4:19 PM EST) Anatomical Region Laterality Modality Radiographic Trisha ging Alisha Ernst NP IMG XR PROCEDURES Final Result * DEXA bone density (03/18/2024 4:05 PM EST) Anatomical Region Laterality Modality Body Radiographic Trisha ging Alisha Ernst GARBAGE MAN IMG DXA PROCEDURES Final Result * MR abdomen wo contrast (03/18/2024 3:04 PM EST) Anatomical Region Laterality Modality Abdomen Magnetic Resonan ce Alisha Ernst GARBAGE MAN IMG MRI PROCEDURES Final Result documented in this encounter Visit Diagnoses Not on filedocumented in this encounter Care Teams Supervisor Aircraft Cleaning Relationship Specialty Start Date End Date Robert Pate MD [address] [place] [address] PCP - General Family Medicine 02/29/24 Alisha Ernst NP [address] [place] [address] PCP - ACO Reach 06/07/24 Alisha Ernst NP [address] [place] [address] Nurse Practitioner Family Medicine 12/05/22 documented as of this encounter
--- OUTSIDE RECORDS SUMMARY | 2024-12-10 08:53 | XMS_ITS | Encounter Summary ---
Author Organization [facility] Address [address] [place] [address] Care Team Providers Care Systems Programmer Name Role Phone Alisha Ernst SWITCH TECHNICIAN Unavailable [phone] Unallocated, [facility] [place] GENAO Primary Care Provi sree Robert Pate MD Primary Care Provider [phone] Alisha Ernst SWITCH TECHNICIAN Unavailable [phone] Encounter Details Date Type Department Care Team (Late st Contact Info) Description 02/20/2024 Orders Only [facility] [address] [place] [address] Tana Bruno MD [address] [place] [address] Social History Tobacco Use Types Packs/Day Years [...] declined 09/08/2023 How often do you attend confucianist or anglican serv ices? Patient declined 09/08/2023 Do you belong to any clubs o r organizations such as confucianist groups, unions, fraternal or athletic groups, or [...] Questionnaire-2 Score 0 09/11/2023 [facility] - Occupational Stress Questionnaire Answer Date [...] place to sleep or slept in a detention (including now)? Patient declined 09/08/2023 Comments Unknown Sex and Gender Information Value Date Recorded Sex Assigned at Not on file Legal Sex Female 6:38 PM EDT Gender Identity Not on file Sexual Orientation Not on file documented as of this encounter Plan of Treatment Upcoming Encounters Date Type Department Care Team (Late st Contact Info) Description 01/02/2025 9:45 AM EDT Procedure Visit [facility] [address] [place] [address] Merrick Kramer DPM [address] [place] [address] 04/07/2025 10:00 AM EST Office Visit [facility] [address] [place] [address] Alisha Ernst NP [address] [place] [address] documented as of this encounter Procedures Procedure Name Priority Date/Time Associated Diagnosis Comments XR THORACIC SPINE 3 VIEWS Routine 02/20/2024 1:16 PM EDT documented in this encounter Results * XR thoracic spine 3 views (02/20/2024 1:16 PM EDT) Anatomical Region Laterality Modality Spine, T-spine Radiographic Trisha ging Tana Bruno MD IMG XR PROCEDURES Final Resul t documented in this encounter Visit Diagnoses Not on filedocumented in this encounter Care Teams Systems Programmer Relationship Specialty Start Date End Date Unallocated, Pravin Palumbo MD [address] [place] [address] PCP - General Family Medicine 02/20/24 02/28/24 Robert Pate MD [address] [place] [address] PCP - General Family Medicine 02/29/24 Alisha Ernst NP [address] [place] [address] PCP - ACO Reach 06/07/24 Alisha Ernst NP [address] [place] [address] Nurse Practitioner Family Medicine 12/05/22 documented as of this encounter
--- OUTSIDE RECORDS SUMMARY | 2024-12-10 08:53 | XMS_ITS | Encounter Summary ---
Author Organization [facility] Address [address] [place] [address] Care Team Providers Care Financial Administration Officer Name Role Phone Alisha Ernst A/C TECHNICIAN Unavailable [phone] Robert Pate MD Primary Care Provider [phone] Alisha Ernst A/C TECHNICIAN Unavailable [phone] Encounter Details Date Type Department Care Team (Late st Contact Info) Description 06/20/2024 Orders Only [facility] [address] [place] [address] Alisha Ernst NP [address] [place] [address] Social History Tobacco Use Types Packs/Day [...] declined 09/08/2023 How often do you attend quaker or rastafari serv ices? Patient declined 09/08/2023 Do you belong to any clubs o r organizations such as quaker groups, unions, fraternal or athletic groups, or [...] Recorded Patient Health Questionnaire-2 Score 0 04/02/2024 [facility] - Occupational Stress Questionnaire Answer Date [...] place to sleep or slept in a usp (including now)? Patient declined 09/08/2023 Comments Unknown [...] Podiatry [address] [place] [address] Merrick Kramer DPM [address] [place] [address] 04/07/2025 10:00 AM EST Office Visit [facility] [address] [place] [address] Alisha Ernst NP [address] [place] [address] documented as of this encounter Procedures Procedure Name Priority Date/Time Associated Diagnosis Comments SCANNED LABS Routine 06/20/2024 11:08 AM EST documented in this encounter Results * SCANNED LABS (06/20/2024 11:08 AM EST) us Alisha Ernst NP LAB CHG PERFORMABLES Final Resu lt documented in this encounter Visit Diagnoses Not on filedocumented in this encounter Additional Health Concerns Assessment Noted Time PHQ-9 Depression Total Score: 2 04/02/20 24 10:09 AM EST documented as of this encounter Care Teams Financial Administration Officer Relationship Specialty Start Date End Date Robert Pate MD [address] [place] [address] PCP - General Family Medicine 02/29/24 Alisha Ernst NP [address] [place] [address] PCP - ACO Reach 06/07/24 Alisha Ernst NP [address] [place] [address] Nurse Practitioner Family Medicine 12/05/22 documented as of this encounter
--- OUTSIDE RECORDS SUMMARY | 2024-12-10 08:53 | XMS_ITS | Encounter Summary ---
Author Organization [facility] Address [address] [facility] [place] [address] Care Team Providers Care Field Machinist Name Role Phone Alisha Ernst PHOTOGRAPHY AND PRINTS CURATOR Unavailable [phone] Robert Pate MD Primary Care Provider [phone] Alisha Ernst PHOTOGRAPHY AND PRINTS CURATOR Unavailable [phone] Encounter Details Date Type Department Care Team (Late st Contact Info) Description 04/22/2024 Clinisync Result Encounter [facility] External Department Unsolicited Provider, Generic External Data Social History Tobacco Use Types Packs/Day Years [...] How often do you attend mormon or bahai serv ices? Patient declined 09/08/2023 Do you [...] Recorded Patient Health Questionnaire-2 Score 0 04/02/2024 [facility] - Occupational Stress Questionnaire Answer Date Recorded [...] place to sleep or slept in a longterm (including now)? Patient declined 09/08/2023 Comments Unknown Sex and Gender Information Value Date Recorded Sex Assigned at Not on file Legal Sex Female 6:38 PM EDT Gender Identity Not on file Sexual Orientation Not on file documented as of this encounter Plan of Treatment Upcoming Encounters Date Type Department Care Team (Late st Contact Info) Description 01/02/2025 9:45 AM EDT Procedure Visit [facility] [address] [place] [address] Merrick Kramer DPM [address] [place] [address] 04/07/2025 10:00 AM EST Office Visit [facility] [address] [place] [address] Alisha Ernst NP [address] [place] [address] documented as of this encounter Procedures Procedure Name Priority Date/Time Associated Diagnosis Comments CT THORACIC SPINE WO CONTRAST 04/22/2024 2:05 AM EST documented in this encounter Results * CT THORACIC SPINE WO CONTRAST (04/22/2024 2:05 AM EST) Anatomical Region Laterality Modality Other 04/22/2024 2:05 AM EST Narrative 04/22/2024 2:10 AM EST EXAMINATION: CT OF THE THORACIC SPINE WITHOUT CONTRAST 04/17/2024 7:28 am: TECHNIQUE: CT of the thoracic spine was performed without the administration of intravenous contrast. Multiplanar reformatted images are provided for review. Automated exposure control, iterative reconstruction, and/or weight based adjustment of the mA/kV was utilized to reduce the radiation dose to as low as reasonably achievable. COMPARISON: None. HISTORY: ORDERING SYSTEM PROVIDED HISTORY: Back pain, unspecified back location, unspecified back pain laterality, unspecified chronicity TECHNOLOGIST PROVIDED HISTORY: [facility] PROTOCOL WITH RECONSTRUCTION VIEWS FINDINGS: BONES/ALIGNMENT: Osteopenia. Normal thoracic kyphosis. Mild depression of the superior endplates T3. DEGENERATIVE CHANGES: PLL calcifications at T1-T2 results in mild spinal canal stenosis. No high-grade osseous spinal canal or neural foraminal stenosis of the thoracic spine. SOFT TISSUES: No prevertebral soft tissue swelling. Mild coronary artery calcifications. Calcified left hilar lymph nodes are compatible with old granulomatous disease. IMPRESSION: 1. Osteopenia with depression of the superior endplate of T3 compatible with a mild compression fracture. 2. Mild multilevel degenerative changes without high-grade osseous spinal canal or neural foraminal stenosis of the thoracic spine. 3. Incompletely imaged atherosclerotic coronary artery calcifications. Interpreted by: Justo Mcmullen MD Signed by: Justo Mcmullen MD 04/22/24 Final result Procedure Note Radiology, Radiologist, MD - 04/22/2024 EXAMINATION: CT OF THE THORACIC SPINE WITHOUT CONTRAST 04/17/2024 7:28 am: TECHNIQUE: CT of the thoracic spine was performed without the administration of intravenous contrast. Multiplanar reformatted images are provided forreview. Automated exposure control, iterative reconstruction, and/or weightbased adjustment of the mA/kV was utilized to reduce the radiation dose to aslow as reasonably achievable. COMPARISON: None. HISTORY: ORDERING SYSTEM PROVIDED HISTORY: Back pain, unspecified back location, unspecified back pain laterality, unspecified chronicity TECHNOLOGIST PROVIDED HISTORY: STEALTH PROTOCOL WITH RECONSTRUCTION VIEWS FINDINGS: BONES/ALIGNMENT: Osteopenia. Normal thoracic kyphosis. Mild depressionof the superior endplates T3. DEGENERATIVE CHANGES: PLL calcifications at T1-T2 results in mild spinal canal stenosis. No high-grade osseous spinal canal or neural foraminal stenosis of the thoracic spine. SOFT TISSUES: No prevertebral soft tissue swelling. Mild coronaryartery calcifications. Calcified left hilar lymph nodes are compatible withold granulomatous disease. IMPRESSION: 1. Osteopenia with depression of the superior endplate of T3 compatiblewith a mild compression fracture. 2. Mild multilevel degenerative changes without high-grade osseousspinal canal or neural foraminal stenosis of the thoracic spine. 3. Incompletely imaged atherosclerotic coronary artery calcifications. Interpreted by: Justo Mcmullen MD Signed by: Justo Mcmullen MD 04/22/24 Final result us Generic External Data Provider [facility] Final Result documented in this encounter Visit Diagnoses Not on filedocumented in this encounter Additional Health Concerns Assessment Noted Time PHQ-9 Depression Total Score: 2 04/02/20 24 10:09 AM EST documented as of this encounter Care Teams Field Machinist Relationship Specialty Start Date End Date Robert Pate MD [address] [place] [phone] PCP - General Family Medicine 02/29/24 Alisha Ernst NP [address] [place] [address] PCP - ACO Reach 06/07/24 Alisha Ernst NP [address] [place] [address] Nurse Practitioner Family Medicine 12/05/22 documented as of this encounter
--- OUTSIDE RECORDS SUMMARY | 2024-12-10 08:53 | XMS_ITS | Encounter Summary ---
Author Organization [facility] Address [address], [address] [place] [address] Care Team Providers Care General Technician Name Role Phone Alisha Ernst APRN - DEE Primary Care Provide r Reason for Referral * Imaging (Routine) - Closed Specialty Diagnoses / Procedures Referred By Contac t Referred To Contact Radiology Diagnoses Back pain, unspecified back location, unspecified back pain laterality, unspecified chronicity Closed fracture of one rib, unspecified laterality, initial encounter Osteopenia, unspecified location Procedures CT THORACIC SPINE WO CONTRAST Tana Bruno PA [address] [place] [address] Phone: tel: fax: Referral ID Status Reason Start Date Expiration Date Visits Re quested Visits Authorized [id number] Closed 04/07/2024 04/07/2025 1 1 Encounter Details Date Type Department Care Team (Latest Contact Info) Description 04/07/2024 Transcribe Orders [facility] [address] [id number] Tana Bruno PA [address] [place] [address] Back pain, unspecified back location, unspecified back pain laterality, unspecified chronicity (Primary Dx); Closed fracture of one rib, unspecified laterality, initial encounter; Osteopenia, unspecified location Social History Tobacco Use Types Packs/Day Years Used Date Smoking Tobacco: Never Smokeless Tobacco: Never Alcohol Use Standard Drinks/Week Comments Yes 0 (1 standard drink = 0.6 oz pur e alcohol) rarely Comments Unknown Sex and Gender Information Value Date Recorded Sex Assigned at Not on file Legal Sex Female 11:30 AM EDT Gender Identity Not on file Sexual Orientation Not on file documented as of this encounter Plan of Treatment Not on file documented as of this encounter Results * CT THORACIC SPINE WO CONTRAST (04/17/2024 8:28 AM EST) Anatomical Region Laterality Modality C-spine, T-spine, L-spine, Chest Computed Tomography 04/22/2024 2:01 AM EST Impressions 04/22/2024 2:05 AM EST 1. Osteopenia with depression of the superior endplate of T3 compatible with a mild compression fracture. 2. Mild multilevel degenerative changes without high-grade osseous spinal canal or neural foraminal stenosis of the thoracic spine. 3. Incompletely imaged atherosclerotic coronary artery calcifications. Narrative 04/22/2024 2:05 AM EST EXAMINATION: CT OF THE THORACIC [...] pain laterality, unspecified chronicity TECHNOLOGIST PROVIDED HISTORY: [facility] PROTOCOL WITH RECONSTRUCTION VIEWS FINDINGS: BONES/ALIGNMENT: Osteopenia. [...] nodes are compatible with old granulomatous disease. Procedure Note Justo Mcmullen MD - 04/22/2024 EXAMINATION: CT OF THE [...] 3. Incompletely imaged atherosclerotic coronary artery calcifications. Tana GRACIA IM CT ORDERABLES Final Resul t documented in this encounter Visit Diagnoses Diagnosis Back pain, unspecified back location, unspecified back pain laterality, unspecified chronicity- Primary Closed fracture of one rib, unspecified laterality, initial encounter Osteopenia, unspecified location Back pain, unspecified back location, unspecified back pain laterality, unspecified chronicity Closed fracture of one rib, unspecified laterality, initial encounter Osteopenia, unspecified location documented in this encounter Care Teams General Technician Relationship Specialty Start Date End Date Alisha Ernst, FUR TRIMMER - JOURNAL ENTRY AUDIT CLERK [address] [place] [address] PCP - General Nurse Practitioner 04/17/24 documented as of this encounter
--- OUTSIDE RECORDS SUMMARY | 2024-12-10 08:53 | XMS_ITS | Clinical Summary ---
Author Organization [facility] Address [address] [place] [address] Care Team Providers Care Slide Fastener Repairer Name Role Phone Alisha Ernst CNP Primary Care Provider Allergies Active Allergy Reactions Criticality Noted Date Comments Lisinopril Cough 11/21/2022 Medications dorzolamide 2 % OPHTHALMIC ophthalmic solution three times daily. Active Additional Information Patient not taking.Reported on 05/14/2024 carvedilol (COREG) 12.5 mg ORAL tablet Take 12.5 mg by mouth twice daily with meals. Active Additional Information Patient not taking.Reported on 05/14/2024 GLUC SAUCEDO/MSM/MAGNESIU M/VIT C (GLUCOSAMINE COMPLEX-MSM ORAL) Take by mouth. Activ e Additional Information Patient not taking.Reported on 05/14/2024 OMEGA-3 FATTY ACIDS/FISH OIL (OMEGA 3 FISH OIL ORAL) Take by mouth. Activ e Additional Information Patient not taking.Reported on 05/14/2024 MULTIVITAMIN WITH MINERALS (ALEKSEY MULTIPLE/CHELAT ED MINERAL ORAL) Take by mouth. Activ e Additional Information Patient not taking.Reported on 05/14/2024 Lutein 20 mg ORAL Cap Take 20 mg by mouth. Active Additional Information Patient not taking.Reported on 05/14/2024 Cholecalciferol , Vitamin D3, (VITAMIN D) 1,000 unit ORAL Cap Take 1,000 Units by mouth once daily. Active Additional Information Patient not taking.Reported on 05/15/2024 aspirin, enteric coated (ECOTRIN LOW STRENGTH) 81 mg ORAL EC tablet Take 81 mg by mouth once daily. Active Additional Information Patient not taking.Reported on 05/14/2024 naproxen 500 mg ORAL tablet Take 500 mg by mouth twice daily with meals. Active Additional Information Patient not taking.Reported on 05/14/2024 amLODIPine (NORVASC) 2.5 mg tablet Take 2.5 mg by mouth once daily. 4 Active brimonidine (ALPHAGAN) 0.2 % ophthalmic solution Use 1 Drop in both eyes two times a day. Active cetirizine (ZYRTEC) 10 mg tablet Take 10 mg by mouth once daily. Active dorzolamide-quinton olol (COSOPT) 22.3-6.8 mg/mL ophthalmic solution Use 1 Drop in both eyes two times a day. Active latanoprost (XALATAN) 0.005 % ophthalmic solution Use 1 Drop in both eyes daily at bedtime. Active losartan (COZAAR) 100 mg tablet Take 100 mg by mouth once daily. 8 Active Multivitamins-M inerals-Lutein (CENTRUM SILVER) tab Take 1 tablet by mouth once daily. Active pravastatin (PRAVACHOL) 20 mg tablet Take 20 mg by mouth once daily. Active zoledronic acid (RECLAST) 5 mg/100 mL PREMIX piggyback Inject 5 mg intravenously. Active vit A/vit C/vit E/zinc/copper (PRESERVISION AREDS ORAL) Take by mouth as directed. Active calcium carbonate/vitam in D3 (CALCIUM WITH VITAMIN D ORAL) Take by mouth once daily. Active magnesium oxide 400 mg magnesium tab Take by mouth once daily. Active Active Problems Problem Noted Date Diagnosed Date Senile cataract, unspecified 11/17/2010 Family History Medical History Relation Comments Diabetes Father Hypertension Mother Relation Status Comments Father Alive Mother Alive Social History Tobacco Use Types Packs/Day Years Used Date Smoking Tobacco: Former Passive Smoke Exposure: Never Tobacco Cessation:Counseling Given: Not Answered Comments:quit Alcohol Use Standard Drinks/Week Comments No 0 (1 standard drink = 0.6 oz pur e alcohol) Area Deprivation Index Answer Date Oswaldo rded National Score (1-100), lower number is lower ri sk 64 05/15/2024 State Score (1-10), lower number is lower risk 4 05/15/2024 Data from: https://www.neighborhoodatlas.medicine.[facility]/. 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 on file Not on file Not on file Last Filed Vital Signs Vital Sign Reading Time Taken Comments Blood Pressure 155/67 05/15/2024 1:47 PM EST rec heck Pulse 55 05/15/2024 1:43 PM EST Temperature 36.6 C (97.8 F) 05/15/2024 1:43 PM EST Respiratory Rate 16 05/15/2024 1:43 PM EST Oxygen Saturation 99% 05/15/2024 1:43 PM EST Inhaled Oxygen Concentration - - Weight 83.9 kg (184 lb 15.5 oz) 05/15/2024 1:43 PM EST Height 160 cm (5' 3 ) 12/15/2010 10:32 AM EDT Body Mass Index - - Plan of Treatment Health Maintenance Due Date Last Done Comments Anxiety Screening 1963 Depression Screening 1963 Hepatitis C Screening 1963 DTaP,Tdap,Td Vaccine (1 - Tdap) 1965 Diabetes Screening 01/20/2003 01/21/2000 Bone Density Screening 12/13/2011 Pneumococcal Vaccine: 50+ (2 of 2 - PCV) 02/13/2016 02/12/2015 RSV Vaccine (1 - 1-dose 75+ series) 2021 Advance Directive Discussion 05/01/2024 Influenza Vaccine (#1) 2024 4, 02/06/2023, 01/25/2022, Additional history exists Shingrix Vaccine Completed 11/15/2021, 06/14/2021 Medical Devices Implanted Type Area Pay Station Collector Device Identifier Shelf Expiration Date Model / Serial / Lot Lens Iol +17.5 [employer] - [id number] Implanted:Qty : 1 on 12/20/2010 at [facility] Intraocular Lens Left: Eye - Lens [employer] 09/29/2015 [id number] 17.5 / [id number] / Lens Iol +17.5 [employer]q - [id number] Implanted:Qty : 1 on 01/05/2011 at [facility] Intraocular Lens Right: Eye - Lens [employer] 10/29/2015 [id number] / [id number] / Procedures Procedure Name Priority Date/Time Associated Diagnosis Comments BASIC METABOLIC PANEL 01/21/2000 11:49 AM EDT from Last 3 Months or Most Recently Relevant to Health Maintenance Results * (ABNORMAL) BASIC CHEMISTRY PKG (01/21/2000 11:49 AM EDT) Glucose 97 65 - 110 mg/dL [facility] BUN 13 8 - 25 mg/dL [facility] Creatinine 0.5(A) 0.7 - 1.4 mg/dL [facility] Sodium 143 132 - 148 mmol/L [facility] Potassium 4.4 3.5 - 5.0 mmol/L [facility] Chloride 106 98 - 110 mmol/L [facility] CO2 25 24 - 32 mmol/L [facility] Anion Gap 12 0 - 15 mmol/L [facility] Calcium 9.5 8.5 - 10.5 mg/dL [facility] 01/21/2000 11:4 9 AM EDT Narrative [facility] - 01/21/2000 9:10 PM EDT Ordered by DYLON LAMB [facility] Provider LABORATORY Final Result [facility] [address] [place] [address] from Last 3 Months or Most Recently Relevant to Health Maintenance Insurance [address] [place] [address] MEDICARE [facility] [address] [place] [address] Advance Directives Documents on File Type Date Recorded Patient Quill Cleaner Expl anation Advance Directive(s) 12/20/2010 8:06 AM Care Teams Slide Fastener Repairer Relationship Specialty Start Date End Date Alisha Ernst, MARKETING ACCOUNT EXECUTIVE [address] [place] [address] PCP - General Family Medicine 05/15/24
--- OUTSIDE RECORDS SUMMARY | 2024-12-10 08:53 | XMS_ITS | Clinical Summary ---
Author Organization [employer] Address [id number] [address] [place] [address] Care Team Providers Care Wildlife Refuge Manager Name Role Phone Alisha Ernst SURFACE MOUNT TECHNOLOGY OPERATOR-CITY RECORDER Primary Care Provider Allergies No known active allergies Medications omega-3 fatty acids (FISH OIL CONCENTRATE) 1,000 mg capsule Take by mouth. Active dorzolamide (TRUSOPT) 2 % ophthalmic solution three times daily. Active latanoprost (XALATAN) 0.005 % ophthalmic solution 01/18/2018 Active losartan (COZAAR) 100 mg tablet 03/28/2018 Active naproxen (NAPROSYN) 500 mg tablet Take 500 mg by mouth. Active glucosam-chondro itin-diet cb25 116-100 mg capsule Take by mouth. Active multivitamin-min erals-lutein (CENTRUM SILVER) tablet Take 1 tablet by mouth daily. Active sodium,potassium ,mag sulfates (SUPREP BOWEL PREP KIT) 17.5-3.13-1.6 gram recon soln 177 ml,actual weight, 2 times daily, Oral 1 kit 04/02/2018 Active Active Problems No known active problems Family History Medical History Relation Name Comments Glaucoma Mother Osteoporosis Mother Breast cancer Paternal Aunt Relation Name Status Comments Father Mother Alive Paternal Aunt Social History Tobacco Use Types Packs/Day Years Used Date Smoking Tobacco: Former Smokeless Tobacco: Never Alcohol Use Standard Drinks/Week Comments No 0 (1 standard drink = 0.6 oz pur e alcohol) AUDIT-C Answer Date Recorded Frequency of Alcohol Consumption Never 04/02/2018 Average Number of Drinks Not on file 018 Frequency of Binge Drinking Not on file 06/2017 Childcare Answer Date Recorded Childcare Unknown 10/11/2018 Employment Answer Date Recorded Employment Unknown 10/11/2018 Purpose - Life Answer Date Recorded Purpose and direction in life Unknown Comments Unknown Sex and Gender Information Value Date Recorded Sex Assigned at Not on file Legal Sex Female 9:25 AM EST Gender Identity Not on file Sexual Orientation Not on file Last Filed Vital Signs Vital Sign Reading Time Taken Comments Blood Pressure 160/84 04/02/2018 2:30 PM EST Pulse - - Temperature - - Respiratory Rate - - Oxygen Saturation - - Inhaled Oxygen Concentration - - Weight 83.5 kg (184 lb) 04/02/2018 2:30 PM EST Height 160 cm (5' 3 ) 04/02/2018 2:30 PM EST Body Mass Index 32.59 04/02/2018 2:30 PM EST Plan of Treatment Health Maintenance Due Date Last Done Comments Depression Screening 1957 Tobacco Screening 1957 DTaP,Tdap and Td Vaccines (1 - Tdap) 1965 Fall Risk Screening 12/13/2011 COVID-19 Vaccine (2023-2 5 season) 2023 02/06/2023, 01/25/2022, 01/26/2021, Additional history exists Influenza Vaccine 12/30/2024 02/06/2023, , 01/26/2021, Additional history exists Zoster (Shingles) Vaccine Completed 11/15/2021, Medical Devices Not on file Insurance MEDICARE COMMERCIAL Care Teams Wildlife Refuge Manager Relationship Specialty Start Date End Date Alisha Ernst, PAMELA-CITY RECORDER PCP - General Nurse Practitioner 03/26/18
--- OUTSIDE RECORDS SUMMARY | 2024-12-10 08:53 | XMS_ITS | Encounter Summary ---
Author Organization [facility] Address [address] [address] [facility] [place] [address] Care Team Providers Care Icicle Machine Operator Name Role Phone Alisha Ernst REAL ESTATE TRANSACTION MANAGER Unavailable [phone] Unallocated, [facility] Linwood GENAO Primary Care Provi sree Robert Pate MD Primary Care Provider [phone] Alisha Ernst REAL ESTATE TRANSACTION MANAGER Unavailable [phone] Encounter Details Date Type Department Care Team (Late st Contact Info) Description 02/23/2024 Orders Only [facility] [address] [place] [address] Tana Bruno MD [address] [place] [address] Social History Tobacco Use Types [...] declined 09/08/2023 How often do you attend religious or cheondoism serv ices? Patient declined 09/08/2023 Do you belong to any clubs o r organizations such as religious groups, unions, fraternal or athletic groups, or [...] Recorded Patient Health Questionnaire-2 Score 0 09/11/2023 [facility] Occupat ional [facility] - Occupational Stress Questionnaire Answer Date [...] place to sleep or slept in a jail (including now)? Patient declined 09/08/2023 Comments Unknown [...] Podiatry [address] [place] [address] Merrick Kramer DPM [address] [place] [address] 04/07/2025 10:00 AM EST Office Visit [facility] [address] [place] [phone] Alisha Ernst NP [address] [place] [address] documented as of this encounter Procedures Procedure Name Priority Date/Time Associated Diagnosis Comments XR RIBS 2 VIEWS LEFT WITH CHEST ANTEROPOSTERIOR Routine 02/19/2024 10:51 AM EDT documented in this encounter Results * XR ribs 2 views left w chest anteroposterior (02/19/2024 10:51 AM EDT) Anatomical Region Laterality Modality Rib, Abdomen Left Radiographic Trisha ging Tana Bruno MD IMG XR PROCEDURES Final Resul t documented in this encounter Visit Diagnoses Not on filedocumented in this encounter Care Teams Icicle Machine Operator Relationship Specialty Start Date End Date Unallocated, Noms MD Lin[place] [address] [place] [address] PCP - General Family Medicine 02/20/24 02/28/24 Robert Pate MD [address] [place] [address] PCP - General Family Medicine 02/29/24 Alisha Ernst NP [address] [place] [address] PCP - ACO Reach 06/07/24 Alisha Ernst NP [address] [place] [address] Nurse Practitioner Family Medicine 12/05/22 documented as of this encounter
--- OUTSIDE RECORDS SUMMARY | 2024-12-10 08:53 | XMS_ITS | Encounter Summary ---
Author Organization [facility] Address [address] [place] [address] Care Team Providers Care Oyster Washer Name Role Phone Yudelka Arshad MD Primary Care Provider [phone] Alisha Ernst CNP Primary Care Provider [phone] Source Comments In the event this information is protected by the Federal Confidentiality of Alcohol and Drug AbusePatient Records regulations: The Federal rules restrict any use of the information to criminally investigate or prosecute any alcohol or drug abuse patient.[facility] Encounter Details Date Type Department Care Team (Latest Contact Info) Description 05/14/2024 H&P External-NonCCF Provider, External, PA-C Do not enter address information under generic External Provider. Social History Tobacco Use Types Packs/Day Years Used Date Smoking Tobacco: Former Comments:quit 1969' Alcohol Use Standard Drinks/Week Comments No 0 (1 standard drink = 0.6 oz pur e alcohol) Area Deprivation Index Answer Date Oswaldo rded National Score (1-100), lower number is lower ri sk 64 05/15/2024 State Score (1-10), lower number is lower risk 4 05/15/2024 Data from: https://www.neighborhoodatlas.medicine.[facility]/. 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 [address] PCP - General Family Medicine 05/15/24 documented as of this encounter
--- OUTSIDE RECORDS SUMMARY | 2024-12-10 08:53 | XMS_ITS | Encounter Summary ---
Author Organization [facility] Address [address] [place] [address] Care Team Providers Care Remotely Operated Vehicle Name Role Phone Alisha Ernst TEACHING YOUNG Unavailable [phone] Robert Pate MD Primary Care Provider [phone] Alisha Ernst TEACHING YOUNG Unavailable [phone] Encounter Details Date Type Department Care Team (Late st Contact Info) Description 04/17/2024 Clinisync Result Encounter [facility] External Department Unsolicited Alisha Ernst NP [address] [place] [address] Social History Tobacco Use Types Packs/Day Years [...] How often do you attend worship or buddhism serv ices? Patient declined 09/08/2023 Do you [...] Recorded Patient Health Questionnaire-2 Score 0 04/02/2024 [facility]ational [facility] Questionnaire Answer Date [...] place to sleep or slept in a correction (including now)? Patient declined 09/08/2023 Comments Unknown [...] Podiatry [address] [place] [address] Merrick Kramer DPM [address] [place] [address] 04/07/2025 10:00 AM EST Office Visit [facility] [address] [place] [address] Alisha Ernst NP [address] [place] [address] documented as of this encounter Procedures Procedure Name Priority Date/Time Associated Diagnosis Comments CT THORACIC SPINE WO IV CONTRAST 04/17/2024 6:06 AM EST documented in this encounter Results * CT thoracic spine wo IV contrast (04/17/2024 6:06 AM EST) Anatomical Region Laterality Modality Spine, T-spine Computed Tomogra phy 04/17/2024 6:06 AM EST Narrative 04/17/2024 6:08 AM EST The [address] [address] [address] Scan Report Signed Patient: CHRISTIE WATERMAN MR#: [id number] : 1945 Acct:[id number] Age/Sex: 78 / F ADM Date: 04/16/24 Loc: CT Attending Dr: Alisha Ernst TEACHING YOUNG Ordering Physician: Alisha Ernst NP Date of Service: 04/16/24 Procedure(s): CT thoracic spine wo con Accession Number(s): [id number] cc: Alisha Ernst NP [address] [place] [address] Patient Name: CHRISTIE WATERMAN MRN: [facility]:[id number] date: 1945 Sex: F Assigned Patient Location: CT Current Patient Location: Accession/Order Number: [id number] Exam Date: 04/16/2024 08:50 Report Date: 04/17/2024 06:06 At the request of: ALISHA ERNST Procedure: CT thoracic spine wo con PROCEDURE: CT thoracic spine wo con HISTORY: 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 Dose reduction techniques were achieved by using automated exposure control and/or adjustment of mA and/or kV according to patient size and/or use of iterative reconstruction technique. FINDINGS: PARASPINAL AREA: Normal with no visible mass. DISCS: Multilevel mild to moderate degenerative disc disease. BONES: Stable bone formation along the anterior margin of proximal left 11th rib favoring sequela of remote fracture and healing. Pseudoarticulation with T11 vertebral body likely accounting for edema seen on recent MRI study. No appreciable periosteal reaction or convincing fracture. OTHER: Negative. CT/CT thoracic spine wo con IMPRESSION: 1. Findings favor sequela of prior left 11th rib fracture and healing. No appreciable change. Electronically authenticated by: REED DAVILA Date: 04/17/2024 06:06 Dictated By: Reed Davila M.D. Signed By: 04/17/24607 DD/ 5 TD/TT: Husker Operator: Procedure Note Radiology, Radiologist, MD - 04/17/2024 [place] [address] CT Scan Report Signed Patient: CHRISTIE WATERMAN AMR#: [id number] : 1945cct:[id number] Age/Sex: 78 / FADM Date: 04/16/24 Loc: CT Attending Dr: Alisha Ernst NP Ordering Physician: Alisha Ernst NP Date of Service: 04/16/24 Procedure(s): CT thoracic spine wo con Accession Number(s): [id number] cc: Alisha Ernst NP [facility] [address] 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 Dose reduction techniques were achieved by using automated exposurecontrol and/or adjustment of mA and/or kV according to patient size and/or use of iterative reconstruction technique. FINDINGS: PARASPINAL AREA: Normal with no visible mass. DISCS: Multilevel mild to moderate degenerative disc disease. BONES: Stable bone formation along the anterior margin of proximal [id number] rib favoring sequela of remote fracture and healing. Pseudoarticulationwith T11 vertebral body likely accounting for edema seen on recent MRI study.No appreciable periosteal reaction or convincing fracture. OTHER: Negative. CT/CT thoracic spine wo con IMPRESSION: 1. Findings favor sequela of prior left 11th rib fracture and healing. No appreciable change. Electronically authenticated by: REED DAVILA Date: 04/17/2024 06:06 Dictated By: Reed Davila M.D. Signed By:04/17/24607 DD/ 0606 TD/TT: Husker Operator: Alisha Ernst TEACHING YOUNG IMG CT PROCEDURES Final Result documented in this encounter Visit Diagnoses Not on filedocumented in this encounter Additional Health Concerns Assessment Noted Time PHQ-9 Depression Total Score: 2 04/02/20 24 10:09 AM EST documented as of this encounter Care Teams Remotely Operated Vehicle Relationship Specialty Start Date End Date Robert Pate MD [address] [place] [address] PCP - General Family Medicine 02/29/24 Alisha Ernst NP [address] [place] [address] PCP - ACO Reach 06/07/24 Alisha Ernst NP [address] [place] [phone] Nurse Practitioner Family Medicine 12/05/22 documented as of this encounter
--- OUTSIDE RECORDS SUMMARY | 2024-12-10 08:53 | XMS_ITS | Clinical Summary ---
Author Organization [facility] Address [address] [facility] [address], [address] [place] [address] Care Team Providers Care Oil Field Pumper Name Role Phone Alisha Ernst APRN, NP Primary Care Provide r Allergies No known active allergies Medications losartan (COZAAR) 100 MG tablet Take 100 mg by mouth daily Active amLODIPine (NORVASC) 2.5 MG tablet Take 2.5 mg by mouth daily Active Active Problems Problem Noted Date Diagnosed Date Age-related osteoporosis wit h current pathological fracture of vertebra with delayed healing 02/23/2022 Social History Tobacco Use Types Packs/Day Years Used Date Smoking Tobacco: Never Smokeless Tobacco: Never Tobacco Cessation:Counseling Given: Not Answered Alcohol Use Standard Drinks/Week Comments Yes 0 (1 standard drink = 0.6 oz pur e alcohol) rarely Comments Unknown Sex and Gender Information Value Date Recorded Sex Assigned at Not on file Legal Sex Female 11:30 AM EDT Gender Identity Not on file Sexual Orientation Not on file Last Filed Vital Signs Vital Sign Reading Time Taken Comments Blood Pressure 151/77 02/23/2022 8:45 AM EDT Pulse 46 02/23/2022 8:30 AM EDT Temperature 37 C (98.6 F) 02/23/2022 6:33 AM EDT Respiratory Rate 16 02/23/2022 6:33 AM EDT Oxygen Saturation 97% 02/23/2022 8:45 AM EDT Inhaled Oxygen Concentration - - Weight 78.5 kg (173 lb 1.6 oz) 02/23/2022 6:33 A M EDT Height 160 cm (5' 3 ) 02/23/2022 6:33 AM EDT Body Mass Index 30.66 02/23/2022 6:33 AM EDT Plan of Treatment Health Maintenance Due Date Last Done Comments Depression Screen 1958 Hepatitis C screen 1964 DTaP/Tdap/Td vaccine (1 - Tdap) 1965 DEXA (modify frequency per FRAX score) 2001 Pneumococcal 50+ years Vaccine (2 of 2 - PCV) 02/13/2016 02/12/2015 Respiratory Syncytial Virus (RSV) or age 60 yrs+ (1 - 1-dose 75+ series) 2021 Annual Wellness Visit (Medicare) 03/27/2023 COVID-19 Vaccine ( season) 2024 02/02/2024, 02/06/2023, 01/25/2022, Additional history exists Flu vaccine (#1) 11/29/2024 02/02/2024, 12/2022, 01/25/2022, Additional history exists Shingles vaccine Completed 11/15/2021, 06/14/2021 Hepatitis A vaccine Aged Out No longe r eligible based on patient's age to complete this topic Hepatitis B vaccine Aged Out No longe r eligible based on patient's age to complete this topic Hib vaccine Aged Out No longer eligi ble based on patient's age to complete this topic Meningococcal (ACWY) vaccine Aged Out No longer eligible based on patient's age to complete this topic Meningococcal B vaccine Aged Out No l onger eligible based on patient's age to complete this topic Polio vaccine Aged Out No longer elig ible based on patient's age to complete this topic Medical Devices Implanted Type Area Examining Chair Assembler Device Identifier Shelf Expiration Date Model / Serial / Lot Kyphon Bone Cement Implanted:Qty: 1 on 02/23/2022 by Elieser Quiros MD at [facility] N/A: Back [email or web address] 08/28/2024 [id number] / / [id number] Insurance MEDICARE AARP HE[employer] CARE MEDICARE SUPP MEDICARE AARP HE[employer] CARE MEDICARE SUPP Advance Directives * Full Code (Latest Code Status on File) Date Activated Date Inactivated Comments 02/23/2022 6:24 AM 02/23/2022 10:58 AM Care Teams Oil Field Pumper Relationship Specialty Start Date End Date Alisha Ernst, CHILD & ADOLESCENT PSYCHIATRIST - GROUND WATER TECHNICIAN [facility] [place] [address] PCP - General Nurse Practitioner 04/17/24
--- NOTE | 2024-12-10 08:54 | MM_ITS ---
Patient Name: CHRISTIE TEE MR#: [id number] : 1945 Exam Date: 12/10/2024 Ordering Doctor: COURTNEY ABAD CNP RADIOLOGY REPORT PROCEDURE: MM TOMOSYNTHESIS SCREENING BI COMPARISON: MM TOMOSYNTHESIS SCREENING BI, 12/07/2023. MM TOMOSYNTHESIS SCREENING BI, 12/05/2022. MG MAMM SCREEN 3D CANDACE CAD, 12/02/2021. MG MAMM CANDACE SCRN W CAD DIG, 03/20/2014. INDICATIONS: Screening for malignant neoplasm Calculator Name NCI Breast Cancer Risk Assessment Tool 5 Year Breast Cancer Risk 1.60% Lifetime Breast Cancer Risk 3.00% Personal Breast Cancer No Personal Ovarian Cancer No Treatments None Family Cancers Aunt-maternal with breast cancer at age 70; Aunt-paternal with breast cancer at age 67. LOCATION: [facility] BREAST COMPOSITION: There are scattered areas of fibroglandular density. FINDINGS: DIAGNOSTIC CATEGORY 1--NEGATIVE. RIGHT BREAST: No significant suspicious finding. LEFT BREAST: No significant suspicious finding. RECOMMENDATIONS: ROUTINE MAMMOGRAM AND CLINICAL EVALUATION IN 12 MONTHS. PLEASE NOTE: A NORMAL MAMMOGRAM DOES NOT EXCLUDE THE POSSIBILITY OF BREAST CANCER. A CLINICALLY SUSPICIOUS PALPABLE LUMP SHOULD BE BIOPSIED. Dictated by: Farooq Clifton DO on 12/10/2024 at 16:02 Approved by: Farooq Clifton DO on 12/10/2024 at 16:05
== END 2024-12-10 08:52 | disposition home or self-care (01) ==
LOC: MAMMO 08:51
PROVIDERS: PCP Nurse Practitioner; Visit Provider Nurse Practitioner
DX: Z12.31 Encounter for screening mammogram for malignant neoplasm of breast (principal); Z80.3 Family history of malignant neoplasm of breast
CPT/HCPCS: 77063; 77067

== ENCOUNTER 2025-01-17 08:26 | Outpatient (OUT) | payer MEDICARE, SELFPAY ==
--- OUTSIDE RECORDS SUMMARY | 2025-01-17 08:30 | XMS_ITS | Encounter Summary ---
Author Organization [facility] Address [address] [place] [address] Care Team Providers Care Senior Media Planner Name Role Phone Alisha Ernst PLUSH CUTTER Unavailable [phone] Unallocated, Noms Linwood GENAO Primary Care Provi sree Robert Pate MD Primary Care Provider [phone] Alisha Ernst PLUSH CUTTER Unavailable [phone] Encounter Details Date Type Department Care Team (Late st Contact Info) Description 02/23/2024 Orders Only [facility] [address] [place] [address] Tana Bruno MD [address] [place] [address] Social History Tobacco Use Types [...] declined 09/08/2023 How often do you attend mu-ism or catholic serv ices? Patient declined 09/08/2023 Do you belong to any clubs o r organizations such as mu-ism groups, unions, fraternal or athletic groups, or [...] Recorded Patient Health Questionnaire-2 Score 0 09/11/2023 [facility] Occupat ional [facility] - Occupational Stress Questionnaire Answer [...] place to sleep or slept in a long-term (including now)? Patient declined 09/08/2023 Comments Unknown Sex and Gender Information Value Date Recorded Sex Assigned at Not on file Legal Sex Female 6:38 PM EDT Gender Identity Not on file Sexual Orientation Not on file documented as of this encounter Plan of Treatment Not on file documented as of this encounter Procedures Procedure [...] on filedocumented in this encounter Care Teams Senior Media Planner Relationship Specialty Start Date End Date Unallocated, Noms ProviderMD [address] [place] [address] PCP - General Family Medicine 02/20/24 02/28/24 Robert Pate MD [address] [place] [address] PCP - General Family Medicine 02/29/24 Alisha Ernst NP [address] [place] [address] PCP - ACO Reach 06/07/24 Alisha Ernst NP Nurse Practitioner Family Medicine 12/05/22 documented as of this encounter
--- OUTSIDE RECORDS SUMMARY | 2025-01-17 08:30 | XMS_ITS | Encounter Summary ---
Author Organization [facility] Address [address] [place] [address] Care Team Providers Care Leaf Stripper Name Role Phone Alisha Ernst SURVEY TECHNOLOGIST Unavailable [phone] Robert Pate MD Primary Care Provider [phone] Alisha Ernst SURVEY TECHNOLOGIST Unavailable [phone] Encounter Details Date Type Department Care Team (Late st Contact Info) Description 03/16/2024 Clinisync Result Encounter [facility] External Department Unsolicited Alisha Ernst NP [address] [place] [address] Social History Tobacco Use Types Packs/Day Years [...] declined 09/08/2023 How often do you attend jewish or sikhism serv ices? Patient declined 09/08/2023 Do you belong to any clubs o r organizations such as jewish groups, unions, fraternal or athletic groups, or [...] Questionnaire-2 Score 0 09/11/2023 [facility] - Occupational Stress Questionnaire Answer Date [...] place to sleep or slept in a custodial (including now)? Patient declined 09/08/2023 Comments Unknown [...] AM EST Narrative 03/16/2024 6:16 AM EST [address] [address] XRay Report Signed Patient: CHRISTIE WATERMAN MR#: [id number] : 1945 Acct:[id number] Age/Sex: 78 / F ADM Date: 03/15/24 Loc: INF Attending Dr: Alisha Ernst SURVEY TECHNOLOGIST Ordering Physician: Alisha Ernst NP Date of Service: 03/15/24 Procedure(s): XR DEXA axial skeleton Accession Number(s): [id number] cc: Alisha Ernst NP [address] [address] Patient Name: CHRISTIE WATERMAN MRN: TBH:[id number] date: 1945 Sex: F Assigned Patient Location: INF Current Patient Location: INF Accession/Order Number: [id number] Exam Date: 03/15/2024 09:40 Report Date: 03/16/2024 [...] prevention and treatment of osteoporosis. Osteoporos Int. 2021;33(10):8420-7026. doi: 10.1007/g74945-126-41777-w. Epub 2021Aug 26. Erratum in: Osteoporos Int. 2021Nov 25;: PMID: 36621613; PMCID: [id number]. Electronically authenticated by: REED DAVILA Date: 03/16/2024 06:13 Dictated By: Reed Davila M.D. Signed By: 03/16/24615 DD/ 2 TD/TT: Weighbridge Operator: Procedure Note Radiology, Radiologist, MD - 03/16/2024 [place] [address] XRay Report Signed Patient: CHRISTIE WATERMAN AMR#: [id number] : 1945cct:[id number] Age/Sex: 78 / FADM Date: 03/15/24 Loc: INF Attending Dr: Alisha Ernst SURVEY TECHNOLOGIST Ordering Physician: Alisha Ernst NP Date of Service: 03/15/24 Procedure(s): XR DEXA axial skeleton Accession Number(s): [id number] cc: Alisha Ernst NP [address] [place] [id number] Patient Name: CHRISTIE WATERMAN MRN: [id number]:[id number] date: 1945 Sex: F Assigned Patient Location: [facility] Current Patient Location: INF Accession/Order Number: [id number] Exam Date: 03/15/2024 09:40 Report Date: 03/16/2024 [...] 10-year hip fracture risk >= 3% or [id number] major osteoporosis-related fracture risk >= 20% (i.e., [...] to prevention and treatment of osteoporosis.Osteoporos Int. 2021;33(10):5722-4368. doi: 10.1007/o04372-240-48202-m. Ep. Erratum in: Osteoporos Int. 2021Nov 25;: PMID: 46957589; PMCID: [id number]. Electronically authenticated by: REED DAVILA Date: 03/16/2024 06:13 Dictated By: Reed Davila M.D. Signed By:03/16/24615 DD/ 2 TD/TT: Weighbridge Operator: us Alisha Ernst NP [facility] Final Result documented in this encounter Visit Diagnoses Not on filedocumented in this encounter Care Teams Leaf Stripper Relationship Specialty Start Date End Date Robert Pate MD PCP - General Family Medicine 02/29/24 Alisha Ernst NP [address] [place] [address] PCP - ACO Reach 06/07/24 Alisha Ernst NP Nurse Practitioner Family Medicine 12/05/22 documented as of this encounter
--- OUTSIDE RECORDS SUMMARY | 2025-01-17 08:30 | XMS_ITS | Encounter Summary ---
Author Organization [facility] Address [address] [place] [address] Care Team Providers Care Stars Coordinator Name Role Phone Yudelka Arshad MD Primary Care Provider [phone] Alisha Ernst CNP Primary Care Provider [phone] Source Comments In the event this information is protected by the Federal Confidentiality of Alcohol and Drug AbusePatient Records regulations: The Federal rules restrict any use of the information to criminally investigate or prosecute any alcohol or drug abuse patient.[facility] Encounter Details Date Type Department [...] is lower risk 4 05/15/2024 Data from: https://www.neighborhoodatlas.medicine.[facility]/. Last address used for calculation [address] [place] [address] 05/15/2024 Comments Unknown Sex and Gender [...] on filedocumented in this encounter Care Teams Stars Coordinator Relationship Specialty Start Date End Date Yudelka Arshad MD [address] [place] [address] PCP - General 12/15/10 05/14/24 Alisha Ernst, BIOMETRICS CONSULTANT [address] [place] [address] PCP - General Family Medicine 05/15/24 documented as of this encounter
--- OUTSIDE RECORDS SUMMARY | 2025-01-17 08:30 | XMS_ITS | Encounter Summary ---
Author Organization [facility] Address [address] [place] [address] Care Team Providers Care Deputy Director Of Nursing Name Role Phone Alisha Ernst MILL HAND Unavailable [phone] Unallocated, Noms Linwood GENAO Primary Care Provi sree Robert Pate MD Primary Care Provider [phone] Alisha Ernst MILL HAND Unavailable [phone] Encounter Details Date Type Department Care Team (Late st Contact Info) Description 02/20/2024 Orders Only [facility] [address] [place] [address] Tana Bruno MD [address] [place] [address] Social History Tobacco Use Types [...] declined 09/08/2023 How often do you attend moravian or presybeterian serv ices? Patient declined 09/08/2023 Do you belong to any clubs o r organizations such as moravian groups, unions, fraternal or athletic groups, or [...] Score 0 09/11/2023 [facility] - Occupational Stress Questionnaire Answer Date [...] or rent on time? Patient declined 09/08/19 Number of Places Lived in the Last Year Not on f ile 09/08/2023 In the last 12 months, was t here a time when you did not have a steady place to sleep or slept in a senior living (including now)? Patient declined 09/08/2023 Comments Unknown [...] on filedocumented in this encounter Care Teams Deputy Director Of Nursing Relationship Specialty Start Date End Date Unallocated, Noms ProviderMD [address] [place] [address] PCP - General Family Medicine 02/20/24 02/28/24 Robert Pate MD [address] [place] [address] PCP - General Family Medicine 02/29/24 Alisha Ernst NP [address] [place] [address] PCP - ACO Reach 06/07/24 Alisha Ernst NP Nurse Practitioner Family Medicine 12/05/22 documented as of this encounter
--- OUTSIDE RECORDS SUMMARY | 2025-01-17 08:30 | XMS_ITS | Clinical Summary ---
Author Organization [facility] Address [id number] [address] [place] [address] Care Team Providers Care Black Top Paver Operator Name Role Phone Alisha Ernst COTTON GINNER-LOCATION MAN Primary Care Provider Allergies No known active [...] 1965 Fall Risk Screening 12/13/2011 COVID-19 Vaccine (2024-2 6 season) 2024 02/06/2023, 01/25/2022, 01/26/2021, Additional history exists Influenza Vaccine 12/30/2024 02/06/2023, , 01/26/2021, Additional history exists Zoster (Shingles) Vaccine Completed 11/15/2021, Medical Devices Not on file Insurance MEDICARE COMMERCIAL Care Teams Black Top Paver Operator Relationship Specialty Start Date End Date Alisha Ernst, PAMELA-LOCATION MAN PCP - General Nurse Practitioner 03/26/18
--- OUTSIDE RECORDS SUMMARY | 2025-01-17 08:30 | XMS_ITS | Encounter Summary ---
Author Organization [facility] Address [address], [address] [place] [address] Care Team Providers Care Cyber Security Consultant Name Role Phone Alisha Ernst APRN - [...] WO CONTRAST Tana Bruno PA [address] [place] [address] Phone: tel: fax: Referral ID Status Reason Start Date Expiration Date Visits Re quested Visits Authorized [id number] Closed 04/07/2024 04/07/2025 1 1 Encounter Details Date Type Department Care Team (Latest Contact Info) Description 04/07/2024 Transcribe Orders Skinner Pre Access [address] [id number] Tana Bruno PA [address] [place] [address] Back pain, unspecified back location, [...] pain laterality, unspecified chronicity TECHNOLOGIST PROVIDED HISTORY: [facility] PROTOCOL WITH RECONSTRUCTION VIEWS FINDINGS: BONES/ALIGNMENT: [...] location documented in this encounter Care Teams Cyber Security Consultant Relationship Specialty Start Date End Date Alisha Ernst, GAS LINE REPAIRER - CERAMIST [address] [place] [address] PCP - General Nurse Practitioner 04/17/24 documented as of this encounter
--- OUTSIDE RECORDS SUMMARY | 2025-01-17 08:30 | XMS_ITS | Encounter Summary ---
Author Organization [facility] Address [address] [place] [address] Care Team Providers Care Programmer Analyst Consultant Name Role Phone Alisha Ernst LOCAL OPERATOR Unavailable [phone] Robert Pate MD Primary Care Provider [phone] Alisha Ernst LOCAL OPERATOR Unavailable [phone] Encounter Details Date Type Department Care Team (Late st Contact Info) Description 03/18/2024 Clinisync Result Encounter [facility] External Department Unsolicited Alisha Ernst NP [address] [place] [address] Social History Tobacco Use Types Packs/Day Years [...] declined 09/08/2023 How often do you attend congregational or religion serv ices? Patient declined 09/08/2023 Do you belong to any clubs o r organizations such as congregational groups, unions, fraternal or athletic groups, or [...] Recorded Patient Health Questionnaire-2 Score 0 09/11/2023 [facility] - Occupational Stress Questionnaire Answer Date [...] AM EST Narrative 03/18/2024 5:34 AM EST [address] [address] Magnetic Resonance Report Signed Patient: ALIVIA WATERMAN MR#: [id number] : 1945 Acct:[id number] Age/Sex: 78 / F ADM Date: 03/15/24 Loc: INF Attending Dr: Alisha Ernst LOCAL OPERATOR Ordering Physician: Alisha Ernst NP Date of Service: 03/15/24 Procedure(s): MR abdomen wo/w con Accession Number(s): [id number] cc: Alisha Ernst NP [address] [address] Patient Name: ALIVIA WATERMAN MRN: [id number] date: 1945 Sex: F Assigned Patient Location: INF Current Patient Location: INF Accession/Order Number: [id number] Exam Date: 03/15/2024 08:45 Report Date: 03/18/2024 [...] Dictated By: Reed Davila M.D. Signed By: 03/18/2434 DD/ TD/TT: Entertainment Lawyer: Procedure Note Radiology, Radiologist, MD - 03/18/2024 [place] [address] Magnetic Resonance Report Signed Patient: ALIVIA WATERMAN AMR#: [id number] : 7Acct:[id number] Age/Sex: 78 / FADM Date: 03/15/24 Loc: INF Attending Dr: Alisha Ernst NP Ordering Physician: Alisha Ernst NP Date of Service: 03/15/24 Procedure(s): MR abdomen wo/w con Accession Number(s): [id number] cc: Alisha Ernst NP [address] [place] [id number] Patient Name: ALIVIA WATERMAN MRN: [facility]:[id number] date: 1945 Sex: F Assigned Patient Location: [facility] Current Patient Location: [facility] Accession/Order Number: [id number] Exam Date: 03/15/2024 08:45 Report Date: 03/18/2024 [...] Davila M.D. Signed By:03/18/2434 DD/ 1 TD/TT: Entertainment Lawyer: us Alisha Ernst LOCAL OPERATOR IMG MRI PROCEDURES Final Result documented in this encounter Visit Diagnoses Not on filedocumented in this encounter Care Teams Programmer Analyst Consultant Relationship Specialty Start Date End Date Robert Pate MD PCP - General Family Medicine 02/29/24 Alisha Ernst NP [address] [place] [address] PCP - ACO Reach 06/07/24 Alisha Ernst NP Nurse Practitioner Family Medicine 12/05/22 documented as of this encounter
--- OUTSIDE RECORDS SUMMARY | 2025-01-17 08:30 | XMS_ITS | Encounter Summary ---
Author Organization [facility] Address [address] [place] [address] Care Team Providers Care Log Truck Driver Name Role Phone Alisha Ernst EQUIPMENT MANAGER Unavailable [phone] Unallocated, Noms Provider Primary Care Provi sree Robert Pate MD Primary Care Provider [phone] Alisha Ernst EQUIPMENT MANAGER Unavailable [phone] Encounter Details Date Type Department Care Team (Late st Contact Info) Description 12/07/2023 Clinisync Result Encounter [facility] External Department Unsolicited Alisha Ernst, EQUIPMENT MANAGER [address] [place] [address] Social History Tobacco Use Types Packs/Day Years [...] declined 09/08/2023 How often do you attend yarsanism or congregational serv ices? Patient declined 09/08/2023 Do you belong to any clubs o r organizations such as yarsanism groups, unions, fraternal or athletic groups, or [...] Recorded Patient Health Questionnaire-2 Score 0 09/11/2023 [facility] - Occupational Stress Questionnaire Answer [...] EDT Narrative 12/07/2023 12:40 [place] [address] Mammography Report Signed Patient: ALIVIA WATERMAN MR#: [id number] : 1945 Acct:[id number] Age/Sex: 77 / F ADM Date: 12/07/23 Loc: MAMMO Attending Dr: Alisha Ernst NP Ordering Physician: Alisha Ernst NP Results: Date of Service: 12/07/23 Follow Up: Procedure(s): MM tomosynthesis screening BI Accession Number(s): [id number] cc: Alisha Ernst NP Patient Name: ALIVIA WATERMAN MR#: [id number] : 1945 Exam Date: 12/07/2023 Ordering Doctor: [...] breast cancer at age 68. LOCATION: [facility] BREAST COMPOSITION: The breasts are almost [...] Signed By: 12/07/23 1240 DD/ 1239 TD/TT: Irish Moss Operator: Procedure Note Radiology, Radiologist, MD - 12/07/2023 [place] [address] Mammography Report Signed Patient: ALIVIA WATERMAN AMR#: [id number] : 1945cct:[id number] Age/Sex: 77 / FADM Date: 12/07/23 Loc: MAMMO Attending Dr: Alisha Ernst NP Ordering Physician: Alisha Ernst NPResults: Date of Service: 12/07/23Follow Up: Procedure(s): MM tomosynthesis screening BI Accession Number(s): [id number] cc: Alisha Ernst NP Patient Name: ALIVIA WATERMAN MR#: [id number] : 1945 Exam Date: 12/07/2023 Ordering Doctor: COURTNEY Ernst CAR REPAIRMAN RADIOLOGY REPORT PROCEDURE: MM TOMOSYNTHESIS SCREENING BI [...] breast cancer at age 68. LOCATION: [facility] BREAST COMPOSITION: The breasts are almost [...] M.D. Signed By:12/07/23 1240 DD/ 1239 TD/TT: Irish Moss Operator: us Alisha Ernst NP [facility] Final Result documented in this encounter Visit Diagnoses Not on filedocumented in this encounter Care Teams Log Truck Driver Relationship Specialty Start Date End Date Unallocated, Noms MD [place] [address] [place] [address] PCP - General Family Medicine 02/20/24 02/28/24 Robert Pate MD [address] [place] [address] PCP - General Family Medicine 02/29/24 Alisha Ernst NP [address] [place] [address] PCP - ACO Reach 06/07/24 Alisha Ernst NP Nurse Practitioner Family Medicine 12/05/22 documented as of this encounter
--- OUTSIDE RECORDS SUMMARY | 2025-01-17 08:30 | XMS_ITS | Clinical Summary ---
Author Organization [facility] Address [address], [address] [place] [address] Care Team Providers Care Land Reclamation Specialist Name Role Phone Alisha Ernst APRN, NP [...] series) 2021 Annual Wellness Visit (Medicare) 03/27/2023 Flu vaccine (#1) 11/29/2024 02/02/2024, 12/2022, 01/25/2022, Additional history exists COVID-19 Vaccine ( season) 2024 02/02/2024, 02/06/2023, 01/25/2022, Additional history exists Shingles vaccine Completed [...] this topic Medical Devices Implanted Type Area Patient Safety Officer Device Identifier Shelf Expiration Date Model / Serial / Lot Kyphon Bone Cement Implanted:Qty: 1 on 02/23/2022 by Elieser Quiros MD at [facility] N/A: Back [employer] 08/28/2024 [id number] / / [id number] Insurance MEDICARE [employer] HE[employer] C[employer] MEDICARE SUPP MEDICARE A[employer] HE[employer] MEDICARE SUPP Advance Directives * Full Code (Latest Code Status on File) Date Activated Date Inactivated Comments 02/23/2022 6:24 AM 02/23/2022 10:58 AM Care Teams Land Reclamation Specialist Relationship Specialty Start Date End Date Alisha Ernst, HOG PUSHER - RESTAURANT OPERATIONS MANAGER [facility] [place] [address] PCP - General Nurse Practitioner 04/17/24
--- OUTSIDE RECORDS SUMMARY | 2025-01-17 08:31 | XMS_ITS | Encounter Summary ---
Author Organization [facility] Address [address] [place] [address] Care Team Providers Care Golf Course Laborer Name Role Phone Alisha Ernst SPORTS REPORTER Unavailable [phone] Robert Pate MD Primary Care Provider [phone] Alisha Ernst SPORTS REPORTER Unavailable [phone] Encounter Details Date Type Department Care Team (Late st Contact Info) Description 03/18/2024 Orders Only [facility] [address] [place] [address] Alisha Ernst SPORTS REPORTER [address] [place] [address] Social History Tobacco Use Types Packs/Day Years [...] declined 09/08/2023 How often do you attend amish or sikh serv ices? Patient declined 09/08/2023 Do you belong to any clubs o r organizations such as amish groups, unions, fraternal or athletic groups, or [...] Recorded Patient Health Questionnaire-2 Score 0 [facility] - Occupational Stress Questionnaire Answer Date Recorded [...] place to sleep or slept in a [place] health care facility (including now)? Patient declined 09/08/2023 Comments Unknown [...] Modality Body Radiographic Trisha ging Alisha Ernst NP IMG DXA PROCEDURES Final Result * MR abdomen wo contrast (03/18/2024 3:04 PM EST) Anatomical Region Laterality Modality Abdomen Magnetic Resonan ce Alisha Ernst NP IMG MRI PROCEDURES Final Result documented in this encounter Visit Diagnoses Not on filedocumented in this encounter Care Teams Golf Course Laborer Relationship Specialty Start Date End Date Robert Pate MD PCP - General Family Medicine 02/29/24 Alisha Ernst NP [address] [place] [address] PCP - ACO Reach 06/07/24 Alisha Ernst NP Nurse Practitioner Family Medicine 12/05/22 documented as of this encounter
--- OUTSIDE RECORDS SUMMARY | 2025-01-17 08:31 | XMS_ITS | Encounter Summary ---
Author Organization [facility] Address [address] [place] [address] Care Team Providers Care Cooling Pan Tender Name Role Phone Alisha Ernst FUNERAL HOME ASSOCIATE Unavailable [phone] Robert Pate MD Primary Care Provider [phone] Alisha Ernst FUNERAL HOME ASSOCIATE Unavailable [phone] Encounter Details Date Type Department Care Team (Late st Contact Info) Description 04/17/2024 Clinisync Result Encounter [facility] External Department Unsolicited Alisha Ernst NP [address] [place] [address] Social History Tobacco Use Types Packs/Day Years [...] How often do you attend amish or christianity serv ices? Patient declined 09/08/2023 Do you [...] Recorded Patient Health Questionnaire-2 Score 0 04/02/[facility] - Occupational Stress Questionnaire Answer Date [...] place to sleep or slept in a fci (including now)? Patient declined 09/08/2023 Comments Unknown [...] AM EST Narrative 04/17/2024 6:08 [place] [address] CT Scan Report Signed Patient: ALIVIA WATERMAN MR#: [id number] : 1945 Acct:[id number] Age/Sex: 78 / F ADM Date: 04/16/24 Loc: CT Attending Dr: Alisha Ernst FUNERAL HOME ASSOCIATE Ordering Physician: Alisha Ernst NP Date of Service: 04/16/24 Procedure(s): CT thoracic spine wo con Accession Number(s): [id number] cc: Alisha Ernst NP [address] [address] Patient Name: ALIVIA WATERMAN MRN: [id number] date: 1945 Sex: F Assigned Patient Location: CT Current Patient Location: Accession/Order Number: [id number] Exam Date: 04/16/2024 08:50 Report Date: 04/17/2024 [...] M.D. Signed By: 04/17/24607 DD/ 5 TD/TT: Morals Squad Police Officer: Procedure Note Radiology, Radiologist, MD - 04/17/2024 [place] [address] CT Scan Report Signed Patient: ALIVIA WATEMRAN AMR#: [id number] : 1945cct:[id number] Age/Sex: 78 / FADM Date: 04/16/24 Loc: CT Attending Dr: Alisha Ernst NP Ordering Physician: Alisha Ernst NP Date of Service: 04/16/24 Procedure(s): CT thoracic spine wo con Accession Number(s): [id number] cc: Alisha Ernst NP [address] [place] [address] Patient Name: ALIVIA WATERMAN MRN: [id number] date: 1945 Sex: F Assigned Patient Location: CT Current Patient Location: Accession/Order Number: [id number] Exam Date: 04/16/2024 08:50 Report Date: 04/17/2024 [...] formation along the anterior margin of proximal [id number] rib favoring sequela of remote fracture and [...] By: Reed Davila M.D. Signed By:04/17/24607 DD/ 5 TD/TT: [employer] Police Officer: Alisha Ernst NP IMG CT PROCEDURES Final Result documented in this encounter Visit Diagnoses Not on filedocumented in this encounter Additional Health Concerns Assessment Noted Time PHQ-9 Depression Total Score: 2 04/02/20 24 10:09 AM EST documented as of this encounter Care Teams Cooling Pan Tender Relationship Specialty Start Date End Date Robert Pate MD PCP - General Family Medicine 02/29/24 Alisha Ernst NP [address] [place] [address] PCP - ACO Reach 06/07/24 Alisha Ernst NP Nurse Practitioner Family Medicine 12/05/22 documented as of this encounter
--- OUTSIDE RECORDS SUMMARY | 2025-01-17 08:31 | XMS_ITS | Clinical Summary ---
Author Organization [facility] Address [address] [place] [address] Care Team Providers Care High Pressure Cleaner Name Role Phone Alisha Ernst CNP Primary [...] is lower risk 4 05/15/2024 Data from: https://www.neighborhoodatlas.medicine.[facility]/. Last address used for calculation [id number] [place] [address] [address] 05/15/2024 Comments No Sex and [...] 11/15/2021, 06/14/2021 Medical Devices Implanted Type Area Systems Navigator Device Identifier Shelf Expiration Date Model / Serial / Lot Lens Iol +17.5 [employer] - [id number] Implanted:Qty : 1 on 12/20/2010 at [facility] Intraocular Lens Left: Eye - Lens [employer] 09/29/2015 [id number] 17.5 / [id number] / Lens Iol +17.5 [employer] - [id number] Implanted:Qty : 1 on 01/05/2011 at [facility] Intraocular Lens Right: Eye - Lens [employer] 10/29/2015 [id number] / [id number] / Procedures Procedure Name Priority Date/Time Associated Diagnosis Comments BASIC METABOLIC PANEL 01/21/2000 11:49 AM EDT from Last 3 Months or Most Recently Relevant to Health Maintenance Results * (ABNORMAL) BASIC CHEMISTRY PKG (01/21/2000 11:49 AM EDT) Glucose 97 65 - 110 mg/dL [facility] BUN 13 8 - 25 mg/dL [facility] Creatinine 0.5(A) 0.7 - 1.4 mg/dL [facility] Sodium 143 132 - 148 mmol/L [facility] Potassium 4.4 3.5 - 5.0 mmol/L [facility] Chloride 106 98 - 110 mmol/L [facility] CO2 25 24 - 32 mmol/L [facility] Anion Gap 12 0 - 15 mmol/L [facility] Calcium 9.5 8.5 - 10.5 mg/dL [facility] 01/21/2000 11:4 9 AM EDT Narrative [facility] - 01/21/2000 9:10 PM EDT Ordered by DYLON LAMB [facility] Provider LABORATORY Final Result [facility] [address] [place] [address] from Last 3 Months or Most Recently Relevant to Health Maintenance Insurance [address] [place] [address] MEDICARE [facility] [address] [place] [address] Advance Directives Documents on File Type Date Recorded Patient Commercial Carpenter Expl anation Advance Directive(s) 12/20/2010 8:06 AM Care Teams High Pressure Cleaner Relationship Specialty Start Date End Date Alisha Ernst, RENAL DIETITIAN [address] [place] [address] PCP - General Family Medicine 05/15/24
--- OUTSIDE RECORDS SUMMARY | 2025-01-17 08:31 | XMS_ITS | Encounter Summary ---
Author Organization [facility] Address [address] [place] [address] Care Team Providers Care Senior Media Director Name Role Phone Alisha Ernst TOWEL SORTER Unavailable [phone] Robert Pate MD Primary Care Provider [phone] Alisha Ernst TOWEL SORTER Unavailable [phone] Encounter Details Date Type Department Care Team (Late st Contact Info) Description 06/21/2024 Orders Only [facility] [address] [place] [address] Alisha Ernst TOWEL SORTER [address] [place] [address] Social History Tobacco Use Types Packs/Day Years [...] declined 09/08/2023 How often do you attend episcopal or mosque serv ices? Patient declined 09/08/2023 Do you belong to any clubs o r organizations such as episcopal groups, unions, fraternal or athletic groups, or [...] Recorded Patient Health Questionnaire-2 Score 0 04/02/2024 [facility] - Occupational Stress Questionnaire Answer [...] * [facility] (06/21/2024 11:38 AM EST) Alisha Ernst TOWEL SORTER LAB CHG PERFORMABLES Final Resu lt documented in this encounter Visit Diagnoses Not on filedocumented in this encounter Additional Health Concerns Assessment Noted Time PHQ-9 Depression Total Score: 2 04/02/20 24 10:09 AM EST documented as of this encounter Care Teams Senior Media Director Relationship Specialty Start Date End Date Robert Pate MD PCP - General Family Medicine 02/29/24 Alisha Ernst NP [address] [place] [address] PCP - ACO Reach 06/07/24 Alisha Ernst NP Nurse Practitioner Family Medicine 12/05/22 documented as of this encounter
--- OUTSIDE RECORDS SUMMARY | 2025-01-17 08:31 | XMS_ITS | Encounter Summary ---
Author Organization [facility] Address [address] [facility] [place] [address] Care Team Providers Care Portfolio Analyst Name Role Phone Alisha Ernst TRANSPORTER DRIVER Unavailable [phone] Robert Pate MD Primary Care Provider [phone] Alisha Ernst TRANSPORTER DRIVER Unavailable [phone] Encounter Details Date Type Department Care [...] declined 09/08/2023 How often do you attend latter-day or mandaen serv ices? Patient declined 09/08/2023 Do you belong to any clubs o r organizations such as latter-day groups, unions, fraternal or athletic groups, or [...] Recorded Patient Health Questionnaire-2 Score 0 04/02/2024 [facility] - Occupational [...] pain laterality, unspecified chronicity TECHNOLOGIST PROVIDED HISTORY: [facility] PROTOCOL WITH RECONSTRUCTION VIEWS FINDINGS: BONES/ALIGNMENT: Osteopenia. [...] 04/22/24 Final result Procedure Note Radiology, Radiologist, - 04/22/2024 EXAMINATION: CT OF THE THORACIC [...] pain laterality, unspecified chronicity TECHNOLOGIST PROVIDED HISTORY: [employer] PROTOCOL WITH RECONSTRUCTION VIEWS FINDINGS: BONES/ALIGNMENT: Osteopenia. [...] by: Justo Mcmullen MD 04/22/24 Final result Generic External Data Provider [facility] Final Result documented in this encounter Visit Diagnoses Not on filedocumented in this encounter Additional Health Concerns Assessment Noted Time PHQ-9 Depression Total Score: 2 04/02/20 24 10:09 AM EST documented as of this encounter Care Teams Portfolio Analyst Relationship Specialty Start Date End Date Robert Pate MD PCP - General Family Medicine 02/29/24 Alisha Ernst NP [address] [place] [address] PCP - ACO Reach 06/07/24 Alisha Ernst NP Nurse Practitioner Family Medicine 12/05/22 documented as of this encounter
--- OUTSIDE RECORDS SUMMARY | 2025-01-17 08:31 | XMS_ITS | Encounter Summary ---
Author Organization [facility] Address [address] [place] [address] Care Team Providers Care Nail Technician Teacher Name Role Phone Alisha Ernst ICE DELIVERY DRIVER Unavailable [phone] Robert Pate MD Primary Care Provider [phone] Alisha Ernst ICE DELIVERY DRIVER Unavailable [phone] Encounter Details Date Type Department Care Team (Late st Contact Info) Description 06/20/2024 Orders Only [facility] [address] [place] [address] Alisha Ernst ICE DELIVERY DRIVER [address] [place] [address] Social History Tobacco Use Types Packs/Day Years [...] declined 09/08/2023 How often do you attend catholic or methodist serv ices? Patient declined 09/08/2023 Do you belong to any clubs o r organizations such as catholic groups, unions, fraternal or athletic groups, or [...] Recorded Patient Health Questionnaire-2 Score 0 04/02/2024 [facility] - Occupational Stress Questionnaire Answer [...] place to sleep or slept in a group home (including now)? Patient declined 09/08/2023 Comments Unknown [...] * [facility] (06/20/2024 11:08 AM EST) Alisha Ernst ICE DELIVERY DRIVER LAB CHG PERFORMABLES Final Resu lt documented in this encounter Visit Diagnoses Not on filedocumented in this encounter Additional Health Concerns Assessment Noted Time PHQ-9 Depression Total Score: 2 04/02/20 24 10:09 AM EST documented as of this encounter Care Teams Nail Technician Teacher Relationship Specialty Start Date End Date Robert Pate MD PCP - General Family Medicine 02/29/24 Alisha Ernst NP [address] [place] [address] PCP - ACO Reach 06/07/24 Alisha Ernst NP Nurse Practitioner Family Medicine 12/05/22 documented as of this encounter
--- OUTSIDE RECORDS SUMMARY | 2025-01-17 08:32 | XMS_ITS | CCD ---
Author Organization [facility] Care Team Providers Care Financial Project Manager Name Role Phone PEPITO QUIROS Admitting Unavailable PEPITO QUIROS Attending Unavailable PEPITO QUIROS Referring Unavailable AICHHOLZ, CHEESEMAKING LABORER ALISHA Admitting Unavailable AICHHOLZ, CHEESEMAKING LABORER ALISHA Attending Unavailable AICHHOLZ, CHEESEMAKING LABORER ALISHA Consulting Unavailable AICHHOLZ, CHEESEMAKING LABORER ALISHA Primary Care Unavailable Lola, Reed Consulting Unavailable AICHHOLZ, CHEESEMAKING LABORER ALISHA Admitting Unavailable AICHHOLZ, CHEESEMAKING LABORER ALISHA Attending Unavailable AICHHOLZ, CHEESEMAKING LABORER ALISHA Consulting Unavailable AICHHOLZ, CHEESEMAKING LABORER ALISHA Primary Care Unavailable Lola, Reed Consulting Unavailable AICHHOLZ, CHEESEMAKING LABORER ALISHA Admitting Unavailable AICHHOLZ, CHEESEMAKING LABORER ALISHA Attending Unavailable AICHHOLZ, CHEESEMAKING LABORER ALISHA Consulting Unavailable AICHHOLZ, CHEESEMAKING LABORER ALISHA Primary Care Unavailable AICHHOLZ, CHEESEMAKING LABORER ALISHA Admitting Unavailable AICHHOLZ, CHEESEMAKING LABORER ALISHA Attending Unavailable AICHHOLZ, CHEESEMAKING LABORER ALISHA Consulting Unavailable AICHHOLZ, CHEESEMAKING LABORER ALISHA Primary Care Unavailable AICHHOLZ, ALISHA J Referring Unavailable AICHHOLZ, ALISHA J Primary Care Unavailable Aichholz CHEESEMAKING LABORER, Alisha Primary Care Provider Hernando GENAO, Clarence Waite Primary Care Provider [phone] Aichholz AIRCRAFT LINE ASSEMBLER, Alisha Unavailable Aichholz AIRCRAFT LINE ASSEMBLER, Alisha Unavailable Robert Pate MD Primary Care Provider Aichapril THERAPY ADMINISTRATIVE ASSISTANT - AIRCRAFT LINE ASSEMBLER, Alisha J. Primary Care Provide r TANA BRUNO Referring Unavailable AICALISHA DUVAL. Primary Care Unavailable Pavithra GENAO, Yudelka Gilbert Primary Care Provider Aichholz CHEESEMAKING LABORER, Alisha Benítez Primary Care Provider [phone] Aichholz CHEESEMAKING LABORER, Alisha Primary Care Provider Cheryl THERAPY ADMINISTRATIVE ASSISTANT-CHEESEMAKING LABORER, Eunice Thacker Unavailable OLIVA WANGRSH Attending Unavailable AICHHOLZ, ALISHA BENÍTEZ Referring Unavailable AICHHOLZ, ALISHA BENÍTEZ Primary Care Unavailable CHERYL, EUNICE D Attending Unavailable AICHHOLZ, ALISHA Primary Care Unavailable AICHHOLZ, ALISHA Referring Unavailable Ickes PA-C, Tana Pacheco Attending Unav ailable Aichholz THERAPY ADMINISTRATIVE ASSISTANT-CHEESEMAKING LABORER, Alisha Benítez Primary Care Unava ilable Ickes PA-C, Tana Pacheco Attending Unav ailable Facundo Branham III, MD U navailable Aichholz THERAPY ADMINISTRATIVE ASSISTANT-CHEESEMAKING LABORER, Alisha Benítez Primary Care Unava ilable Ickes PA-C, Tana Morrisee Attending Unav ailable Aichholz THERAPY ADMINISTRATIVE ASSISTANT-CHEESEMAKING LABORER, Alisha Jackelin Primary Care Unava ilable Ickes PA-C, Tana Morrisee Attending Unav ailable Aichholz THERAPY ADMINISTRATIVE ASSISTANT-CHEESEMAKING LABORER, Alisha Jackelin Primary Care Unava ilable Ickes PA-C, Tana Morrisee Attending Unav ailable Aichholz THERAPY ADMINISTRATIVE ASSISTANT-CHEESEMAKING LABORER, Alisha Jackelin Primary Care Unava ilable Aichholz AIRCRAFT LINE ASSEMBLER, Alisha Unavailable Aichholz AIRCRAFT LINE ASSEMBLER, Alisha Unavailable Robert Pate MD Primary Care Provider [phone] Aichholz AIRCRAFT LINE ASSEMBLER, Alisha Unavailable MERRICK DENNISON Attending Unavailabl e AICHHOLZ, ALISHA Attending Unavailable AICHHOLPhilip, ALISHA Attending Unavailable MERRICK DENNISON Attending Unavailabl e AICHHOLZ, ALISHA Attending Unavailable MERRICK DENNISON Attending Unavailabl e AICHHOLZ, ALISHA Attending Unavailable AICHHOLZ, ALISHA Attending Unavailable Allergies Allergy Classification Reported Allergen(s) Allergy Type Date of Onset Reaction(s) Facility (20 sources) Lisinopril; Translations: [LISINOPRIL] Propensity to adverse reactions to drug [address] [facility] (2 sources) brimonidine Drug Allergy 1 Itching [facility] Work Phone: (6 sources) traMADol Drug Allergy 4 [facility] (2 sources) Lisinopril Drug Allergy 3 Cough [facility] (1 source) brimonidine; Translations: [BRIMONIDINE TARTRATE] Drug Allergy 1 [facility] Medications Current Medications Medication Drug Class(es) Dates Sig (Normalized) Sig (Original) amLODIPine 2.5 mg oral tablet (20 sources) Dihydropyridine Calcium Channel Miriam Start: 09-18-2023 End: 09-18-2024 take 1 tablet by mouth once daily amLODIPine (Norvasc) 2.5 MG tablet Indications: Essential (primary) hypertension , Essential hypertension Take 1 tablet (2.5 mg) by mouth Daily 90 tablet 1 06/20/2024 Active AMLODIPINE BENZOATE PO (2 sources) AMLODIPINE BENZOATE PO amLODIPine Benzoate 0 Active aspirin 81 mg delayed release oral tablet (2 sources) Platelet Aggregation Inhibitor, Nonsteroidal Anti-inflammatory Drug take 1 tablet by mouth once daily aspirin, enteric coated (ECOTRIN LOW STRENGTH) 81 mg ORAL EC tablet Take 81 mg by mouth once daily. Active brimonidine tartrate 2 mg/ml ophthalmic solution (20 sources) alpha-Adrenergic Agonist Start: 03-27-2023 take 1 drop(s) into the eye(s) every twelve hours Brimonidine 0.2 % Solution INSTILL 1 DROP INTO BOTH EYES EVERY 12 HOURS 03/27/2023 Active take 1 drop(s) into the eye(s) in the morning brimonidine (AlphaGAN P) 0.2 % ophthalmi c solution 1 drop in the morning and 1 drop before bedtime. Active take 1 drop(s) into the eye(s) twice daily brimonidine (ALPHAGAN) 0.2 % ophthalmic solution Use 1 Drop in both eyes two times a day. Active Calcium Carb-Cholecalciferol (CALCIUM 600 + D PO) (2 sources) take 1 tablet by mouth once daily Calcium Carb-Cholecalciferol (CALCIUM 600 + D PO) Take 1 tablet by mouth daily. Active take 1 tablet by mouth once shailesh y Calcium Carb-Cholecalciferol (CALCIUM 600 + D PO) Take 1 tablet by mouth daily. 0 Active Calcium Carb-Cholecalciferol (CALCIUM CARBONATE+VITAMIN D PO) (9 sources) take 1 tablet by mouth once in the morning Calcium Carb-Cholecalciferol (CALCIUM CARBONATE+VITAMIN D PO) Take 1 tablet by mouth in the morning and 1 tablet before bedtime. Active Calcium Carbonate / vitamin D3 (1 source) calcium carbonat e/vitamin D3 (CALCIUM WITH VITAMIN D ORAL) Take by mouth once daily. Active carvedilol 12.5 mg oral tablet (2 sources) alpha-Adrenergic Miriam, beta-Adrenergic Miriam take 1 tablet by mouth twice daily at mealtime carvedilol (COREG) 12.5 mg ORAL tablet Take 12.5 mg by mouth twice daily with meals. Active cetirizine hydrochloride 10 mg oral tablet (20 sources) Histamine-1 Receptor Antagonist cetirizine (ZyrTEC) 10 MG tablet Take by mouth Pt takes OTC Active cholecalciferol 0.025 mg oral capsule (2 sources) Vitamin D take 1 capsule by mouth once daily Cholecalciferol, Vitamin D3, (VITAMIN D) 1,000 unit ORAL Cap Take 1,000 Units by mouth once daily. Active Continuous Glucose Crepe Sole Scourer (FreeStyle Robbin 3 Anselmo) device (2 sources) End: 04-02 Continuous Glucose Crepe Sole Scourer (FreeStyle Robbin 3 Anselmo) device 1 each Daily 04/02/2024 Discontinued (Entered in error) Continuous Glucose Sensor (FreeStyle Robbin 3 Sensor) misc (4 sources) End: 04-02 Continuous Glucose Sensor (FreeStyle Robbin 3 Sensor) misc 1 each Daily 04/02/2024 Discontinued (Entered in error) End: 04-02-2024 Continuous Glucose Sensor (F reeStyle Robbin 3 Sensor) misc 1 each Daily 04/02/2024 Discontinued (Therapy completed) dorzolamide 20 mg/ml ophthalmic solution (6 sources) Carbonic Anhydrase Inhibitor dorzolamide 2 % Solu tion Dorzolamide HCl Active dorzolamide 2 % OPHTHALMIC ophthalmic solution three times daily. Active dorzolamide 20 mg/ml / timolol 5 mg/ml ophthalmic solution (20 sources) Carbonic Anhydrase Inhibitor, beta-Adrenergic Miriam Start: 08-28-2023 take 1 drop(s) into the eye(s) in the morning dorzolamide-timolol (Cosopt) 2-0.5 % ophthalmic solution Administer 1 drop into both eyes in the morning and 1 drop before bedtime. 08/28/2023 Active take 1 drop(s) into the eye(s) twice daily dorzolamide-timolol (COSOPT) 22.3-6.8 mg /mL ophthalmic solution Use 1 Drop in both eyes two times a day. Active ezetimibe 10 mg oral tablet (5 sources) Dietary Cholesterol Absorption Inhibitor Start: 11-12-2024 End: 02-10-2025 take 1 tablet by mouth at bedtime ezetimibe (Zetia) 10 MG tablet Indications: Mixed hyperlipidemia Take 1 tablet (10 mg) by mouth at bedtime 90 tablet 11/12/2024 02/10/2025 Active GLUC SAUCEDO/MSM/MAGNESIUM/ VIT C (GLUCOSAMINE COMPLEX-MSM ORAL) (2 sources) GLUC SAUCEDO/MSM/MAGNESIUM/VIT C (GLUCOSAMINE COMPLEX-MSM ORAL) Take by mouth. Active latanoprost 0.05 mg/ml ophthalmic solution (20 sources) Prostaglandin Analog Start: 09-02-2022 latanoprost (Xalatan) 0.005 % ophthalmic solution 09/02/2022 Active Start: 09-02-2022 take 1 drop(s) into the eye(s) once daily at bedtime latanoprost (Xalatan) 0.005 % ophthalmic solution INSTILL 1 DROP IN EACH EYE EVERY DAY AT BEDTIME 09/02/2022 Active take 1 drop(s) into the eye(s) once daily at bedtime latanoprost (XALATAN) 0.005 % ophthalmic solution Use 1 Drop in both eyes daily at bedtime. Active losartan potassium 100 mg oral tablet (20 sources) Angiotensin 2 Receptor Miriam Start: 03-28-2018 End: 09-18-2024 take 1 tablet by mouth once daily losartan (Cozaar) 100 MG tablet Indications: Essential (primary) hypertension , Essential hypertension Take 1 tablet (100 mg) by mouth Daily 90 tablet 1 06/20/2024 Active lutein 20 mg oral capsule (2 sources) Lutein 20 mg ORA L Cap Take 20 mg by mouth. Active Magnesium (2 sources) take 1 tablet by mouth once daily Magnesium 400 MG tablet Take 1 tablet by mouth daily. Active take 1 tablet by mouth once shailesh y Magnesium 400 MG tablet Take 1 tablet by mouth daily. 0 Active magnesium oxide 400 mg oral tablet (12 sources) take 1 tablet by mouth once daily magnesium oxide (Mag-Ox) 400 MG tablet Take 400 mg by mouth Daily Active Misc. Devices Misc (1 source) Multiple Vitamins-Minerals (PreserVision AREDS 2) Chew Tab (1 source) Multiple Vitamins-Minerals (PreserVision AREDS 2) Chew Tab Chew. Active Multiple Vitamins-Minerals (PreserVision AREDS 2) chewable tablet (20 sources) Multiple Vitamins-Minerals (PreserVision AREDS 2) chewable tablet Chew Active MULTIVITAMIN WITH MINERALS (ALEKSEY MULTIPLE/CHELATED MINERAL ORAL) (2 sources) MULTIVITAMIN WIT H MINERALS (ALEKSEY MULTIPLE/CHELATED MINERAL ORAL) Take by mouth. Active Multivitamins-Minera ls-Lutein (CENTRUM SILVER) tab (2 sources) take 1 tablet by mouth once daily Multivitamins-Mineral s-Lutein (CENTRUM SILVER) tab Take 1 tablet by mouth once daily. Active naproxen 500 mg oral tablet (2 sources) Nonsteroidal Anti-inflammatory Drug take 1 tablet by mouth twice daily at mealtime naproxen 500 mg ORAL tablet Take 500 mg by mouth twice daily with meals. Active OMEGA-3 FATTY ACIDS/FISH OIL (OMEGA 3 FISH OIL ORAL) (2 sources) OMEGA-3 FATTY ACIDS/FISH OIL (OMEGA 3 FISH OIL ORAL) Take by mouth. Active pravastatin sodium 20 mg oral tablet (17 sources) HMG-CoA Reductase Inhibitor Start: End: 025 take 1 tablet by mouth once daily pravastatin (Pravachol) 20 MG tablet Indications: Mixed hyperlipidemia Take 1 tablet (20 mg) by mouth Daily 90 tablet 1 06/20/2024 11/12/2024 Discontinued (Side effects) vit A/vit C/vit E/zinc/copper (PRESERVISION AREDS ORAL) (1 source) vit A/vit C/vit E/zinc/copper (PRESERVISION AREDS ORAL) Take by mouth as directed. Active 100 ml zoledronic acid 0.05 mg/ml injection (20 sources) Bisphosphonate zoledronic acid (Reclast) 5 MG/100ML solution Indications: Osteoporosis Infuse 5 mg into a venous catheter yearly Active Zoledronic acid 5 MG/100ML Solution 100 mL by Intravenous route. Active zoledronic acid (RECLAST) 5 mg/100 mL PREMIX piggyback Inject 5 mg intravenously. Active Completed/Discontinued Medications Medication Drug Class(es) Dates Sig (Normalized) Sig (Original) acetaminophen 325 mg / oxyCODONE hydrochloride 5 mg oral tablet (4 sources) Opioid Agonist Start: 03-14-2024 End: 03-19-2024 take 1 tablet by mouth every eight hours for pain oxyCODONE-acetami nophen (Percocet) 5-325 MG tablet Indications: Rib pain on left side Take 1 tablet by mouth every 8 (eight) hours if needed for severe pain for up to 5 days 15 tablet 03/14/2024 03/19/2024 Start: 02-23-2024 End: 03-04-2024 take 1 tablet by mouth every six hours as needed for pain oxyCODONE-acetaminophen (Percocet) 5-325 MG tablet TAKE 1 TAB ORALLY EVERY 6 HOURS NEEDED FOR PAIN FOR 3 DAYS DX: R10.9 02/23/2024 03/04/2024 Discontinued (Therapy completed) methocarbamol 500 mg oral tablet (3 sources) Muscle Relaxant Start: 02-22-2024 End: 03-04-2024 take 1 tablet by mouth in the morning, then take 1 tablet by mouth in the evening, then take 1 tablet by mouth at bedtime methocarbamol (Robaxin) 500 MG tablet Take 500 mg by mouth in the morning and 500 mg in the evening and 500 mg before bedtime. 02/22/2024 03/04/2024 Discontinued (Therapy completed) methylPREDNISolone (3 sources) Corticosteroid Start: 02-22-2024 End: 03-04-2024 methylPREDNISolone (Medrol Dospak) 4 MG tablets TAKE [...] Active Problems Problem Classification Problem Date Documented Da te Episodic/Chronic Acquired foot deformities (2 sources) Hammer toe; Translations: [Other hammer toe(s) (acquired), right foot] 10-01-2024 Chronic Administrative/social admission (2 sources) Follow-up status; Translations: [Person consulting for explanation of examination or test findings] 05-19-2023 Episodic Cataract (2 sources) Senile cataract; Translations: [Unspecified age-related cataract] Onset: 11-17-2010 11-17-2010 Chronic Disorders of lipid metabolism (20 sources) Hyperlipidemia, unspecified; Translations: [Mixed hyperlipidemia] Onset: 09-05-2022 Chronic Essential hypertension (20 sources) Essential (primary) hypertension; Translations: [Essential hypertension] Onset: 09-08-2022 06-12-2023 Chronic Immunizations and screening for infectious disease (1 source) Other specified abnormal immunological findings in serum; Translations: [Other and unspecified nonspecific immunological findings] 05-15-2024 Episodic Mycoses (20 sources) Onychomycosis; Translations: [Tinea unguium] Onset: 11-21-2022 11-21-2022 Episodic Osteoporosis (20 sources) Age-related osteoporosis without current pathological fracture; Translations: [Senile osteoporosis] Onset: 03-03-2022 Resolved: 04-02-2024 Chronic Other bone disease and musculoskeletal deformities (1 source) Osteopenia; Translations: [Other specified disorders of bone density and structure, unspecified site] 04-17-2024 Episodic Other bone disease and musculoskeletal deformities (1 source) Other specified disorders of bone density and structure, unspecified site; Translations: [Other specified disorders of bone density and structure, unspecified site] Onset: 04-17-2024 Episodic Other connective tissue disease (2 sources) Pain of toe of right foot; Translations: [Pain in right toe(s)] 10-01-2024 Episodic Other fractures (1 source) Unspecified fracture of fourth lumbar vertebra, initial encounter for closed fracture; Translations: [Unspecified fracture of fourth lumbar vertebra, initial encounter for closed fracture] Onset: 02-23-2022 Episodic Other fractures (1 source) Closed fracture of one rib; Translations: [Fracture of one rib, unspecified side, initial encounter for closed fracture] 04-17-2024 Episodic Other fractures (1 source) Fracture of one rib, unspecified side, initial encounter for closed fracture; Translations: [Fracture of one rib, unspecified side, initial encounter for closed fracture] Onset: 04-17-2024 Episodic Other nutritional; endocrine; and metabolic disorders (2 sources) Obese class I; Translations: [Obesity, unspecified] Onset: 05-19-2023 05-19-2023 Chronic Other nutritional; endocrine; and metabolic disorders (1 source) Overweight; Translations: [Overweight] 05-17-2024 Episodic Other skin disorders (1 source) Dystrophia unguium; Translations: [Nail dystrophy] 10-01-2024 Episodic Other skin disorders (2 sources) Ingrowing toenail; Translations: [Ingrowing nail] 10-01-2024 Episodic Residual codes; unclassified (1 source) Obstructive sleep apnea (adult) (pediatric); Translations: [Obstructive sleep apnea (adult) (pediatric)] Onset: 04-03-2023 Chronic Residual codes; unclassified (20 sources) Obstructive sleep apnea syndrome; Translations: [Obstructive sleep apnea (adult) (pediatric)] Onset: 09-11-2023 05-19-2023 Chronic Residual codes; unclassified (2 sources) Hypoxia; 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] 05-19-2023 Chronic Spondylosis; intervertebral disc disorders; other back problems (7 sources) Lumbar spondylosis; Translations: [Spondylosis without myelopathy or radiculopathy, lumbar region] Onset: 11-12-2024 11-12-2024 Chronic Spondylosis; intervertebral disc disorders; other back problems (2 sources) Backache; Translations: [Dorsalgia, unspecified] Onset: 04-17-2024 04-17-2024 Episodic Past or Other Problems Problem Classification Problem Date Documented Da te Episodic/Chronic Cardiac dysrhythmias (20 sources) Bradycardia; Translations: [Bradycardia, unspecified] Onset: 4 06-12-2023 Episodic Mood disorders (17 sources) Mood disorders Onset: 4 04-02-2024 Neoplasms of unspecified nature or uncertain behavior (20 sources) Neoplastic disease of uncertain behavior; Translations: [Neoplasm of uncertain behavior, unspecified] Onset: 4 09-11-2023 Episodic Other acquired deformities (20 sources) Spondylolisthesis; Translations: [Spondylolisthesis, site unspecified] Onset: 4 06-12-2023 Episodic Other fractures (20 sources) Closed fracture thoracic vertebra, transverse process ; Translations: [Unspecified fracture of unspecified thoracic vertebra, subsequent encounter for fracture with delayed healing] Onset: 4 04-02-2024 Episodic Other gastrointestinal disorders (8 sources) Diarrhea; Translations: [Diarrhea, unspecified] Onset: 5 Resolved: 5 08-13-2024 Episodic Other hematologic conditions (15 sources) Protein electrophoresis abnormal; Translations: [Other specified abnormalities of plasma proteins] Onset: 5 05-14-2024 Episodic Other lower respiratory disease (20 sources) Rib pain; Translations: [Pleurodynia] Onset: 4 Resolved: 5 03-04-2024 Episodic Other non-traumatic joint disorders (20 sources) Pain in right knee; Translations: [Pain in joint, lower leg] Onset: 4 06-12-2023 Episodic Other non-traumatic joint disorders (20 sources) Chronic pain of right upper limb; Translations: [Pain in right shoulder] Onset: 4 06-12-2023 Episodic Other nutritional; endocrine; and metabolic disorders (20 sources) Body mass index 30+ - obesity; Translations: [Body mass index (BMI) 32.0-32.9, adult] Onset: 4 Resolved: 5 06-12-2023 Chronic Other screening for suspected conditions (not mental disorders or infectious disease) (20 sources) Encounter for screening mammogram for malignant neoplasm of breast; Translations: [Abnormal electrocardiogram [ECG] [EKG]] Onset: 2 Episodic Other skin disorders (20 sources) Eruption; Translations: [Rash and other nonspecific skin eruption] Onset: 4 06-12-2023 Episodic Pancreatic disorders (not diabetes) (20 sources) Cyst of pancreas; Translations: [Cyst of pancreas] Onset: 4 03-04-2024 Episodic Pathological fracture (20 sources) Age-related osteoporosis with current pathological fracture, vertebra(e), initial encounter for fracture; Translations: [Pathological fracture of vertebra due to osteoporosis] Onset: 2 06-12-2023 Episodic Results Test Name Value Interpretation Reference Range Facility MM TOMOSYNTHESIS SCREENING B Ion 12-10-2024 [place] [address] Mammography Report Signed Patient: CHRISTIE WATERMAN MR#: [id number] : 1945 Acct:[id number] Age/Sex: 78 / F ADM Date: 12/10/24 Loc: MAMMO Attending Dr: Alisha Ernst NP Ordering Physician: Alisha Ernst NP Results: Date of Service: 12/10/24 Follow Up: Procedure(s): MM tomosynthesis screening BI Accession Number(s): [id number] cc: Alisha Ernst NP Patient Name: CHRISTIE WATERMAN MR#: [id number] : 1945 Exam Date: 12/10/2024 Ordering Doctor: COURTNEY ERNST CHEESEMAKING LABORER RADIOLOGY REPORT PROCEDURE: MM TOMOSYNTHESIS SCREENING BI COMPARISON: MM TOMOSYNTHESIS SCREENING BI, 12/07/2023. MM TOMOSYNTHESIS SCREENING BI, 12/05/2022. MG MAMM SCREEN 3D CANDACE CAD, 12/02/2021. MG MAMM CANDACE SCRN W CAD DIG, 03/20/2014. INDICATIONS: Screening for malignant neoplasm Calculator Name NCI Breast Cancer Risk Assessment Tool 5 Year Breast Cancer Risk 1.60% Lifetime Breast Cancer Risk 3.00% Personal Breast Cancer No Personal Ovarian Cancer No Treatments None Family Cancers Aunt-maternal with breast cancer at age 70; Aunt-paternal with breast cancer at age 67. LOCATION: [facility] BREAST COMPOSITION: There are scattered areas of fibroglandular density. FINDINGS: DIAGNOSTIC CATEGORY 1--NEGATIVE. RIGHT BREAST: No significant suspicious finding. LEFT BREAST: No significant suspicious finding. RECOMMENDATIONS: ROUTINE MAMMOGRAM AND CLINICAL EVALUATION IN 12 MONTHS. PLEASE NOTE: A NORMAL MAMMOGRAM DOES NOT EXCLUDE THE POSSIBILITY OF BREAST CANCER. A CLINICALLY SUSPICIOUS PALPABLE LUMP SHOULD BE BIOPSIED. Dictated by: Farooq Clifton DO on 12/10/2024 at 16:02 Approved by: Farooq Clifton DO on 12/10/2024 at 16:05 Dictated By: Farooq Clifton M.D. Signed By: 12/10/241606 DD/ 04 TD/TT: Molder Wax Ball: [facility] Radiology, Sherly maxwell MD - 12/10/2024 [place] [address] Mammography Report Signed Patient: CHRISTIE WATERMAN MR#: [id number] : 1945 Acct:[id number] Age/Sex: 78 / F ADM Date: 12/10/24 Loc: MAMMO Attending Dr: Alisha Ernst NP Ordering Physician: Alisha Ernst NP Results: Date of Service: 12/10/24 Follow Up: Procedure(s): MM tomosynthesis screening BI Accession Number(s): [id number] cc: Alisha Ernst NP Patient Name: CHRISTIE WATERMAN MR#: [id number] : 1945 Exam Date: 12/10/2024 Ordering Doctor: COURTNEY ERNST CHEESEMAKING LABORER RADIOLOGY REPORT PROCEDURE: MM TOMOSYNTHESIS SCREENING BI COMPARISON: MM TOMOSYNTHESIS SCREENING BI, 12/07/2023. MM TOMOSYNTHESIS SCREENING BI, 12/05/2022. MG MAMM SCREEN 3D CANDACE CAD, 12/02/2021. MG MAMM CANDACE SCRN W CAD DIG, 03/20/2014. INDICATIONS: Screening for malignant neoplasm Calculator Name NCI Breast Cancer Risk Assessment Tool 5 Year Breast Cancer Risk 1.60% Lifetime Breast Cancer Risk 3.00% Personal Breast Cancer No Personal Ovarian Cancer No Treatments None Family Cancers Aunt-maternal with breast cancer at age 70; Aunt-paternal with breast cancer at age 67. LOCATION: [facility] BREAST COMPOSITION: There are scattered areas of fibroglandular density. FINDINGS: DIAGNOSTIC CATEGORY 1--NEGATIVE. RIGHT BREAST: No significant suspicious finding. LEFT BREAST: No significant suspicious finding. RECOMMENDATIONS: ROUTINE MAMMOGRAM AND CLINICAL EVALUATION IN 12 MONTHS. PLEASE NOTE: A NORMAL MAMMOGRAM DOES NOT EXCLUDE THE POSSIBILITY OF BREAST CANCER. A CLINICALLY SUSPICIOUS PALPABLE LUMP SHOULD BE BIOPSIED. Dictated by: Farooq Clifton DO on 12/10/2024 at 16:02 Approved by: Farooq Clifton, DO on 12/10/2024 at 16:05 Dictated By: Farooq Clifton M.D. Signed By: 12/10/24 1607 DD/ 1605 TD/TT: Molder Wax Ball: [facility] Radiology Study observation (narrative) [facility] MM TOMOSYNTHESIS SCREENING B IOrdered By: Radiologist Radiology on 12-10-2024 [facility] Work Phone: Neurosurgery Office/Clinic N oteon 05-23-2024 Neurosurgery Office/Clinic Note Chief Complaint Patient is being seen for back follow up. History of Present Illness Patient is a pleasant 78-year-old female with a history of hypertension, glaucoma, impaired fasting glucose, osteopenia (DEXA 09/2020: [facility]; treated with Reclast), successful right L3-4 unilateral laminotomy for bilateral decompression performed 10/22/[address] 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 Quiros 01/2022, who presents to the outpatient neurosurgical clinic today accompanied by her (and daughter via speaker phone), for follow up and imaging review on behalf of complaints of mid-inferior thoracic and left sided posterior chest wall pain. Patient reported the onset of her complaints approximately 3 1/2-4 months ago without precipitating injury/trauma or illness. At onset, she described midline and left-sided mid to inferior thoracic pain with associated pain in the left posterior chest wall. She reported pain to be constant, but predictably worse with mechanical movement and deep inspiration. Work up includes: X-rays thoracic spine 02/19/2024: No acute thoracic compression deformities Lumbar x-rays with flexion/extension views 02/19/2024: Remote L4 compression deformity status post kyphoplasty; no acute lumbar compression deformities; no instability MRI thoracic spine 03/08/2024: Edema noted in the left proximal 11th rib and left T11 transverse process with extension to the lateral aspect of the T10 and T11 vertebral bodies raising suspicion for fracture; degenerative changes without acute compression deformities of the thoracic spine; no significant central canal stenosis or cord compression CT thoracic spine 04/16/2024: Suggestion of bony callus/remodeling of the proximal left 11th rib consistent with healing fracture with pseudoarticulation to the T11 vertebral body Labs [facility] 04/19/2024: CBC and serum protein electrophoresis: Normal Today, patient reports spontaneous gross resolution in previous pain such that she has been pain-free for greater than 8 weeks. She currently denies significant pain in the thoracic region or left posterior thorax/chest wall. Patient denies associated numbness or paresthesias in [...] denies fevers, chills, anorexia, or fatigue. Patient states that outside of the above noted, she has been in her baseline state of health. She denies unintentional weight loss. She denies history of malignancy. Patient currently rates her pain at 0-1/10 on a standard pain scale. She states pain no longer interrupts sleep or activity level/function. She is no longer requiring daily medication management to control pain. Physical Exam Vitals & Measurements HR: 56 (Peripheral) BP: 122/60 HT: 160 cm WT: 84.8 kg WT: 84.8 kg (Dosing) BMI: 33.13 Additional Vitals BP Position/Location: Sitting, Left arm [...] out of 5 and equal bilateral lower ext (more content not included)... Normal [facility] Provider Letteron 05-23-2024 Provider Letter (Inserted Image. Brianna ble to display) Alisha Ernst, THERAPY ADMINISTRATIVE ASSISTANT-CHEESEMAKING LABORER [address] [place] [address] Re: Christie Waterman Date of Visit: 05/23/2024 Dear Alisha Ernst, Thank you for allowing me to contribute to the care of your patient, Christie Waterman. Attached is my office note and you will find my assessment and recommendations from our encounter today. Please do not hesitate to contact me with any questions or concerns. Sincerely, Tana Bruno PA-C [facility] [place] [address] The following document(s) were included in the letter: May 23, 2024 09:03:34 EST - (05/23/2024) Neurosurgery Office Visit Note Normal [facility] CNOVSPon 05-15-2024 CNOVSP Visit (SP) Office ([place]) CHRISTIE WATERMAN ([id number]) 1945 F Date Time Provider Department 05/15/24 2:00 PM BRYAN WANG During your visit today, we recorded the following information about you: Temperature Pulse Respiration Blood pressure 97.8 degrees 55/minute 16/minute 155/67 Weight 83.9 kg Bryan Wang MD 05/15/2024 2:40 PM Signed PATIENT NAME: Christie Waterman CLINIC NO.: [id number] ATTENDING PHYSICIAN: Bryan Wang MD DATE OF SERVICE: May 15, [address] Alisha Ernst, CHEESEMAKING LABORER ([facility]) [address] [facility] [id number] thank you for referring Christie Waterman for an opinion regarding abnormal serum light chain. CHIEF COMPLAINT: Abnormal serum light chain HPI: Christie Waterman is a 78 year old year old female with PMH of bradycardia, HTN, glaucoma. Mildly elevated serum kappa with normal FLC ratio. No evidence of M spike with normal serum immunofixation. Normal UPEP with urine BRENDAN. No major complaints. Current Outpatient Medications Medication Sig amLODIPine (NORVASC) 2.5 mg tablet Take 2.5 mg by mouth once daily. brimonidine (ALPHAGAN) 0.2 % ophthalmic solution Use 1 Drop in both eyes two times a day. cetirizine (ZYRTEC) 10 mg tablet Take 10 mg by mouth once daily. dorzolamide-timolol (COSOPT) 22.3-6.8 mg/mL ophthalmic solution Use 1 Drop in both eyes two times a day. latanoprost (XALATAN) 0.005 % ophthalmic solution Use 1 Drop in both eyes daily at bedtime. (Patient not taking: Reported on 05/14/2024) losartan (COZAAR) 100 mg tablet Take 100 mg by mouth once daily. Multivitamins-Minerals- Lutein (CENTRUM SILVER) tab Take 1 tablet by mouth once daily. pravastatin (PRAVACHOL) 20 mg tablet Take 20 mg by mouth once daily. (Patient not taking: Reported on 05/14/2024) zoledronic acid (RECLAST) 5 mg/100 mL PREMIX piggyback Inject 5 mg intravenously. dorzolamide 2 % OPHTHALMIC ophthalmic solution three times daily. (Patient not taking: Reported on 05/14/2024) carvedilol (COREG) 12.5 mg ORAL tablet Take 12.5 mg by mouth twice daily with meals. (Patient not taking: Reported on 05/14/2024) GLUC SAUCEDO/MSM/MAGNESIUM/VIT C (GLUCOSAMINE COMPLEX-MSM ORAL) Take by mouth. (Patient not taking: Reported on 05/14/2024) OMEGA-3 FATTY ACIDS/FISH OIL (OMEGA 3 FISH OIL ORAL) Take by mouth. (Patient not taking: Reported on 05/14/2024) MULTIVITAMIN WITH MINERALS (ALEKSEY MULTIPLE/CHELATED MINERAL ORAL) Take by mouth. (Patient not taking: Reported on 05/14/2024) Lutein 20 mg ORAL Cap Take 20 mg by mouth. (Patient not taking: Reported on 05/14/2024) Cholecalciferol, Vitamin D3, (VITAMIN D) 1,000 unit ORAL Cap Take 1,000 Units by mouth once daily. aspirin, enteric coated (ECOTRIN LOW STRENGTH) 81 mg ORAL EC tablet Take 81 mg by mouth once daily. (Patient not taking: Reported on 05/14/2024) naproxen 500 mg ORAL tablet Take 500 mg by mouth twice daily with meals. (Patient not taking: Reported on 05/14/2024) No current facility-administered medications for this visit. ALLERGIES Allergen Reactions Alphagan [Brimonidi* Itching Lisinopril Cough MARTY inhibitors PAST MEDICAL HISTORY Diagnosis Date Abnormal serum protein electrophoresis Bradycardia Closed fracture of transverse process of thoracic vertebra (HCC) Glaucoma History of tobacco abuse HTN (hypertension) Idiopathic neuropathy Mixed hyperlipidemia Obesity Onychomycosis VAL (obstructive sleep apnea) Osteoporosis Pancreatic cyst Ruptured, tendon, Achilles Spondylolisthesis PAST SURGICAL HISTORY Procedure Laterality Date CARPAL TUNNEL bilateral CHOLECYSTECTOMY OSTECTOMY CALCANEUS SPUR W/WO PLNTAR FASCIAL RLS PAST SURGICAL HISTORY OF bleb revision PAST SURGICAL HISTORY OF Fibroadenoma REMV CATARACT EXTRACAP,INSERT LENS FAMILY HISTORY Problem Relation Age of Onset Diabetes Father Hypertension Mother Social History Tobacco Use Smoking status: Former Tobacco comments: quit Substance Use Topics Alcohol use: No Drug use: No REVIEW OF SYSTEMS GENERAL: No weight loss, malaise or fevers. No night sweats. HEENT: Negative for headaches, No changes in hearing or vision, no nose bleeds or other nasal problems. RESPIRATORY: Negative for cough, wheezing and shortness of breath CARDIOVASCULAR: Negative for chest pain, leg swelling and palpitations GI: Negative for abdominal discomfort, blood in stools or black stools and change in bowel habits : Negative for dysuria, frequency and incontinence MUSCULOSKELETAL: Negative for joint pain or swelling, back pain, and muscle pain. SKIN: Negative for lesions, rash, and itching. HEMATOLOGY/LYMPHOLOGY Negative for prolonged bleeding, bruising easily, and swollen nodes. NEURO: Negative for numbness or tingling of hands/feet. No weakness. PHYSICAL EXAMINATION: BP 178/71 Pulse (!) (more content not included)... Normal [facility] CT THORACIC SPINE WO CONTRAS Ton 04-22-2024 CT THORACIC SPINE WO CONTRAST EXAMINATION: CT OF THE THORACIC SPINE WITHOUT [...] pain laterality, unspecified chronicity TECHNOLOGIST PROVIDED HISTORY: [facility] PROTOCOL WITH RECONSTRUCTION VIEWS FINDINGS: BONES/ALIGNMENT: Osteopenia. [...] by: Justo Mcmullen MD 04/22/24 Final result Normal [facility] ALL CBC WITH AUTO DIFFon BASOPHILS ABSOLUTE AUTO 0.1 [facility] Basophils/100 WBC (Bld) 1.2 % 0.2 - 2.0 % [facility] Eosinophils/100 WBC (Bld) 1.8 % 0.9 - 7.0 % [facility] Erythrocyte distribution width (RBC) [Ratio] 13.5 % 11.0 - 15.0 % [facility] Hematocrit (Bld) [Volume fraction] 38.7 % 36.0 - 48.0 % [facility] Hemoglobin (Bld) [Mass/Vol] 12.7 g/dL 12.0 - 16.0 g/dL [facility] IMMATURE GRANULOCYTES ABS AUTO 0.01 [facility] Immature granulocytes/100 WBC (Bld) 0.2 % 0.0 - 0.5 % [facility] Interpretation and review of laboratory results Abnormal [facility] LYMPHOCYTES ABSOLUTE AUTO 1 Low [facility] Lymphocytes/100 WBC (Bld) 20.4 % Low 20.5 - 60.0 % [facility] MCH (RBC) [Entitic mass] 29.7 pg 26.7 - 34.0 pg [facility] MCHC (RBC) [Mass/Vol] 32.8 g/dL 29.9 - 35.2 g/dL [facility] MCV (RBC) [Entitic vol] 90.4 fL 81.0 - 99.0 fL [facility] MONOCYTES ABSOLUTE AUTO 0.5 [facility] Monocytes/100 WBC (Bld) 9.1 % 1.7 - 12.0 % [facility] NEUTROPHILS ABSOLUTE AUTO 3.4 [facility] Neutrophils/100 WBC (Bld) 67.3 % 43.0 - 75.0 % [facility] Platelet mean volume (Bld) [Entitic vol] 9.3 fL Low 9.5 - 13.5 fL [facility] EO # 0.1 [facility] PLT 207 [facility] RBC 4.28 [facility] WBC 5.1 [facility] CLINISYNC [facility] Neurosurgery Office/Clinic N oteon 04-05-2024 Neurosurgery Office/Clinic Note Chief Complaint Back follow up History of Present Illness Patient is a pleasant 78-year-old female with a history of hypertension, glaucoma, impaired fasting glucose, osteopenia (DEXA 09/2020: [facility]; treated with Reclast), obesity (BMI 34), successful [...] today accompanied by her (and daughter via speaker phone), for follow up and imaging review on behalf of complaints of recent onset mid-inferior thoracic and left sided posterior chest wall pain. Patient reports the onset of her complaints approximately 8-10 weeks ago without precipitating injury/trauma or illness. Patient has describes midline and left-sided mid to inferior thoracic pain with associated pain in the left posterior chest wall. She has reported pain to be constant, but predictably worse with mechanical movement and deep inspiration. Work up includes: X-rays thoracic spine 02/19/2024: No acute thoracic compression deformities Lumbar x-rays with flexion/extension views 02/19/2024: Remote L4 compression deformity status post kyphoplasty; no acute lumbar compression deformities; no instability MRI thoracic spine 03/08/2024: Edema noted in the left proximal 11th rib and left T11 transverse process with extension to the lateral aspect of the T10 and T11 vertebral bodies raising suspicion for fracture; degenerative changes without acute compression deformities of the thoracic spine; no significant central canal stenosis or cord compression Today, patient reports near gross resolution in previous pain in the interval of the past 6 to 8 weeks. She reports very minimal residual pain in the left inferior thoracic paravertebral region correlative with T11/left 11th rib that continues to be predictably aggravated mechanical movement. She no longer reports pain with inspiration/expiration. Patient denies radicular pain into the chest wall/thorax. Patient denies associated numbness or paresthesias in [...] denies fevers, chills, anorexia, or fatigue. Patient states that outside of the above noted, she has been in her baseline state of health. She denies unintentional weight loss. She denies history of malignancy. Patient currently rates her pain at 0-1/10 on a standard pain scale. She states pain no longer interrupts sleep or activity level/function. She is no longer requiring daily medication management to control pain. Physical Exam Vitals & Measurements HR: 55 (Peripheral) BP: 155/76 HT: 160 cm WT: 80.8 kg WT: 80.8 kg (Dosing) BMI: 31.56 Additional Vitals BP Position/Location: Sitting, Right arm General: [Alert and oriented, well nourished, [...] and equal bilateral lower extremities. No myelopathic fea (more content not included)... Normal [facility] Provider Letteron 04-05-2024 Provider Letter (Inserted Image. Brianna ble to display) Alisha Ernst, THERAPY ADMINISTRATIVE ASSISTANT-CHEESEMAKING LABORER [address] [place] [address] Re: Chirstie Waterman Date of Visit: 04/05/2024 Dear Alisha Ernst, Thank you for allowing me to contribute to the care of your patient, Christie Waterman. Attached is my office note and you will find my assessment and recommendations from our encounter today. Please do not hesitate to contact me with any questions or concerns. Sincerely, Tana Bruno PA-C [facility] [address] [address] The following document(s) were included in the letter: April 05, 2024 09:52:47 EST - (04/05/2024) Neurosurgery Office Visit Note Normal [facility] MRI Spine Thoracic w/o Contr jes 03-11-2024 [...] Electronically Signed in Other Vendor System) Normal [facility] XR Ribs w/ PA Chest Lefton [...] Electronically Signed in Other Vendor System) Normal [facility] XR Spine Lumbosacral Complet e w/ [...] Electronically Signed in Other Vendor System) Normal [facility] XR Spine Thoracic 3 Viewson 02-20-2024 [...] Electronically Signed in Other Vendor System) Normal [facility] Neurosurgery Office/Clinic Omid marvin 02-19-2024 Neurosurgery Office/Clinic Note Chief Complaint Lumbar pain-last seen 2021 History of Present Illness Patient is a pleasant 78-year-old female with a history of hypertension, glaucoma, impaired fasting glucose, osteopenia (DEXA 09/2020: [facility]; treated with Reclast), obesity (BMI 34), successful [...] to undergo kyphoplasty via her treating pain senior finance manager, Dr. Quiros, and was therefore released [...] states her pain has been refractory to [id number]-dhoroxs analgesics including Tylenol. She denies physical therapy, manager critical care, or injection modalities through pain management. Physical [...] surgery Ordered: (more content not included)... Normal [facility] Provider Letteron 02-19-2024 Provider Letter (Inserted Image. Brianna ble to display) Alisha Ernst, THERAPY ADMINISTRATIVE ASSISTANT-CHEESEMAKING LABORER [address] [place] [address] Re: Christie Waterman Date of Visit: 02/19/2024 Dear Alisha Ernst, Thank you for allowing me to contribute to the care of your patient, Christie Waterman. Attached is my office note and you will find my assessment and recommendations from our encounter today. Please do not hesitate to contact me with any questions or concerns. Sincerely, Tana Bruno PA-C [facility] [place] [address] The following document(s) were included in the letter: February 19, 2024 12:33:11 EDT - (02/19/2024) Neurosurgery Office Visit Note Normal [facility] CBC AUTO DIFFon 09-05-2022 BASO # 0.1 103/ul Normal 0.0-0.1 [facility] Comment on above: Performed By: #### C BC #### [facility] [address] [address] [address] Sheila Alford Basophils/100 WBC (Bld) 0.9 % Normal 0.2-2.0 [facility] Comment on above: Performed By: #### C BC #### [facility] [address] [address] [address] Sheila Alford EO # 0.1 103/ul Normal 0.0-0.7 [facility] Comment on above: Performed By: #### C BC #### [facility] [address] [place] [address] Dr. Sheila Alford Eosinophils/100 WBC (Bld) 1.5 % Normal 0.9-7.0 [facility] Comment on above: Performed By: #### C BC #### [facility] [address] [place] [address] Dr. Sheila Alford Erythrocyte distribution width (RBC) [Ratio] 13.2 % Normal 11.0-15.0 [facility] Comment on above: Performed By: #### C BC #### [facility] [address] [place] [address] Dr. Sheila Alford Hematocrit (Bld) [Volume fraction] 41.4 % Normal 36.0-48.0 [facility] Comment on above: Performed By: #### C BC #### [facility] [address] [place] [address] Dr. Sheila Alford Hemoglobin (Bld) [Mass/Vol] 13.2 g/dL Normal 12.0-16.0 [facility] Comment on above: Performed By: #### C BC #### [facility] [address] [place] [address] Dr. Sheila Alford IG # 0.01 10e3/ul Normal 0.00-0.03 [facility] Comment on above: Performed By: #### C BC #### [facility] [address] [place] [address] Dr. Sheila Alford IG % 0.2 % Normal 0.0-0.5 [facility] Comment on above: Performed By: #### C BC #### [facility] [address] [place] [address] Dr. Sheila Alford LYMPH # 1.3 103/ul Normal 1.2-3.8 [facility] Comment on above: Performed By: #### C BC #### [facility] [address] [place] [address] Dr. Sheila Alford Lymphocytes/100 WBC (Bld) 24.4 % Normal 20.5-60.0 [facility] Comment on above: Performed By: #### C BC #### [facility] [address] [place] [address] Dr. Sheila Alford MANUAL DIFF REQ NO Normal [facility] Comment on above: Performed By: #### C BC #### [facility] [address] [place] [address] Dr. Sheila Alford MCH (RBC) [Entitic mass] 29.1 pg Normal 26.7-34.0 [facility] Comment on above: Performed By: #### C BC #### [facility] [address] [place] [address] Dr. Sheila Alford MCHC (RBC) [Mass/Vol] 31.9 g/dL Normal 29.9-35.2 [facility] Comment on above: Performed By: #### C BC #### [facility] [address] [place] [address] Dr. Sheila Alford MCV (RBC) [Entitic vol] 91.2 fL Normal 81.0-99.0 [facility] Comment on above: Performed By: #### C BC #### [facility] [address] [place] [address] Dr. Sheila Alford MONO # 0.5 103/ul Normal 0.3-0.8 [facility] Comment on above: Performed By: #### C BC #### [facility] [address] [place] [address] Dr. Sheila Alford Monocytes/100 WBC (Bld) 9.1 % Normal 1.7-12.0 [facility] Comment on above: Performed By: #### C BC #### [facility] [address] [place] [address] Dr. Sheila Alford NEUT # 3.4 103/ul Normal 1.4-6.5 [facility] Comment on above: Performed By: #### C BC #### [facility] [address] [place] [address] Dr. Sheila Alford Neutrophils/100 WBC (Bld) 63.9 % Normal 43.0-75.0 [facility] Comment on above: Performed By: #### C BC #### [facility] [address] [address] [address] Sheila Alford Platelet mean volume (Bld) [Entitic vol] 9.4 fL Critically low 9.5-13.5 [facility] Comment on above: Performed By: #### C BC #### [facility] [address] [address] [address] Sheila Alford PLT 219 103/ul Normal 150-450 [facility] Comment on above: Performed By: #### C BC #### [facility] [address] [address] [address] Sheila Alford RBC 4.54 106/ul Normal 4.20-5.40 [facility] Comment on above: Performed By: #### C BC #### [facility] [address] [place] [address] Dr. Sheila Alford WBC 5.4 103/ul Normal 4.0-11.0 [facility] Comment on above: Performed By: #### C BC #### [facility] [address] [place] [address] Dr. Sheila Alford LIPID PROFILEon 09-05-2022 CHOL-HDL RATIO NORM SEE BELOW Normal [facility] Comment on above: Result Comment: 3.3 - 4.4 LOW RISK 4.4 - 7.1 AVERAGE RISK 7.1 - 11.0 MODERATE RISK >11.0 HIGH RISK Performed By: #### C MP, LIPID #### [facility] [address] [place] [address] Dr. Sheila Alford Cholesterol [Mass/Vol] 261 mg/dL Critically high <=200 [facility] Comment on above: Performed By: #### C MP, LIPID #### [facility] [address] [place] [address] Dr. Sheila Alford Cholesterol in HDL [Mass/Vol] 84 mg/dL Critically high 40-60 [facility] Comment on above: Performed By: #### C MP, LIPID #### [facility] [address] [place] [address] Dr. Sheila Alford Cholesterol in LDL [Mass/Vol] 157.8 mg/dL Normal [facility] Comment on above: Performed By: #### C MP, LIPID #### [facility] [address] [address] [address] Sheila Alford Cholesterol.total/C holesterol in HDL [Mass ratio] 3.1 {ratio} Normal [facility] Comment on above: Performed By: #### C MP, LIPID #### [facility] [address] [place] [address] Dr. Sheila Alford HDL NORMAL > or = 60 mg/dl - LO W CARDIOVASCULAR RISK <40 mg/dl - HIGH CARDIOVASCULAR RISK Normal [facility] Comment on above: Performed By: #### C MP, LIPID #### [facility] [address] [place] [address] Dr. Sheila Alford LDL CALC NORMAL SEE BELOW Normal [facility] Comment on above: Result Comment: <100 mg/dl OPTIMAL 100 - 129 mg/dl NEAR OR ABOVE OPTIMAL 130 - 159 mg/dl BORDERLINE HIGH 160 - 189 mg/dl HIGH >190 mg/dl VERY HIGH Performed By: #### C MP, LIPID #### [facility] [address] [place] [address] Dr. Sheila Alford Triglyceride [Mass/Vol] 96 mg/dL Normal <=150 [facility] Comment on above: Performed By: #### C MP, LIPID #### [facility] [address] [place] [address] Dr. Sheila Alford VLDL CALC 19.2 mg/dL Normal [facility] Comment on above: Performed By: #### C MP, LIPID #### [facility] [address] [place] [address] Dr. Sheila Alford PROF 14(COMP METB)on 023 Albumin [Mass/Vol] 3.6 g/dL Normal 3.4-5.0 [facility] Comment on above: Performed By: #### C MP, LIPID #### [facility] [address] [place] [address] Dr. Sheila Alford Albumin/Globulin [Mass ratio] 0.9 {ratio} Normal [facility] Comment on above: Performed By: #### C MP, LIPID #### [facility] [address] [address] [address] Sheila Alford ALP [Catalytic activity/Vol] 46 U/L Normal 46-116 [facility] Comment on above: Performed By: #### C MP, LIPID #### [facility] [address] [address] [address] Sheila Alford ALT [Catalytic activity/Vol] 20 U/L Normal 14-59 [facility] Comment on above: Performed By: #### C MP, LIPID #### [facility] [address] [address] [address] Sheila Alford Anion gap [Moles/Vol] 10.8 mmol/L Normal [facility] Comment on above: Performed By: #### C MP, LIPID #### [facility] [address] [address] [address] Sheila Alford AST [Catalytic activity/Vol] 18 U/L Normal 15-37 [facility] Comment on above: Performed By: #### C MP, LIPID #### [facility] [address] [address] [address] Sheila Alford Bilirubin [Mass/Vol] 0.4 mg/dL Normal 0.2-1.0 [facility] Comment on above: Performed By: #### C MP, LIPID #### [facility] [address] [address] [address] Sheila Alford Calcium [Mass/Vol] 9.3 mg/dL Normal 8.5-10.1 [facility] Comment on above: Performed By: #### C MP, LIPID #### [facility] [address] [address] [address] Sheila Alford Chloride [Moles/Vol] 108 mmol/L Critically high 98-107 [facility] Comment on above: Performed By: #### C MP, LIPID #### [facility] [address] [address] [address] Sheila Alford CO2 [Moles/Vol] 29.5 mmol/L Normal 21.0-32.0 [facility] Comment on above: Performed By: #### C MP, LIPID #### [facility] [address] [address] [address] Sheila Alford Creatinine [Mass/Vol] 0.54 mg/dL Critically low 0.55-1.02 [facility] Comment on above: Performed By: #### C MP, LIPID #### [facility] [address] [address] [address] Sheila Alford EGFR-AF CITIZEN [place] >60 Normal >=60 [facility] Comment on above: Performed By: #### C MP, LIPID #### [facility] [address] [address] [address] Sheila Alford EGFR-NON AF CITIZEN OF [place] >60 Normal >=60 [facility] Comment on above: Performed By: #### C MP, LIPID #### [facility] [address] [address] [address] Sheila Alford Globulin (S) [Mass/Vol] 4.1 g/dL Normal [facility] Comment on above: Performed By: #### C MP, LIPID #### [facility] [address] [address] [address] Sheila Alford Glucose [Mass/Vol] 102 mg/dL Normal 74-106 [facility] Comment on above: Performed By: #### C MP, LIPID #### [facility] [address] [address] [address] Sheila Alford Potassium [Moles/Vol] 4.3 mmol/L Normal 3.5-5.1 [facility] Comment on above: Performed By: #### C MP, LIPID #### [facility] [address] [address] [address] Sheila Alford Protein [Mass/Vol] 7.7 g/dL Normal 6.4-8.2 [facility] Comment on above: Performed By: #### C MP, LIPID #### [facility] [address] [address] [address] Sheila Alford Sodium [Moles/Vol] 144 mmol/L Normal 136-145 [facility] Comment on above: Performed By: #### C MP, LIPID #### [facility] [address] [address] [address] Sheila Alford Urea nitrogen [Mass/Vol] 17.0 mg/dL Normal 7.0-18.0 [facility] Comment on above: Performed By: #### C MP, LIPID #### [facility] [address] [address] [address] Sheila Alford Urea nitrogen/Creatinine [Mass ratio] 31.5 mg/mg Normal [facility] Comment on above: Performed By: #### C MP, LIPID #### [facility] [address] [address] [address] Sheila Alford UA RANDOM W/MICROSCOPICon BACTERIA TRACE Abnormal NONE SEEN [facility] Comment on above: Performed By: #### U AMIC #### [facility] [address] [place] [address] Dr. Sheila Alford Bilirubin Ql (U) Negative Normal NEGATIVE [facility] Comment on above: Performed By: #### U AMIC #### [facility] [address] [place] [address] Dr. Sheila Alford CAST NONE SEEN Normal NONE SEEN [facility] Comment on above: Performed By: #### U AMIC #### [facility] [address] [place] [address] Dr. Sheila Alford Clarity (U) CLEAR Normal CLEAR [facility] Comment on above: Performed By: #### U AMIC #### [facility] [address] [place] [address] Dr. Sheila Alford Color (U) LT. YELLOW Normal YELLOW [facility] Comment on above: Performed By: #### U AMIC #### [facility] [address] [place] [address] Dr. Sheila Aflord Crystals LM Nom (Urine sed) NONE SEEN Normal NONE SEEN [facility] Comment on above: Performed By: #### U AMIC #### [facility] [address] [place] [address] Dr. Sheila Alford Epithelial cells LM Ql (Urine sed) RARE Normal NONE SEEN /RARE [facility] Comment on above: Performed By: #### U AMIC #### [facility] [address] [address] [address] Sheila Alford Glucose Ql (U) Negative Normal NEGATIVE [facility] Comment on above: Performed By: #### U AMIC #### [facility] [address] [address] [address] Sheila Alford Hemoglobin Ql (U) Negative Normal NEGATIVE [facility] Comment on above: Performed By: #### U AMIC #### [facility] [address] [address] [address] Sheila Alford Ketones Ql (U) Negative Normal NEGATIVE [facility] Comment on above: Performed By: #### U AMIC #### [facility] [address] [address] [address] Sheila Alford LEUKOCYTES Negative Normal NEGATIVE [facility] Comment on above: Performed By: #### U AMIC #### [facility] [address] [address] [address] Sheila Alford MUCOUS NONE SEEN Normal NONE SEEN [facility] Comment on above: Performed By: #### U AMIC #### [facility] [address] [address] [address] Sheila Alford Nitrite Ql (U) Negative Normal NEGATIVE [facility] Comment on above: Performed By: #### U AMIC #### [facility] [address] [address] [address] Sheila Alford pH (U) 7.0 [pH] Normal 5-9 [facility] Comment on above: Performed By: #### U AMIC #### [facility] [address] [address] [address] Sheila Alford RBC 0-2 Normal 0-2 [facility] Comment on above: Performed By: #### U AMIC #### [facility] [address] [address] [address] Sheila Alford SPEC GRAVITY 1.015 Normal 1.005-<=1.025 [facility] Comment on above: Performed By: #### U AMIC #### [facility] [address] [address] [address] Sheila Alford UA PROTEIN Negative Normal NEGATIVE/ TRACE [facility] Comment on above: Performed By: #### U AMIC #### [facility] [address] [place] [address] Dr. Sheila Alford Urobilinogen Qn (U) 0.2 {Ciera'U}/dL Normal 0.2 - 1. 0 [facility] Comment on above: Performed By: #### U AMIC #### [facility] [address] [place] [address] Dr. Sheila Alford WBC NONE SEEN Normal NONE SEEN [facility] Comment on above: Performed By: #### U AMIC #### [facility] [address] [place] [address] Dr. Sheila Alford VITAMIN D 25 OHon 09-05-2022 VIT D 25-OH 57.2 ng/mL Normal [facility] Comment on above: Performed By: #### V ITAD #### [facility] [address] [place] [address] Dr. Sheila Alford VIT D RANGES SEE BELOW Normal [facility] Comment on above: Result Comment: <20 ng/mL Vit D deficient 20 - <30 ng/mL Vit D insufficient 30 - 100 ng/mL Vit D sufficient >100 ng/mL Potential Toxicity Performed By: #### V ITAD #### [facility] [address] [place] [address] Dr. Sheila Alford PROF CHEM 8 (BAS METB)on Anion gap [Moles/Vol] 6.4 mmol/L Normal [facility] Comment on above: Performed By: #### B MP #### [facility] [address] [place] [address] Dr. Sheila Alford Calcium [Mass/Vol] 9.3 mg/dL Normal 8.5-10.1 [facility] Comment on above: Performed By: #### B MP #### [facility] [address] [place] [address] Dr. Sheila Alford Chloride [Moles/Vol] 105 mmol/L Normal 98-107 [facility] Comment on above: Performed By: #### B MP #### [facility] [address] [address] [address] Sheila Alford CO2 [Moles/Vol] 31.1 mmol/L Normal 21.0-32.0 [facility] Comment on above: Performed By: #### B MP #### [facility] [address] [address] [address] Sheila Alford Creatinine [Mass/Vol] 0.57 mg/dL Normal 0.55-1.02 [facility] Comment on above: Performed By: #### B MP #### [facility] [address] [address] [address] Sheila Alford EGFR-AF CITIZEN [place] >60 Normal >=60 [facility] Comment on above: Performed By: #### B MP #### [facility] [address] [place] [address] Dr. Sheila Alford EGFR-NON AF CITIZEN OF [place] >60 Normal >=60 [facility] Comment on above: Performed By: #### B MP #### [facility] [address] [place] [address] Dr. Sheila Alford Glucose [Mass/Vol] 90 mg/dL Normal 74-106 [facility] Comment on above: Performed By: #### B MP #### [facility] [address] [place] [address] Dr. Sheila Alford Potassium [Moles/Vol] 4.5 mmol/L Normal 3.5-5.1 [facility] Comment on above: Performed By: #### B MP #### [facility] [address] [place] [address] Dr. Sheila Alford Sodium [Moles/Vol] 138 mmol/L Normal 136-145 [facility] Comment on above: Performed By: #### B MP #### [facility] [address] [address] [address] Sheila Alford Urea nitrogen [Mass/Vol] 16.0 mg/dL Normal 7.0-18.0 [facility] Comment on above: Performed By: #### B MP #### [facility] [address] [address] [address] Sheila Alford Urea nitrogen/Creatinine [Mass ratio] 28.1 mg/mg Normal [facility] Comment on above: Performed By: #### B #### [facility] [address] [place], [place] [address] Dr. Sheila Alford SURGICALon 02-23-2022 SURGICAL [facility] CHRISTIE WATERMAN [id number] Assoc. Page 1 of [address] [place] [address] PROC: 02/23/2022 [facility] RECV: 02/24/[address] RPTD: 02/25/2022 [place] [address] LOC: [facility] ACCT: [id number] SEX: F : 1945 AGE: 76 Y [...] developed and its performance characteristics determined by [facility]. It has not been cleared or approved by the U.S. Food and Drug Administration. Pursuant to the requirements of CLIA, this laboratory has established and verified the test's accuracy and precision. Additional information about this type of test is available upon request. [id number] MIMI FERRO D.O., F.C.ALuizP. [facility]/ [facility] Printed on: 02/25/2022 [address] [place], [place] [address] Original print date: 02/25/2022 Normal [facility] Surgical Pathology Requeston 02-23-2022 ALEX SEE BELOW Normal [facility] Comment on above: Order Comment: Crush fracture of vertebra due to osteoporosis, initial encounter ([facility]) [M80.08XA] Pre-op diagnosis: L4 VERTEBRAL BODY Result Comment: [facility] CHRISTIE WATERMAN [id number]\X0D0A\Assoc. Page 1 of 1\X0D0A\[address]\X0D0A\[place] [address]\X0D0A\ PROC: 02/23/2022\X0D0A\NVML/. [facility] RECV: 02/24/2022\X0D0A\[address] RPTD: 02/25/2022\[place]0D0A\[place] [address]\X0D0A\ LOC: [place]\X0D0A\ ACCT: [id number] SEX: F\X0D0A\ : 1945 AGE: 76 Y\X0D0A\X0D0A\ [...] was developed and its performance characteristics determined\X0D0A\by [facility]. It has not been cleared or\X0D0A\approved by the U.S. Food and Drug Administration. Pursuant to the\X0D0A\requirements of CLIA, this laboratory has established and verified the\X0D0A\test's accuracy and precision. Additional information about this type\X0D0A\of test is available upon request.\X0D0A\X0D0A\64908\X0D0A\[address]1962\X0D0A\X0D0A\X0D0A\ \X0D0A\ MIMI Staci FERRO, F.C.A.P.\X0D0A\X0D0A\X0D0A\[facility]/ [facility] Printed on: 02/25/2022\X0D0A\[address]\X0D0A\[place], [place] [address]\X0D0A\Original print date: 02/25/2022 Performed By: #### [id number] #### [facility] See Report MG MAMM SCREEN 3D CANDACE CADon 12-02-2021 MG MAMM SCREEN 3D CANDACE CAD Patient: CHRISTIE WATERMAN Exam Date: 12/02/2021 : 1945 Gender:F Ordering : [facility] Admission #: [id number] Family : Order #: [id number] CLICK HERE TO VIEW EXAM RADIOLOGY REPORT [...] Treatments None Family Cancers None LOCATION: [facility] BREAST COMPOSITION: Almost entirely fatty. FINDINGS: DIAGNOSTIC [...] M.D. on 12/03/2021 at 09:51 Normal [facility] NM STRESS/REST MULTIon 10-11 NM STRESS/REST MULTI Patient: CHRISTIE WATERMAN Exam Date: 10/11/2021 : 1945 Gender:F Ordering : COURTNEY ALISHAElmo [facility] Admission #: [id number] Family : Order #: [id number] CLICK HERE TO VIEW EXAM RADIOLOGY REPORT [...] Davila M.D. on 10/12/2021 at 09:[address] [facility] Vital Signs Date Time Vital Sign Value Performing Clinician Stefanie farley 11-12-2024 08:59-0400 Body mass index (BMI) [Ratio] 31.53 kg/m2 Alishaelmo Santiagoapril [employer] Work Phone: [facility] 11-12-2024 08:59-0400 Body temperature 98.49 [degF] Alisha Pamelaholz [employer] Work Phone: [facility] 11-12-2024 08:59-0400 Body weight 80.74 kg Alishaelmo Santiagoholz [employer] Work Phone: [facility] 11-12-2024 08:59-0400 Diastolic blood pressure 70 mm[Hg] Alisha Eliuhholz [employer] Work Phone: [facility] 11-12-2024 08:59-0400 Heart rate 48 /min Alisha Eliuhholz [employer] Work Phone: [facility] 11-12-2024 08:59-0400 Respiratory rate 18 /min Alisha Pamelaholz [employer] Work Phone: [facility] 11-12-2024 08:59-0400 SaO2% (BldA) [Mass fraction] 98 % Alisha Pamelaholz [employer] Work Phone: [facility] 11-12-2024 08:59-0400 Systolic blood pressure 124 mm[Hg] Alisha Pamelaholz [employer] Work Phone: [facility] 05-17-2024 14:25-0500 Body height 160 cm Eunice GALARZA Work Phone: [facility] 05-17-2024 14:25-0500 Body mass index (BMI) [Ratio] 33.14 kg/m2 Eunice Cheryl THERAPY ADMINISTRATIVE ASSISTANT-CHEESEMAKING LABORER Work Phone: [employer] 05-17-2024 14:25-0500 Body weight 84.87 kg Eunice Cheryl THERAPY ADMINISTRATIVE ASSISTANT-CHEESEMAKING LABORER Work Phone: [employer] 05-17-2024 14:25-0500 Diastolic blood pressure 80 mm[Hg] Eunice Cheryl THERAPY ADMINISTRATIVE ASSISTANT-CHEESEMAKING LABORER Work Phone: [facility] 05-17-2024 14:25-0500 Heart rate 49 /min Eunice Cheryl THERAPY ADMINISTRATIVE ASSISTANT-CHEESEMAKING LABORER Work Phone: [facility] 05-17-2024 14:25-0500 Respiratory rate 16 /min Eunice Cheryl THERAPY ADMINISTRATIVE ASSISTANT-CHEESEMAKING LABORER [facility] 05-17-2024 14:25-0500 SaO2% (BldA) [Mass fraction] 95 % Eunice Cheryl THERAPY ADMINISTRATIVE ASSISTANT-CHEESEMAKING LABORER Work Phone: [facility] Comment on above: RA 05-17-2024 14:25-0500 Systolic blood pressure 140 mm[Hg] Eunice Cheryl THERAPY ADMINISTRATIVE ASSISTANT-CHEESEMAKING LABORER Work Phone: [facility] 05-15-2024 13:47-0500 Diastolic blood pressure 67 mm[Hg] Bryan Wang MD Work Phone: [facility] Comment on above: recheck 05-15-2024 13:47-0500 Systolic blood pressure 155 mm[Hg] Bryan Wang MD Work Phone: [facility] Comment on above: recheck 05-15-2024 13:43-0500 Body temperature 97.81 [degF] Bryan Wang MD Work Phone: [facility] 05-15-2024 13:43-0500 Body weight 83.9 kg Bryan Wang MD Work Phone: [facility] 05-15-2024 13:43-0500 Heart rate 55 /min Bryan Wang MD Work Phone: [facility] 05-15-2024 13:43-0500 Respiratory rate 16 /min Bryan Wang MD Work Phone: [facility] 05-15-2024 13:43-0500 SaO2% (BldA) [Mass fraction] 99 % Bryan Wang MD Work Phone: [facility] 05-14-2024 08:56-0500 Body height 160 cm Alisha Eliuhholz [employer]SEM[employer]ER Work Phone: [facility] 05-14-2024 08:56-0500 Body mass index (BMI) [Ratio] 32.74 kg/m2 Alisha Aichholz [employer] Work Phone: [facility] 05-14-2024 08:56-0500 Body temperature 97.5 [degF] Alisha Aichholz [employer] Work Phone: [facility] 05-14-2024 08:56-0500 Body weight 83.83 kg Alisha Aichholz [employer]ER Work Phone: [facility] 05-14-2024 08:56-0500 Diastolic blood pressure 62 mm[Hg] Alisha Aichholz [employer]SEM[employer]ER Work Phone: [facility] 05-14-2024 08:56-0500 Heart rate 49 /min Alisha Aichholz [employer] ASSEMBLER Work Phone: [facility] 05-14-2024 08:56-0500 Respiratory rate 18 /min Alisha Aichholz [employer]ER Work Phone: [facility] 05-14-2024 08:56-0500 SaO2% (BldA) [Mass fraction] 96 % Alisha Aichholz [employer]ER Work Phone: [facility] 05-14-2024 08:56-0500 Systolic blood pressure 140 mm[Hg] Alisha Aichholz [employer]ER Work Phone: [facility] 04-02-2024 10:06-0500 Body height 160 cm Alisha Aichholz [employer] AS[employer]ER Work Phone: [facility] 04-02-2024 10:06-0500 Body mass index (BMI) [Ratio] 31.81 kg/m2 Alisha Aichholz [employer] Work Phone: [facility] 04-02-2024 10:06-0500 Body temperature 98.71 [degF] Alihsa Aichholz [employer] ASSEMBLER Work Phone: [facility] 04-02-2024 10:06-0500 Body weight 81.47 kg Alisha Aichholz [employer] ASSEM[employer]ER Work Phone: [facility] 04-02-2024 10:06-0500 Diastolic blood pressure 80 mm[Hg] Alisha Aichholz [employer]ER Work Phone: [facility] 04-02-2024 10:06-0500 Heart rate 56 /min Alisha Aichholz [employer]SEM[employer]ER Work Phone: [facility] 04-02-2024 10:06-0500 Respiratory rate 18 /min Alisha Aichholz [employer]ER Work Phone: [facility] 04-02-2024 10:06-0500 SaO2% (BldA) [Mass fraction] 98 % Alisha Aichholz [employer] ASSEM[employer]ER Work Phone: [facility] 04-02-2024 10:06-0500 Systolic blood pressure 130 mm[Hg] Alisha Eliuhholz [employer] ASSEMBLER Work Phone: [facility] 03-04-2024 14:25-0500 Body height 160 cm Alisha Aichholz [employer]ER Work Phone: [facility] 03-04-2024 14:25-0500 Body mass index (BMI) [Ratio] 31.67 kg/m2 Alisha Aichholz [employer] Work Phone: [facility] 03-04-2024 14:25-0500 Body temperature 98.01 [degF] Alisha Aichholz [employer] ASSEMBLER Work Phone: [facility] 03-04-2024 14:25-0500 Body weight 81.1 kg Alisha Eliuhholz [employer]ER Work Phone: [facility] 03-04-2024 14:25-0500 Diastolic blood pressure 70 mm[Hg] Alisha Aichholz [employer] ASSEMBLER Work Phone: [facility] 03-04-2024 14:25-0500 Heart rate 47 /min Alisha Aichholz [employer] ASSEM[employer]ER Work Phone: [facility] 03-04-2024 14:25-0500 SaO2% (BldA) [Mass fraction] 98 % Alisha Eliuhholz [employer]SEM[employer]ER Work Phone: [facility] 03-04-2024 14:25-0500 Systolic blood pressure 130 mm[Hg] Alisha Aichholz [employer] ASSEMBLER Work Phone: [facility] 06-12-2023 09:22-0500 Body height 160 cm Alisha Eliuhholz [employer] ASSEMBLER Work Phone: [facility] 06-12-2023 09:22-0500 Body mass index (BMI) [Ratio] 32.98 kg/m2 Alisha Aichholz [employer] Work Phone: [facility] 06-12-2023 09:22-0500 Body temperature 97.11 [degF] Alisha Eliuhholz [employer] ASSEMBLER Work Phone: [facility] 06-12-2023 09:22-0500 Body weight 84.46 kg Alisha Eliuhholz [employer]ER Work Phone: [facility] 06-12-2023 09:22-0500 Diastolic blood pressure 78 mm[Hg] Alisha Aichholz [employer] ASSEMBLER Work Phone: [facility] 06-12-2023 09:22-0500 Heart rate 52 /min Alisha Aichholz [employer]SEM[employer]ER Work Phone: [facility] 06-12-2023 09:22-0500 Respiratory rate 17 /min Alisha Aichholz [employer] ASSEM[employer]ER Work Phone: [facility] 06-12-2023 09:22-0500 SaO2% (BldA) [Mass fraction] 99 % Alsiha Ernst [employer] ASSEMBLER Work Phone: [facility] 06-12-2023 09:22-0500 Systolic blood pressure 132 mm[Hg] Alisha Ernst [employer]SEM[employer]ER Work Phone: [facility] 05-19-2023 11:43-0500 Body height 160 cm Eunice Cheryl THERAPY ADMINISTRATIVE ASSISTANT-CHEESEMAKING LABORER Work Phone: [facility] 05-19-2023 11:43-0500 Body mass index (BMI) [Ratio] 32.19 kg/m2 Eunice Cheryl THERAPY ADMINISTRATIVE ASSISTANT-CHEESEMAKING LABORER Work Phone: [facility] 05-19-2023 11:43-0500 Body weight 82.42 kg Eunice Cheryl THERAPY ADMINISTRATIVE ASSISTANT-CHEESEMAKING LABORER Work Phone: [facility] 05-19-2023 11:43-0500 Diastolic blood pressure 70 mm[Hg] Eunice Cheryl THERAPY ADMINISTRATIVE ASSISTANT-CHEESEMAKING LABORER Work Phone: [facility] 05-19-2023 11:43-0500 Heart rate 48 /min Eunice Cheryl THERAPY ADMINISTRATIVE ASSISTANT-CHEESEMAKING LABORER Work Phone: [facility] 05-19-2023 11:43-0500 Respiratory rate 18 /min Eunice Cheryl THERAPY ADMINISTRATIVE ASSISTANT-CHEESEMAKING LABORER Work Phone: [facility] 05-19-2023 11:43-0500 SaO2% (BldA) [Mass fraction] 96 % Eunice Cheryl THERAPY ADMINISTRATIVE ASSISTANT-CHEESEMAKING LABORER Work Phone: [facility] Comment on above: RA 05-19-2023 11:43-0500 Systolic blood pressure 134 mm[Hg] Eunice Cheryl THERAPY ADMINISTRATIVE ASSISTANT-CHEESEMAKING LABORER Work Phone: [facility] Encounters Encounter Date Encounter Type Care Provider Facility Start: 01-02-2025 End: 01-02-2025 [facility]ib[facility]okeran D[facility] Start: 01-02-2025 End: 01-02-2025 Bamboo flowsheet Merrick Dennison DPM Work Phone: [facility] Start: 01-02-2025 End: 01-02-2025 Patient encounter procedure Merrick Dennison DPM Work Phone: [facility] Comment on above: Ingrown toenail (Lili michel Dx); Pain in toe of right foot; Onychomycosis; Hammertoe of right foot Start: 01-02-2025 End: 01-02-2025 ambulatory MERRICK DENNISON Not Available Start: 12-10-2024 End: 12-10-2024 Clinisync Result Encounter Alisha rEnst [employer]SEM[employer] Work Phone: [facility] Unsolicited Start: 12-10-2024 End: 12-10-2024 Clinisync Result Encounter Alisha Klever [employer]SEM[employer]ER Work Phone: [facility] Unsolicited Start: 11-12-2024 End: 11-12-2024 Bamboo flowsheet Alisha Klever [employer] ASSEMBLER Work Phone: [facility] Start: 11-12-2024 End: 11-12-2024 Bamboo flowsheet Alisha Klever [employer] ASSEMBLER Work Phone: [facility] Start: 11-12-2024 End: 11-12-2024 Office outpatient visit 25 minutes Alisha Klever [employer] Work Phone: [facility] Comment on above: Lumbar spondylosis ( Primary Dx); VAL (obstructive sleep apnea); Mixed hyperlipidemia ; Primary hypertension ; Bradycardia Start: 11-12-2024 End: 11-12-2024 ambulatory ALISHA AICMimiHOLZ Not Available Start: 10-01-2024 End: 10-01-2024 Bamboo flowsheet Merrick Dennison DPM Work Phone: [facility] Start: 10-01-2024 End: 10-01-2024 Bamboo flowsheet Merrick Dennison DPM Work Phone: [facility] Start: 10-01-2024 End: 10-01-2024 Office outpatient visit 15 minutes Merrick Dennison DPM Work Phone: [facility] Comment on above: Nail dystrophy (Prim lilibeth Dx); Hammertoe of right foot; Pain in toe of right foot; Ingrown toenail; Onychomycosis Start: 10-01-2024 End: 10-01-2024 ambulatory MERRICK DENNISON Not Available Start: 08-13-2024 End: 08-13-2024 Bamboo flowsheet Alisha Ernst AIRCRAFT LINE ASSEMBLER Work Phone: [facility] Start: 08-13-2024 End: 08-13-2024 Bamboo flowsheet Alisha Ernst AIRCRAFT LINE ASSEMBLER Work Phone: [facility] Start: 08-13-2024 End: 08-13-2024 ambulatory ALISHA ERNST Not Available Start: 07-01-2024 End: 07-01-2024 Bamboo flowsheet Merrick Dennison DPM Work Phone: [facility] Start: 07-01-2024 End: 07-01-2024 Bamboo flowsheet Merrick Dennison DPM Work Phone: [facility] Start: 07-01-2024 End: 07-01-2024 ambulatory MERRICK DENNISON Not Available Start: 06-20-2024 End: 06-20-2024 Refill Alishaelmo Ernst [employer]CRAFT LINE ASSEMBLER Work Phone: [facility] Comment on above: Essential (primary) hypertension (CMS/HCC); Essential hypertension (CMS/HCC); Mixed hyperlipidemia (CMS/HCC) Start: 05-23-2024 End: 05-23-2024 ambulatory Tana Bruno PA-C Facility:[facility] Start: 05-17-2024 End: 05-17-2024 Office outpatient visit 25 minutes Eunice Luna APRN-CHEESEMAKING LABORER Work Phone: [facility] Comment on above: Obstructive sleep ap chaitanya (Primary Dx); Sleep related hypoxia; Overweight; Encounter to discuss test results Start: 05-17-[address] [facility] Start: 05-15-2024 End: 05-15-2024 ambulatory BRYAN WANG Facility:[facility] Start: 05-15-2024 End: 05-15-2024 Office outpatient new 45 minutes Bryan Wang MD Work Phone: Hematology/Oncology Comment on above: Elevated serum immun oglobulin free light chain level (Primary Dx) Start: 05-14-2024 End: 05-14-2024 Bamboo flowsheet Alisha Ernst AIRCRAFT LINE ASSEMBLER Work Phone: [facility] Start: 05-14-2024 End: 05-14-2024 Bamboo flowsheet Alisha Ernst AIRCRAFT LINE ASSEMBLER Work Phone: [facility] Start: 05-14-2024 End: 05-14-2024 Chart abstracting Bryan Wang MD Work Phone: Hematology/Oncology Start: 05-14-2024 End: 05-14-2024 Office outpatient visit 25 minutes Alisha Ernst AIRCRAFT LINE ASSEMBLER Work Phone: [facility] Comment on above: Abnormal serum prote in electrophoresis (Primary Dx); VAL (obstructive sleep apnea); Bradycardia; Primary hypertension (CMS/HCC); Pancreatic cyst (CMS/HCC); Age-related osteoporosis with current pathological fracture of vertebra with delayed healing; BMI 32.0-32.9,adult; Rib pain on left side; Osteoporosis with current pathological fracture with routine healing, unspecified osteoporosis type, subsequent encounter; Closed fracture of transverse process of thoracic vertebra with delayed healing Start: 05-14-2024 End: 01-14-2025 ambulatory ALISHA ERNST Not Available Start: 04-17-2024 End: 04-19-2024 ambulatory TANA BRUNO [facility] Start: 04-17-2024 End: 04-19-2024 Subsequent hospital visit by physician [facility] Cat Scan Room [facility] CT Scan Comment on above: Back pain, unspecifi ed back location, unspecified back pain laterality, unspecified chronicity; Closed fracture of one rib, unspecified laterality, initial encounter; Osteopenia, unspecified location Start: 04-16-2024 End: 04-16-2024 Clinisync Result Encounter Alisha Ernst NP Work Phone: [facility] External Department Unsolicited Start: 04-16-2024 End: 04-16-2024 Clinisync Result Encounter Alisha Ernst NP Work Phone: [facility] External [facility] Unsolicited Start: 04-05-2024 End: 04-05-2024 ambulatory Tana Bruno PA-C Facility:Neurosurgic [facility] Start: 04-02-2024 End: 04-02-2024 Bamboo flowsheet Alisha Ernst AIRCRAFT LINE ASSEMBLER Work Phone: [facility] Start: 04-02-2024 End: 04-02-2024 Bamboo flowsheet Alisha Ernst AIRCRAFT LINE ASSEMBLER Work Phone: [facility] Start: 04-02-2024 End: 04-02-2024 Patient encounter procedure Alisha Ernst NP Work Phone: [facility] Comment on above: Encounter for subseq uent annual wellness visit (AWV) in Medicare patient (Primary Dx); Primary hypertension (CMS/HCC); Bradycardia; Pancreatic cyst (CMS/HCC); Age-related osteoporosis without current pathological fracture (CMS/HCC); Age-related osteoporosis with current pathological fracture of vertebra with delayed healing; BMI 32.0-32.9,adult; Mixed hyperlipidemia (CMS/HCC); VAL (obstructive sleep apnea); Closed fracture of transverse process of thoracic vertebra with delayed healing Start: 04-02-2024 End: 04-02-2024 ambulatory ALISHA ERNST Not Available Start: 03-14-2024 End: 03-14-2024 Refill Alisha Ernst [employer]CRAFT LINE ASSEMBLER Work Phone: [facility] Comment on above: Rib pain on left gricelda e (Primary Dx) Start: 03-08-2024 End: 03-08-2024 ambulatory Tana Bruno PA-C Facility:[facility] Start: 03-05-2024 End: 03-05-2024 Orders Only Alisha Ernst AIRCRAFT LINE ASSEMBLER Work Phone: [facility] Comment on above: Age-related osteopor osis without current pathological fracture (CMS/HCC) (Primary Dx) Start: 03-04-2024 End: 03-04-2024 Office outpatient visit 25 minutes Alisha Ernst AIRCRAFT LINE ASSEMBLER Work Phone: [facility] Comment on above: Rib pain on left gricelda e (Primary Dx); Essential (primary) hypertension (CMS/HCC); Essential hypertension (CMS/HCC); Age-related osteoporosis with current pathological fracture of vertebra with delayed healing; Age-related osteoporosis without current pathological fracture (CMS/HCC); Spondylolisthesis, unspecified spinal region; Primary hypertension (CMS/HCC); Bradycardia; BMI 32.0-32.9,adult; Pancreatic cyst (CMS/HCC) Start: 03-04-2024 End: 03-04-2024 ambulatory ALISHA KLEVER Not Available Start: 03-04-2024 End: 03-04-2024 Bamboo flowsheet Alisha Ernst AIRCRAFT LINE ASSEMBLER Work Phone: [facility] Start: 03-04-2024 End: 03-04-2024 Bamboo flowsheet Alisha Ernst AIRCRAFT LINE ASSEMBLER Work Phone: [facility] Start: 02-19-2024 End: 02-19-2024 ambulatory Tana JASONC Facility:[facility] Start: 06-12-2023 End: 06-12-2023 Office outpatient visit 25 minutes Alisha Ernst AIRCRAFT LINE ASSEMBLER Work Phone: [facility] Comment on above: Primary hypertension (CMS/HCC) (Primary Dx); BMI 32.0-32.9,adult; Bradycardia; Chronic pain of right knee; Chronic right shoulder pain; Rash and nonspecific skin eruption Start: 05-19-2023 End: 05-19-2023 Office outpatient new 45 minutes Eunice Luna THERAPY ADMINISTRATIVE ASSISTANT-CHEESEMAKING LABORER Work Phone: [facility] [place] Comment on above: Obstructive sleep ap chaitanya (Primary Dx); Sleep related hypoxia; Encounter to discuss test results Start: 04-03-2023 End: 05-01-2023 ambulatory ALISHA ERNST [facility] Start: 09-05-2022 End: 09-06-2022 ambulatory COURTNEY ERNST Facility:[facility] Start: 03-03-2022 End: 03-03-2022 ambulatory COURTNEY ERNST Facility:[facility] Start: 02-23-2022 ambulatory [facility] Start: 02-23-2022 End: 02-23-2022 ambulatory [facility] Start: 12-02-2021 End: 12-03-2021 ambulatory COURTNEY ERNST Facility:[facility] Start: 10-11-2021 End: 10-12-2021 ambulatory CHEESEMAKING LABORER ALISHA ERNST Facility:[facility] Procedures Date Procedure Procedure Detail Performing Clinician Start: 12-10-2024 MM TOMOSYNTHESIS SCR EENING BI Alisha Ernst [employer]CRAFT LINE ASSEMBLER Work Phone: Start: 04-16-2024 ALL CBC WITH AUTO DIFF Alisha Ernst AIRCRAFT LINE ASSEMBLER Work Phone: Plan of Treatment Date Care Activity Detail Author Start: 05-30-2025 End: 05-30-2025 Patient encounter procedure 05/30/2025 2:30 PM EST Office Visit [facility] [place] [address] [place] [phone] Eunice Luna, THERAPY ADMINISTRATIVE ASSISTANT-CHEESEMAKING LABORER [address], [place] [phone] [facility] [place] Start: 04-07-2025 End: 04-07-2025 Patient encounter procedure 04/07/2025 10:00 AM EST Office Visit [facility] [address] [place] [phone] Alisha Ernst NP [address] [place] [phone] [facility] Start: 04-02-2025 Medicare Annual Well ness (AWV) Medicare Annual Wellness (AWV) [facility] Start: 01-13-2025 End: 11-12-2025 Alanine aminotransferase [Enzymatic activity/volume] in Serum or Plasma ALT Lab Routine Mixed hyperlipidemia Expected: 01/13/2025 (Approximate), Expires: 11/12/2025 [facility] Comment on above: Expected: 01/13/2025 (Approximate), Expires: 11/12/2025 Start: 01-13-2025 End: 11-12-2025 Aspartate aminotransferase [Enzymatic activity/volume] in Serum or Plasma AST Lab Routine Mixed hyperlipidemia Expected: 01/13/2025 (Approximate), Expires: 11/12/2025 [facility] Comment on above: Expected: 01/13/2025 (Approximate), Expires: 11/12/2025 Start: 01-13-2025 End: 11-12-2025 Lipid 1996 panel - Serum or Plasma Lipid panel Lab Routine Mixed hyperlipidemia Expected: 01/13/2025 (Approximate), Expires: 11/12/2025 [facility] Work Phone: Comment on above: Expected: 01/13/2025 (Approximate), Expires: 11/12/2025 Start: 01-02-2025 End: 01-02-2025 Patient encounter procedure [facility] Comment on above: Ingrown toenail (Lili michel Dx); Pain in toe of right foot; Onychomycosis; Hammertoe of right foot Start: 12-30-2024 Influenza vaccination Influenza Vacc ine (#1) [facility] Start: 11-12-2024 End: 11-12-2024 Patient encounter procedure [facility] Comment on above: VAL (obstructive sle ep apnea) (Primary Dx) Start: 10-01-2024 End: 10-01-2024 Patient encounter procedure [facility] Comment on above: Onychomycosis (Prima ry Dx); Nail dystrophy; Hammertoe of right foot; Pain in toe of right foot; Ingrown toenail Start: 08-13-2024 End: 08-13-2024 Patient encounter procedure [facility] Comment on above: VAL (obstructive sle ep apnea) (Primary Dx); Primary hypertension (CMS/HCC); Mixed hyperlipidemia (CMS/HCC) Start: 07-17-2024 Pneumococcal Vaccine : 65+ Years (2 - PCV) Pneumococcal Vaccine: 65+ Years (2 - PCV) [facility] Comment on above: Postponed from 02/12 (Patient Refused) Start: 07-17-2024 Pneumococcal Vaccine : 65+ Years (2 of 2 - PCV) Pneumococcal Vaccine: 65+ Years (2 of 2 - PCV) [facility] Comment on above: Postponed from 02/12 (Patient Refused) Start: 07-01-2024 End: 07-01-2024 Patient encounter procedure 07/01/2024 11:30 AM EST Office Visit [facility] [address] [place] [address] Merrick Dennison DPM [address] [place] [address] Arrived [facility] Comment on above: Arrived Start: 05-17-2024 End: 05-17-2024 Patient encounter procedure 05/17/2024 2:30 PM EST Office Visit [facility] [place] [address] [place] [address] Eunice Luna, THERAPY ADMINISTRATIVE ASSISTANT-CHEESEMAKING LABORER [address] [place] [address] [facility] [place] Start: 05-15-2024 End: 05-15-2024 ambulatory 05/15/2024 2:00 PM EST Visit (SP) Office Hematology/Oncology [address] [place] [phone] Bryan Wang MD [address] [place] [address] [place] [address] DX Abnormal Serum Protein Electophoresis Hematology/Oncology Comment on above: DX Abnormal Serum Pr otein Electophoresis Start: 05-14-2024 End: 05-14-2024 [facility] Comment on above: VAL (obstructive sle ep apnea) (Primary Dx); Bradycardia; Primary hypertension (CMS/HCC); Pancreatic cyst (CMS/HCC); Age-related osteoporosis with current pathological fracture of vertebra with delayed healing; BMI 32.0-32.9,adult Start: 05-01-2024 Advance Directive Discussion Advance Directive Discussion [facility] Start: 04-16-2024 End: 04-02-2025 CT Thoracic spine WO contrast CT thoracic spine wo IV contrast Imaging Routine Age-related osteoporosis with current pathological fracture of vertebra with delayed healing Closed fracture of transverse process of thoracic vertebra with delayed healing Expected: 04/16/2024, Expires: 04/02/2025 [facility] Comment on above: Expected: 04/16/2024 , Expires: 04/02/2025 Start: 04-02-2024 End: 04-02-2025 25-hydroxyvitamin D3 [Mass/volume] in Serum or Plasma Vitamin D 25 hydroxy Lab Routine Age-related osteoporosis with current pathological fracture of vertebra with delayed healing Closed fracture of transverse process of thoracic vertebra with delayed healing Expected: 04/02/2024 (Approximate), Expires: 04/02/2025 [facility] Comment on above: Expected: 04/02/2024 (Approximate), Expires: 04/02/2025 Start: 04-02-2024 End: 04-02-2025 Alanine aminotransferase [Enzymatic activity/volume] in Serum or Plasma ALT Lab Routine Mixed hyperlipidemia (CMS/HCC) Expected: 04/02/2024 (Approximate), Expires: 04/02/2025 [facility] Work Phone: Comment on above: Expected: 04/02/2024 (Approximate), Expires: 04/02/2025 Start: 04-02-2024 End: 04-02-2025 Aspartate aminotransferase [Enzymatic activity/volume] in Serum or Plasma AST Lab Routine Mixed hyperlipidemia (CMS/HCC) Expected: 04/02/2024 (Approximate), Expires: 04/02/2025 [facility] Comment on above: Expected: 04/02/2024 (Approximate), Expires: 04/02/2025 Start: 04-02-2024 End: 04-02-2025 C reactive protein [Mass/volume] in Serum or Plasma C-reactive protein Lab Routine Age-related osteoporosis with current pathological fracture of vertebra with delayed healing Closed fracture of transverse process of thoracic vertebra with delayed healing Expected: 04/02/2024 (Approximate), Expires: 04/02/2025 [facility] Comment on above: Expected: 04/02/2024 (Approximate), Expires: 04/02/2025 Start: 04-02-2024 End: 04-02-2025 CBC W Auto Differential panel - Blood CBC and differential Lab Routine Age-related osteoporosis with current pathological fracture of vertebra with delayed healing VAL (obstructive sleep apnea) Closed fracture of transverse process of thoracic vertebra with delayed healing Expected: 04/02/2024 (Approximate), Expires: 04/02/2025 [facility] Comment on above: Expected: 04/02/2024 (Approximate), Expires: 04/02/2025 Start: 04-02-2024 End: 04-02-2025 Comprehensive metabolic 2000 panel - Serum or Plasma Comprehensive metabolic panel Lab Routine Primary hypertension (CMS/HCC) Age-related osteoporosis with current pathological fracture of vertebra with delayed healing Mixed hyperlipidemia (CMS/HCC) Closed fracture of transverse process of thoracic vertebra with delayed healing Expected: 04/02/2024 (Approximate), Expires: 04/02/2025 [facility] Comment on above: Expected: 04/02/2024 (Approximate), Expires: 04/02/2025 Start: 04-02-2024 End: 04-02-2025 Erythrocyte sedimentation rate Sedimentation rate, automated Lab Routine Age-related osteoporosis with current pathological fracture of vertebra with delayed healing Closed fracture of transverse process of thoracic vertebra with delayed healing Expected: 04/02/2024 (Approximate), Expires: 04/02/2025 [facility] Comment on above: Expected: 04/02/2024 (Approximate), Expires: 04/02/2025 Start: 04-02-2024 End: 04-02-2025 IMMUNOFIXATION, SERUM IMMUNOFIXATION, SERUM Lab Routine Age-related osteoporosis with current pathological fracture of vertebra with delayed healing Closed fracture of transverse process of thoracic vertebra with delayed healing Expected: 04/02/2024 (Approximate), Expires: 04/02/2025 [facility] Comment on above: Expected: 04/02/2024 (Approximate), Expires: 04/02/2025 Start: 04-02-2024 End: 04-02-2025 IMMUNOFIXATION, URINE IMMUNOFIXATION, URINE Lab Routine Age-related osteoporosis with current pathological fracture of vertebra with delayed healing Closed fracture of transverse process of thoracic vertebra with delayed healing Expected: 04/02/2024 (Approximate), Expires: 04/02/2025 [facility] Comment on above: Expected: 04/02/2024 (Approximate), Expires: 04/02/2025 Start: 04-02-2024 End: 04-02-2025 KAPPA LIGHT CHAIN, FREE, SERUM KAPPA LIGHT CHAIN, FREE, SERUM Lab Routine Age-related osteoporosis with current pathological fracture of vertebra with delayed healing Closed fracture of transverse process of thoracic vertebra with delayed healing Expected: 04/02/2024 (Approximate), Expires: 04/02/2025 [facility] Comment on above: Expected: 04/02/2024 (Approximate), Expires: 04/02/2025 Start: 04-02-2024 End: 04-02-2025 Lactate dehydrogenase [Enzymatic activity/volume] in Serum or Plasma by Lactate to pyruvate reaction Lactate dehydrogenase Lab Routine Age-related osteoporosis with current pathological fracture of vertebra with delayed healing Closed fracture of transverse process of thoracic vertebra with delayed healing Expected: 04/02/2024 (Approximate), Expires: 04/02/2025 [facility] Comment on above: Expected: 04/02/2024 (Approximate), Expires: 04/02/2025 Start: 04-02-2024 End: 04-02-2025 Lipid 1996 panel - Serum or Plasma Lipid panel Lab Routine Mixed hyperlipidemia (CMS/HCC) Expected: 04/02/2024 (Approximate), Expires: 04/02/2025 [facility] Comment on above: Expected: 04/02/2024 (Approximate), Expires: 04/02/2025 Start: 04-02-2024 End: 04-02-2025 Parathyrin.intact [Mass/volume] in Serum or Plasma PTH, intact Lab Routine Age-related osteoporosis with current pathological fracture of vertebra with delayed healing Closed fracture of transverse process of thoracic vertebra with delayed healing Expected: 04/02/2024 (Approximate), Expires: 04/02/2025 [facility] Comment on above: Expected: 04/02/2024 (Approximate), Expires: 04/02/2025 Start: 04-02-2024 End: 04-02-2025 PROTEIN ELECTROPHORESIS AND KAPPA/LAMBDA LIGHT CHAINS, SERUM PROTEIN ELECTROPHORESIS AND KAPPA/LAMBDA LIGHT CHAINS, SERUM Lab Routine Age-related osteoporosis with current pathological fracture of vertebra with delayed healing Closed fracture of transverse process of thoracic vertebra with delayed healing Expected: 04/02/2024 (Approximate), Expires: 04/02/2025 [facility] Comment on above: Expected: 04/02/2024 (Approximate), Expires: 04/02/2025 Start: 04-02-2024 End: 04-02-2025 Protein electrophoresis, urine Protein electrophoresis, urine Lab Routine Age-related osteoporosis with current pathological fracture of vertebra with delayed healing Closed fracture of transverse process of thoracic vertebra with delayed healing Expected: 04/02/2024 (Approximate), Expires: 04/02/2025 [facility] Comment on above: Expected: 04/02/2024 (Approximate), Expires: 04/02/2025 Start: 04-02-2024 End: 04-02-2024 Patient encounter procedure [facility] Comment on above: Encounter for subseq uent annual wellness visit (AWV) in Medicare patient (Primary Dx); Primary hypertension (CMS/HCC); Bradycardia; Pancreatic cyst (CMS/HCC); Age-related osteoporosis without current pathological fracture (CMS/HCC); Age-related osteoporosis with current pathological fracture of vertebra with delayed healing; BMI 32.0-32.9,adult Start: 03-13-2024 End: 03-13-2024 Patient encounter procedure 03/13/2024 8:40 AM EST Office Visit [facility] [address] [place] [address] Alisha Ernst NP [address] [place] [phone] [facility] Start: 03-05-2024 End: 03-05-2025 DXA Skeletal system Views for bone density DEXA bone density Imaging Routine Age-related osteoporosis without current pathological fracture ([facility]) Expected: 03/05/2024, Expires: 03/05/2025 [facility] Work Phone: Comment on above: Expected: 03/05/2024 , Expires: 03/05/2025 Start: 03-04-2024 End: 03-04-2024 Patient encounter procedure 03/04/2024 2:20 PM EST Office Visit [facility] [address] [place] [phone] Alisha Ernst, DEE [address] [place] [phone] Arrived [facility] Comment on above: Arrived Start: 12-31-2023 Covid-19 Vaccine ( season) Covid-19 Vaccine ( season) [facility] Start: 12-31-2023 COVID-19 VACCINE ( season) COVID-19 VACCINE ( season) [facility] Start: 09-11-2023 End: 09-11-2023 Patient encounter procedure 09/11/2023 9:00 AM EDT Office Visit [facility] [address] [place] [phone] Alisha Ernst, DEE [address] [place] [phone] [facility] Start: 03-27-2023 Annual Wellness Visi t (Medicare) Annual Wellness Visit (Medicare) [facility] Start: 2021 Respiratory Syncytia l Virus (RSV) or age 60 yrs+ (1 - 1-dose 75+ series) Respiratory Syncytial Virus (RSV) or age 60 yrs+ (1 - 1-dose 75+ series) [facility] Start: 2021 RSV Vaccine (1 - 1-d ose 75+ series) RSV Vaccine (1 - 1-dose 75+ series) [facility] Start: 02-13-2016 Pneumococcal 65+ yea rs Vaccine (2 of 2 - PCV) Pneumococcal 65+ years Vaccine (2 of 2 - PCV) [facility] Start: 02-13-2016 Pneumococcal vaccination [facility] Start: 02-13-2016 Pneumococcal Vaccine : 50+ (2 of 2 - PCV) Pneumococcal Vaccine: 50+ (2 of 2 - PCV) [facility] Start: 02-13-2016 Pneumococcal Vaccine : 65+ Years (2 of 2 - PCV) Pneumococcal Vaccine: 65+ Years (2 of 2 - PCV) [facility] Start: 12-13-2011 Screening for osteoporosis Bone Density Screening [facility] Start: 2006 RSV VACCINE (1 - 1-d ose 60+ series) RSV VACCINE (1 - 1-dose 60+ series) [facility] Start: 01-20-2003 Diabetes Screening Diabetes Screenin g [facility] Start: 2001 Screening for osteoporosis DEXA (modify frequency per FRAX score) [facility] Start: 12-13-1991 Screening for malign ant neoplasm of colon COLORECTAL CANCER SCREENING DISCUSSION [facility] Start: 1986 Screening for malign ant neoplasm of breast MAMMOGRAM SCREENING DISCUSSION [facility] Start: 12-13-1967 Screening for malign ant neoplasm of cervix CERVICAL CANCER SCREENING DISCUSSION [facility] Start: 1965 DTaP/Tdap/Td vaccine (1 - Tdap) DTaP/Tdap/Td vaccine (1 - Tdap) [facility] Start: 1965 Third diphtheria, te tanus and acellular pertussis (DTaP) vaccination TDAP (ADULT) [facility] Start: 1965 Urine microalbumin profile DTaP,Tdap,Td Vaccine (1 - Tdap) [facility] Start: 1964 Anxiety Screening Anxiety Screening [facility] Start: 1964 Depression Screening Depression Scre ening [facility] Start: 1964 Hepatitis C screening [facility] Start: 1958 Depression Screen Depression Screen [facility] Start: 1946 Hepatitis C screening HEPATITI S C VIRUS SCREENING [facility] Start: 1946 Medicare Annual Well ness (AWV) Medicare Annual Wellness (AWV) [facility] Start: 1946 Screening for osteoporosis DEXA SCAN DISCUSSION [facility] Start: 1946 Tetanus vaccination TETANUS [facility] End: 04-17-2024 CT Thoracic spine WO contrast [facility] Work Phone: Comment on above: 1 Occurrences starti ng 04/17/2024 until 04/17/2024 Immunizations Immunization Date Immunization Notes Care Provider Enedina carias 02-02-2024 influenza, high dose seasonal, preservative-free Alisha Aichholz [employer] Work Phone: [facility] 02-02-2024 influenza virus vacc ine, unspecified formulation Alisha Aichholz [employer] Work Phone: [facility] 02-06-2023 Influenza, Seasonal, Quadrivalent, Adjuvanted Alisha Aichholz [employer] Work Phone: [facility] 01-25-2022 Influenza, High-dose Seasonal, Quadrivalent, Preservative Free Alisha Aichholz [employer] Work Phone: [facility] 11-15-2021 zoster vaccine recombinant L nuno Aichholz [employer] Work Phone: [facility] 06-14-2021 zoster vaccine recombinant L nuno Aichholz [employer] Work Phone: [facility] 01-26-2021 Influenza, High-dose Seasonal, Quadrivalent, Preservative Free Alisha Aichholz [employer] Work Phone: [facility] 01-28-2020 Influenza, Seasonal, Quadrivalent, Adjuvanted Alisha Aichholz [employer] Work Phone: [facility] 01-29-2019 influenza, high dose seasonal, preservative-free Alisha Aichholz [employer] Work Phone: [facility] 02-26-2018 influenza, high dose seasonal, preservative-free Alisha Aichholz [employer] Work Phone: [facility] 02-22-2017 influenza, high dose seasonal, preservative-free Alisha Aichholz [employer] Work Phone: [facility] 03-21-2016 influenza, seasonal, injectable, preservative free Alisha Aichholz [employer] Work Phone: [facility] 03-18-2015 influenza, injectabl e, quadrivalent, preservative free Alisha Aichholz [employer] Work Phone: [facility] 02-12-2015 pneumococcal polysaccharide vaccine, 23 valent Alisha Aichholz [employer] Work Phone: [facility] Payers Date Payer Category Payer Private Health Insurance [id number] 2021 Unknown [id number] 2017 Unknown [id number] 2011 Medicare [id number] 1959 Medicare [id number] 1959 Private Health Insurance [id number] 1946 Unknown [id number] 2.16.8 [id number] 1946 Unknown [id number] 2.16.8 40.1.123851.3.579.2.754 1946 Unknown [id number] 2.16.84 0.1.952178.3.579.2.593 1946 Unknown [id number] 2.16.84 0.1.334702.3.579.2.593 1946 Unknown [id number] 2.16.84 0.1.415656.3.579.2.593 1946 Unknown [id number] 2.16.84 0.1.788842.3.579.2.593 1946 Unknown [id number] 2.16.84 0.1.956846.3.579.2.1286 1946 Unknown [id number] 2.16.8 40.1.623606.3.579.2.173 1946 Unknown [id number] 2.16.8 40.1.201642.3.579.2.983 1946 Unknown [id number] 2.16. 840.1.265237.3.579.2.196 1946 Unknown [id number] 2.16. 840.1.191430.3.579.2.196 1946 Unknown [id number] 2.16. 840.1.520523.3.579.2.196 1946 Unknown [id number] 2.16. 840.1.557523.3.579.2.196 1946 Unknown [id number] 2.16. 840.1.585369.3.579.2.196 1946 Unknown [id number] 2.16.8 40.1.154700.3.579.2.1259 1946 Unknown [id number] 2.16.8 40.1.546345.3.579.2.1259 1946 Unknown [id number] 2.16.84 0.1.638035.3.579.2.1259 1946 Unknown [id number] 2.16.84 0.1.046332.3.579.2.1259 1946 Unknown [id number] 2.16.84 0.1.189359.3.579.2.1259 1946 Unknown [id number] 2.16.84 0.1.799512.3.579.2.1259 1946 Unknown [id number] 2.16.84 0.1.122740.3.579.2.1259 1946 Unknown [id number] 2.16.84 0.1.697722.3.579.2.1259 Social History Date Type Detail Facility Start: 05-19-2023 End: 05-15-2024 Tobacco smoking status NHIS Ex-smoker [facility] History of tobacco use Current smoker [facility] History of tobacco use Cigarette Smoker [facility] Start: 11-21-2022 End: 05-19-2023 Tobacco use and exposure Smokeless tobacco non-user [facility] Start: 05-19-2023 End: 09-08-2023 History of Social function [facility] Start: 05-19-2023 End: 09-08-2023 Tobacco use panel [facility] Start: 1945 Sex Assigned At Female A [facility] Start: 05-05-2023 Gender identity Identifies as female gender (finding) [facility] Start: 02-15-2022 End: 11-21-2022 Tobacco smoking status NHIS Never smoked tobacco [facility] Start: 06-12-2023 End: 01-02-2025 Alcohol intake Lifetime non-drinker (finding) [facility] Start: 1945 Sex Assigned At Not on file N [facility] In a typical week, how many times do you talk on the telephone with family, friends, or neighbors? Patient declined [facility] Are you now , , , , never or living with a partner? [facility] Start: 02-25-2022 Alcoholic beverage intake Current drinker of alcohol (finding) [employer] [facility] Start: 02-15-2022 Alcohol Comment rarely [employer] [facility] Start: 05-14-2024 End: 05-15-2024 Alcoholic beverage intake Current non-drinker of alcohol (finding) [facility] Start: 12-15-2010 End: 05-15-2024 Tobacco Comment quit 1969's [facility] Start: 05-13-2024 Sexual orientation Heterosexual (severino ardon) [facility] NEGATED: Highlighted rowStart: NINF History of tobacco use Passive smoker [facility] Medical Equipment Procedure Code Equipment Code Equipment Origin al Text Equipment Identifier Dates [employer] [id number] Start : 02-23-2022 Lens Iol +17.5 D iop Acrsf Iq - [id number] Start: 12-20-2010 Lens Iol +17.5 D iop Acrsf Iq - [id number] Start: 01-05-2011 Clinical Notes 05-19-2023 to 01-02-2025 Merrick TaylorKayleyJohn, DPM - 01/02/2025 9:45 AM EDTPatient TiaraLisa Ernst, [employer] - 11/12/2024 10:44 AM EDTLisa Klever, [employer] - 11/12/2024 10:43 AM EDTLisa Klever, [employer] - 11/12/2024 10:42 AM EDT Note Date & Type Note Facility 01-02-2025 History of Present illness Narrative [facility] CC: Painful thick toenails, IGTN of Right Great Toe HPI: This is a 79 y.o. female with PMH indicated below who presents for painful thick nail. Patient states toenail 1 on the right is thickened and discolored. Patient admits to pain in shoe gear, specifically for the right great toe. Patient is unable to cut them. Patient denies to use of OTC antifungal medications in the past without improvement. States she has tried to manage it at home but cannot due to its thickness and does well with professional debridement. States since last visit she has tried filing nail as well as Vicks Vapor rub but states its still very painful in shoe gear. Denies any other pedal complaints. PCP: Robert Pate MD 11/12/24 Past Medical History: Diagnosis Date Achilles tendonitis Calcaneal spur Glaucoma HTN (hypertension) 06/12/2023 Idiopathic neuropathy Onychomycosis Plantar fasciitis Pronation deformity of foot Rupture Achilles tendon, right, initial encounter Visual impairment w/ corrective lenses Current Outpatient Medications Medication Sig Dispense Refill amLODIPine (Norvasc) 2.5 MG tablet Take 1 tablet (2.5 mg) by mouth Daily 90 tablet 1 brimonidine (AlphaGAN P) 0.2 % ophthalmic solution 1 drop in the morning and 1 drop before bedtime. Calcium Carb-Cholecalciferol (CALCIUM CARBONATE+VITAMIN D PO) Take 1 tablet by mouth in the morning and 1 tablet before bedtime. cetirizine (ZyrTEC) 10 MG tablet Take by mouth Pt takes OTC dorzolamide-timolol (Cosopt) 2-0.5 % ophthalmic solution Administer 1 drop into both eyes in the morning and 1 drop before bedtime. ezetimibe (Zetia) 10 MG tablet Take 1 tablet (10 mg) by mouth at bedtime 90 tablet 0 latanoprost (Xalatan) 0.005 % ophthalmic solution losartan (Cozaar) 100 MG tablet Take 1 tablet (100 mg) by mouth Daily 90 tablet 1 magnesium oxide (Mag-Ox) 400 MG tablet Take 400 mg by mouth Daily Multiple Vitamins-Minerals (PreserVision AREDS 2) chewable tablet Chew zoledronic acid (Reclast) 5 MG/100ML solution Infuse 5 mg into a venous catheter yearly No current facility-administered medications for this visit. Allergies Allergen Reactions Lisinopril Cough MARTY inhibitors Physical Exam: There were no vitals taken for this visit. On General Observation: Patient is a pleasant, cooperative, well developed 79 y.o. adult female. The patient is alert and oriented to time, place and person. Patient has normal affect and mood. Vascular: DP and PT pulses are palpable. CFT less than 3 seconds to all digits. Skin temperature is warm to warm from proximal to distal. Hair growth is not noted. No edema noted. No varicosities noted. Neuro: Light touch intact. Dermatological: Skin appears well hydrated and supple. Toenails 1,2,3 on right are discolored, elongated, thickened with subungual debris with elongation of nail 4 and 5. Right hallucal nail is severely dystrophic with onychogryphosis with pain on palpation of bilateral border. There is no acute sign of infection noted. Webspaces 1-4 are clean, dry, intact. No rashes, subcutaneous nodules, or open lesions noted. Hyperkeratotic tissue is not noted. Musculoskeletal/Orthopaedic: General foot morphology: Planus. +4/5 muscle strength Dorsiflexion, Plantarflexion, Inversion, Eversion B/L. ROM of the 1st MTPJ is limited without pain or crepitus. Mild hammertoe deformity of right 2nd digit with prominent medial condyle of PIPJ. Mild hallux extensus noted with pain to palpation of right hallucal nail. Assessment: Encounter Diagnoses Name Primary? Ingrown toenail Yes Pain in toe of right foot Onychomycosis Hammertoe of right foot Plan: A comprehensive history and physical examination were preformed. The patient was educated on clinical and radiographic findings, diagnosis and treatment plans. Patient state that she understands all that has been explained and all questions were answered to her apparent satisfaction. Plan: Nails 1 on right was debrided in length and thickness by manual and mechanical means. We discussed use of Vicks Vapor rub or Urea Nail Gel application to nail plates to help soften nail plate and make them more management to home debridement. We discussed use of nail file to maintain thickness. Continue toe sleeves as needed Patient to avoid constrictive shoe gear with tight toe box or stiff materials. Continue wide toe box with soft uppers to accommodate deformity and decrease pressure to region. Advised patient on continued proper foot care including daily monitoring of their feet for any new complaints or concerns that may arise. We discussed total nail avulsion procedure in detail as patient has tried home care without significant improvement. We discussed total nail avulsion procedure risks, benefits, and alternatives. As well as removing the nail leaves toe unprotected which can cause possible wound formation. Patient expressed understanding. She would like to think about formal nail procedure and will call to schedule nail avulsion is she chooses to pursue this option. RTC: 9-12 weeks PRN or as needed if problems arise. Merrick Dennison DPM documented in this encounter [facility] 01-02-2025 Instructions Tana Lewis MA - 01/02/2025 9:45 AM EDT Obtain thick nail file, file top of nail before applying the following Obtain nail nipper, can usually be found in store in nail care aisle or online OPTIONS: Epsom salt soak with warm water for 20 minutes, this will help soften nail and then trim with nail nipper Vicks Vapor Rub, file top surface of nail then apply to nail daily to help soften nail and make more manageable Urea Nail Gel 47%, on amaz[employer], file top of nail then apply like grenadian. 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 Pt is no longer having any diarrhea or discomfort. Images from the original note were not included. Christie Waterman is a 78 y.o. female presents with chief complaint of Follow-up HPI: Here for recheck A few months ago was started on pravastatin, developed diarrhea from this, which became problematic , she discontinued the med and the sxs have resolved. Her BP has been doing ok, no side effects from her meds. No swelling /dyspnea noted She does note- that she is having some decreased sensation to bottoms of feet, and some decreased sensation to her right lower leg. No weakness to leg, not tripping, no pain, no back pain, no cauda wonders if this is related to lumbar SUBJECTIVE: MEDICATIONS: Current Outpatient Medications Medication Instructions amLODIPine (NORVASC) 2.5 mg, Oral, Daily brimonidine (AlphaGAN P) 0.2 % ophthalmic solution 1 drop, 2 times daily Calcium Carb-Cholecalciferol (CALCIUM CARBONATE+VITAMIN D PO) 1 tablet, 2 times daily cetirizine (ZyrTEC) 10 MG tablet Take by mouth Pt takes OTC dorzolamide-timolol (Cosopt) 2-0.5 % ophthalmic solution 1 drop, 2 times daily ezetimibe (ZETIA) 10 mg, Oral, Nightly latanoprost (Xalatan) 0.005 % ophthalmic solution losartan (COZAAR) 100 mg, Oral, Daily magnesium oxide (MAG-OX) 400 mg, Daily Multiple Vitamins-Minerals (PreserVision AREDS 2) chewable tablet Chew zoledronic acid (RECLAST) 5 mg, Yearly ALLERGIES: Allergies Allergen Reactions Lisinopril Cough MARTY [...] for difficulty urinating, dysuria and frequency. Musculoskeletal: Negative for arthralgias, back pain, joint swelling and myalgias. Skin: Negative for rash and wound. Neurological: Positive for numbness. Negative for dizziness, tremors, seizures, syncope and headaches. Psychiatric/Behavioral: Negative for behavioral problems, self-injury and suicidal ideas. The patient is not nervous/anxious. Hematological: Does not bruise/bleed easily. Endocrine: Negative for polydipsia, polyphagia and polyuria. Allergic/Immunologic: Negative for environmental allergies and food allergies. PAST MEDICAL HISTORY Past Medical History: Diagnosis Date Achilles tendonitis Calcaneal spur Glaucoma HTN (hypertension) 06/12/2023 Idiopathic neuropathy Onychomycosis Plantar fasciitis Pronation deformity of foot Rupture Achilles tendon, right, initial encounter Visual impairment w/ corrective lenses Past Surgical History: Procedure Laterality Date ACHILLES TENDON SURGERY Right 2010 ACHILLES TENDON SURGERY Left 04/12/2016 [facility] procedure BREAST FIBROADENOMA SURGERY CARPAL TUNNEL RELEASE Bilateral CATARACT EXTRACTION W/ INTRAOCULAR LENS IMPLANT, BILATERAL 2010 CHOLECYSTECTOMY FIXATION KYPHOPLASTY 03/2022 HEEL SPUR EXCISION Left 08/04/2015 Calcaneal Spur WISDOM TOOTH EXTRACTION family history includes Diabetes in her father; Hypertension in her father and mother. OBJECTIVE: Visit Vitals BP 124/70 (BP Location: Left arm, Patient Position: Sitting, BP Cuff Size: Adult long) Pulse (!) 48 Temp 98.5 F (Temporal) Resp 18 Wt 178 lb SpO2 98% BMI 31.53 kg/m Smoking Status Never BSA 1.89 m Physical Exam Vitals and nursing note reviewed. Constitutional: General: She is not in acute distress. Appearance: Normal appearance. She is obese. She is not ill-appearing or diaphoretic. HENT: Head: Normocephalic and atraumatic. Right Ear: External ear normal. Left Ear: External ear normal. Nose: Nose normal. Mouth/Throat: Mouth: Mucous membranes are moist. Eyes: Extraocular Movements: Extraocular movements intact. Conjunctiva/sclera: Conjunctivae normal. Neck: Vascular: No carotid bruit. Cardiovascular: Rate and Rhythm: Normal rate and regular rhythm. Pulses: Normal pulses. Heart sounds: Normal heart sounds. No murmur heard. Pulmonary: Effort: Pulmonary effort is normal. Breath sounds: Normal breath sounds. No wheezing or rhonchi. Abdominal: General: Bowel sounds are normal. There is no distension. Palpations: Abdomen is soft. There is no mass. Tenderness: There is no abdominal tenderness. Musculoskeletal: Cervical back: Normal range of motion and neck supple. Right lower leg: No edema. Left lower leg: No edema. Comments: DTR's 2+ bilat patellar/achilles, MMT 5/5 bilat LE -SLR X2 Lymphadenopathy: Cervical: No cervical adenopathy. Skin: General: Skin is warm and dry. Capillary Refill: Capillary refill takes 2 to 3 seconds. Findings: No rash. Neurological: General: No focal deficit present. Mental Status: She is alert and oriented to person, place, and time. Psychiatric: Mood and Affect: Mood normal. Behavior: Behavior normal. Thought Content: Thought content normal. Judgment: Judgment normal. ASSESSMENT AND PLAN: Follow up in about 6 months (around 05/15/2025) for Recheck. Problem List Items Addressed This Visit HTN (hypertension) Please check blood pressure daily and record DASH diet Limit caffeine Take medication as directed Contact office if chest pain, pressure, dizziness, shortness of breath, swelling legs Recommend slow position changes Current meds: losartan and Amlodipine Bradycardia Has been mcc, no symptoms, does take b miriam eye drops Mixed hyperlipidemia Will trial zetia, intolerance to statin therapy Check labs in 2 months Relevant Medications ezetimibe (Zetia) 10 MG tablet Other Relevant Orders Lipid panel ALT AST VAL (obstructive sleep apnea) - Primary You have a diagnosis of obstructive sleep apnea. It is recommended that you wear your PAP device any time while in bed sleeping. Not using the PAP device can increase your risk of elevated/uncontrolled high blood pressure, atrial fibrillation, heart attack, stroke, or sudden . Compliance with PAP yes Company that supplies your machine and tubing/filters etc: Doctor that manages your VAL: Dona Germain NP seen last Lumbar spondylosis Discussed that her sxs in right leg and feet likely related to her lumbar pathology, at this time her exam is normal and I have advised her of sxs to monitor for worsening in condition and at this time she is not interested to going back to neurosurgeon Associated Problem(s): HTN (hypertension) Please check blood pressure daily and record DASH diet Limit caffeine Take medication as directed Contact office if chest pain, pressure, dizziness, shortness of breath, swelling legs Recommend slow position changes Current meds: losartan and Amlodipine Associated Problem(s): VAL (obstructive sleep apnea) You have a diagnosis of obstructive sleep apnea. It is recommended that you wear your PAP device any time while in bed sleeping. Not using the PAP device can increase your risk of elevated/uncontrolled high blood pressure, atrial fibrillation, heart attack, stroke, or sudden . Compliance with PAP yes Company that supplies your machine and tubing/filters etc: Doctor that manages your VAL: Dona Germain NP seen last documented in this encounter [facility] 10-01-2024 History of Present illness Narrative [facility] CC: Painful thick toenails, IGTN of Right Great Toe HPI: This is a 78 y.o. female with PMH indicated below who presents for painful thick nails. Patient states toenails are thickened and discolored. Patient admits to pain in shoe gear, specifically for the right great toe. Patient is unable to cut them. Patient denies to use of OTC antifungal medications in the past without improvement. She relates no acute injury or trauma to site that she can recall. States she has tried to manage it at home but cannot due to its thickness. States since last visit she has tried filing nail as well as Vicks Vapor rub but states its still very painful in shoe gear. Asks again about removal today. Denies any other pedal complaints. PCP: Robert Pate MD 08/13/24 Past Medical History: Diagnosis Date Achilles tendonitis Calcaneal spur Glaucoma HTN (hypertension) ([facility]) 06/12/2023 Idiopathic neuropathy Onychomycosis Plantar fasciitis Pronation deformity of foot Rupture Achilles tendon, right, initial encounter Visual impairment w/ corrective lenses Current Outpatient Medications Medication Sig Dispense Refill amLODIPine (Norvasc) 2.5 MG tablet Take 1 tablet (2.5 mg) by mouth Daily 90 tablet 1 brimonidine (AlphaGAN P) 0.2 % ophthalmic solution 1 drop in the morning and 1 drop before bedtime. Calcium Carb-Cholecalciferol (CALCIUM CARBONATE+VITAMIN D PO) Take 1 tablet by mouth in the morning and 1 tablet before bedtime. cetirizine (ZyrTEC) 10 MG tablet Take by mouth Pt takes OTC dorzolamide-timolol (Cosopt) 2-0.5 % ophthalmic solution Administer 1 drop into both eyes in the morning and 1 drop before bedtime. latanoprost (Xalatan) 0.005 % ophthalmic solution losartan (Cozaar) 100 MG tablet Take 1 tablet (100 mg) by mouth Daily 90 tablet 1 magnesium oxide (Mag-Ox) 400 MG tablet Take 400 mg by mouth Daily Multiple Vitamins-Minerals (PreserVision AREDS 2) chewable tablet Chew zoledronic acid (Reclast) 5 MG/100ML solution Infuse 5 mg into a venous catheter yearly pravastatin (Pravachol) 20 MG tablet Take 1 tablet (20 mg) by mouth Daily (Patient not taking: Reported on 10/01/2024) 90 tablet 1 No current facility-administered medications for this visit. Allergies Allergen Reactions Lisinopril Cough MARTY inhibitors Physical Exam: There were no vitals taken for this visit. On General Observation: Patient is a pleasant, cooperative, well developed 78 y.o. adult female. The patient is alert and oriented to time, place and person. Patient has normal affect and mood. Vascular: DP and PT pulses are palpable. CFT less than 3 seconds to all digits. Skin temperature is warm to warm from proximal to distal. Hair growth is not noted. No edema noted. No varicosities noted. Neuro: Light touch intact. Dermatological: Skin appears well hydrated and supple. Toenails 1,2,3 on right are discolored, elongated, thickened with subungual debris with elongation of nail 4 and 5. Right hallucal nail is severely dystrophic with onychogryphosis with pain on palpation of bilateral border. There is no acute sign of infection noted. Webspaces 1-4 are clean, dry, intact. No rashes, subcutaneous nodules, or open lesions noted. Hyperkeratotic tissue is not noted. Musculoskeletal/Orthopaedic: General foot morphology: Planus. +4/5 muscle strength Dorsiflexion, Plantarflexion, Inversion, Eversion B/L. ROM of the 1st MTPJ is limited without pain or crepitus. Mild hammertoe deformity of right 2nd digit with prominent medial condyle of PIPJ. Mild hallux extensus noted with pain to palpation of right hallucal nail. Assessment: Encounter Diagnoses Name Primary? Onychomycosis Yes Nail dystrophy Hammertoe of right foot Pain in toe of right foot Ingrown toenail Plan: A comprehensive history and physical examination were preformed. The patient was educated on clinical and radiographic findings, diagnosis and treatment plans. Patient state that she understands all that has been explained and all questions were answered to her apparent satisfaction. Plan: Nails 1-5 on right were debrided in length and thickness by manual and mechanical means. We discussed use of Vicks Vapor rub or Urea Nail Gel application to nail plates to help soften nail plate and make them more management to home debridement. We discussed use of nail file to maintain thickness. Continue toe sleeves as needed Patient to avoid constrictive shoe gear with tight toe box or stiff materials. Continue wide toe box with soft uppers to accommodate deformity and decrease pressure to region. Advised patient on continued proper foot care including daily monitoring of their feet for any new complaints or concerns that may arise. We discussed total nail avulsion procedure in detail as patient has tried home care without significant improvement. We discussed total nail avulsion procedure risks, benefits, and alternatives. As well as removing the nail leaves toe unprotected which can cause possible wound formation. Patient expressed understanding. She would like to think about formal nail procedure and will call to schedule nail avulsion is she chooses to pursue this option. RTC: 9-12 weeks or as needed if problems arise. Merrick Dennison DPM documented in this encounter [facility] 10-01-2024 Instructions Merrick Dennison DPM - 10/01/2024 10:30 AM EDT Obtain thick nail file, file top of nail before applying the following Obtain nail nipper, can usually be found in store in nail care aisle or online OPTIONS: Epsom salt soak with warm water for 20 minutes, this will help soften nail and then trim with nail nipper Vicks Vapor Rub, file top surface of nail then apply to nail daily to help soften nail and make more manageable Urea Nail Gel 47%, on amazon, file top of nail then apply like grenadian. Will help shed the layers of the thick nail documented in this encounter [facility] 05-17-2024 History of Present illness Narrative SLEEP Charlotte Score -7 CPAP/BIPAP/APAP Pressure - 12/8 cmH20 Neck Circumference - Most Recent Sleep Study -02/08/23 Oxygen Use - no If so, how many liters and is [...] help with weight loss? no Pain 0-10- 0 If yes, Location- Upcoming surgeries?- no Has witnessed apnea ( some body told patient that they stop breathing in their sleep) - yes Med Refills (that we prescribe) - N/A Patient here for compliance follow up, denies having any issues. Recently fractured a rib on left side. HPI: SUBJECTIVE: Christie Waterman is a 78 y.o. female being seen today for chronic sleep disorder follow up for continuity of medical care. Most recent sleep testing showed: severe obstructive sleep apnea (AHI 30/hr) with sleep related hypoxia (radha 76%) and problem is likely to result in a high risk morbidity without treatment. Currently on home BIPAP at 12/8 cmH2O. Patient most recent PAP machine is from 02/23/2023. Patient stated that she is benefiting from the therapy. Her compliance is excellent. Average AHI from the compliance report was 0.2. Patient states improvements with her daytime fatigue or excessive daytime sleepiness with PAP therapy. Current sleep problems/side effects include: dry mouth. Patient denies snoring during therapy. Patient denies [...] Cigarettes Smokeless tobacco: Never Vaping Use Vaping status: Never Used Substance and Sexual Activity Alcohol use: Not on file Drug use: Not on file Sexual activity: Not on file Other Topics Concern Not on file Social History Narrative Not on file Social Determinants of Health Financial Resource Strain: Patient Declined (09/08/2023) Received from [facility] Overall Financial Resource Strain (CARDIA) Difficulty of Paying Living Expenses: Patient declined Food Insecurity: Patient Declined (09/08/2023) Received from [facility] Hunger Vital Sign Worried About Running Out of Food in the Last Year: Patient declined Ran Out of Food in the Last Year: Patient declined Transportation Needs: Patient Declined (09/08/2023) Received from [facility] PRAPARE - Transportation Lack of Transportation (Medical): Patient declined Lack of Transportation (Non-Medical): Patient declined Physical Activity: Patient Declined (09/08/2023) Received from [facility] Exercise Vital Sign Days of Exercise per Week: Patient declined Minutes of Exercise per Session: Patient declined Stress: Patient Declined (09/08/2023) Received from [facility] [employer] [place] [facility] [employer] - Occupational Stress Questionnaire Feeling of Stress : Patient declined Social Connections: Unknown (09/08/2023) Received from [facility] Social Connection and Isolation Panel [NHANES] Frequency of Communication with Friends and Family: Patient declined Frequency of Social Gatherings with Friends and Family: Patient declined Attends Anabaptist Services: Patient declined Active Member of Clubs or Organizations: Patient declined Attends Club or Organization Meetings: Patient declined Marital Status: Intimate Partner Violence: Not on file Housing Stability: Not on file Family History Problem Relation Age of Onset Diabetes Father Vitals: 05/17/24 1425 BP: 140/80 Pulse: (!) 49 Resp: 16 SpO2: 95% Weight: 84.9 kg (187 lb 1.6 oz) Height: 1.6 m (5' 3 ) [...] Behavior: Behavior normal. Judgment: Judgment normal. SLEEP Charlotte Score -7 CPAP/BIPAP/APAP Pressure - 12/8 cmH20 Neck Circumference - Most Recent Sleep Study -02/08/23 Oxygen Use - no If so, how many liters and is [...] help with weight loss? no Pain 0-10- 0 If yes, Location- Upcoming surgeries?- no Has witnessed apnea ( some body told patient that they stop breathing in their sleep) - yes Med Refills (that we prescribe) - N/A Patient here for compliance follow up, denies having any issues. Recently fractured a rib on left side. CURRENT MEDICATIONS: Current Outpatient Medications Medication Sig Dispense Refill amLODIPine 2.5 MG tablet Take 1 tablet by mouth daily. Brimonidine 0.2 % Solution INSTILL 1 DROP INTO BOTH EYES EVERY 12 HOURS Calcium Carb-Cholecalciferol (CALCIUM 600 + D PO) Take 1 tablet by mouth daily. Cetirizine 10 MG tablet Take 1 tablet by mouth daily. dorzolamide 2 % Solution Dorzolamide HCl Latanoprost 0.005 % Solution ophthalmic solution PLACE 1 DROP INTO BOTH EYES EVERYDAY AT BEDTIME losartan 100 MG tablet Take 1 tablet by mouth daily. Magnesium 400 MG tablet Take 1 tablet by mouth daily. Misc. Devices Misc by Unknown route. BIPAP 12/8 cmH2O DME: [facility] Multiple Vitamins-Minerals (PreserVision AREDS 2) Chew Tab Chew. Pravastatin 20 MG tablet Take 1 tablet by mouth daily. Zoledronic acid 5 MG/100ML Solution 100 mL by Intravenous route. No current facility-administered medications for this visit. Lungs: Clear to auscultation bilaterally. Heart: Regular in rate and rhythm. Abd: Soft and non-distended. Skin: No obvious rashes or cyanosis. Neuro: Grossly non-focal examination. MS: No joint erythema/edema. ROS Reviewed. Interpretation of sleep study and compliance report form was completed today and reviewed together with the patient during this visit. ASSESSMENT & PLAN: * VAL * Sleep Related Hypoxia * Overweight * Home PAP Use * Reviewed CPAP Compliance Form * Patient [...] will follow up in 1 year * New Supplies Ordered * Change BiPAP 11/7 [id number] month compliance * Evaluation and Management visit that is part of an ongoing, longitudinal care relationship Discussed with patient: the physiology of Sleep [...] I will have prescription sent to a [employer] ([employer]) company of choice- who will be calling patient in approximately 1-2 weeks to discuss setting them up on home PAP therapy, instruct them on how to use their PAP therapy and care for the machine - Patient should be eligible for new supplies approximately every 3-6 months, depending on your insurance coverage, [facility] company will inform patient of coverage - If patient mask does not fit well, contact [employer] company before 30 days are up to get a new mask without an additional charge - Insurance requires regular usage and periodic office follow ups for PAP therapy to continue to cover supplies, typically nightly use (70% of time)-greater than 4 hours within a 24 hour period (70% of the time) Insurance Requirements: - Your insurance requires a [id number] follow up visit within 31-90 days period [...] PAP therapy and supplies. A total of 28 minutes were spent at this encounter, and this includes obtaining and/or reviewing separately obtained history , performing exam, review of previous tests and results, independently interpreting results of tests and communicating results to the patient/family/caregiver, ordering medications/tests/procedures, counseling the patient and/family on plan of care, referring/communicating with other health child care group leader, as well as documenting the clinical information in the EHR. This includes face to face time and preparing to see the patient (review of tests). I personally reviewed selected chart notes, results, interpreted tests, imaging today before seeing the pt; reviewed and discussed w/ pt, questions answered. Portions of this chart were created using [employer] electronic dictation. Please excuse any typographical or grammatical errors contained herein as a result. Some Elements copied from previous notes. I have updated where appropriate, and all reflect current medical decision making from today's encounter. MICHELL Hall documented in this encounter [facility] 05-15-2024 Note HNO ID: [id number] Author: BRYAN WANG MD Service: ? Author Type: Physician Type: Progress Notes Filed: 05/15/2024 14:40 Note Text: PATIENT NAME: Christie Waterman [facility] NO.: [id number] ATTENDING PHYSICIAN: Bryan Wang MD DATE OF SERVICE: May 15, [address] Alisha Ernst, CHEESEMAKING LABORER ([facility]) [address] [facility] [phone] thank you for referring Christie Watreman for an opinion regarding abnormal serum light chain. CHIEF COMPLAINT: Abnormal serum light chain HPI: Christie Waterman is a 78 year old year old female with PMH of bradycardia, HTN, glaucoma. Mildly elevated serum kappa with normal FLC ratio. No evidence of M spike with normal serum immunofixation. Normal UPEP with urine BRENDAN. No major complaints. Current Outpatient Medications Medication Sig amLODIPine (NORVASC) 2.5 mg tablet Take 2.5 mg by mouth once daily. brimonidine (ALPHAGAN) 0.2 % ophthalmic solution Use 1 Drop in both eyes two times a day. cetirizine (ZYRTEC) 10 mg tablet Take 10 mg by mouth once daily. dorzolamide-timolol (COSOPT) 22.3-6.8 mg/mL ophthalmic solution Use 1 Drop in both eyes two times a day. latanoprost (XALATAN) 0.005 % ophthalmic solution Use 1 Drop in both eyes daily at bedtime. (Patient not taking: Reported on 05/14/2024) losartan (COZAAR) 100 mg tablet Take 100 mg by mouth once daily. Bvwxqmrrzdevy-Xvtwqzsr-Mwgyqw (CENTRUM SILVER) tab Take 1 tablet by mouth once daily. pravastatin (PRAVACHOL) 20 mg tablet Take 20 mg by mouth once daily. (Patient not taking: Reported on 05/14/2024) zoledronic acid (RECLAST) 5 mg/100 mL PREMIX piggyback Inject 5 mg intravenously. dorzolamide 2 % OPHTHALMIC ophthalmic solution three times daily. (Patient not taking: Reported on 05/14/2024) carvedilol (COREG) 12.5 mg ORAL tablet Take 12.5 mg by mouth twice daily with meals. (Patient not taking: Reported on 05/14/2024) GLUC SAUCEDO/MSM/MAGNESIUM/VIT C (GLUCOSAMINE COMPLEX-MSM ORAL) Take by mouth. (Patient not taking: Reported on 05/14/2024) OMEGA-3 FATTY ACIDS/FISH OIL (OMEGA 3 FISH OIL ORAL) Take by mouth. (Patient not taking: Reported on 05/14/2024) MULTIVITAMIN WITH MINERALS (ALEKSEY MULTIPLE/CHELATED MINERAL ORAL) Take by mouth. (Patient not taking: Reported on 05/14/2024) Lutein 20 mg ORAL Cap Take 20 mg by mouth. (Patient not taking: Reported on 05/14/2024) Cholecalciferol, Vitamin D3, (VITAMIN D) 1,000 unit ORAL Cap Take 1,000 Units by mouth once daily. aspirin, enteric coated (ECOTRIN LOW STRENGTH) 81 mg ORAL EC tablet Take 81 mg by mouth once daily. (Patient not taking: Reported on 05/14/2024) naproxen 500 mg ORAL tablet Take 500 mg by mouth twice daily with meals. (Patient not taking: Reported on 05/14/2024) No current facility-administered medications for this visit. ALLERGIES Allergen Reactions Alphagan [Brimonidi* Itching Lisinopril Cough MARTY inhibitors PAST MEDICAL HISTORY Diagnosis Date Abnormal serum protein electrophoresis Bradycardia Closed fracture of transverse process of thoracic vertebra (HCC) Glaucoma History of tobacco abuse HTN (hypertension) Idiopathic neuropathy Mixed hyperlipidemia Obesity Onychomycosis VAL (obstructive sleep apnea) Osteoporosis Pancreatic cyst Ruptured, tendon, Achilles Spondylolisthesis PAST SURGICAL HISTORY Procedure Laterality Date CARPAL TUNNEL bilateral CHOLECYSTECTOMY OSTECTOMY CALCANEUS SPUR W/WO PLNTAR FASCIAL RLS PAST SURGICAL HISTORY OF bleb revision PAST SURGICAL HISTORY OF Fibroadenoma REMV CATARACT EXTRACAP,INSERT LENS FAMILY HISTORY Problem Relation Age of Onset Diabetes Father Hypertension Mother Social History Tobacco Use Smoking status: Former Tobacco comments: quit 1969's Substance Use Topics Alcohol use: No Drug use: No REVIEW OF SYSTEMS GENERAL: No weight loss, malaise or fevers. No night sweats. HEENT: Negative for headaches, No changes in hearing or vision, no nose bleeds or other nasal problems. RESPIRATORY: Negative for cough, wheezing and shortness of breath CARDIOVASCULAR: Negative for chest pain, leg swelling and palpitations GI: Negative for abdominal discomfort, blood in stools or black stools and change in bowel habits : Negative for dysuria, frequency and incontinence MUSCULOSKELETAL: Negative for joint pain or swelling, back pain, and muscle pain. SKIN: Negative for lesions, rash, and itching. HEMATOLOGY/LYMPHOLOGY Negative for prolonged bleeding, bruising easily, and swollen nodes. NEURO: Negative for numbness or tingling of hands/feet. No weakness. PHYSICAL EXAMINATION: BP 178/71 Pulse (!) 55 Temp 36.6 ?C (97.8 ?F) (Temporal) Resp 16 Wt 83.9 kg (184 lb 15.5 oz) SpO2 99% Wt 83.9 kg (184 lb 15.5 oz) Last 3 Encounter Wt Readings: Date: Wt: 05/15/2024 83.9 kg (184 lb 15.5 oz) 12/15/2010 118.8 kg (262 lb) 12/01/2010 118.8 kg (262 lb) General appearance:ECOG PERFORMANCE STATUS: 0- Ful (more content not included)... [facility] 05-15-2024 History of Present illness Narrative [id number] ATTENDING PHYSICIAN: Bryan Wang MD DATE OF SERVICE: May 15, [address] Alisha Ernst, CHEESEMAKING LABORER ([facility]) [address] [place] [phone] thank you for referring Christie Waterman for an opinion regarding abnormal serum light chain. CHIEF COMPLAINT: Abnormal serum light chain HPI: Christie Waterman is a 78 year old year old female with PMH of bradycardia, HTN, glaucoma. Mildly elevated serum kappa with normal FLC ratio. No evidence of M spike with normal serum immunofixation. Normal UPEP with urine BRENDAN. No major complaints. Current Outpatient Medications Medication Sig amLODIPine (NORVASC) 2.5 mg tablet Take 2.5 mg by mouth once daily. brimonidine (ALPHAGAN) 0.2 % ophthalmic solution Use 1 Drop in both eyes two times a day. cetirizine (ZYRTEC) 10 mg tablet Take 10 mg by mouth once daily. dorzolamide-timolol (COSOPT) 22.3-6.8 mg/mL ophthalmic solution Use 1 Drop in both eyes two times a day. latanoprost (XALATAN) 0.005 % ophthalmic solution Use 1 Drop in both eyes daily at bedtime. (Patient not taking: Reported on 05/14/2024) losartan (COZAAR) 100 mg tablet Take 100 mg by mouth once daily. Izitnlbwtdrbm-Vjtuykpa-Lonmjj (CENTRUM SILVER) tab Take 1 tablet by mouth once daily. pravastatin (PRAVACHOL) 20 mg tablet Take 20 mg by mouth once daily. (Patient not taking: Reported on 05/14/2024) zoledronic acid (RECLAST) 5 mg/100 mL PREMIX piggyback Inject 5 mg intravenously. dorzolamide 2 % OPHTHALMIC ophthalmic solution three times daily. (Patient not taking: Reported on 05/14/2024) carvedilol (COREG) 12.5 mg ORAL tablet Take 12.5 mg by mouth twice daily with meals. (Patient not taking: Reported on 05/14/2024) GLUC SAUCEDO/MSM/MAGNESIUM/VIT C (GLUCOSAMINE COMPLEX-MSM ORAL) Take by mouth. (Patient not taking: Reported on 05/14/2024) OMEGA-3 FATTY ACIDS/FISH OIL (OMEGA 3 FISH OIL ORAL) Take by mouth. (Patient not taking: Reported on 05/14/2024) MULTIVITAMIN WITH MINERALS (ALEKSEY MULTIPLE/CHELATED MINERAL ORAL) Take by mouth. (Patient not taking: Reported on 05/14/2024) Lutein 20 mg ORAL Cap Take 20 mg by mouth. (Patient not taking: Reported on 05/14/2024) Cholecalciferol, Vitamin D3, (VITAMIN D) 1,000 unit ORAL Cap Take 1,000 Units by mouth once daily. aspirin, enteric coated (ECOTRIN LOW STRENGTH) 81 mg ORAL EC tablet Take 81 mg by mouth once daily. (Patient not taking: Reported on 05/14/2024) naproxen 500 mg ORAL tablet Take 500 mg by mouth twice daily with meals. (Patient not taking: Reported on 05/14/2024) No current facility-administered medications for this visit. ALLERGIES Allergen Reactions Alphagan [Brimonidi* Itching Lisinopril Cough MARTY inhibitors PAST MEDICAL HISTORY Diagnosis Date Abnormal serum protein electrophoresis Bradycardia Closed fracture of transverse process of thoracic vertebra (HCC) Glaucoma History of tobacco abuse HTN (hypertension) Idiopathic neuropathy Mixed hyperlipidemia Obesity Onychomycosis VAL (obstructive sleep apnea) Osteoporosis Pancreatic cyst Ruptured, tendon, Achilles Spondylolisthesis PAST SURGICAL HISTORY Procedure Laterality Date CARPAL TUNNEL bilateral CHOLECYSTECTOMY OSTECTOMY CALCANEUS SPUR W/WO PLNTAR FASCIAL RLS PAST SURGICAL HISTORY OF bleb revision PAST SURGICAL HISTORY OF Fibroadenoma REMV CATARACT EXTRACAP,INSERT LENS FAMILY HISTORY Problem Relation Age of Onset Diabetes Father Hypertension Mother Social History Tobacco Use Smoking status: Former Tobacco comments: quit Substance Use Topics Alcohol use: No Drug use: No REVIEW OF SYSTEMS GENERAL: No weight loss, malaise or fevers. No night sweats. HEENT: Negative for headaches, No changes in hearing or vision, no nose bleeds or other nasal problems. RESPIRATORY: Negative for cough, wheezing and shortness of breath CARDIOVASCULAR: Negative for chest pain, leg swelling and palpitations GI: Negative for abdominal discomfort, blood in stools or black stools and change in bowel habits : Negative for dysuria, frequency and incontinence MUSCULOSKELETAL: Negative for joint pain or swelling, back pain, and muscle pain. SKIN: Negative for lesions, rash, and itching. HEMATOLOGY/LYMPHOLOGY Negative for prolonged bleeding, bruising easily, and swollen nodes. NEURO: Negative for numbness or tingling of hands/feet. No weakness. PHYSICAL EXAMINATION: BP 178/71 Pulse (!) 55 Temp 36.6 C (97.8 F) (Temporal) Resp 16 Wt 83.9 kg (184 lb 15.5 oz) SpO2 99% Wt 83.9 kg (184 lb 15.5 oz) Last 3 Encounter Wt Readings: Date: Wt: 05/15/2024 83.9 kg (184 lb 15.5 oz) 12/15/2010 118.8 kg (262 lb) 12/01/2010 118.8 kg (262 lb) General appearance:ECOG PERFORMANCE STATUS: 0- Fully active, able to carry on all pre-disease performance w/o restriction. Patient in NAD. Skin: Skin color, texture, turgor normal. No rashes or lesions. Eyes: Anicteric sclera. Pupils are equally round and reactive to light. Extraocular movements are intact. Breast: No palpable breast masses. No nipple change or discharge. Lymph Nodes: No cervical, supraclavicular, axillary or inguinal adenopathy. Oropharynx: Lips, mucosa, and tongue normal. Back: No pain to percussion. Negative SLR test Lungs clear to auscultation, No wheezing or rhonchi Heart: RRR without murmur, gallop, or rubs. Abdomen soft, non-tender. No masses, organomegaly Extremities: No deformities. No edema Neuro: Gait and speech normal. Reflexes normal and symmetric. Muscular strength intact. Sensation grossly intact. Rectal: Deferred : Deferred LABS: Glucose (mg/dL) Date Value 01/21/2000 97 Potassium (mmol/L) Date Value 01/21/2000 4.4 Sodium (mmol/L) Date Value 01/21/2000 143 Chloride (mmol/L) Date Value 01/21/2000 106 CO2 (mmol/L) Date Value 01/21/2000 25 Creatinine (mg/dL) Date Value 01/21/2000 0.5 BUN (mg/dL) Date Value 01/21/2000 13 Anion Gap (mmol/L) Date Value 01/21/2000 12 Calcium (mg/dL) Date Value 01/21/2000 9.5 Protein, Total (g/dL) Date Value 11/25/2003 7.2 Albumin (g/dL) Date Value 11/25/2003 4.4 Bilirubin, Total (mg/dL) Date Value 11/25/2003 0.3 Alkaline Phosphatase (U/L) Date Value 11/25/2003 70 AST (U/L) Date Value 11/25/2003 27 ALT (U/L) Date Value 11/25/2003 19 WBC Date Value Ref Range Status 01/21/2000 7.27 4.0 - 11.0 k/uL RBC Date Value Ref Range Status 01/21/2000 5.12 4.2 - 5.4 M/uL Hemoglobin Date Value Ref Range Status 01/21/2000 14.2 12.0 - 16.0 g/dL Hematocrit Date Value Ref Range Status 01/21/2000 41.9 37 - 47 % MCV Date Value Ref Range Status 01/21/2000 81.8 80 - 100 fL MCH Date Value Ref Range Status 01/21/2000 27.7 27 - 34 pG MCHC Date Value Ref Range Status 01/21/2000 33.9 32 - 36 % RDW-CV Date Value Ref Range Status 01/21/2000 13.0 11.7 - 15.0 % Platelet Count Date Value Ref Range Status 01/21/2000 270 150 - 400 K/uL MPV Date Value Ref Range Status 01/21/2000 9.9 7.3 - 11.1 fL Abs Neut (ANC) Date Value Ref Range Status 01/21/2000 5.11 1.8 - 7.7 K/uL Lymph% Date Value Ref Range Status 01/21/2000 20.0 (A) 22 - 44 % [place]% Date Value Ref Range Status 01/21/2000 7.3 (A) 0 - 7.0 % Abs [place] Date Value Ref Range Status 01/21/2000 0.53 0 - 0.8 K/uL Abs Eosin Date Value Ref Range Status 01/21/2000 0.12 0 - 0.4 K/uL Baso% Date Value Ref Range Status 01/21/2000 0.8 0 - 1 % Abs Baso Date Value Ref Range Status 01/21/2000 0.06 0 - 0.2 K/uL PATH: IMAGING: ASSESSMENT AND PLAN: Christie Waterman is a 78 year old year old female referred to us for abnormal serum kappa light chain. PLAN: - Mildly elevated serum kappa light chain with normal FLC ratio is of undetermined significance. - No evidence of M spike and normal serum BRENDAN. - Normal UPEP with urine BRENDAN. - No evidence of CRAB criteria. - No evidence of MGUS or Mutiple myeloma. - F/u with PCP - All her questions answered in detail. - F/u here if needed. Dear Dr. Alisha Ernst, CHEESEMAKING LABORER ([facility]) [address] [place] [phone] thank you for allowing me to participate in Christie Waterman care, if there are any questions or concerns please do not hesitate to contact me at the number below. I spent a total of 45 minutes on the date of the service which included preparing to see the patient, [id number] patient care, completing clinical documentation, obtaining and/or reviewing separately obtained history, performing a medically appropriate examination, counseling and educating the patient/family/caregiver, ordering medications, tests, or procedures, communicating with other HCPs (not separately reported), independently interpreting results (not separately reported), communicating results to the patient/family/caregiver, and care coordination (not separately reported). Bryan Wang MD. Hematology/Medical Oncology [facility] [phone] CC: documented in this encounter [facility] 05-14-2024 History of Present illness Narrative Associated Problem(s): Closed fracture of transverse process of thoracic vertebra with delayed healing Reviewed MRI will order fu CT scan, no hx of malignancy, her DEXA scans have improved and she is complaint with her yearly reclast, no trauma associated with this fracture, was reaching over to grab her CPAP to put on Reviewed labs, elevated free kappa light chain S, no spike protein At this point out of caution will obtain second opinion from oncology Associated Problem(s): Osteoporosis (CMS/[facility]) Continue reclast Associated Problem(s): Abnormal serum protein electrophoresis Elevated free kappa light chain S No other abnormals, will refer to Hematology for second opinion Uncertain with underlying osteoporosis despite treatment and no other abnormals whey continued fractures Images from the original note were not included. Christie Waterman is a 78 y.o. female presents with chief complaint of No chief complaint on file. HPI: Overall is doing fairly well with healing fracture rib/spinous process If over does it increase pain, not as severe Hypertension This is a chronic problem. The current episode started more than 1 year ago. The problem is unchanged. The problem is controlled. Pertinent negatives include no anxiety, chest pain, headaches, palpitations, peripheral edema or shortness of breath. There are no associated agents to hypertension. Risk factors for coronary artery disease include obesity and sedentary lifestyle. Past treatments include calcium channel blockers and angiotensin blockers. The current treatment provides significant improvement. There are no compliance problems. There is no history of kidney disease or heart failure. SUBJECTIVE: MEDICATIONS: Current Outpatient Medications Medication Instructions [...] BEDTIME losartan (COZAAR) 100 mg, Oral, Daily Multiple Vitamins-Minerals (PreserVision AREDS 2) chewable tablet Oral pravastatin (PRAVACHOL) 20 mg, Oral, Daily zoledronic acid (RECLAST) 5 mg, Intravenous, Yearly ALLERGIES: Allergies Allergen Reactions Lisinopril Cough MARTY [...] urinating, dysuria and frequency. Musculoskeletal: Positive for back pain and neck stiffness. Negative for arthralgias, joint swelling and myalgias. Skin: Negative for [...] Diagnosis Date Achilles tendonitis Calcaneal spur Glaucoma ([facility]) HTN (hypertension) (CMS/HCC) 06/12/2023 Idiopathic neuropathy Onychomycosis Plantar fasciitis Pronation [...] father and mother. OBJECTIVE: Visit Vitals BP 140/62 (BP Location: Left arm, Patient Position: Sitting, BP Cuff Size: Adult long) Pulse (!) 49 Temp 97.5 F (Temporal) Resp 18 Ht 5' 3 Wt 184 lb 12.8 oz SpO2 96% BMI 32.74 kg/m Smoking Status Never BSA 1.93 m Physical Exam Vitals and nursing note [...] Tenderness: There is no abdominal tenderness. Musculoskeletal: General: No tenderness. Normal range of motion. Cervical back: Normal range of motion and neck supple. Right lower leg: No edema. Left lower leg: No edema. Lymphadenopathy: Cervical: No cervical adenopathy. Skin: General: [...] List Items Addressed This Visit BMI 32.0-32.9,adult Age-related osteoporosis with current pathological fracture of vertebra with delayed healing Has been following with kyle Also gets reclast yearly as well, last dose 03/24 Also takes calcium/vit d supplement daily Reviewed MRI thoracic spine, fracture left T11 transverse process and proximal rib Had fu CT scans HTN (hypertension) ([facility]) Please check blood pressure daily and record DASH diet Limit caffeine Take medication as directed Contact office if chest pain, pressure, dizziness, shortness of breath, swelling legs Recommend slow position changes Current meds: losartan and Amlodipine Bradycardia Has been mcc, no symptoms, does take b miriam eye drops VAL (obstructive sleep apnea) - Primary You have a diagnosis of obstructive sleep apnea. It is recommended that you wear your PAP device any time while in bed sleeping. Not using the PAP device can increase your risk of elevated/uncontrolled high blood pressure, atrial fibrillation, heart attack, stroke, or sudden . Compliant: Hours use: Feeling good: Rib pain on left side Pancreatic cyst ([facility]) Had MRI pancreas cyst Closed fracture of transverse process of thoracic vertebra with delayed healing Reviewed MRI will order fu CT scan, no hx of malignancy, her DEXA scans have improved and she is complaint with her yearly reclast, no trauma associated with this fracture, was reaching over to grab her CPAP to put on Reviewed labs, elevated free kappa light chain S, no spike protein At this point out of caution will obtain second opinion from oncology Osteoporosis ([facility]) Continue reclast Abnormal serum protein electrophoresis Elevated free kappa light chain S No other abnormals, will refer to Hematology for second opinion Uncertain with underlying osteoporosis despite treatment and no other abnormals whey continued fractures Relevant Orders Ambulatory referral to Hematology / Oncology Associated Problem(s): Age-related osteoporosis with current pathological fracture of vertebra with delayed healing Has been following with kyle Also gets reclast yearly as well, last dose 03/24 Also takes calcium/vit d supplement daily Reviewed MRI thoracic spine, fracture left T11 transverse process and proximal rib Had fu CT scans Associated Problem(s): Pancreatic cyst (CMS/HCC) Had MRI pancreas cyst Associated Problem(s): HTN (hypertension) (CMS/HCC) Please check blood pressure daily and record DASH diet Limit caffeine Take medication as directed Contact office if chest pain, pressure, dizziness, shortness of breath, swelling legs Recommend slow position changes Current meds: losartan and Amlodipine Associated Problem(s): Bradycardia Has been mcc, no symptoms, does take b miriam eye drops Associated Problem(s): VAL (obstructive sleep apnea) You have a diagnosis of obstructive sleep apnea. It is recommended that you wear your PAP device any time while in bed sleeping. Not using the PAP device can increase your risk of elevated/uncontrolled high blood pressure, atrial fibrillation, heart attack, stroke, or sudden . Compliant: Hours use: Feeling good: documented in this encounter [facility] 05-14-2024 Instructions Alisha Ernst NP - 05/14/2024 9:00 AM EST Refer to oncology with [facility] in Dr Dangelo Perez documented in this encounter [facility] 04-02-2024 History of Present illness Narrative Associated Problem(s): Closed fracture of transverse process of thoracic vertebra with delayed healing Reviewed MRI will order fu CT scan, no hx of malignancy, her DEXA scans have improved and she is complaint with her yearly reclast, no trauma associated with this fracture, was reaching over to grab her CPAP to put on Will order labs Associated Problem(s): VAL (obstructive sleep apnea) Compliant with PAP use Associated Problem(s): Mixed hyperlipidemia (CMS/HCC) Reviewed again lipids from 09/21, family hx: stroke, also has HTN Discussed high/mod/low intensity statin Will trial pravastatin 20mg Advised side effects of meds recheck labs in 8 weeks Images from the original note were not included. Christie Waterman is a 78 y.o. 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 The current episode started more than 1 year ago. The problem is unchanged. The problem is controlled. Pertinent negatives include no blurred vision, chest pain, headaches, neck pain, orthopnea, palpitations, peripheral edema or shortness of breath. There are no associated agents to hypertension. Risk factors for coronary artery disease include obesity and post-menopausal state. Past treatments include calcium channel blockers and angiotensin blockers. The current treatment provides significant improvement. [...] BEDTIME losartan (COZAAR) 100 mg, Oral, Daily Multiple Vitamins-Minerals (PreserVision AREDS 2) chewable tablet Oral pravastatin (PRAVACHOL) 20 mg, Oral, Daily zoledronic acid (RECLAST) 5 mg, Intravenous, Yearly ALLERGIES: Allergies Allergen Reactions Lisinopril Cough MARTY inhibitors REVIEW OF SYMPTOMS: Review of Systems Constitutional: Negative for appetite change, chills and fever. HENT: Negative for congestion, ear pain and sore throat. Eyes: Negative for blurred vision, pain, discharge, redness and visual disturbance. Respiratory: Negative for cough, shortness of breath and wheezing. Cardiovascular: Negative for chest pain, palpitations, orthopnea and leg swelling. Gastrointestinal: Negative for abdominal pain, blood in stool, constipation, diarrhea, nausea and vomiting. Genitourinary: Negative for difficulty urinating, dysuria and frequency. Musculoskeletal: Positive for back pain. Negative for arthralgias, joint swelling, myalgias and neck pain. Skin: Negative for rash and wound. Neurological: Negative for dizziness, tremors, seizures, syncope and headaches. Psychiatric/Behavioral: Negative for behavioral problems, self-injury and suicidal ideas. The patient is not nervous/anxious. Hematological: Does not bruise/bleed easily. Endocrine: Negative for polydipsia, polyphagia and polyuria. Allergic/Immunologic: Negative for environmental allergies and food allergies. PAST MEDICAL HISTORY Past Medical History: Diagnosis Date Achilles tendonitis Calcaneal spur Glaucoma ([facility]) HTN (hypertension) ([facility]) 06/12/2023 Idiopathic neuropathy Onychomycosis Plantar fasciitis [...] father and mother. OBJECTIVE: Visit Vitals BP 130/80 (BP Location: Left arm, Patient Position: Sitting, BP Cuff Size: Adult long) Pulse 56 Temp 98.7 F (Temporal) Resp 18 Ht 5' 3 Wt 179 lb 9.6 oz SpO2 98% BMI 31.81 kg/m Smoking Status Never BSA 1.9 m [...] No carotid bruit. Cardiovascular: Rate and Rhythm: Normal rate and [...] Left lower leg: No edema. Comments: No point tenderness to the thoracic spine Lymphadenopathy: Cervical: No cervical adenopathy. Skin: General: [...] List Items Addressed This Visit BMI 32.0-32.9,adult Age-related osteoporosis with current pathological fracture of vertebra with delayed healing Has been following with kyle Also gets reclast yearly as well, last dose 03/24 Also takes calcium/vit d supplement daily HTN (hypertension) (CMS/[facility]) Please check blood pressure daily and record DASH diet Limit caffeine Take medication as directed Contact office if chest pain, pressure, dizziness, shortness of breath, swelling legs Recommend slow position changes Current meds: losartan and Amlodipine Bradycardia Has been mcc, no symptoms, does take b miriam eye drops Mixed hyperlipidemia (CMS/HCC) Reviewed again lipids from 09/21, family hx: stroke, also has HTN Discussed high/mod/low intensity statin Will trial pravastatin 20mg Advised side effects of meds recheck labs in 8 weeks Relevant Medications pravastatin (Pravachol) 20 MG tablet Other Relevant Orders ALT AST Lipid panel RESOLVED: Age-related osteoporosis without current pathological fracture (CMS/HCC) VAL (obstructive sleep apnea) Compliant with PAP use Pancreatic cyst (CMS/HCC) Had MRI pancrease cyst Encounter for subsequent annual wellness visit (AWV) in Medicare patient - Primary Reviewed Ht/Wt/BMI Recommend eye exam yearly Recommend dental exams twice a year Balance work/leisure activities Exercises is recommended most days of the week (appropriate as chronic conditions allow) Follow up yearly and prn Associated Problem(s): Age-related osteoporosis with current pathological fracture of vertebra with delayed healing Has been following with kyle Also gets reclast yearly as well, last dose 03/24 Also takes calcium/vit d supplement daily Reviewed MRI thoracic spine, fracture left T11 transverse process and proximal rib Will need fu CT thoracic spine, consider labs as well Associated Problem(s): Pancreatic cyst (CMS/HCC) Had MRI pancrease cyst Associated Problem(s): 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, 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, does 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 b miriam eye drops Associated Problem(s): HTN (hypertension) (CMS/HCC) Please check blood pressure daily and record DASH diet Limit caffeine Take medication as directed Contact office if chest pain, pressure, dizziness, shortness of breath, swelling legs Recommend slow position changes Current meds: losartan and Amlodipine Associated Problem(s): Encounter for subsequent annual wellness visit (AWV) in Medicare patient Reviewed Ht/Wt/BMI Recommend eye exam yearly Recommend dental exams twice a year Balance work/leisure activities Exercises is recommended most days of the week (appropriate as chronic conditions allow) Follow up yearly and prn documented in this encounter [facility] 03-04-2024 History of Present illness Narrative Associated Problem(s): Pancreatic cyst (CMS/HCC) Noted on CT abd/pelvis Will speak to radiology Associated Problem(s): Rib pain on left side Unclear etiology DD: muscle strain, zoster, radiculopathy thoracic pathology Will wait to see what is next Associated Problem(s): Spondylolisthesis Cont with neurosurgery Has MRI spine this week Associated Problem(s): 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 Christie Waterman is a 78 y.o. female presents with chief complaint of No chief complaint on file. HPI: Here for a ER fu: pain location left lateral lower rib region, sharp and achy Significantly worsened when she reached over to her BIPAP machine. This pain intensified to the point she went to [facility] er on 02/21. See ER notes [...] MRI T spine (possible L spine) in [place] on this coming Monday as well SUBJECTIVE: [...] Diagnosis Date Achilles tendonitis Calcaneal spur Glaucoma ([facility]) HTN (hypertension) ([facility]) 06/12/2023 Idiopathic neuropathy Onychomycosis Plantar fasciitis Pronation deformity of foot Rupture Achilles tendon, right, initial encounter Visual impairment w/ corrective lenses Past Surgical History: Procedure Laterality Date ACHILLES TENDON SURGERY Right 2010 ACHILLES TENDON SURGERY Left 04/12/2016 FloQast procedure BREAST FIBROADENOMA SURGERY CARPAL TUNNEL RELEASE [...] meds No changes needed 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 Skin does not appear red or with rash. Images from the original note were not included. Christie Dentonster is a 77 y.o. 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 Judgment: Judgment normal. SLEEP Charlotte Score -6 CPAP/BIPAP/APAP Pressure - Max IPAP18 [...] today * Adjust Auto BiPAP to BiPAP12/8 [id number] 1 month compliance * New Supplies Ordered-Chg [...] I will have prescription sent to a [facility] ([employer] company of choice- who will be calling patient in approximately next 1-2 weeks. - Patient should be eligible for new supplies approximately every 3-6 months, depending on your insurance coverage, [facility] company will inform patient of coverage - If patient mask does not fit well, contact [facility] company before 30 days are up to get a new mask without an additional charge - Insurance requires regular usage and periodic office follow ups for PAP therapy to continue to cover supplies Insurance Requirements: - Your insurance requires a [id number] follow up visit within 31-90 days period [...] plan of care, referring/communicating with other health child care group leader, as well as documenting the clinical information in the EHR. This includes face to face time and preparing to see the patient (review of tests) I personally reviewed selected chart notes, results, interpreted tests, imaging today before seeing the pt; reviewed and discussed w/ pt, questions answered. Portions of this chart were created using [employer] electronic dictation. Please excuse any typographical or grammatical errors contained herein as a result. Some Elements copied from previous notes. I have updated where appropriate, and all reflect current medical decision making from today's encounter. MICHELL Hall documented in this encounter [facility] Evaluation note Diagnosis Obstructive sleep apnea- Primary Obstructive sleep apnea (adult) (pediatric) Sleep related hypoxia Idiopathic sleep related nonobstructive alveolar hypoventilation Encounter to discuss test results Other specified counseling [facility] Diagnosis Primary hypertension (CMS/HCC)- Primary Unspecified essential hypertension BMI 32.0-32.9,adult Bradycardia Other specified cardiac dysrhythmias Chronic pain of right knee Chronic right shoulder pain Pain in joint, shoulder region Rash and nonspecific skin eruption Rash and other nonspecific skin eruption documented in this encounter [facility]* Diagnosis Primary hypertension (CMS/HCC)- Primary Unspecified essential [...] pseudocyst of pancreas documented in this encounter [facility]* Diagnosis Primary hypertension (CMS/HCC)- Primary Unspecified essential [...] fracture (CMS/HCC)- Primary documented in this encounter [facility]* Diagnosis Primary hypertension (CMS/HCC)- Primary Unspecified essential [...] cyst (CMS/HCC) Cyst and pseudocyst of pancreas Rib pain on left side- Primary documented in this encounter [facility]* Diagnosis Primary hypertension (CMS/HCC)- Primary Unspecified essential [...] cyst (CMS/HCC) Cyst and pseudocyst of pancreas Encounter for subsequent annual wellness visit (AWV) in Medicare patient- Primary Primary hypertension (CMS/HCC) Unspecified essential hypertension Bradycardia Other specified cardiac dysrhythmias Pancreatic cyst (CMS/HCC) Cyst and pseudocyst of pancreas Age-related osteoporosis without current pathological fracture (CMS/HCC) Age-related osteoporosis with current pathological fracture of vertebra with delayed healing BMI 32.0-32.9,adult Mixed hyperlipidemia (CMS/HCC) Mixed hyperlipidemia VAL (obstructive sleep apnea) Obstructive sleep apnea (adult) (pediatric) Closed fracture of transverse process of thoracic vertebra with delayed healing documented in this encounter [facility]* Diagnosis Back pain, unspecified back location, unspecified back pain laterality, unspecified chronicity Closed fracture of one rib, unspecified laterality, initial encounter Osteopenia, unspecified location [facility] Diagnosis Primary hypertension (CMS/HCC)- Primary Unspecified essential [...] cyst (CMS/HCC) Cyst and pseudocyst of pancreas Encounter for subsequent annual wellness visit (AWV) in Medicare patient- Primary Primary hypertension (CMS/HCC) Unspecified essential hypertension Bradycardia Other specified cardiac dysrhythmias Pancreatic cyst (CMS/HCC) Cyst and pseudocyst of pancreas Age-related osteoporosis without current pathological fracture (CMS/HCC) Age-related osteoporosis with current pathological fracture of vertebra with delayed healing BMI 32.0-32.9,adult Mixed hyperlipidemia (CMS/HCC) Mixed hyperlipidemia VAL (obstructive sleep apnea) Obstructive sleep apnea (adult) (pediatric) Closed fracture of transverse process of thoracic vertebra with delayed healing Abnormal serum protein electrophoresis- Primary VAL (obstructive sleep apnea) Obstructive sleep apnea (adult) (pediatric) Bradycardia Other specified cardiac dysrhythmias Primary hypertension (CMS/HCC) Unspecified essential hypertension Pancreatic cyst (CMS/HCC) Cyst and pseudocyst of pancreas Age-related osteoporosis with current pathological fracture of vertebra with delayed healing BMI 32.0-32.9,adult Rib pain on left side Osteoporosis with current pathological fracture with routine healing, unspecified osteoporosis type, subsequent encounter Closed fracture of transverse process of thoracic vertebra with delayed healing [facility] Elevated serum immunoglobulin free light chain level- Primary Other nonspecific findings on examination of blood [facility] Obstructive sleep apnea- Primary Obstructive sleep apnea (adult) (pediatric) Sleep related hypoxia Idiopathic sleep related nonobstructive alveolar hypoventilation Overweight Encounter to discuss test results Other specified counseling [facility] Diagnosis Primary hypertension (CMS/HCC)- Primary Unspecified essential [...] cyst (CMS/HCC) Cyst and pseudocyst of pancreas Encounter for subsequent annual wellness visit (AWV) in Medicare patient- Primary Primary hypertension (CMS/HCC) Unspecified essential hypertension Bradycardia Other specified cardiac dysrhythmias Pancreatic cyst (CMS/HCC) Cyst and pseudocyst of pancreas Age-related osteoporosis without current pathological fracture (CMS/HCC) Age-related osteoporosis with current pathological fracture of vertebra with delayed healing BMI 32.0-32.9,adult Mixed hyperlipidemia (CMS/HCC) Mixed hyperlipidemia VAL (obstructive sleep apnea) Obstructive sleep apnea (adult) (pediatric) Closed fracture of transverse process of thoracic vertebra with delayed healing Abnormal serum protein electrophoresis- Primary VAL (obstructive sleep apnea) Obstructive sleep apnea (adult) (pediatric) Bradycardia Other specified cardiac dysrhythmias Primary hypertension (CMS/HCC) Unspecified essential hypertension Pancreatic cyst (CMS/HCC) Cyst and pseudocyst of pancreas Age-related osteoporosis with current pathological fracture of vertebra with delayed healing BMI 32.0-32.9,adult Rib pain on left side Osteoporosis with current pathological fracture with routine healing, unspecified osteoporosis type, subsequent encounter Closed fracture of transverse process of thoracic vertebra with delayed healing Essential (primary) hypertension (CMS/HCC) Unspecified essential hypertension Essential hypertension (CMS/HCC) Unspecified essential hypertension Mixed hyperlipidemia (CMS/HCC) Mixed hyperlipidemia documented in this encounter [facility]* Diagnosis Primary hypertension (CMS/HCC)- Primary Unspecified essential [...] cyst (CMS/HCC) Cyst and pseudocyst of pancreas Encounter for subsequent annual wellness visit (AWV) in Medicare patient- Primary Primary hypertension (CMS/HCC) Unspecified essential hypertension Bradycardia Other specified cardiac dysrhythmias Pancreatic cyst (CMS/HCC) Cyst and pseudocyst of pancreas Age-related osteoporosis without current pathological fracture (CMS/HCC) Age-related osteoporosis with current pathological fracture of vertebra with delayed healing BMI 32.0-32.9,adult Mixed hyperlipidemia (CMS/HCC) Mixed hyperlipidemia VAL (obstructive sleep apnea) Obstructive sleep apnea (adult) (pediatric) Closed fracture of transverse process of thoracic vertebra with delayed healing Abnormal serum protein electrophoresis- Primary VAL (obstructive sleep apnea) Obstructive sleep apnea (adult) (pediatric) Bradycardia Other specified cardiac dysrhythmias Primary hypertension (CMS/HCC) Unspecified essential hypertension Pancreatic cyst (CMS/HCC) Cyst and pseudocyst of pancreas Age-related osteoporosis with current pathological fracture of vertebra with delayed healing BMI 32.0-32.9,adult Rib pain on left side Osteoporosis with current pathological fracture with routine healing, unspecified osteoporosis type, subsequent encounter Closed fracture of transverse process of thoracic vertebra with delayed healing Diarrhea, unspecified type- Primary VAL (obstructive sleep apnea) Obstructive sleep apnea (adult) (pediatric) Primary hypertension (CMS/HCC) Unspecified essential hypertension Mixed hyperlipidemia (CMS/HCC) Mixed hyperlipidemia Bradycardia Other specified cardiac dysrhythmias Nail dystrophy- Primary Other specified disease of nail Hammertoe of right foot Pain in toe of right foot Pain in soft tissues of limb Ingrown toenail Ingrowing nail Onychomycosis Dermatophytosis of nail documented in this encounter [facility]* Diagnosis Primary hypertension- Primary Unspecified essential hypertension BMI 32.0-32.9,adult Bradycardia Other specified cardiac dysrhythmias Chronic pain of right knee Chronic right shoulder pain Pain in joint, shoulder region Rash and nonspecific skin eruption Rash and other nonspecific skin eruption Primary hypertension- Primary Unspecified essential hypertension Age-related osteoporosis with current pathological fracture of vertebra with delayed healing Mixed hyperlipidemia Mixed hyperlipidemia VAL (obstructive sleep apnea) Obstructive sleep apnea (adult) (pediatric) BMI 32.0-32.9,adult Chronic right shoulder pain Pain in joint, shoulder region Neoplasm of uncertain behavior Neoplasm of uncertain behavior, site unspecified Rib pain on left side- Primary Essential (primary) hypertension Unspecified essential hypertension Essential hypertension Unspecified essential hypertension Age-related osteoporosis with current pathological fracture of vertebra with delayed healing Age-related osteoporosis without current pathological fracture Spondylolisthesis, unspecified spinal region Primary hypertension Unspecified essential hypertension Bradycardia Other specified cardiac dysrhythmias BMI 32.0-32.9,adult Pancreatic cyst (HCC) Cyst and pseudocyst of pancreas Encounter for subsequent annual wellness visit (AWV) in Medicare patient- Primary Primary hypertension Unspecified essential hypertension Bradycardia Other specified cardiac dysrhythmias Pancreatic cyst (HCC) Cyst and pseudocyst of pancreas Age-related osteoporosis without current pathological fracture Age-related osteoporosis with current pathological fracture of vertebra with delayed healing BMI 32.0-32.9,adult Mixed hyperlipidemia Mixed hyperlipidemia VAL (obstructive sleep apnea) Obstructive sleep apnea (adult) (pediatric) Closed fracture of transverse process of thoracic vertebra with delayed healing Abnormal serum protein electrophoresis- Primary VAL (obstructive sleep apnea) Obstructive sleep apnea (adult) (pediatric) Bradycardia Other specified cardiac dysrhythmias Primary hypertension Unspecified essential hypertension Pancreatic cyst (HCC) Cyst and pseudocyst of pancreas Age-related osteoporosis with current pathological fracture of vertebra with delayed healing BMI 32.0-32.9,adult Rib pain on left side Osteoporosis with current pathological fracture with routine healing, unspecified osteoporosis type, subsequent encounter Closed fracture of transverse process of thoracic vertebra with delayed healing Diarrhea, unspecified type- Primary VAL (obstructive sleep apnea) Obstructive sleep apnea (adult) (pediatric) Primary hypertension Unspecified essential hypertension Mixed hyperlipidemia Mixed hyperlipidemia Bradycardia Other specified cardiac dysrhythmias Lumbar spondylosis- Primary Lumbosacral spondylosis without myelopathy VAL (obstructive sleep apnea) Obstructive sleep apnea (adult) (pediatric) Mixed hyperlipidemia Mixed hyperlipidemia Primary hypertension Unspecified essential hypertension Bradycardia Other specified cardiac dysrhythmias documented in this encounter [facility] note* Diagnosis Primary hypertension- Primary Unspecified essential hypertension BMI 32.0-32.9,adult Bradycardia Other specified cardiac dysrhythmias Chronic pain of right knee Chronic right shoulder pain Pain in joint, shoulder region Rash and nonspecific skin eruption Rash and other nonspecific skin eruption Primary hypertension- Primary Unspecified essential hypertension Age-related osteoporosis with current pathological fracture of vertebra with delayed healing Mixed hyperlipidemia Mixed hyperlipidemia VAL (obstructive sleep apnea) Obstructive sleep apnea (adult) (pediatric) BMI 32.0-32.9,adult Chronic right shoulder pain Pain in joint, shoulder region Neoplasm of uncertain behavior Neoplasm of uncertain behavior, site unspecified Rib pain on left side- Primary Essential (primary) hypertension Unspecified essential hypertension Essential hypertension Unspecified essential hypertension Age-related osteoporosis with current pathological fracture of vertebra with delayed healing Age-related osteoporosis without current pathological fracture Spondylolisthesis, unspecified spinal region Primary hypertension Unspecified essential hypertension Bradycardia Other specified cardiac dysrhythmias BMI 32.0-32.9,adult Pancreatic cyst (HCC) Cyst and pseudocyst of pancreas Encounter for subsequent annual wellness visit (AWV) in Medicare patient- Primary Primary hypertension Unspecified essential hypertension Bradycardia Other specified cardiac dysrhythmias Pancreatic cyst (HCC) Cyst and pseudocyst of pancreas Age-related osteoporosis without current pathological fracture Age-related osteoporosis with current pathological fracture of vertebra with delayed healing BMI 32.0-32.9,adult Mixed hyperlipidemia Mixed hyperlipidemia VAL (obstructive sleep apnea) Obstructive sleep apnea (adult) (pediatric) Closed fracture of transverse process of thoracic vertebra with delayed healing Abnormal serum protein electrophoresis- Primary VAL (obstructive sleep apnea) Obstructive sleep apnea (adult) (pediatric) Bradycardia Other specified cardiac dysrhythmias Primary hypertension Unspecified essential hypertension Pancreatic cyst (HCC) Cyst and pseudocyst of pancreas Age-related osteoporosis with current pathological fracture of vertebra with delayed healing BMI 32.0-32.9,adult Rib pain on left side Osteoporosis with current pathological fracture with routine healing, unspecified osteoporosis type, subsequent encounter Closed fracture of transverse process of thoracic vertebra with delayed healing Diarrhea, unspecified type- Primary VAL (obstructive sleep apnea) Obstructive sleep apnea (adult) (pediatric) Primary hypertension Unspecified essential hypertension Mixed hyperlipidemia Mixed hyperlipidemia Bradycardia Other specified cardiac dysrhythmias Lumbar spondylosis- Primary Lumbosacral spondylosis without myelopathy VAL (obstructive sleep apnea) Obstructive sleep apnea (adult) (pediatric) Mixed hyperlipidemia Mixed hyperlipidemia Primary hypertension Unspecified essential hypertension Bradycardia Other specified cardiac dysrhythmias Ingrown toenail- Primary Ingrowing nail Pain in toe of right foot Pain in soft tissues of limb Onychomycosis Dermatophytosis of nail Hammertoe of right foot documented in this encounter [facility]ative)* Consultation (Routine) - Pending Review Specialty Diagnoses / Procedures Referred By Nancie aguilar Referred To Contact Orthopaedic Surgery Diagnoses Chronic pain of right knee Chronic right shoulder pain Alisha Ernst, DEE [address] [place] [address] Jr. Donald Gonsalez DO [address] [facility] [address] [place] [address] Referral ID Status Reason Start Date Expiration Date Visits Requested Visits Authorized [id number] Pending Review Specialty Services Required 06/12/2023 12/09/2023 1 1 [facility] Summary Purpose Family History No Family History Records FoundNo Family History Records FoundNo Family History Records FoundNo Family History Records FoundNo Family History Records FoundNo Family History Records FoundNo Family History Records FoundNo Family History Records FoundNo Family History Records Found Advance Directives No Advanced Directives Records Found Date Activated Date Inactivated Comments 02/23/2022 6:24 AM 02/23/2022 10:58 AM Documents on File Type Date Recorded 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 Advance Directive(s) 12/20/2010 8:06 AM Reason for Referral Specialty Diagnoses / Procedures Referred By Contac t Referred To Contact Radiology Diagnoses Back pain, unspecified back location, unspecified back pain laterality, unspecified chronicity Closed fracture of one rib, unspecified laterality, initial encounter Osteopenia, unspecified location Procedures CT THORACIC SPINE WO CONTRAST Tana Bruno PA [address] [place] [address] Referral ID Status Reason Start Date Expiration Date Visits Re quested Visits Authorized [id number] Closed 04/07/2024 04/07/2025 1 1 Additional Source Comments INFORMATION SOURCE (unrecogn ized section and content) DATE CREATED AUTHOR 02/26/2022 [facility] DATE CREATED AUTHOR AUTHOR'S ORGANIZ ATION 02/26/2022 [facility] DATE CREATED AUTHOR AUTHOR'S ORGANIZ ATION 09/09/2022 [facility] DATE CREATED AUTHOR AUTHOR'S ORGANIZ ATION 05/01/2023 [facility] DATE CREATED AUTHOR AUTHOR'S ORGANIZ ATION 04/23/2024 [facility] DATE CREATED AUTHOR AUTHOR'S ORGANIZ ATION 05/18/2024 [facility] DATE CREATED AUTHOR AUTHOR'S ORGANIZ ATION 05/20/2024 [facility] DATE CREATED AUTHOR AUTHOR'S ORGANIZ ATION 05/25/2024 [facility] DATE CREATED AUTHOR AUTHOR'S ORGANIZ ATION 01/04/2025 [facility] EPIC Reason for Visit (unrecogniz ed section and content) Reason Comments New Patient Sleep Apnea Reason Comments Medicare Annual Wellness Visit Initial Hypertension Specialty Diagnoses / Procedures Referred By Nancie aguilar Referred To Contact Radiology Diagnoses Back pain, unspecified back location, unspecified back pain laterality, unspecified chronicity Closed fracture of one rib, unspecified laterality, initial encounter Osteopenia, unspecified location Procedures CT THORACIC SPINE WO Tana Treviño PA [address] [place] [address] Referral ID Status Reason Start Date Expiration Date Visits Re quested Visits Authorized [id number] Closed 04/07/2024 04/07/2025 1 1 Reason Comments Abnormal Serum Protein Electophorisis Reason Comments Follow-up Obstructive Sleep Apnea Reason Comments Follow-up Care Teams (unrecognized sec tion and content) Financial Project Manager Relationship Specialty Start Date End Date Alisha Ernst CNP [address] [place] [address] PCP - General Certified Nurse Practitioner 05/05/23 Financial Project Manager Relationship Specialty Start Date End Date Clarence Villagomez MD [address] [place] [address] PCP - General Family Medicine 11/21/22 Alisha Ernst NP [address] [place] [address] Nurse Practitioner Family Medicine 12/05/22 Financial Project Manager Relationship Specialty Start Date End Date Robert Pate MD [address] [place] [phone] PCP - General Family Medicine 02/29/24 Alisha Ernst NP [address] [place] [address] Nurse Practitioner Family Medicine 12/05/22 Financial Project Manager Relationship Specialty Start Date End Date Robert Pate MD [address] [place] [address] PCP - General Family Medicine 02/29/24 Alisha Ernst NP [address] [place] [address] Nurse Practitioner Family Medicine 12/05/22 Financial Project Manager Relationship Specialty Start Date End Date Robert Pate MD [address] [place] [address] PCP - General Family Medicine 02/29/24 Alisha Ernst NP [address] [place] [address] Nurse Practitioner Family Medicine 12/05/22 Financial Project Manager Relationship Specialty Start Date End Date Robert Pate MD [address] [place] [address] PCP - General Family Medicine 02/29/24 Alisha Ernst NP [address] [place] [address] Nurse Practitioner Family Medicine 12/05/22 Financial Project Manager Relationship Specialty Start Date End Date Robert Pate MD [address] [place] [address] PCP - General Family Medicine 02/29/24 Alisha Ernst NP [address] [place] [address] Nurse Practitioner Family Medicine 12/05/22 Financial Project Manager Relationship Specialty Start Date End Date Robert Pate MD [address] [place] [address] PCP - General Family Medicine 02/29/24 Alisha Ernst NP [address] [place] [address] Nurse Practitioner Family Medicine 12/05/22 Financial Project Manager Relationship Specialty Start Date End Date Robert Pate MD [address] [place] [address] PCP - General Family Medicine 02/29/24 Alisha Ernst NP [address] [place] [address] Nurse Practitioner Family Medicine 12/05/22 Financial Project Manager Relationship Specialty Start Date End Date Alisha Ernst, THERAPY ADMINISTRATIVE ASSISTANT - AIRCRAFT LINE ASSEMBLER [address] [place] [address] PCP - General Nurse Practitioner 04/17/24 Financial Project Manager Relationship Specialty Start Date End Date Robert Pate MD [address] [place] [address] PCP - General Family Medicine 02/29/24 Alisha Ernst NP [address] [place] [address] Nurse Practitioner Family Medicine 12/05/22 Financial Project Manager Relationship Specialty Start Date End Date Robert Pate MD [address] [place] [phone] PCP - General Family Medicine 02/29/24 Alisha Ernst NP [address] [place] [address] Nurse Practitioner Family Medicine 12/05/22 Financial Project Manager Relationship Specialty Start Date End Date Yudelka Arshad MD [address] [place] [facility] [address] PCP - General 12/15/10 Financial Project Manager Relationship Specialty Start Date End Date Alisha Ernst CNP [address] [place] [address] PCP - General Family Medicine 05/15/24 Financial Project Manager Relationship Specialty Start Date End Date Alisha Ernst CNP [address] [place] [address] PCP - General Certified Nurse Practitioner 05/05/23 Eunice Luna APRN-CHEESEMAKING LABORER [address] [place] [address] Nurse Practitioner Sleep Medicine 05/17/24 Financial Project Manager Relationship Specialty Start Date End Date Robert Pate MD [address] [place] [address] PCP - General Family Medicine 02/29/24 Alisha Ernst NP [address] [place] [address] PCP - ACO Reach 06/07/24 Alisha Ernst NP [address] [place] [address] Nurse Practitioner Family Medicine 12/05/22 Financial Project Manager Relationship Specialty Start Date End Date Robert Pate MD [address] [place] [address] PCP - General Family Medicine 02/29/24 Alisha Ernst NP [address] [place] [address] PCP - ACO Reach 06/07/24 Alisha Ernst NP [address] [place] [address] Nurse Practitioner Family Medicine 12/05/22 Financial Project Manager Relationship Specialty Start Date End Date Robert Pate MD [address] [place] [address] PCP - General Family Medicine 02/29/24 Alisha Ernst NP [address] [place] [address] PCP - ACO Reach 06/07/24 Alisha Ernst NP [address] [place] [address] Nurse Practitioner Family Medicine 12/05/22 Financial Project Manager Relationship Specialty Start Date End Date Robert Pate MD [address] [place] [address] PCP - General Family Medicine 02/29/24 Alisha Ernst NP [address] [place] [address] PCP - ACO Reach 06/07/24 Alisha Ernst NP [address] [place] [address] Nurse Practitioner Family Medicine 12/05/22 Financial Project Manager Relationship Specialty Start Date End Date Robert Pate MD [address] [place] [address] PCP - General Family Medicine 02/29/24 Alisha Ernst NP [address] [place] [address] PCP - ACO Reach 06/07/24 Alisha Ernst NP [address] [place] [address] Nurse Practitioner Family Medicine 12/05/22 Financial Project Manager Relationship Specialty Start Date End Date Robert Pate MD [address] [place] [address] PCP - General Family Medicine 02/29/24 Alisha Ernst NP [address] [place] [address] PCP - ACO Reach 06/07/24 Alisha Ernst NP [address] [place] [address] Nurse Practitioner Family Medicine 12/05/22 Financial Project Manager Relationship Specialty Start Date End Date Robert Pate MD [address] [place] [address] PCP - General Family Medicine 02/29/24 Alisha Ernst NP [address] [place] [address] PCP - ACO Reach 06/07/24 Alisha Ernst NP [address] [place] [address] Nurse Practitioner Family Medicine 12/05/22 Financial Project Manager Relationship Specialty Start Date End Date Robert Pate MD [address] [place] [address] PCP - General Family Medicine 02/29/24 Alisha Ernst NP [address] [place] [address] PCP - ACO Reach 06/07/24 Alisha Ernst NP [address] [place] [address] Nurse Practitioner Family Medicine 12/05/22 Financial Project Manager Relationship Specialty Start Date End Date Robert Pate MD PCP - General Family Medicine 02/29/24 Alisha Ernst NP [address] [place] [address] PCP - ACO Reach 06/07/24 Alisha Ernst NP Nurse Practitioner Family Medicine 12/05/22 Financial Project Manager Relationship Specialty Start Date End Date Robert Pate MD PCP - General Family Medicine 02/29/24 Alisha Ernst NP [address] [place] [address] PCP - ACO Reach 06/07/24 Alisha Ernst NP Nurse Practitioner Family Medicine 12/05/22 Source Comments (unrecognize d section and content) In the event this informatio n is protected by the Federal Confidentiality of Alcohol and Drug Abuse Patient Records regulations: The Federal rules restrict any use of the information to criminally investigate or prosecute any alcohol or drug abuse patient.[facility] the event this information is protected by the Federal Confidentiality of Alcohol and Drug Abuse Patient Records regulations: The Federal rules restrict any use of the information to criminally investigate or prosecute any alcohol or drug abuse patient.[facility] FOR RECORDS PERTAINING TO PATIENTS WHO ARE [...] BE BASED ON THE PRIMARY CLINICAL RECORDS. [facility] [employer] [facility]. provides no warranty or guarantee of the accuracy or completeness of information in this document.
[2025-01-17 09:28] LABS: Alanine Aminotransferase 17 U/L (14-59); Aspartate Amino Transferase 17 U/L (15-37); Cholesterol 191 mg/dL (<=200); HDL Cholesterol 74 mg/dL (40-60); Triglycerides 112 mg/dL (<=150); VLDL CHOLESTEROL 22.4 mg/dL
== END 2025-01-17 08:27 | disposition home or self-care (01) ==
LOC: LAB 08:27
PROVIDERS: PCP Nurse Practitioner; Visit Provider Nurse Practitioner
DX: E78.2 Mixed hyperlipidemia (principal)
CPT/HCPCS: 36415; 80061; 84450; 84460

== ENCOUNTER 2025-04-15 08:26 | Outpatient (OUT) | payer MEDICARE, SELFPAY ==
--- OUTSIDE RECORDS SUMMARY | 2025-04-07 06:11 | XMS_ITS | Continuity of Care Document ---
Author Organization [facility] Address [address] [place] [address] Phone Care Team Providers Care Inspection Manager Name Role Phone Yuedlka Arshad MD Primary Care Provider Alisha Ernst NP-C Attending Provider Care Teams Patient Care Team Team Status: Active Member Role/Relationship Status Dates Yudelka Arshad MD Primary Care Provider Active Patient Care Team Team Status: Active Member Role/Relationship Status Dates Yudelka Arshad MD Primary Care Provider Active Start: January 17, 2025 Alisha Ernst NP-CAttending ProviderActiveStart: January 17, 2025 Patient Care Team Team Status: Inactive Member Role/Relationship Status Dates Yudelka Arshad MD Primary Care Provider Active Start: April 07, 2025 End: April 07, 2025Alisha Ernst NP-CAttending ProviderActiveStart: April 07, 2025 End: April 07, 2025 Chief Complaint and Reason for Visit Chief Complaint Admit Date Medicare Wellness April 07, 2025 9 :56am Reason for Visit Admit Date Abnormal serum protein electrophoresis D ec2024 9:56am 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 April 07, 2025 9:56am Encounter for subsequent ed[facility] wellness visit (AWV) in Medicare patient April 07, 2025 9:56am HTN (hypertension) April 07, 2025 9 :56am Mixed hyperlipidemia April 07, 2025 9:56am VAL (obstructive sleep apnea) April 072024 9:56am Pancreatic cyst April 07, 2025 9 :56am Allergies, Adverse Reactions, Alerts Allergen Type Severity Reaction Last Updated Verified Status lisinopril Adverse Reaction Unknown Cough April 05, 2025 7:17am Yes Active Social History Smoking Status Unknown if ever smoked Observation Status Observation Response Date of Response Legal Sex [facility] (finding) [facility] 1945 Problems Active Problems Problem Diagnosis/Recorded Date Onset Date Stat us Abnormal serum protein electrophoresis April 02 025 7:18pm Unknown Active Encounter for subsequent edgar ua wellness visit (AWV) in Medicare patient April 02, 2025 7:21pm Unknown Ac tive VAL (obstructive sleep apnea) April 02, 2025 7:21p m Unknown Active 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 April 02, 2025 7:19pm Unknown Active Colon cancer screening April 02, 2025 7:20pm Unkno wn Active Encounter for screening mamm ogram for malignant neoplasm of breast April 02, 2025 7:21pm Unknown Activ e Onychomycosis April 02, 2025 7:21pm Unknown A ctive Bradycardia April 02, 2025 7:19pm Unknown Ac tive Closed fracture of transvers e process of thoracic vertebra with delayed healing April 02, 2025 7:20pm Unknown Active Chronic pain of right knee April 02, 2025 7:20pm U nknown Active Rash and nonspecific skin eruption April 02, 2025 7:22pm Unknown Active Mixed hyperlipidemia April 02, 2025 7:21pm Unknown Active Spondylolisthesis April 02, 2025 7:22pm Unknown Active Neoplasm of uncertain behavior April 02, 2025 7:21 pm Unknown Active Chronic pain in right shoulder April 02, 2025 7:20 pm Unknown Active HTN (hypertension) April 02, 2025 7:21pm Unknown Active Vitamin D deficiency April 07, 2025 6:35am Unknown Active Lumbar spondylosis April 02, 2025 7:21pm Unknown Active Pancreatic cyst April 02, 2025 7:22pm Unknown Active Medications Medication Status Dose Units Route Directions Qty Days Refills S tart Date Stop Date End Date Reason(s) Instructions Adherence Ezetimibe (Zetia) 10 mg tablet Active 10 MG PO D aily 90 2024 11:00pmHyperlipidemia Hyperlipidemia, unspecifiedComplies with drug therapyAmlodipine 2.5 mg tablet Active2.0SPWCTutay788Ghtzlqr 2024 11:00pmPrimary hypertension Essential (primary) hypertensionComplies with drug therapyLosartan 100 mg tablet Fhlcys866EXOUWrsza078Pcgqtxr 2024 11:00pmPrimary hypertension Essential (primary) hypertensionComplies with drug therapyBrimonidine 0.2 % dropsActiveDROPSOPHTHALMICDecember 2024 12:00amComplies with drug therapy Zoledronic Wgvu-Ykvmgmxd-Zqkcl (Reclast) 5 mg/100 mL piggybackActiveEACHIV April 05, 2025 12:00amComplies with drug therapyVit C,J-Ue-Iwzgn-Lutein-Zeaxan ([facility] Areds-2) 250-90-40-1 mg uwrghkrEcvwdo5YGD POTwice dailyDecember 2024 12:00amComplies with drug therapyMagnesium Oxide 400 mg magnesium idjwlpRdttxy047IPPPYtnxfCxfidqrw 6th, 2025 12:00amComplies with drug therapycalcium and vit dActivePOTwice dailyDecember 2024 12:00am Complies with drug therapyDorzolamide-Timolol 22.3-6.8 mg/mL dropsActive OPHTHALMICDecemb2024 12:00amComplies with drug therapy Relevant Diagnostic Tests and/or Laboratory Data Laboratory Results Test Collection Date/Time Result Date/Time Result Interpretation Reference Range Result Comment Performing Site Cholesterol/HDL Ratio January 17, 2025 7:38am Sept emb2024 7:38am 2.6 3.3 - 4.4 LOW RISK4.4 - 7.1 AVERAGE RISK7.1 - 11.0 MODERATE RISK>11.0 HIGH RISK Alanine Aminotransferase (ALT/SGPT)January 17, 2025 7:38amSeptember 2024 7:38am17 U/E37-97Mruklovks Amino Transf (AST/SGOT)January 17, 2025 7:38amSept2024 7:38am17 U/D80-34Ygnhciitqem LevelSept2024 7:38amSeptember 2024 7:08gr243 mg/dL<=200HDL CholesterolSept2024 7:38amSept2024 7:38am74 mg/dLAbove high opkmxy39-12> or =60 mg/dl - LOW CARDIOVASCULAR RISK<40 mg/dl - HIGH CARDIOVASCULAR RISKLDL Cholesterol, CalculatedSept2024 7:38amSept2024 7:38am 95.0 mg/dL<100 mg/dl TMYOEQF299-783 mg/dl NEAR OR ABOVE FYULCMB051-085 mg/dl BORDERLINE AVVW824-949 mg/dl HIGH>190 mg/dl VERY HIGHTriglycerides Level January 17, 2025 7:38amSept2024 7:22dg312 mg/dL<=150VLDL CholesterolSept2024 7:38amSept2024 7:38am22.4 mg/dL Vital Signs Vital Reading Result Reference Range Collection Date/Time Weight 79.94 kg April 07, 2025 10:21amBody Jzwkzvcctxe48.3 [degF]97.6-99.0Dece2024 10:21amHeart Rate49 /ekq98-119Pwplmomi 8th, 2025 10:21amRespiratory rate18 /min 12-24Dece2024 10:21amOxygen saturation by Pulse jlrydlgq70 %95-100 April 07, 2025 10:21amBP Kscpmtoz936 mm[Hg]100-140April 07, 2025 10:21am BP Qlbhdrnxp70 mm[Hg]60-100Dece2024 10:21am Advance Directives Advance Directive Response Recorded Date/ Time Advance Directives No April 07, 2025 9:52am Insurance Providers Guarantor Alivia Choi er Address [address] [place], [place] [id number] Info.Home Phone: Coverage Status Update:2025 Payer Group Member ID Coverage Type Subscriber Relationship to Subscriber Effective Date Expiration Date Medicare [id number] A Stockmaster Id: [id number] [address] [place] [id number] Home Phone: Email: [facility]ED [facility] [id number] A Stockmaster Id: [id number] [address] [place] [phone] Home Phone: Email: DECLINED 16Self Encounters Encounter Location(s) Arrival/Admit Date Discharge/Departure Date Discharge/Departure Disposition Provider(s) Non-patient / Non-visit -[facility] William Wong January 17, 2025 8:38am Alisha Ernst NP-CDeparted Physician/Provider Office Visit-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 Unknown April 07, 2025 9:56am Encounter for subsequent edgar l wellness visit (AWV) in Medicare patient Unknown April 07, 2025 9:56am HTN (hypertension) Unknown April 07, 2025 9:56am Mixed hyperlipidemia Unknown March 9:56am VAL (obstructive sleep apnea) Unknown 2024 9:56am Pancreatic cyst Unknown April 07 9:56am Assessments Diagnosis Onset Date Resolution Status Admit Date Abnormal serum protein electrophoresis acuteDece2024 9:56am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acuteDecemb2024 9:56amEncounter for subsequent annual wellness visit (AWV) in Medicare patientacuteDecember 2024 9:56amHTN (hypertension)acuteDece2024 9:56amMixed hyperlipidemiaacuteDecemb2024 9:56amOSA (obstructive sleep apnea)acuteDece2024 9:56am Pancreatic cystacuteDecemb2024 9:56am Plan of Treatment Author Alisha Ernst [facility] 2024 6:33amReviewed Ht/Wt/BMI Recommend eye exams yearly Recommend dental exam: twice a year Balance work/leisure activities exercise is recommended most days of the week (appropriate as chronic conditions allow) follow up yearly and prn Please check blood pressure daily and record DASH diet Limit caffeine Take medication as directed Contact office if chest pain, pressures, dizziness, shortness of breath, swelling in the legs Recommend slow position changes if you develop dizziness with position changes current meds: amlodipine, and losartan could no tolerate statin d/t diarrhea, is currently taking ezetimibe check labs yearly recommend diet low in fat and processed foods had MRI 03/18/24: 1.3cm benign appearing cyst/pseudocyst tail pancreas You have a diagnosis of VAL it is recommended that you wear your PAP device anytime while in bed sleeping. Not using the PAP device can increase your risk of elevated or uncontrolled blood pressure, atrial fibrillation, heart attack, stroke, and sudden . Compliance with PAP: How many hours of use per night: Do you feel refreshed in the morning: Company that supplies your machine, tubing/filters etc: Doctor that manages your VAL: was referred to Oncology 05/25, see notes, no further work up hx spinal fracture DEXA: 03/16/24: -1.6, significant improvements Reclast: Future Tests Future scheduled test information is unavailable Pending Tests Test Name Ordered Date Scheduled Date Comprehensive Metabolic Panel April 07, 2025 6:33am Future Visits Future appointment information is unavailable Future Procedures Procedure Name Ordered Date Scheduled Date Dipstick and Microscopic April 07, 2025 6:33 am Complete Blood Count Auto DiffDecember 2024 6:33amLipid PanelDecember 2024 6:33amMagnesiumDecember 2024 6:33amVitamin D 25 Hydroxy TotalDecember 2024 6:33amAMB POC Ur Microalb/Creat RatDecember 2024 6:33am Future Medications Future medication information is unavailable Patient Instructions Patient instructions are unavailable
--- OUTSIDE RECORDS SUMMARY | 2025-04-15 08:29 | XMS_ITS | Clinical Summary ---
Author Organization [facility] Address [address] [place] [address] Care Team Providers Care Locator Specialist Name Role Phone Alisha Ernst CNP Primary Care Provider Allergies Active AllergyReactionsCriticalityNoted HbesKbabfqfrXuubcyihmqIoizz68/24/2023 Medications MedicationSigDispense QuantityRefillsLast FilledStart DateEnd DateStatus dorzolamide 2 % OPHTHALMIC ophthalmic solution three times daily.Active Additional Information Patient not taking.Reported on 05/14/2024 carvedilol (COREG) 12.5 mg ORAL tablet Take 12.5 mg by mouth twice daily with meals.Active Additional Information Patient not taking.Reported on 05/14/2024 GLUC SAUCEDO/MSM/MAGNESIUM/VIT C (GLUCOSAMINE COMPLEX-MSM ORAL) Take by mouth.Active Additional Information Patient not taking.Reported on 05/14/2024 OMEGA-3 FATTY ACIDS/FISH OIL (OMEGA 3 FISH OIL ORAL) Take by mouth.Active Additional Information Patient not taking.Reported on 05/14/2024 MULTIVITAMIN WITH MINERALS (ALEKSEY MULTIPLE/CHELATED MINERAL ORAL) Take by mouth.Active Additional Information Patient not taking.Reported on 05/14/2024 Lutein 20 mg ORAL Cap Take 20 mg by mouth.Active Additional Information Patient not taking.Reported on 05/14/2024 Cholecalciferol, Vitamin D3, (VITAMIN D) 1,000 unit ORAL Cap Take 1,000 Units by mouth once daily.Active Additional Information Patient not taking.Reported on 05/15/2024 aspirin, enteric coated (ECOTRIN LOW STRENGTH) 81 mg ORAL EC tablet Take 81 mg by mouth once daily.Active Additional Information Patient not taking.Reported on 05/14/2024 naproxen 500 mg ORAL tablet Take 500 mg by mouth twice daily with meals.Active Additional Information Patient not taking.Reported on 05/14/2024 amLODIPine (NORVASC) 2.5 mg tablet Take 2.5 mg by mouth once daily.03/04/2024ctive brimonidine (ALPHAGAN) 0.2 % ophthalmic solution Use 1 Drop in both eyes two times a day.Active cetirizine (ZYRTEC) 10 mg tablet Take 10 mg by mouth once daily.Active dorzolamide-timolol (COSOPT) 22.3-6.8 mg/mL ophthalmic solution Use 1 Drop in both eyes two times a day.Active latanoprost (XALATAN) 0.005 % ophthalmic solution Use 1 Drop in both eyes daily at bedtime.Active losartan (COZAAR) 100 mg tablet Take 100 mg by mouth once daily.03/28/2018Active Zmugdwhodmrlr-Ywmvucdq-Bdwipv (CENTRUM SILVER) tab Take 1 tablet by mouth once daily.Active pravastatin (PRAVACHOL) 20 mg tablet Take 20 mg by mouth once daily.04/02/2024ctive zoledronic acid (RECLAST) 5 mg/100 mL PREMIX piggyback Inject 5 mg intravenously.Active vit A/vit C/vit E/zinc/copper (PRESERVISION AREDS ORAL) Take by mouth as directed.Active calcium carbonate/vitamin D3 (CALCIUM WITH VITAMIN D ORAL) Take by mouth once daily.Active magnesium oxide 400 mg magnesium tab Take by mouth once daily.Active Active Problems ProblemNoted DateDiagnosed DateSenile cataract, trmjnsoaxdl86/20/2011 Family History Medical HistoryRelationCommentsDiabetesFatherHypertensionMotherRelationStatus CommentsFatherAliveMotherAlive Social History Tobacco UseTypesPacks/DayYears UsedDateSmoking Tobacco: FormerPassive Smoke Exposure: Never Tobacco Cessation:Counseling Given: Not Answered Comments:quit Alcohol UseStandard Drinks/WeekCommentsNo0 (1 standard drink = 0.6 oz pure alcohol)Area Deprivation IndexAnswerDate RecordedNational Score (1-100), lower number is lower xgqa093105/15/2024State Score (1-10), lower number is lower risk4 05/15/2024Data from: https://www.neighborhoodatlas.medicine.[facility].edu/. Last address used for [address] [place] [address]/15/2024CommentsNoSex and Gender InformationValueDate RecordedSex Assigned at BirthNot on fileLegal NklXzbtny14/02/2012 9:37 AM ESTGender IdentityNot on fileSexual OrientationNot on fileOccupationIndustryJob Start DateJob End DatehomemakerNot on fileNot on fileNot on file Last Filed Vital Signs Vital SignReadingTime TakenCommentsBlood Uohzftmx618/67005/15/2024 1:47 PM EST emxjwotJfltq0412/15/2025 1:43 PM NNTSryxxfzozea46.6 ??C (97.8 ??F)05/15/2024 1:43 PM ESTRespiratory Lqjj414805/15/2024 1:43 PM ESTOxygen Hpgydjripi54% 05/15/2024 1:43 PM ESTInhaled Oxygen Concentration--Hisumu33.9 kg (184 lb 15.5 oz)05/15/2024 1:43 PM MZTKmzkql899 cm (5' 3 )12/15/2010 10:32 AM EDTBody Mass Index-- Plan of Treatment Health MaintenanceDue DateLast DoneCommentsAnxiety Rgrwzmrbj34/14/1965Depression Sqpyaaiez40/14/1965Hepatitis C Bcvxzubnw42/14/1965DTaP,Tdap,Td Vaccine (1 - Tdap)1965Diabetes Jndvanvct74Bone Density Screening 12/13/2011Pneumococcal Vaccine: 50+ (2 of 2 - PCV)RSV Vaccine (1 - 1-dose 75+ series)2021dvance Directive Fwtcwdowyu64/01/2025 Covid-19 Vaccine ( - 2024- season)/07/2023, 02/06/2023, 01/25/2022, Additional history existsInfluenza Vaccine (#1)/07/2023, 02/06/2023, 01/25/2022, Additional history existsShingrix VaccineCompleted 11/15/2021, 06/14/2021 Medical Devices ImplantedTypeAreaManufacturerDevice IdentifierShelf Expiration DateModel / Serial / LotLens Iol +17.5 Lenore Acrsf Iq - [id number] [facility]planted:[facility] - [facility]ens [facility] [id number]/[id number] 17.5 / [id number] / Lens Iol +17.5 Lenore Acrsf Iq - [id number] Implanted:Qty: 1 [facility]/05/2011 [facility] - [facility] [id number] / [id number] / Procedures Procedure NamePriorityDate/TimeAssociated DiagnosisCommentsBASIC METABOLIC PANEL 01/21/2000 11:49 AM EDT from Last 3 Months or Most Recently Relevant to Health Maintenance Results * (ABNORMAL) BASIC CHEMISTRY PKG (01/21/2000 11:49 AM EDT)ComponentValueRef RangeTest MethodAnalysis TimePerformed AtPathologist JbglbaulmEkltzia2547 - 110 mg/dLCINCINNAT[facility] HLJTZA383 - 25 mg/dLCINCINNATI CH[facility] LABCreatinine 0.5(A)0.7 - 1.4 mg/dLCINCINNATI CHIL[facility] CUBCofqpk831533 - 148 mmol/[facility] LABPotassium4.43.5 - 5.0 mmol/[facility] VSDVhikejcj94499 - 110 mmol/[facility] ZGEES97679 - 32 mmol/[facility] LABAnion Ppq513 - 15 mmol/[facility] LABCalcium9.58.5 - 10.5 mg/dLCINCINNATI [facility] LAB Specimen (Source)Anatomical Location / LateralityCollection Method / Volume Collection TimeReceived Time01/21/2000 11:49 AM EDT Narrative [facility] - 01/21/2000 9:10 PM EDT Ordered by DYLON LAMB Authorizing ProviderResult TypeResult StatusCcf ProviderLABORATORYFinal Result Performing OrganizationAddressCity/State/ZIP CodePhone Number [facility] [address] [place] [address] from Last 3 Months or Most Recently Relevant to Health Maintenance Insurance * Guarantor: Alivia Waterman AAcmarvaunt TypeRelation to PatientDate of PhoneBilling AddressPersonal/NayqwzXcxu86/14/1946 [id number] [address] * Guarantor: Alivia aWterman TypeRelation to PatientDate of PhoneBilling AddressSelf CqpSora07 1945 [id number] [address] Advance Directives TypeDate RecordedPatient RepresentativeExplanationAdvance Directive(s)12/20/2010 8:06 AM Care Teams Team MemberRelationshipSpecialtyStart DateEnd Date Alisha Ernst, ESTIMATING ENGINEER [address] [place] [address] PCP - GeneralFamily Medicine05/15/24
--- OUTSIDE RECORDS SUMMARY | 2025-04-15 08:29 | XMS_ITS | Clinical Summary ---
Author Organization [facility] Address [address], [address] [place] [address] Care Team Providers Care Systems Integration Analyst Name Role Phone Alisha Ernst APRN, NP Primary Care Provide r Allergies No known active allergies Medications MedicationSigDispense QuantityRefillsLast FilledStart DateEnd DateStatus losartan (COZAAR) 100 MG tablet Take 100 mg by mouth dailyActive amLODIPine (NORVASC) 2.5 MG tablet Take 2.5 mg by mouth dailyActive Active Problems ProblemNoted DateDiagnosed DateAge-related osteoporosis with current pathological fracture of vertebra with delayed pjwcdlp9902/23/2022 Social History Tobacco UseTypesPacks/DayYears UsedDateSmoking Tobacco: NeverSmokeless Tobacco: Never Tobacco Cessation:Counseling Given: Not Answered Alcohol UseStandard Drinks/WeekCommentsYes0 (1 standard drink = 0.6 oz pure alcohol)rarelyCommentsUnknownSex and Gender InformationValueDate RecordedSex Assigned at BirthNot on fileLegal MmyNliwzt92/15/2020 11:30 AM EDT Gender IdentityNot on fileSexual OrientationNot on file Last Filed Vital Signs Vital SignReadingTime TakenCommentsBlood Gtxwwufl554/7710 8:45 AM EDT Uuqaz145102/23/2022 8:30 AM SMAZmadjxkrisu34 ??C (98.6 ??F)02/23/2022 6:33 AM EDT Respiratory Hdff8284 6:33 AM EDTOxygen Ocsvqwpfoy73%02/23/2022 8:45 AM EDTInhaled Oxygen Concentration--Gtktbf67.5 kg (173 lb 1.6 oz)02/23/2022 6:33 AM YCIVrkdev184 cm (5' 3 )02/23/2022 6:33 AM EDTBody Mass Index30.6602/23/2022 6:33 AM EDT Plan of Treatment Health MaintenanceDue DateLast DoneCommentsDepression Bfokvl6812/12/1958Hepatitis C igojhd8312/12/1964DTaP/Tdap/Td vaccine (1 - Tdap)1965DEXA (modify frequency per FRAX score)2001Pneumococcal 50+ years Vaccine (2 of 2 - PCV) Respiratory Syncytial Virus (RSV) or age 60 yrs+ (1 - 1-dose 75+ series)2021nnual Wellness Visit (Medicare)03/27/2023Flu vaccine (#1)/07/2023, 02/06/2023, 01/25/2022, Additional history existsCOVID-19 Vaccine ( season), 02/06/2023, 01/25/2022, Additional history existsShingles ldffayqFersedaan91/18/2022, 06/14/2021Hepatitis A vaccineAged OutNo longer eligible based on patient's age to complete this topicHepatitis B vaccineAged OutNo longer eligible based on patient's age to complete this topicHib vaccineAged OutNo longer eligible based on patient's age to complete this topicMeningococcal (ACWY) vaccineAged OutNo longer eligible based on patient's age to complete this topicMeningococcal B vaccineAged OutNo longer eligible based on patient's age to complete this topic Polio vaccineAged OutNo longer eligible based on patient's age to complete this topic Medical Devices ImplantedTypeAreaManufacturerDevice IdentifierShelf Expiration DateModel / Serial / LotKyphon Bone Cement Implanted:Qty: 1 on 02/23/2022 by Elieser Quiros MD at [facility] N/A: [id number] / / [id number] Insurance Advance Directives * Full Code (Latest Code Status on File) Date ActivatedDate KpqaaotuiiiCdlhdbmp54/26/2022 6:24 AM02/23/2022 10:58 AM Care Teams Team MemberRelationshipSpecialtyStart DateEnd Date Alisha Ernst, MAINTENANCE INSTRUCTOR - INTERIOR DECORATOR [address] [place] [address] PCP - GeneralNurse Jnzfzumixhce25/18/24
--- OUTSIDE RECORDS SUMMARY | 2025-04-15 08:29 | XMS_ITS | Clinical Summary ---
Author Organization [facility] Address [address] [facility] [place] [address] Care Team Providers Care Senior Tax Accountant Name Role Phone Alisha Ernst HAND CULTIVATOR Unavailable [phone] Robert Pate MD Primary Care Provider [phone] Alisha Ernst HAND CULTIVATOR Unavailable [phone] Allergies Active AllergyReactionsCriticalityNoted BrfjBeuvysarKfkhgvfwelYemlo51/24/2023 MARTY inhibitors Medications MedicationSigDispense QuantityRefillsLast FilledStart DateEnd DateStatus latanoprost (Xalatan) 0.005 % ophthalmic solution 09/02/2022ctive brimonidine (AlphaGAN P) 0.2 % ophthalmic solution 1 drop in the morning and 1 drop before bedtime.Active Multiple Vitamins-Minerals (PreserVision AREDS 2) chewable tablet ChewActive dorzolamide-timolol (Cosopt) 2-0.5 % ophthalmic solution Administer 1 drop into both eyes in the morning and 1 drop before bedtime. 4Active cetirizine (ZyrTEC) 10 MG tablet Take by mouth Pt takes OTCActive zoledronic acid (Reclast) 5 MG/100ML solution Indications:OsteoporosisInfuse 5 mg into a venous catheter yearlyActive magnesium oxide (Mag-Ox) 400 MG tablet Take 400 mg by mouth DailyActive amLODIPine (Norvasc) 2.5 MG tablet Indications:Essential (primary) hypertension,Essential hypertensionTake 1 tablet (2.5 mg) by mouth Daily 90 tablet 5Active losartan (Cozaar) 100 MG tablet Indications:Essential (primary) hypertension,Essential hypertensionTake 1 tablet (100 mg) by mouth Daily 90 tablet 5Active Calcium Carb-Cholecalciferol (CALCIUM CARBONATE+VITAMIN D PO) Take 1 tablet by mouth in the morning and 1 tablet before bedtime.Active ezetimibe (Zetia) 10 MG tablet Indications:Mixed hyperlipidemiaTake 1 tablet (10 mg) by mouth at bedtime 90 tablet 5Active Active Problems ProblemNoted DateDiagnosed DateLumbar gowierukolx32/15/2025 Assessment & Plan (11/12/2024 10:42 AM EDT): Discussed that her sxs in right leg and feet likely related to her lumbar pathology, at this time her exam is normal and I have advised her of sxs to monitor for worsening in condition and at this time she is not interested to going back to neurosurgeon Abnormal serum protein gvwseafqdhvmznj35/14/2025 Assessment & Plan (05/14/2024 12:01 PM EST): Elevated free kappa light chain S No other abnormals, will refer to Hematology for second opinion Uncertain with underlying osteoporosis despite treatment and no other abnormals whey continued fractures Zngtlxixawzv23/09/2024 Assessment & Plan (05/14/2024 12:07 PM EST): Continue reclast Encounter for subsequent annual wellness visit (AWV) in Medicare patient 04/02/2024 Assessment & Plan (04/02/2024 6:35 AM EST): Reviewed Ht/Wt/BMI Recommend eye exam yearly Recommend dental exams twice a year Balance work/leisure activities Exercises is recommended most days of the week (appropriate as chronic conditions allow) Follow up yearly and prn Closed fracture of transverse process of thoracic vertebra with delayed healing 04/02/2024 Assessment & Plan (05/14/2024 12:08 PM EST): Reviewed MRI will order fu CT scan, no hx of malignancy, her DEXA scans have improved and she is complaint with her yearly reclast, no trauma associated with this fracture, was reaching over to grab her CPAP to put on Reviewed labs, elevated free kappa light chain S, no spike protein At this point out of caution will obtain second opinion from oncology Assessment & Plan (04/02/2024 11:58 AM EST): Reviewed MRI will order fu CT scan, no hx of malignancy, her DEXA scans have improved and she is complaint with her yearly reclast, no trauma associated with this fracture, was reaching over to grab her CPAP to put on Will order labs Pancreatic cyst03/04/2024 Assessment & Plan (05/14/2024 7:33 AM EST): Had MRI pancreas cyst Assessment & Plan (04/02/2024 6:36 AM EST): Had MRI pancrease cyst Assessment & Plan (03/05/2024 8:33 AM EST): Noted on CT abd/pelvis Will order an MRI pancreas to make sure that this cyst is not related to any thing in left rib/lateral region MRI abd without and with contrast eval pancreas mass Mixed ywxuxmphntoike58/13/2024 Assessment & Plan (11/12/2024 10:44 AM EDT): Will trial zetia, intolerance to statin therapy Check labs in 2 months Assessment & Plan (08/13/2024 11:11 AM EDT): On statin therapy , going to hold for now to see if diarrhea is better without med Consider zetia in future Check labs yearly and prn dose changes Assessment & Plan (04/02/2024 11:09 AM EST): Reviewed again lipids from 09/21, family hx: stroke, also has HTN Discussed high/mod/low intensity statin Will trial pravastatin 20mg Advised side effects of meds recheck labs in 8 weeks VAL (obstructive sleep apnea)09/11/2023 Assessment & Plan (11/12/2024 6:16 AM EDT): You have a diagnosis of obstructive sleep [...] your VAL: Dona Germain NP seen last Assessment & Plan (08/13/2024 11:10 AM EDT): You have a diagnosis of obstructive sleep [...] your VAL: Dona Germain NP seen last Assessment & Plan (05/14/2024 7:33 AM EST): You have a diagnosis of obstructive sleep apnea. It is recommended that you wear your PAP device any time while in bed sleeping. Not using the PAP device can increase your risk of elevated/uncontrolled high blood pressure, atrial fibrillation, heart attack, stroke, or sudden . Compliant: Hours use: Feeling good: Assessment & Plan (04/02/2024 11:46 AM EST): Compliant with PAP use Assessment & Plan (09/11/2023 10:17 AM EDT): Cont with PAP and sleep med provider Colon cancer yvkavpllj10/13/2024 Overview (09/11/2023): 04/04/2018 Encounter for screening mammogram for malignant neoplasm of gauzdx6409/11/2023 Overview (09/11/2023): 12/21/22 Neoplasm of uncertain mvpzihah51/13/2024 Assessment & Plan (09/11/2023 10:23 AM EDT): Will refer to [facility] Discussed with pt that this could represent a benign or malignant process Oycknrvdhywzqkdbm59/12/2024 Assessment & Plan (03/04/2024 5:37 PM EST): Cont with neurosurgery Has MRI spine this week HTN (hypertension)06/12/2023 Assessment & Plan (11/12/2024 6:16 AM EDT): Please check blood pressure daily and record DASH diet Limit caffeine Take medication as directed Contact office if chest pain, pressure, dizziness, shortness of breath, swelling legs Recommend slow position changes Current meds: losartan and Amlodipine Assessment & Plan (08/13/2024 6:12 AM EDT): Please check blood pressure daily and record DASH diet Limit caffeine Take medication as directed Contact office if chest pain, pressure, dizziness, shortness of breath, swelling legs Recommend slow position changes Current meds: losartan and Amlodipine Assessment & Plan (05/14/2024 7:33 AM EST): Please check blood pressure daily and record DASH diet Limit caffeine Take medication as directed Contact office if chest pain, pressure, dizziness, shortness of breath, swelling legs Recommend slow position changes Current meds: losartan and Amlodipine Assessment & Plan (04/02/2024 6:36 AM EST): Please check blood pressure daily and record DASH diet Limit caffeine Take medication as directed Contact office if chest pain, pressure, dizziness, shortness of breath, swelling legs Recommend slow position changes Current meds: losartan and Amlodipine Assessment & Plan (03/04/2024 5:37 PM EST): Stable on current meds No changes needed Assessment & Plan (09/11/2023 10:17 AM EDT): Stable on current meds No changes needed Fu in 6 months Assessment & Plan (06/12/2023 10:25 AM EST): Stable at this time, no changes in meds or doses Skoiuslewbw49/12/2024 Assessment & Plan (11/12/2024 10:43 AM EDT): 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, 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, does take b miriam eye drops Assessment & Plan (08/13/2024 11:10 AM EDT): 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, 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, does take b miriam eye drops Assessment & Plan (05/14/2024 7:33 AM EST): 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, no symptoms, does take b miriam eye drops Assessment & Plan (04/02/2024 6:36 AM EST): 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, 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, does take b miriam eye drops Assessment & Plan (03/04/2024 5:37 PM EST): 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, 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, does take b miriam eye drops Assessment & Plan (06/12/2023 10:26 AM EST): 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 Trial adding OTC zyrtec 10mg daily, contact office in 2 weeks if this does not help Discussed skin care with winter Xkhwkbtkkwvwd76/24/2023ge-related osteoporosis with current pathological fracture of vertebra with delayed ohqklqd0402/23/2022 Assessment & Plan (05/14/2024 7:34 AM EST): Has been following with kyle Also gets reclast yearly as well, last dose 03/24 Also takes calcium/vit d supplement daily Reviewed MRI thoracic spine, fracture left T11 transverse process and proximal rib Had fu CT scans Assessment & Plan (04/02/2024 11:48 AM EST): Has been following with kyle Also gets reclast yearly as well, last dose 03/24 Also takes calcium/vit d supplement daily Reviewed MRI thoracic spine, fracture left T11 transverse process and proximal rib Will need fu CT thoracic spine, consider labs as well Assessment & Plan (09/11/2023 10:22 AM EDT): Check labs Resolved Problems ProblemNoted DateDiagnosed DateResolved GohxKnhiqkwn75 Assessment & Plan (08/13/2024 11:12 AM EDT): Possible side effect for statin No obvious infectious or red flag symptoms Will give her a month off statin and then see if better Last colonoscopy 2018: diverticulosis Rib pain on left side/ Assessment & Plan (03/04/2024 5:39 PM EST): Unclear etiology DD: muscle strain, zoster, radiculopathy thoracic pathology Will wait to see what is next Age-related osteoporosis without current pathological iyenjhdd82/13/2024 04/02/2024 Overview (03/16/2024): DEXA scan 03/15/24: osteopenia, lumbar -0.1 (14% improvement) and hip -1.6 (6%better) Assessment & Plan (03/04/2024 5:34 PM EST): Time for reclast Will order this BMI 32.0-32.9,adult Immunizations ImmunizationAdministration DatesNext DueInfluenza, High Dose Seasonal, Preservative Free02/02/2024,01/29/2019,02/26/2018,02/22/2017Influenza, High-dose Seasonal, Quadrivalent, Preservative Free01/25/2022,01/26/2021Influenza, Seasonal, Quadrivalent, Jddekyckre57/09/2023,01/28/2020Influenza, injectable, quadrivalent, preservative free03/18/2015Influenza, seasonal, injectable, preservative free03/21/2016Pneumococcal Polysaccharide DPVH5741/Zoster, Jzlokoyadaa36/18/2022,06/14/2021 Family History Medical HistoryRelationNameCommentsDiabetesFatherHypertensionFatherHypertension MotherRelationNameStatusCommentsFatherDeceasedMotherAlive Social History Tobacco UseTypesPacks/DayYears UsedDateSmoking Tobacco: NeverSmokeless Tobacco: NeverAlcohol UseStandard Drinks/WeekCommentsNever0 (1 standard drink = 0.6 oz pure alcohol)Social Connection and Isolation PanelAnswerDate RecordedIn a typical week, how many times do you talk on the phone with family, friends, or neighbors?Patient pfakyinl77/10/2024How often do you get together with friends or relatives?Patient ecgnjcbz86/10/2024How often do you attend orthodoxy or adventist services?Patient uqndksts80/10/2024o you belong to any clubs or organizations such as orthodoxy groups, unions, fraternal or athletic groups, or school groups?Patient yzfxfhdb40/10/2024How often do you attend meetings of the clubs or organizations you belong to?Patient /10/2024re you , , , , never , or living with a partner? 09/08/2023UDIT-CAnswerDate RecordedQ1: How often do you have a drink containing alcohol?Patient jbyonmds78/10/2024Q2: How many drinks containing alcohol do you have on a typical day when you are drinking?Patient /10/2024Q3: How often do you have six or more drinks on one occasion?Patient uchgdjwk46/10/2024 Overall Financial Resource Strain (CARDIA)AnswerDate RecordedHow hard is it for you to pay for the very basics like food, housing, medical care, and heating? Patient mgpptaaz68/10/2024HQ-2AnswerDate RecordedPatient Health Questionnaire-2 Fjrcb841Finacadia healthcare [place] [facility] Occup[facility] - Occupational Stress QuestionnaireAnswerDate RecordedDo you feel stress - tense, restless, nervous, or anxious, or unable to sleep at night because yourmind is troubled all the time - these days?Patient fyyhixzs08/10/2024Exercise Vital SignAnswerDate RecordedOn average, how many days per week do you engage in moderate to strenuous exercise (like a brisk walk)?Patient pyluqrrp38/10/2024On average, how many minutes do you engage in exercise at this level?Patient yxzrppci28/10/2024 Hunger Vital SignAnswerDate RecordedWithin the past 12 months, you worried that your food would run out before you got the money to buymore.Patient declined 09/08/2023Within the past 12 months, the food you bought just didn't last and you didn't have money to get more.Patient hyhwzdxm07/10/2024RAPARE - TransportationAnswerDate RecordedIn the past 12 months, has lack of transportation kept you from medical appointments or from getting medications? Patient rvioahej75/10/2024In the past 12 months, has lack of transportation kept you from meetings, work, or from getting things needed for daily living?Patient smradmqe08/10/2024Housing Stability Vital SignAnswerDate RecordedIn the last 12 months, was there a time when you were not able to pay the mortgage or rent on time?Patient lqvhnevv59/10/2024Number of Places Lived in the Last YearNot on file09/08/2023In the last 12 months, was there a time when you did not have a steady place to sleep or slept in [place] (including now)?Patient declined 09/08/2023CommentsUnknownSex and Gender InformationValueDate RecordedSex Assigned at BirthNot on fileLegal NfiZndolz92/15/2023 6:38 PM EDTGender Identity Not on fileSexual OrientationNot on file Last Filed Vital Signs Vital SignReadingTime TakenCommentsBlood Wegzwalc701/7007 8:59 AM EDT Cagii6887/15/2025 8:59 AM BXWYbuwkvizheq15.9 ??C (98.5 ??F)11/12/2024 8:59 AM EDTRespiratory Wvll780111/12/2024 8:59 AM EDTOxygen Ppvcxbupuk60%11/12/2024 8:59 AM EDTInhaled Oxygen Concentration--Utazvx53.7 kg (178 lb)11/12/2024 8:59 AM EDT Ycyxbc231 cm (5' 3 )05/14/2024 8:56 AM ESTBody Mass Index31.53005/14/2024 8:56 AM EST Plan of Treatment Health MaintenanceDue DateLast DoneCommentsPneumococcal Vaccine: 65+ Years (2 of 2 - PCV)COVID-19 Vaccine ( season)2024 02/02/2024, 02/06/2023, 01/25/2022, Additional history existsInfluenza Vaccine (#1), 02/06/2023, 01/25/2022, Additional history exists Medicare Annual Wellness (AWV)512/06/2023, 04/02/2024 Insurance Care Teams Team MemberRelationshipSpecialtyStart DateEnd Date Robert Pate MD PCP - GeneralFamily Pvglsxxt41/31/24 Alisha Ernst NP [address] [place] [address] PCP - [facility]06/07/24 Alisha Ernst NP Nurse Pract[facility]erSouth [facility]12/05/22
--- OUTSIDE RECORDS SUMMARY | 2025-04-15 08:29 | XMS_ITS | Clinical Summary ---
Author Organization [facility] tem Address [id number] [place] [address] Care Team Providers Care Steel Burner Name Role Phone Alisha Ernst KEY BED INSTALLER-ROAD MONKEY Primary Care Provider Allergies No known active allergies Medications MedicationSigDispense QuantityRefillsLast FilledStart DateEnd DateStatus omega-3 fatty acids (FISH OIL CONCENTRATE) 1,000 mg capsule Take by mouth.Active dorzolamide (TRUSOPT) 2 % ophthalmic solution three times daily.Active latanoprost (XALATAN) 0.005 % ophthalmic solution 01/18/2018Active losartan (COZAAR) 100 mg tablet 03/28/2018Active naproxen (NAPROSYN) 500 mg tablet Take 500 mg by mouth.Active qwoczchc-zjtpwnkhvev-zptc cb25 116-100 mg capsule Take by mouth.Active jjtdhtrsuxzz-aejffkhm-fmbyhf (CENTRUM SILVER) tablet Take 1 tablet by mouth daily.Active sodium,potassium,mag sulfates (SUPREP BOWEL PREP KIT) 17.5-3.13-1.6 gram recon soln 177 ml,actual weight, 2 times daily, Oral 1 kit 04/02/2018Active Active Problems No known active problems Family History Medical HistoryRelationNameCommentsGlaucomaMotherOsteoporosisMotherBreast cancer Paternal AuntRelationNameStatusCommentsFatherDeceasedMotherAlivePaternal Aunt Social History Tobacco UseTypesPacks/DayYears UsedDateSmoking Tobacco: FormerSmokeless Tobacco: NeverAlcohol UseStandard Drinks/WeekCommentsNo0 (1 standard drink = 0.6 oz pure alcohol)AUDIT-CAnswerDate RecordedFrequency of Alcohol ConsumptionNever 04/02/2018Average Number of DrinksNot on file04/02/2018Frequency of Binge DrinkingNot on file04/02/2018ChildcareAnswerDate RecordedChildcareUnknown 10/11/2018EmploymentAnswerDate FvkzhxtsTwhtopoizaXhfmoij16/13/2019Purpose - Life AnswerDate RecordedPurpose and direction in wihwFibygmf20/11/2021 CommentsUnknownSex and Gender InformationValueDate RecordedSex Assigned at Not on fileLegal BihYneitw56/26/2018 9:25 AM ESTGender IdentityNot on fileSexual OrientationNot on file Last Filed Vital Signs Vital SignReadingTime TakenCommentsBlood Cvbcwzpi590/8404/02/2018 2:30 PM EST Pulse--Temperature--Respiratory Rate--Oxygen Saturation--Inhaled Oxygen Concentration--Tpjfas86.5 kg (184 lb)04/02/2018 2:30 PM GDSJwiadv496 cm (5' 3 ) 04/02/2018 2:30 PM ESTBody Mass Index32.5904/02/2018 2:30 PM EST Plan of Treatment Health MaintenanceDue DateLast DoneCommentsDepression Dzwmwmqwe74/14/1959Tobacco Rzbhzcdmk28/14/1959DTaP,Tdap and Td Vaccines (1 - Tdap)1965Fall Risk Ejbsrrgcl84/14/2012RSV ( or age 60+ yrs) (1 - 1-dose 75+ series) 2021OVID-19 Vaccine ( season)/12/2022, 01/25/2022, 01/26/2021, Additional history existsInfluenza Epulxqq05/01/686980/12/2022, 01/25/2022, 01/26/2021, Additional history existsZoster (Shingles) Vaccine Xcavwdtcu53/18/2022, 06/14/2021 Medical Devices Not on file Insurance * Guarantor: Briana Waterman TypeRelation to PatientDate of PhoneBilling AddressPersonal/WrbrchGexg36/14/[id number] [address] Care Teams Team MemberRelationshipSpecialtyStart DateEnd Date Alisha Ernst, PAMELA-ROAD MONKEY PCP - GeneralNurse Wmlkrelzudyp11/26/18
[2025-04-15 09:20] LABS: Hematocrit 42.4 % (36.0-48.0); Hemoglobin 13.8 g/dL (12.0-16.0); Immature Granulocytes Abs Auto 0.01 10^3/uL (0.00-0.03); Immature Granulocytes Pct Auto 0.2 % (0.0-0.5); Lymphocytes Absolute Auto 1.3 10^3/uL (1.2-3.8); Mean Corpuscular HGB Conc 32.5 g/dL (29.9-35.2); Mean Corpuscular Hemoglobin 29.4 pg (26.7-34.0); Mean Corpuscular Volume 90.2 fL (81.0-99.0); Platelet Count 211 10^3/uL (150-450); Red Blood Count 4.70 10^6/uL (4.20-5.40); White Blood Count 5.4 10^3/uL (4.0-11.0)
[2025-04-15 09:51] LABS: Alanine Aminotransferase 19 U/L (14-59); Albumin Globulin Ratio 0.9; Albumin Level 3.5 g/dL (3.4-5.0); Alkaline Phosphatase 58 U/L (46-116); Anion Gap 12.3; Aspartate Amino Transferase 21 U/L (15-37); Blood Urea Nitrogen 17.0 mg/dL (7.0-18.0); Calcium 9.0 mg/dL (8.5-10.1); Carbon Dioxide 28.0 mmol/L (21.0-32.0); Chloride 106 mmol/L (98-107); Cholesterol 223 mg/dL (<=200); Estimated GFR (African America >60 (>=60 mL/min/1.73m^2); Estimated GFR (Non-African Ame >60 (>=60 mL/min/1.73m^2); Globulin 3.8 g/dL; Glucose 102 mg/dL (74-106); HDL Cholesterol 75 mg/dL (40-60); Magnesium 2.1 mg/dL (1.8-2.4); Potassium 4.3 mmol/L (3.5-5.1); Sodium 142 mmol/L (136-145); Total Protein 7.3 g/dL (6.4-8.2); Triglycerides 95 mg/dL (<=150); VLDL CHOLESTEROL 19.0 mg/dL
[2025-04-15 11:17] LABS: Glucose Urine UA NEGATIVE (NEGATIVE)
[2025-04-15 11:25] LABS: Crystals Seen? None Seen #/HPF (None Seen)
[2025-04-15 11:26] LABS: Cast Seen? NONE SEEN #/LPF (NONE SEEN)
== END 2025-04-15 08:27 | disposition home or self-care (01) ==
LOC: LAB 08:27
PROVIDERS: PCP Nurse Practitioner; Visit Provider Nurse Practitioner
DX: E78.2 Mixed hyperlipidemia (principal); I10 Essential (primary) hypertension; G47.33 Obstructive sleep apnea (adult) (pediatric); M80.08XG Age-related osteoporosis with current pathological fracture, vertebra(e), subsequent encounter for fracture with delayed healing; R77.8 Other specified abnormalities of plasma proteins
CPT/HCPCS: 36415; 80053; 80061; 81001; 82043; 82306; 82570; 83735; 85025

== ENCOUNTER 2025-04-18 09:52 | Outpatient (RCR) | payer MEDICARE, SELFPAY ==
[2025-04-18 09:55] VITALS: BP 165/60; PULSE 50; TEMP 36.2; O2SAT 97
[2025-04-18] MEDS: ZOLEDRONIC ACID/MANNITOL-WATER 5 MG/100 ML BOTTLE 400 MG IV (10:02)
== END 2025-04-30 23:59 | disposition home or self-care (01) ==
LOC: INF 09:52
PROVIDERS: PCP Nurse Practitioner; Visit Provider Nurse Practitioner
DX: M81.0 Age-related osteoporosis without current pathological fracture (principal)
CPT/HCPCS: 96365; J3489